=== PATIENT | female | born 1940 | race Caucasian/White ===

== ENCOUNTER 2024-09-18 17:06 | Inpatient (IN) | payer MEDICARE, MEDICAID, SELFPAY ==
[2024-09-18 17:20] VITALS: BP 187/90; PULSE 79; PULSE 85; RESP 16; RESP 19; TEMP 36.7; O2SAT 96; O2SAT 97
--- NOTE | 2024-09-18 17:21 | PD.EDAMS ---
Altered Mental Status RME/HPI General Chief Complaint: Altered Mental Status Stated Complaint: ALTERED Time Seen by Provider: 09/18/24 17:16 Arrival date/time: 09/18/24 17:06 This is an 84-year-old female that is brought in by ambulance with complaints of altered mental status 2 nights, talking to herself, screaming and yelling. uses wheelchair, saying things thats did not make sense. Per EMS son states that she was last seen normal on Monday at 8 AM. Per EMS patient is GCS 15. Patient was incontinent of urine. Per patient has fallen 4-5 times in the last couple days. Patient reports hitting the back of her head. Patient also has a little bruise under her chin. She arrives hypertensive in the 200s systolic. Patient has a history of anxiety depression migraines, high blood pressure hyperlipidemia.T2DM, HTN, recurrent UTIs, GERD, neuropathy, OA and history of lumbar fracture. Per patient's son patient not eating and drinking very well. Related Data Home Medications ?Medication ?Instructions ?Recorded ?Confirmed azelastine 137 mcg-fluticasone 50 1 spray intranasal BID PRN Nasal 04/07/23 09/19/24 mcg/spray nasal spray Congestion loratadine 10 mg tablet 10 mg PO QDAY 04/07/23 09/19/24 aspirin 81 mg tablet,delayed 81 mg PO QDAY 09/19/24 09/19/24 release (Adult Aspirin Regimen) atorvastatin 40 mg tablet (Lipitor) 40 mg PO QPM 09/19/24 09/19/24 famotidine 20 mg tablet (Acid 20 mg PO QDAY 09/19/24 09/19/24 Controller) memantine ER 28 mg-donepezil 10 mg 1 cap PO QDAY 09/19/24 09/19/24 capsule sprinkle,ext.release 24 hr (Namzaric) montelukast 10 mg tablet 10 mg PO QDAY 09/19/24 09/19/24 oxycodone 10 mg tablet 10 mg PO Q4H 09/19/24 09/19/24 Previous Rx's ?Medication ?Instructions ?Recorded pramipexole 0.75 mg tablet 0.75 mg PO HS 30 days #30 tabs 09/15/23 buspirone 30 mg tablet 30 mg PO HS #60 tabs 09/22/24 clonazepam 1 mg tablet 1 mg PO DAILY #30 tabs 09/22/24 duloxetine 60 mg capsule,delayed 60 mg PO HS #30 caps 09/22/24 release hydralazine 10 mg tablet 10 mg PO TID #60 tabs 09/22/24 polyethylene glycol 3350 17 17 g PO QDAY #119 grams 09/22/24 gram/dose oral powder lisinopril 2.5 mg tablet 2.5 mg PO QDAY #30 tabs 09/23/24 carvedilol 3.125 mg tablet 3.125 mg PO BIDWM 30 days #60 tabs 09/27/24 Allergies Allergy/AdvReac Type Severity Reaction Status Date / Time Penicillins Allergy Severe UNABLE TO Verified 09/18/24 17:28 WALK Sulfa (Sulfonamide Allergy Severe FLU, Verified 09/18/24 17:28 Antibiotics) UNABLE TO WALK Review of Systems Review of Systems Systems Reviewed: All systems reviewed, normal except as documented Past Medical History Surgical History OTHER SURGICAL HX: As in the history of present illness ED Exam General General appearance: Present alert and in no apparent distress Head Head exam: Present atraumatic Eye Eye exam: Present normal appearance, PERRL and EOMI ENT ENT exam: Present normal exam, normal oropharynx and mucous membranes moist Neck Neck exam: Present normal inspection, full ROM and trachea midline Chest Chest inspection: Present normal inspection and symmetric chest wall rise Respiratory Respiratory exam: Present normal lung sounds bilaterally Cardiovascular Cardiovascular exam: Present regular rate, normal rhythm and normal heart sounds Abdominal Exam Abdominal exam: Present soft Extremities Exam Extremities exam: Present normal inspection and full ROM Back Exam Back exam: Present normal inspection and full ROM Neurological Exam Neurological exam: Present alert and other (awake, able to answer most questions appropriately, pt sometimes says things that do not make sense ) Psychiatric Psychiatric exam: Present normal affect and normal mood Skin Skin exam: Present warm, dry, intact and normal color Course Course Course Narrative: 2125: left a message for Joselyn son to call back [id number] Quality Measures none Orders Category Date Time Status COVID-19 Screening Questionnaire NOW Care 09/18/24 22:52 Completed Decision to Admit X1 Care 09/18/24 22:52 Completed EKG (ED ONLY) *Do not use* NOW Care 09/18/24 17:[address] cervical spine wo con Stat Exams 09/18/24 17:[address] head/brain wo con Stat Exams 09/18/24 17:22 Completed EKG (ED Only) Stat Exams 09/18/24 17:23 Draft XR chest 1V Stat Exams 09/18/24 17:23 Completed BNP [B-Type Natriuretic Peptide] Stat Lab 09/18/24 18:15 Completed Blood Culture (Lab) Stat Lab 09/18/24 22:12 Completed CBC Stat Lab 09/18/24 18:15 Completed Comprehensive Metabolic Panel Stat Lab 09/18/24 18:15 Completed Drug Screen,Urine Stat Lab 09/18/24 20:16 Completed INR [Prothrombin Time with INR] Stat Lab 09/18/24 18:15 Completed Troponin I Stat Lab 09/18/24 18:15 Completed Troponin I Stat Lab 09/18/24 21:06 Completed Urinalysis, C/S if Indicated Stat Lab 09/18/24 20:16 Completed Urine Culture Stat Lab 09/18/24 21:12 Completed Labetalol IV [Trandate IV] Med 09/18/24 23:36 Discontinued 10 mg IVP X1 ONE Sodium Chloride 0.9% 1000 ml [Ns] 1,000 ml Med 09/18/24 19:53 Discontinued IV 999 mls/hr amLODIPine BESYLATE [Norvasc] Med 09/18/24 21:29 Discontinued 5 mg PO X1 ONE cefTRIAXone [Rocephin] 1,000 mg Med 09/18/24 22:00 Discontinued SODIUM CHLORIDE 0.9% (Popper) [Ns 0.9% (P)] 50 ml IV X1 Vital Signs Vital signs: Vital Signs Temperature 98.0 F 09/18/24 17:20 Pulse Rate 79 09/18/24 17:20 Respiratory Rate 16 09/18/24 17:20 Blood Pressure 187/90 H 09/18/24 17:20 Pulse Oximetry (%) 97 09/18/24 17:20 Oxygen Delivery Method Nasal Cannula 09/18/24 17:20 Procedures -ED EKG Interpretation #1: Date of EK09/18/24 Time of EK:41 Rate: 76 Interpretation: Interpreted by me (sinus rhythm left ventricular hypertrophy) EKG Impression: No ectopy and Normal QRS Altered Mental Status MDM Narrative MDM Narrative:: chest x ray shows: Findings: No significant cardiac enlargement. No aspiration pneumonia. Significant osteopenia Impression: No aspiration pneumonia cervical spine ct: Findings: Axial sections demonstrate intact base of the skull. C1 exhibit satisfactory relationship to the odontoid. No acute cervical vertebral body fracture seen. Alignment posterior spinous processes satisfactory. Impression: No acute cervical fracture. Head ct : Findings: No significant ventricular enlargement. Intra-axial or extra-axial hemorrhage density is not seen. No mass effect or midline shift Basal cisterns are not remarkable. Fourth ventricle is midline. Cranial vault intact. Impression: Negative for acute hemorrhage, mass effect or midline shift Patient hypertensive upon arrival 187/90. Patient CBC shows a white count of 9.2, hemoglobin and hematocrit of 12.7 and 38.3 PT INR unremarkable patient's sodium 143 potassium 3.1 BUN of 26 creatinine of 2.0, patient's AST is 47 ALT is 27 alk phos is 138 troponin was 0.070 BNP was 44 chest x-ray shows no active disease CT head and neck unremarkable. Urine positive for UTI patient was given a dose of Ceftriaxone. Patient is allergic to penicillins but I checked with Joselyn son At [phone] and he states that she can take this medication. Hospitalist called to admit patient to [facility] and they agreed to admit Patient data External records reviewed:: [facility] previous records Clinical information provided by:: patient and family Social determinants that could affect healthcare access:: none Patient has the following chronic illnesses:: see hpi How is presenting disease/condition affected by chronic disease/condition?: exacerbated by Evaluation data The following diagnostics were reviewed and interpreted by me:: lab results, radiology exam(s) and EKG tracing(s) Lab and/or radiology exams considered but not ordered:: none Interpretation Summary: see note Medications / Prescriptions Medications or Prescriptions considered but not ordered:: none Medication administrations:: Medication Administration History Discontinued Medications Acetaminophen (Acetaminophen 325 Mg Tablet) 650 mg PO Q6H PRN PRN Reason: Fever >100 or pain 1-5 Stop: 10/19/24 00:04 Last Admin: 09/27/24 17:12 Dose: 650 mg Documented By: Admin: 09/27/24 09:00 Dose: 650 mg Documented By: Admin: 09/27/24 01:52 Dose: 650 mg Documented By: IMELDA Amlodipine Besylate (Amlodipine Besylate 5 Mg Tablet) 5 mg PO X1 ONE Stop: 09/18/24 21:30 Last Admin: 09/18/24 21:48 Dose: 5 mg Documented By: LETICIA Aspirin (Aspirin Ec 81 Mg Tabec) 81 mg PO X1 ONE Stop: 09/19/24 09:01 Aspirin (Aspirin Ec 81 Mg Tabec) 81 mg PO QDAY [facility] Stop: 10/19/24 08:59 Last Admin: 09/27/24 08:02 Dose: 81 mg Documented By: Admin: 09/26/24 08:39 Dose: 81 mg Documented By: Admin: 09/25/24 08:42 Dose: 81 mg Documented By: Admin: 09/24/24 08:47 Dose: 81 mg Documented By: Admin: 09/23/24 08:18 Dose: 81 mg Documented By: Admin: 09/22/24 09:28 Dose: 81 mg Documented By: Admin: 09/21/24 09:53 Dose: 81 mg Documented By: Admin: 09/20/24 09:34 Dose: 81 mg Documented By: Admin: 09/19/24 08:31 Dose: 81 mg Documented By: MARIO Atorvastatin Calcium (Atorvastatin Calcium 10 Mg Tablet) 40 mg PO HS [facility] Stop: 10/19/24 20:59 Last Admin: 09/20/24 20:09 Dose: 40 mg Documented By: Admin: 09/19/24 20:44 Dose: 40 mg Documented By: GERARDO Atorvastatin Calcium (Atorvastatin Calcium 20 Mg Tablet) 40 mg PO HS [facility] Stop: 10/19/24 20:59 Last Admin: 09/26/24 20:41 Dose: 40 mg Documented By: Admin: 09/25/24 20:38 Dose: 40 mg Documented By: Admin: 09/24/24 20:48 Dose: 40 mg Documented By: Admin: 09/23/24 21:30 Dose: 40 mg Documented By: Admin: 09/22/24 20:53 Dose: 40 mg Documented By: Admin: 09/21/24 20:10 Dose: 40 mg Documented By: CARRIE Buspirone HCl (Buspirone Hcl 5 Mg Tablet) 30 mg PO HS [facility] Stop: 10/19/24 00:09 Last Admin: 09/26/24 20:41 Dose: 30 mg Documented By: Admin: 09/25/24 20:38 Dose: 30 mg Documented By: Admin: 09/24/24 20:47 Dose: 30 mg Documented By: Admin: 09/23/24 21:30 Dose: 30 mg Documented By: Admin: 09/22/24 20:53 Dose: 30 mg Documented By: Admin: 09/21/24 20:10 Dose: 30 mg Documented By: Admin: 09/20/24 20:09 Dose: 30 mg Documented By: Admin: 09/19/24 20:44 Dose: 30 mg Documented By: Admin: 09/19/24 01:38 Dose: 30 mg Documented By: LETICIA Comments: JUST BROUGHT DOWN BY ADVANCED PRACTICE RN Carvedilol (Carvedilol 3.125 Mg Tablet) 3.125 mg PO BIDWM [facility] Stop: 10/20/24 13:59 Last Admin: 09/21/24 09:53 Dose: 3.125 mg Documented By: Admin: 09/20/24 13:43 Dose: 3.125 mg Documented By: LARISSA Carvedilol (Carvedilol 3.125 Mg Tablet) 3.125 mg PO X1 ONE Stop: 09/21/24 10:40 Last Admin: 09/21/24 13:06 Dose: 3.125 mg Documented By: MILY Carvedilol (Carvedilol 3.125 Mg Tablet) 6.25 mg PO BIDWM [facility] Stop: 10/21/24 17:29 Last Admin: 09/23/24 08:30 Dose: Not Given Documented By: MOI Non-Admin Reason: Cancelled by Provider Admin: 09/22/24 18:42 Dose: 6.25 mg Documented By: Admin: 09/22/24 09:28 Dose: 6.25 mg Documented By: Admin: 09/21/24 17:21 Dose: 6.25 mg Documented By: MILY Carvedilol (Carvedilol 3.125 Mg Tablet) 12.5 mg PO BIDWM [facility] Stop: 10/23/24 17:29 Last Admin: 09/25/24 08:42 Dose: 12.5 mg Documented By: Admin: 09/24/24 17:47 Dose: 12.5 mg Documented By: Admin: 09/24/24 08:48 Dose: 12.5 mg Documented By: Admin: 09/23/24 18:21 Dose: 12.5 mg Documented By: MOI Carvedilol (Carvedilol 3.125 Mg Tablet) 3.125 mg PO BIDWM [facility] Stop: 10/25/24 17:29 Last Admin: 09/27/24 17:12 Dose: 3.125 mg Documented By: Admin: 09/27/24 08:01 Dose: 3.125 mg Documented By: Admin: 09/26/24 17:11 Dose: 3.125 mg Documented By: Admin: 09/26/24 08:39 Dose: 3.125 mg Documented By: Admin: 09/25/24 17:42 Dose: Not Given Documented By: JORGE Non-Admin Reason: Vital Signs Comments: Hold per Dr. Condon related to vital signs. Cephalexin HCl (Cephalexin 250 Mg Capsule) 500 mg PO DAILY [facility] Stop: 10/01/24 08:59 Last Admin: 09/26/24 08:39 Dose: 500 mg Documented By: Admin: 09/25/24 08:42 Dose: 500 mg Documented By: Admin: 09/24/24 08:48 Dose: 500 mg Documented By: HERMILA Clonazepam (Clonazepam 0.5 Mg Tablet) 1 mg PO BID [facility] Stop: 09/24/24 00:14 Last Admin: 09/19/24 20:45 Dose: 1 mg Documented By: Admin: 09/19/24 08:30 Dose: 1 mg Documented By: Admin: 09/19/24 01:27 Dose: 1 mg Documented By: LETICIA Clonazepam (Clonazepam 0.5 Mg Tablet) 1 mg PO DAILY [facility] Stop: 09/25/24 08:59 Last Admin: 09/24/24 08:47 Dose: 1 mg Documented By: Admin: 09/23/24 08:17 Dose: 1 mg Documented By: Admin: 09/22/24 09:28 Dose: 1 mg Documented By: Admin: 09/21/24 09:52 Dose: 1 mg Documented By: Admin: 09/20/24 09:34 Dose: 1 mg Documented By: LARISSA Doxepin HCl (Doxepin Hcl 25 Mg Capsule) 25 mg PO HS [facility] Stop: 10/19/24 00:09 Last Admin: 09/19/24 01:39 Dose: 25 mg Documented By: LETICIA Comments: JUST BROUGHT DOWN BY ADVANCED PRACTICE RN Duloxetine HCl (Duloxetine Hcl 30 Mg Capsule) 60 mg PO HS [facility] Stop: 10/19/24 00:14 Last Admin: 09/24/24 20:48 Dose: 60 mg Documented By: Admin: 09/23/24 21:30 Dose: 60 mg Documented By: Admin: 09/22/24 20:52 Dose: 60 mg Documented By: Admin: 09/21/24 20:10 Dose: 60 mg Documented By: Admin: 09/20/24 20:09 Dose: 60 mg Documented By: Admin: 09/19/24 20:44 Dose: 60 mg Documented By: Admin: 09/19/24 01:40 Dose: 60 mg Documented By: LETICIA Comments: JUST BROUGHT DOWN BY ADVANCED PRACTICE RN Heparin Sodium (Porcine) (Heparin Sod Inj 5000 Unit/Ml Vial) 5,000 unit SC Q12H [facility] Stop: 10/03/24 08:59 Last Admin: 09/27/24 08:01 Dose: 5,000 unit Documented By: CECIL Co-signed By: JERAMY Admin: 09/26/24 20:41 Dose: 5,000 unit Documented By: IMELDA Co-signed By: VANDANA Admin: 09/26/24 08:40 Dose: 5,000 unit Documented By: JORGE Co-signed By: ER Admin: 09/25/24 20:35 Dose: 5,000 unit Documented By: IMELDA Co-signed By: ADALGISA Admin: 09/25/24 08:47 Dose: 5,000 unit Documented By: JORGE Co-signed By: LEONARDO Admin: 09/24/24 20:48 Dose: 5,000 unit Documented By: CARRIE Co-signed By: ANGELES Admin: 09/24/24 08:45 Dose: 5,000 unit Documented By: HERMILA Co-signed By: LEONARDO Admin: 09/23/24 21:40 Dose: 5,000 unit Documented By: ADALGISA Co-signed By: GERARDO Admin: 09/23/24 08:17 Dose: 5,000 unit Documented By: MOI Co-signed By: CORAZON Admin: 09/22/24 20:55 Dose: 5,000 unit Documented By: KAYCEE Co-signed By: Admin: 09/22/24 09:29 Dose: 5,000 unit Documented By: MILY Co-signed By: AMY Admin: 09/21/24 20:10 Dose: 5,000 unit Documented By: CARRIE Co-signed By: MAILE Admin: 09/21/24 09:53 Dose: 5,000 unit Documented By: MILY Co-signed By: COLE Admin: 09/20/24 20:08 Dose: 5,000 unit Documented By: CARRIE Co-signed By: Admin: 09/20/24 09:33 Dose: 5,000 unit Documented By: LARISSA Co-signed By: ELIO Admin: 09/19/24 20:45 Dose: 5,000 unit Documented By: GERARDO Co-signed By: SUSAN Admin: 09/19/24 08:31 Dose: 5,000 unit Documented By: MARIO Co-signed By: JORGE Hydralazine HCl (Hydralazine Inj 20 Mg/Ml Vial) 10 mg IV X1 ONE Stop: 09/19/24 01:37 Last Admin: 09/19/24 01:44 Dose: 10 mg Documented By: LETICIA Hydralazine HCl (Hydralazine Inj 20 Mg/Ml Vial) 5 mg IV X1 ONE Stop: 09/22/24 08:12 Last Admin: 09/22/24 09:29 Dose: 5 mg Documented By: MILY Hydralazine HCl (Hydralazine Hcl 10 Mg Tablet) 10 mg PO TID [facility] Stop: 10/22/24 13:59 Hydralazine HCl (Hydralazine Hcl 25 Mg Tablet) 25 mg PO BID [facility] Stop: 10/22/24 13:14 Last Admin: 09/22/24 20:51 Dose: 25 mg Documented By: Admin: 09/22/24 13:27 Dose: 25 mg Documented By: MILY Hydralazine HCl (Hydralazine Hcl 25 Mg Tablet) 25 mg PO TID [facility] Stop: 10/23/24 13:59 Hydralazine HCl (Hydralazine Hcl 10 Mg Tablet) 10 mg PO TID [facility] Stop: 10/23/24 13:59 Last Admin: 09/27/24 13:52 Dose: Not Given Documented By: CECIL Non-Admin Reason: Other, see note Comments: DR CSATILLOIQ AWARE OF BP 194/70, WILL ENTER NEW DOSE Admin: 09/25/24 05:12 Dose: Not Given Documented By: CARRIE Non-Admin Reason: Other, see note Comments: PER DR KHAN HOLD MEDICATION Admin: 09/24/24 21:49 Dose: Not Given Documented By: CARRIE Non-Admin Reason: PER HOLD MEDICATION Admin: 09/24/24 15:05 Dose: 10 mg Documented By: Admin: 09/24/24 05:20 Dose: 10 mg Documented By: Admin: 09/23/24 21:30 Dose: 10 mg Documented By: Admin: 09/23/24 14:33 Dose: Not Given Documented By: MOI Non-Admin Reason: Per MD Condon, do not give Hydralazine HCl (Hydralazine Hcl 25 Mg Tablet) 25 mg PO TID [facility] Stop: 10/27/24 13:59 Last Admin: 09/27/24 14:00 Dose: 25 mg Documented By: CECIL Sodium Chloride (Ns) 1,000 mls @ 999 mls/hr IV .Q1H1M ONE Stop: 09/18/24 20:53 Last Infusion: 09/18/24 23:33 Dose: Infused Documented By: Admin: 09/18/24 20:11 Dose: 999 mls/hr Documented By: ALMAS Ceftriaxone Sodium 1,000 mg/ (Sodium Chloride) 50 mls @ 100 mls/hr IV X1 ONE Stop: 09/18/24 22:29 Last Infusion: 09/18/24 23:33 Dose: Infused Documented By: Admin: 09/18/24 22:22 Dose: 100 mls/hr Documented By: ALMAS Ceftriaxone Sodium 1,000 mg/ (Sodium Chloride) 50 mls @ 100 mls/hr IV HS [facility] Stop: 09/26/24 20:59 Last Admin: 09/21/24 20:11 Dose: 100 mls/hr Documented By: Infusion: 09/20/24 20:38 Dose: Infused Documented By: Admin: 09/20/24 20:08 Dose: 100 mls/hr Documented By: Infusion: 09/19/24 22:05 Dose: Infused Documented By: Admin: 09/19/24 21:34 Dose: 100 mls/hr Documented By: GERARDO Magnesium Sulfate (Magnesium Sulfate Ivpb) 4 gm in 50 mls @ 12.5 mls/hr IV X1 ONE Stop: 09/19/24 12:54 Last Infusion: 09/19/24 18:50 Dose: Infused Documented By: Admin: 09/19/24 09:34 Dose: 12.5 mls/hr Documented By: MGXiomy Sodium Chloride (Ns) 250 mls @ 999 mls/hr IV .Q16M ONE Stop: 09/20/24 10:25 Last Infusion: 09/20/24 10:39 Dose: Infused Documented By: Admin: 09/20/24 10:23 Dose: 999 mls/hr Documented By: CECIL Sodium Chloride (Ns) 250 mls @ 999 mls/hr IV .Q16M ONE Stop: 09/20/24 18:42 Last Infusion: 09/20/24 19:30 Dose: Infused Documented By: Admin: 09/20/24 18:51 Dose: 999 mls/hr Documented By: LIBERTAD Magnesium Sulfate (Magnesium Sulfate Ivpb) 2 gm in 50 mls @ 25 mls/hr IV X1 ONE Stop: 09/21/24 09:25 Last Admin: 09/21/24 09:52 Dose: 25 mls/hr Documented By: MILY Sodium Chloride (Ns) 250 mls @ 999 mls/hr IV .Q16M ONE Stop: 09/21/24 07:43 Last Admin: 09/21/24 09:52 Dose: 999 mls/hr Documented By: MILY Piperacillin/Tazobactam/Dextrose (Zosyn) 3.375 gm in 50 mls @ 100 mls/hr IV X1 ONE Stop: 09/21/24 12:59 Last Admin: 09/21/24 16:54 Dose: Not Given Documented By: MILY Non-Admin Reason: Allergy Piperacillin/Tazobactam/Dextrose (Zosyn) 3.375 gm in 50 mls @ 12.5 mls/hr IV Q12HR [facility]; Protocol Stop: 09/28/24 20:59 Magnesium Sulfate (Magnesium Sulfate Ivpb) 2 gm in 50 mls @ 25 mls/hr IV X1 ONE Stop: 09/24/24 09:27 Last Admin: 09/24/24 08:48 Dose: 25 mls/hr Documented By: HERMILA Sodium Chloride (Ns) 250 mls @ 999 mls/hr IV .Q16M ONE Stop: 09/24/24 07:50 Last Admin: 09/24/24 08:48 Dose: 999 mls/hr Documented By: HERMILA Lactated Ringer's (Lactated Ringers) 500 mls @ 250 mls/hr IV .Q2H ONE Stop: 09/25/24 09:00 Lactated Ringer's (Lactated Ringers) 500 mls @ 999 mls/hr IV .Q31M ONE Stop: 09/25/24 07:53 Lactated Ringer's (Lactated Ringers) 1,000 mls @ 250 mls/hr IV .Q4H ONE Stop: 09/25/24 12:33 Last Admin: 09/25/24 08:47 Dose: 250 mls/hr Documented By: JORGE Sodium Chloride (Ns) 500 mls @ 250 mls/hr IV .Q2H ONE Stop: 09/26/24 15:12 Last Admin: 09/26/24 13:37 Dose: 250 mls/hr Documented By: JORGE Sodium Chloride (Ns) 500 mls @ 250 mls/hr IV .Q2H ONE Stop: 09/27/24 09:36 Last Admin: 09/27/24 08:07 Dose: 250 mls/hr Documented By: CECIL Labetalol HCl (Labetalol Inj 5 Mg/Ml Vial 20 Ml) 10 mg IVP X1 ONE Stop: 09/18/24 23:37 Last Admin: 09/18/24 23:57 Dose: 10 mg Documented By: LETICIA Labetalol HCl (Labetalol Inj 5 Mg/Ml Vial 20 Ml) 5 mg IVP X1 ONE Stop: 09/27/24 16:25 Last Admin: 09/27/24 16:35 Dose: 5 mg Documented By: CECIL Lidocaine (Lidocaine 5% 1 Patch) 1 patch TOP X1 ONE Stop: 09/22/24 00:17 Last Admin: 09/22/24 00:44 Dose: 1 patch Documented By: CARRIE Lisinopril (Lisinopril 2.5 Mg Tablet) 10 mg PO QDAY [facility] Stop: 10/23/24 13:59 Last Admin: 09/24/24 08:45 Dose: 10 mg Documented By: Admin: 09/23/24 14:34 Dose: 10 mg Documented By: MOI Nitrofurantoin Macrocrystals (Nitrofurantoin Macro 100 Mg Capsule) 100 mg PO BID [facility] Stop: 09/27/24 10:14 Last Admin: 09/23/24 08:18 Dose: 100 mg Documented By: Admin: 09/22/24 20:53 Dose: 100 mg Documented By: Admin: 09/22/24 13:27 Dose: 100 mg Documented By: MILY Home Medication- Please Speak With Patient Caregiver To Have Rx Brought To [facility] 1 cap PO HS [facility] Stop: 10/21/24 20:59 Last Admin: 09/26/24 20:43 Dose: Not Given Documented By: IMELDA Non-Admin Reason: not available Admin: 09/25/24 20:34 Dose: Not Given Documented By: IMELDA Non-Admin Reason: not available Admin: 09/24/24 20:48 Dose: Not Given Documented By: CARRIE Non-Admin Reason: Medication Not Available Admin: 09/23/24 21:31 Dose: Not Given Documented By: ADALGISA Non-Admin Reason: Medication Not Available Admin: 09/22/24 20:54 Dose: Not Given Documented By: KAYCEE Non-Admin Reason: Medication Not Available Admin: 09/21/24 20:20 Dose: Not Given Documented By: CARRIE Non-Admin Reason: Medication Not Available Ondansetron HCl (Ondansetron Inj 2 Mg/Ml Inj 2 Ml) 4 mg IV Q6H PRN; Protocol PRN Reason: NAUSEA OR VOMITING Stop: 10/19/24 00:04 Oxycodone/Acetaminophen (Oxycodone/Apap 5/325 Tablet) 2 tab PO Q6H PRN PRN Reason: pain 6-10 Stop: 09/24/24 00:14 Oxycodone/Acetaminophen (Oxycodone/Apap 5/325 Tablet) 1 tab PO Q8HR PRN PRN Reason: pain 6-10 Stop: 09/24/24 00:04 Last Admin: 09/22/24 16:15 Dose: 1 tab Documented By: Admin: 09/21/24 17:22 Dose: 1 tab Documented By: MILY Oxycodone/Acetaminophen (Oxycodone/Apap 5/325 Tablet) 1 tab PO Q4HR PRN PRN Reason: pain 6-10 Stop: 09/25/24 07:54 Last Admin: 09/24/24 17:47 Dose: 1 tab Documented By: Admin: 09/22/24 20:55 Dose: 1 tab Documented By: KAYCEE Pantoprazole Sodium (Pantoprazole Inj 40 Mg Vial) 40 mg IVP QDAY [facility] Stop: 10/19/24 08:59 Last Admin: 09/27/24 08:01 Dose: 40 mg Documented By: Admin: 09/26/24 08:39 Dose: 40 mg Documented By: Admin: 09/25/24 08:40 Dose: 40 mg Documented By: Admin: 09/24/24 08:45 Dose: 40 mg Documented By: Admin: 09/23/24 08:17 Dose: 40 mg Documented By: Admin: 09/22/24 09:28 Dose: 40 mg Documented By: Admin: 09/21/24 09:52 Dose: 40 mg Documented By: Admin: 09/20/24 09:33 Dose: 40 mg Documented By: Admin: 09/19/24 08:28 Dose: 40 mg Documented By: MARIO Pharmacy Consult (Pharmacy Renal Dose Adjustment 1 Ea) 1 each XX PRN PRN PRN Reason: CONSULT Stop: 10/20/24 07:54 Polyethylene Glycol (Polyethylene Glycol 17 Gm Packet) 17 gm PO QDAY [facility] Stop: 10/22/24 08:59 Last Admin: 09/24/24 08:49 Dose: 17 gm Documented By: Admin: 09/23/24 08:17 Dose: 17 gm Documented By: Admin: 09/22/24 09:28 Dose: 17 gm Documented By: MILY Potassium Chloride (Potassium Chloride 20 Meq Tabcr) 40 meq PO X1 ONE Stop: 09/19/24 00:31 Last Admin: 09/19/24 01:27 Dose: 40 meq Documented By: LETICIA Pramipexole Dihydrochloride (Pramipexole 0.25 Mg Tablet) 0.75 mg PO HS [facility] Stop: 10/19/24 00:09 Last Admin: 09/26/24 20:42 Dose: 0.75 mg Documented By: Admin: 09/25/24 20:38 Dose: 0.75 mg Documented By: Admin: 09/24/24 20:48 Dose: 0.75 mg Documented By: Admin: 09/23/24 21:30 Dose: 0.75 mg Documented By: Admin: 09/22/24 20:52 Dose: 0.75 mg Documented By: Admin: 09/21/24 20:12 Dose: 0.75 mg Documented By: Admin: 09/20/24 20:09 Dose: 0.75 mg Documented By: Admin: 09/19/24 20:45 Dose: 0.75 mg Documented By: Admin: 09/19/24 01:38 Dose: 0.75 mg Documented By: LETICIA Comments: JUST BROUGHT DOWN BY [facility] RN Sennosides (Senna Tablet) 1 tab PO QDAY PRN; Protocol PRN Reason: CONSTIPATION Stop: 10/22/24 07:49 Sennosides (Senna Tablet) 1 tab PO X1 ONE; Protocol Stop: 09/22/24 07:51 Last Admin: 09/22/24 09:32 Dose: 1 tab Documented By: MILY see mar Consultations Consultation(s) initiated? (list below): No Diagnosis Most likely diagnosis given after review of the tests above:: uti Admission Indicated Admission indicated?: indicated Admission Request Was there a request for admission?: Yes Admission Attestation Admission request attestation: Discussed case with [] from Hospitalist service regarding admission. Discussed patients ED course, exam findings, labs, and radiology results. The Hospitalist [agrees,declines] to accept the patient for admission. Disposition Plan Disposition Plan: Admit Discharge Plan Plan Patient Disposition: Admit Acute Care w/in Hospital Patient condition on transfer: Stable Problem List Clinical Impression: GIRMA (acute kidney injury), Fall, UTI (urinary tract infection), Acute encephalopathy Patient/Caregiver Discharge Instructions Discharge Activity: activity as tolerated PA/CLAY GRINDER Supervising Physician PA/CLAY GRINDER Supervising Physician: jin
--- NOTE | 2024-09-18 17:22 | XR_ITS ---
Examination: CT cervical spine without contrast 2-D sagittal reconstructions 2-D coronal reconstructions 3-D reconstructions. Exam date and time:September 18, 2024 at 1823 hrs. Indications: Patient fell today with into the neck, neck pain CTDI:vol (mGy) 7.36 DLP: (mGycm) 156 Technique: Multiple 2 mm axial sections of the cervical spine have been obtained. The coronal and sagittal reconstructions have been obtained. 3-D reconstructions have been obtained. Low dose protocols were performed. One or more of the following dose reduction techniques were used; automated exposure control, adjustment of the mA and/or KV according to patient size, use of iterative reconstruction technique. Findings: Axial sections demonstrate intact base of the skull. C1 exhibit satisfactory relationship to the odontoid. No acute cervical vertebral body fracture seen. Alignment posterior spinous processes satisfactory. Impression: No acute cervical fracture.
--- NOTE | 2024-09-18 17:22 | XR_ITS ---
Examination: CT brain head without contrast. 2-D sagittal coronal reconstructions Date and time of exam:September 18, 2024 1803 hours Indications: Patient fell today with injury to the head, head pain CTDI: vol (mGy):46.4 DLP: (mGycm):954 Technique: Multiple CT axial sections of the brain have been obtained, 5 mm slice thickness. Contrast has not been administered. 2-D sagittal, coronal reconstructions have been obtained Low dose protocols were performed. One or more of the following dose reduction techniques were used; automated exposure control, adjustment of the mA and/or KV according to patient size, use of iterative reconstruction technique. Findings: No significant ventricular enlargement. Intra-axial or extra-axial hemorrhage density is not seen. No mass effect or midline shift Basal cisterns are not remarkable. Fourth ventricle is midline. Cranial vault intact. Impression: Negative for acute hemorrhage, mass effect or midline shift
--- NOTE | 2024-09-18 17:23 | EKG_ITS ---
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
--- NOTE | 2024-09-18 17:23 | XR_ITS ---
Examination: AP chest single view Technique: AP portable upright chest single view Exam date and time: 2024 1705 hrs. Comparison September 05, 2023 Indications: Syncopal episode today. Findings: No significant cardiac enlargement. No aspiration pneumonia. Significant osteopenia Impression: No aspiration pneumonia
[2024-09-18 17:26] VITALS: BMI 25.3
[2024-09-18 18:34] LABS: Basophils % (Auto) 0 % (0-2.5); Eosinophils # (Auto) 0.4 Thou/mm3 (0.0-0.5); Eosinophils % (Auto) 4 % (0-10); Hematocrit 38.3 % (36.0-46.0); Hemoglobin 12.7 g/dL (12.0-16.0); Immature Granulocytes % (Auto) 0 % (0-0); Immature Granulocytes Auto 0.01 Thou/mm3 (0.00-0.00); Lymphocytes # (Auto) 1.7 Thou/mm3 (1.0-4.8); Lymphocytes % (Auto) 18 % (10-50); Mean Corpuscular HGB Conc 33.2 g/dl (31.0-37.0); Mean Corpuscular Hemoglobin 30.5 pg (25.0-35.0); Mean Corpuscular Volume 92 fL (80-100); Monocytes # (Auto) 0.6 Thou/mm3 (0.0-0.8); Monocytes % (Auto) 6 % (0-12); Neutrophils # (Auto) 6.5 Thou/mm3 (1.8-7.7); Neutrophils % (Auto) 71 % (37-80); Nucleated Red Blood Cell % 0 /100 WBC (0); Platelet Count 290 Thou/mm3 (140-440); RDW Standard Deviation 44.9 fL (36.4-46.3); Red Blood Count 4.16 Miln/mm3 (4.00-5.20); White Blood Count 9.2 Thou/mm3 (3.6-11.0)
[2024-09-18 18:49] LABS: Prothrombin Time 10.7 Seconds (9.0-12.2)
[2024-09-18 18:52] LABS: B-Type Natriuretic Peptide 44 pg/mL (0-100)
[2024-09-18 18:55] LABS: Alanine Aminotransferase 27 U/L (10-49); Albumin, Serum 4.8 gm/dL (3.4-4.8); Albumin/Globulin Ratio 1.8 (1.2-2.2); Alkaline Phosphatase 138 U/L (46-116); Anion Gap 15 (7-16); Aspartate Amino Transferase 47 U/L (0-34); BUN/Creatinine Ratio 13 Ratio (12-20); Bilirubin,Total 0.5 mg/dL (0.3-1.2); Blood Urea Nitrogen 26 mg/dL (9-23); Carbon Dioxide 27.9 mMol/L (20.0-31.0); Chloride 100 mMol/L (98-107); Estimated Creatinine Clearance 18.1 mL/min (>60); Globulin 2.7 gm/dL (2.3-3.5); Glucose 86 mg/dL (74-106); Osmolality,Calculated 288 (275-295); Potassium 3.1 mMol/L (3.4-5.1); Sodium 143 mMol/L (136-145); Total Protein 7.5 gm/dL (5.7-8.2); eGFR 24 See Note
[2024-09-18 20:06] VITALS: BP 162/78; PULSE 80; RESP 18; O2SAT 99
[2024-09-18] MEDS: SODIUM CHLORIDE 0.9% 1000 ML 1,000 ML 999 ML IV (20:11)
[2024-09-18 20:43] LABS: Collection Type, Urine Voided
[2024-09-18 21:05] LABS: Amorphous Crystals,Urine Present (Absent); Bacteria,Urine 1+; Bilirubin,Urine Negative (Negative); Blood,Urine Negative (Negative); Color,Urine Lt-Yellow (Lt Yel-Yel); Culture Indicated,Urine Contaminated; Glucose, Urine Negative (Negative); Ketones,Urine Trace (Negative); Leukocyte Esterase,Urine Positive (Negative); Nitrite,Urine Negative (Negative); Protein,Urine 1+ (Neg - Trace); RBC,Urine 9 /hpf (0-3); Specific Gravity,Urine 1.011 (1.001-1.035); Squamous Epithelial Cell,Urine 17 /hpf (0-5); Urobilinogen,Urine Negative mg/dL (0.0-1.0); WBC,Urine 57 /hpf (0-5)
[2024-09-18 21:08] LABS: Clarity,Urine Hazy (Clear/Hazy)
[2024-09-18 21:11] LABS: Amphetamine/Methamp Scrn,U Negative (Negative); Barbiturate Screen,Urine Negative (Negative); Benzodiazepines Screen,Urine Negative (Negative); Benzoylecgonine Screen, Ur Negative (Negative); Fentanyl Screen,Urine Negative (Negative); Opiate Screen,Urine Positive (Negative); THC Screen,Urine Negative (Negative)
--- NOTE | 2024-09-18 21:29 | PC.NURSE ---
RUTH DIAZ NOTIFIED OF BLOOD PRESSURE OF 220/83 AND REQUEST FOR IV BLOOD PRESSURE MEDICATION, RUTH MANCIA STATED SHE DID NOT WANT TO ORDER IV BLOOD PRESSURE MEDICATION UNTIL SHE FOUND OUT WHAT BLOOD PRESSURE MEDICATION PATIENT TOOK AT HOME AND THAT SHE WILL ORDER ONE OF THE BLOOD PRESSURE MEDICATIONS THAT PATIENT IS ALREADY TAKING.
[2024-09-18 21:36] LABS: Troponin I 0.064 ng/mL (0.0-0.045)
[2024-09-18 21:48] VITALS: BP 220/83; PULSE 89
[2024-09-18] MEDS: amLODIPine BESYLATE 5 MG TABLET PO (21:48)
--- NOTE | 2024-09-18 22:05 | PC.NURSE ---
PER DIGITAL ARCHIVIST GAVINO ALLEN TO GIVE ROCEPHIN MEDICATION, PER DIGITAL ARCHIVIST GAVINO PROVIDER CHECKED PREVIOUS VISITS AND NOTED THAT PATIENT RECEIVED ROCEPHIN ON PREVIOUS VISIT AND TOLERATED MEDICATION WELL. PHARMACY MADE AWARE.
[2024-09-18] MEDS: cefTRIAXone 1,000 MG in SODIUM CHLORIDE 0.9% (Popper) 50 ML 100 MG IV (22:22)
--- NOTE | 2024-09-18 23:30 | ESHP_ITS ---
<Statement entered by Katiuska Florez MD - 09/20/24 04:34> I reviewed above note and agree with findings and plans. I have also personally examined the patient with medicine team and went over assessment and plan with medical team including international project engineer and resident physician. Documentation for date of: 09/18/24 HPI History of Present Illness History of present illness: Joanne is a 84 y/o female with PMHx of generalized anxiety disorder, hypertension, hyperlipidemia, ? Alzheimer's, recurrent UTIs, history of falls, who was BIBA from home and comes in for an evaluation of an unwitnessed fall in the bathroom. Patient reports that she does not remember how she fell, however she was in the bathroom and had hit her head on the railing. She denies feeling weak prior to falling however also denies that she did not pass out. She says she has a history of falls. She also said that she fell a couple of times after leaving the restroom. She says she has a walker in which she uses. She denies any recent travel or sick contacts. She does endorse poor oral intake, has had some diarrhea lately, vomited this morning and vomited last night. She denies having any blood in her stool or vomit. She does get urinary tract infections often, is experiencing dysuria at this moment, and does have a component of urinary urgency in which she feels like she can't control her bladder. She does not use a Davis catheter at home. She takes her medicines as prescribed. She denies having a air tucker. She says she lives with her son in [facility]. No other complaints at this time. Spoke with son who says that patient had been getting a bit altered and says that this is normal when she has a UTI. Patient's son confirms her taking doxepin and nortriptyline together. Past medical history: As above Surgical history: 2 back surgeries 1 in 2020, 1 in 2022 as she had a fracture. Allergies: Penicillins, sulfa antibiotics Meds: Klonopin 1 mg, omeprazole, oxycodone 10 4 times a day, pramipexole 0.75 mg at night, doxepin 25 mg at bedtime, BuSpar 30 mg at bedtime, aspirin, Cymbalta 60 mg at bedtime, baclofen, Seroquel, Rexulti, Lipitor, amlodipine, nortriptyline Family Hx: Mother had, father of a heart attack in late 70s. No hx of stroke Social Hx: Originally from the [place], lived in [place] for 21 years. 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 Lives in [place] with her son. Smoked 1 cigarette for about 10 years in her 20s, has never been a heavy drinker, no history of oral or IV drug use. Lives with her son and is able to drive on her own, uses a walker at home. Review of Systems Review of Systems Narrative Review of Systems: Constitutional: No fever, chills, + fatigue, +weakness, no weight loss HEENT: No eye pain, vision loss, ear pain, hearing loss, dysphagia, Cardiovascular: No chest pain, palpitations, edema, pain with walking Respiratory: No cough, shortness of breath, wheezing GI: No abdominal pain, constipation, blood in stool, loss of appetite, heartburn, +diarrhea and vomiting : +dysuria Extremities: No presence of pitting edema MSK: No back pain, joint pain, joint swelling Neuro: No dizziness, numbness, weakness, headaches, seizures, tremors Psych: No anxiety, depression Exam Vital Signs Temp Pulse Resp BP Pulse Ox O2 Del Method 98.0 F 89 18 220/83 H 99 Room Air 09/18/24 17:20 09/18/24 21:48 09/18/24 20:06 09/18/24 21:48 09/18/24 20:06 09/18/24 20:06 Narrative Exam General: AAOx2, says that we are in [place] ([facility]), NAD, calm, pleasant elderly female HEENT: Dry mucous membranes, conjunctiva clear, EOMI, PERRLA, Cardiovascular: Systolic ejection murmur heard over RIGO, radial pulses +2 bilat, RRR Pulmonary: CTAB bilat no cough, no wheezing GI: No tenderness to light or deep palpitation, no guarding, rigidity, rebound tenderness or distension : Wearing diaper, soiled in urine Extremities: No presence of trace or pitting edema in lower extremities bilaterally, dorsalis pedis pulses +2 bilaterally Neuro: AAOx3, no focal motor or sensory deficits in the UE or LE bilat Psych: Cooperative, however sometimes says random things Results: Labs 09/18/24 18:15 09/18/24 18:15 Labs: Short CBC 09/18/24 Range/Units 18:15 WBC 9.2 (3.6-11.0) Thou/mm3 Hgb 12.7 (12.0-16.0) g/dL Hct 38.3 (36.0-46.0) % Plt Count 290 (140-440) Thou/mm3 BMP 09/18/24 18:15 Sodium 143 Potassium 3.1 L Chloride 100 Carbon Dioxide 27.9 BUN 26 H Creatinine 2.0 H Glucose 86 Calcium 10.0 Cardiac Enzymes 09/18/24 09/18/24 Range/Units 18:15 21:06 Troponin I 0.070 H* 0.064 H* (0.0-0.045) ng/mL Liver Function 09/18/24 Range/Units 18:15 Total Bilirubin 0.5 (0.3-1.2) mg/dL AST 47 H (0-34) U/L ALT 27 (10-49) U/L Alkaline Phosphatase 138 H (46-116) U/L Albumin 4.8 (3.4-4.8) gm/dL Urine 09/18/24 Range/Units 20:16 Urine Color Lt-Yellow (Lt Yel-Yel) Urine Clarity Hazy (Clear/Hazy) Urine pH 6.0 (5.0-7.0) Ur Specific [place] 1.011 (1.001-1.035) Urine Protein 1+ A (Neg - Trace) Urine Glucose (UA) Negative (Negative) Quality Measures Quality Measures VTE prophylaxis Advance care planning discussed with:: patient and child Medications Home Medications and Allergies Home Medications ?Medication ?Instructions ?Recorded ?Confirmed ?Type azelastine 137 mcg-fluticasone 50 1 spray intranasal B ID PRN Nasal 04/07/23 09/07/23 History mcg/spray nasal spray Congestion duloxetine 60 mg capsule,delayed 60 mg PO BID 04/07/23 09/10/23 History release Held on 09/15/23. Instructions: Resume on 10/06/23. until seen by PCP loratadine 10 mg tablet 10 mg PO QDAY 04/07/23 History meclizine 25 mg tablet 25 mg PO TID PRN Dizziness 0 04/07/23 09/07/23 History buspirone 30 mg tablet 30 mg PO BID 05/08/23 History doxepin 25 mg capsule 25 mg PO HS PRN Sleeping 09/07/23 History sumatriptan succinate 50 mg tablet 50 mg PO Q2H PRN Mi graine Headache 05/08/23 09/07/23 History clonazepam 1 mg tablet 1 mg PO BID 09/07/23 4 History Held on 09/15/23. Instructions: Resume on 10/06/23. Until seen by PCP hydrocodone 5 mg-acetaminophen 300 1 tab PO Q6H pain 0 09/07/23 09/07/23 History mg tablet Allergies Allergy/AdvReac Type Severity Reaction Status Date / Time Penicillins Allergy Severe UNABLE TO Verified 09/18/24 17:28 WALK Sulfa (Sulfonamide Allergy Severe FLU, Verified 09/18/24 17:28 Antibiotics) UNABLE TO WALK Visit Medications Discontinued Medications Amlodipine Besylate (Amlodipine Besylate 5 Mg Tablet) 5 mg PO X1 ONE Stop: 09/18/24 21:30 Last Admin: 09/18/24 21:48 Dose: 5 mg Sodium Chloride (Ns) 1,000 mls @ 999 mls/hr IV .Q1H1M ONE Stop: 09/18/24 20:53 Last Admin: 09/18/24 20:11 Dose: 999 mls/hr Ceftriaxone Sodium 1,000 mg/ (Sodium Chloride) 50 mls @ 100 mls/hr IV X1 ONE Stop: 09/18/24 22:29 Last Admin: 09/18/24 22:22 Dose: 100 mls/hr Assessment & Plan Plan Assessment Joanne is a 84 y/o female with PMHx of generalized anxiety disorder, hypertension, hyperlipidemia, ? Alzheimer's, recurrent UTIs, history of falls, who is admitted for HTN emergency, acute encephalopathy, and UTI. #Acute encephalopathy Likely multifactorial including infectious, could be a component of hypertensive encephalopathy as well also patient's baseline of possible dementia and psych Head CT negative for acute hemorrhage, midline shift or mass effect Patient has history of having some encephalopathy when getting UTIs We will treat UTI and bring down blood pressure and further assess Plan: ? Treat infection ? Neurochecks every 4 hours ? Control blood pressure ? Consider neurology consult #UTI #Recurrent UTIs #History of urinary urgency Has history of pansensitive E. coli and also Klebsiella Was given 1 g of Rocephin in ED Plan: ? Follow-up urine culture ? Continue with Rocephin 1 g IV daily ? Continue with Davis catheter #Acute kidney injury #Hypokalemia DDx: Prerenal versus ATN versus obstructive Cr 2.0 today BUN/Cr ratio 13; bun 16 This could be due to hypertensive emergency and intrarenal issue Patient does have history of heart failure, was given 1 L of bolus in ER, will hold off on additional fluids as this may not be prerenal Gave 40 mEq potassium Plan: ? Will hold on fluids at this time and we will see how kidney function trends and CMP ? Avoid nephrotoxic agents ? Renally dose medicines ? Urine lytes and creatinine #History of CAD #History of HFrEF, EJ ~40% #History of hyperlipidemia Echo from August 2023 Son says that she has gotten her heart checked either via cardiac catheterization or stress test and air tucker that she was fine Normal LV size. Mild systolic dysfunction. Hypokinesis apical lateral and septal, and mid septal wall. Estimated EF 40-45% Grade I diastolic dysfunction. Normal RV size and function Mild TR. No vegetations detected Plan: ? Resumed aspirin ? Will consider GDMT therapy upon DC ? Resumed home Lipitor 40 mg at bedtime #Hypertensive emergency, improving Highest BP read 220/110 Gave 10 IV labetalol Pt does have end organ damage of GIRMA (Cr up to 2.0) Takes home amlodipine Plan: ? Do not correct systolic blood pressure more than 25% within the first 24 hours #JUAN #? Dementia #? Schizophrenia #Chronic back pain Son says she does not take quetiapine consistently, denies history of schizophrenia Also says that she takes doxepin with nortriptyline Denies history of dementia She takes combo of donezepil and memantidine (namzaric) Plan: ? Resume home pain medicines ? Resume home Klonopin, Paxil, doxepin, BuSpar, Cymbalta ? Consider resuming Namzaric with donezepil and memantidine separately #Health Maintenance Disposition: Telemetry DVT prophylaxis: Heparin every 12 hours GI prophylaxis: Protonix Diet: Pending swallow eval CODE STATUS: Full Patient seen and care discussed with my attending physician, Dr. Vikki Simon, PGY-1
[2024-09-18 23:37] VITALS: BP 206/137; PULSE 84; RESP 15; O2SAT 97
[2024-09-18 23:57] VITALS: BP 206/137; PULSE 84
[2024-09-18] MEDS: LABETALOL INJ 5 MG/ML VIAL 20 ML 10 MG IVP (23:57)
[2024-09-19] VITALS (10 sets, daily range): BP systolic 110–210; BP diastolic 50–93; PULSE 67–94; RESP 12–20; TEMP 35.8–37.2; O2SAT 95–97; BMI 21.9; BMI 11.0
--- NOTE | 2024-09-19 00:30 | PC.NURSE ---
CALLED DIE OUT WORKER FOR MEDICATION ORDER.
[2024-09-19] MEDS: clonazePAM 0.5 MG TABLET 1 MG PO ×3 (01:27→20:45)
[2024-09-19] MEDS: POTASSIUM CHLORIDE 20 mEq TABCR 40 MEQ PO (01:27)
[2024-09-19] MEDS: BusPIRone HCL 5 MG TABLET 30 MG PO ×2 (01:38→20:44)
[2024-09-19] MEDS: PRAMIPEXOLE 0.25 MG TABLET 0.75 MG PO ×2 (01:38→20:45)
[2024-09-19] MEDS: DOXEPIN HCL 25 MG CAPSULE PO (01:39)
[2024-09-19] MEDS: DULoxetine HCL 30 MG CAPSULE 60 MG PO ×2 (01:40→20:44)
[2024-09-19] MEDS: hydrALAZINE INJ 20 MG/ML VIAL 10 MG IV (01:44)
--- NOTE | 2024-09-19 04:46 | PC.NURSE ---
when I admitted patient i noticed a large swollen area on upper right arm. Patient states it is painful. I notified Dr. Simon and he will pass on to day team.
[2024-09-19 07:17] LABS: Basophils % (Auto) 0 % (0-2.5); Eosinophils # (Auto) 0.5 Thou/mm3 (0.0-0.5); Eosinophils % (Auto) 5 % (0-10); Hematocrit 38.5 % (36.0-46.0); Hemoglobin 12.6 g/dL (12.0-16.0); Immature Granulocytes % (Auto) 0 % (0-0); Immature Granulocytes Auto 0.02 Thou/mm3 (0.00-0.00); Lymphocytes # (Auto) 2.5 Thou/mm3 (1.0-4.8); Lymphocytes % (Auto) 25 % (10-50); Mean Corpuscular HGB Conc 32.7 g/dl (31.0-37.0); Mean Corpuscular Hemoglobin 30.3 pg (25.0-35.0); Mean Corpuscular Volume 93 fL (80-100); Monocytes # (Auto) 0.6 Thou/mm3 (0.0-0.8); Monocytes % (Auto) 6 % (0-12); Neutrophils # (Auto) 6.3 Thou/mm3 (1.8-7.7); Neutrophils % (Auto) 63 % (37-80); Nucleated Red Blood Cell % 0 /100 WBC (0); Platelet Count 286 Thou/mm3 (140-440); RDW Standard Deviation 45.9 fL (36.4-46.3); Red Blood Count 4.16 Miln/mm3 (4.00-5.20)
[2024-09-19 07:49] LABS: Alanine Aminotransferase 27 U/L (10-49); Albumin, Serum 4.5 gm/dL (3.4-4.8); Alkaline Phosphatase 135 U/L (46-116); Anion Gap 16 (7-16); Aspartate Amino Transferase 45 U/L (0-34); BUN/Creatinine Ratio 15 Ratio (12-20); Bilirubin,Total 0.4 mg/dL (0.3-1.2); Blood Urea Nitrogen 23 mg/dL (9-23); Calcium 9.8 mg/dL (8.3-10.6); Calcium (Corrected) 9.8 mg/dL (8.5-10.1); Carbon Dioxide 24.3 mMol/L (20.0-31.0); Chloride 104 mMol/L (98-107); Cholesterol 186 mg/dL (132-200); Creatinine (Component) 1.5 mg/dL (0.6-1.3); Estimated Creatinine Clearance 21.8 mL/min (>60); Globulin 2.2 gm/dL (2.3-3.5); Glucose 63 mg/dL (74-106); HDL Cholesterol 91 mg/dL (40-60); LDL Cholesterol,Calculated 60 mg/dL (0-130); Magnesium 1.6 mg/dL (1.6-2.6); Osmolality,Calculated 288 (275-295); Phosphorous 3.2 mg/dL (2.4-5.1); Potassium 4.1 mMol/L (3.4-5.1); Sodium 144 mMol/L (136-145); Thyroid Stimulating Hormone 1.94 uIU/mL (0.55-4.78); Total Protein 6.7 gm/dL (5.7-8.2); Triglycerides 176 mg/dL (30-150); eGFR 35 See Note
[2024-09-19] MEDS: PANTOPRAZOLE INJ 40 MG VIAL IVP (08:28)
[2024-09-19] MEDS: HEPARIN SOD INJ 5000 UNIT/ML VIAL SC ×2 (08:31→20:45)
[2024-09-19] MEDS: ASPIRIN EC 81 MG TABEC PO (08:31)
[2024-09-19] MEDS: Magnesium Sulfate 4 GM Ivpb 4 GM/50 ML BAG IV (09:34)
--- NOTE | 2024-09-19 12:35 | ESPR_ITS ---
<Statement entered by Aashish Lang MD - 09/19/24 15:36> Patient was seen and examined at the bedside. Patient was admitted overnight for hypertensive emergency, GIRMA and UTI. Patient does have a history of HFrEF EF 40% however is not on goal-directed medical therapy. Currently we will continue with Rocephin for UTI. PT was ordered due to acute encephalopathy. Troponin I down trended. QTc was prolonged more than 550 on EKG therefore her psych meds were held. Will follow with blood cultures and urine culture. Magnesium was repleted. Slight improvement in GIRMA. Blood pressure dropped more than 25% in last 24 hours we will closely monitor that. All labs and orders were reviewed. I saw and examined the patient, and I agree with current management stated by Dr Rula MD,PGY1. Plan of care was discussed with the attending physician and resident physician. Disclaimer: Despite multiple revisions, due to the dictation software being used, the document bellow may not be free of grammatical errors including phonetic/typographic errors. However, this does not deter from our commitment to providing health care in the patient's best interest in mind. Dr. Rickey MD, PGY 2 Documentation for date of: 09/19/24 Subjective Subjective Interval history: Joanne Cook is an 84-y/o female with PMHx of CAD, HFrEF, JUAN, HTN, HLD, Alzheimer?s?, recurrent UTI and falls who comes from home after unwitnessed fall and admitted for acute encephalopathy and UTI. 09/19: Seen and examined at bedside in telemetry. She states that she lives with her son, Jake, who is a psychologist. Endorses that she did not lose consciousness during her falls and has had multiple episodes prior to coming to the hospital. This time, she states that she fell when walking to the bathroom after slipping on water on the floor. Denies prodromal symptoms. At baseline, she walks with a walker. Exam Vital Signs Temp Pulse Resp BP Pulse Ox O2 Del Method 98.1 F 76 18 131/79 H 96 Room Air 09/19/24 12:00 09/19/24 12:00 09/19/24 12:00 09/19/24 12:00 09/19/24 12:00 09/19/24 12:00 Narrative Exam General: Alert and orientated to self/place/year, laying comfortably in bed, able to speak full sentences HEENT: NC/AT, mucous membranes moist, bilateral sclera anicteric Cardiovascular: regular rate and rhythm, S1/S2 present, no murmurs appreciated Pulmonary: clear to auscultation bilaterally, no rales/rhonchi/wheezes Abdominal: soft, non-tender, non-distended, no rebound/guarding, normal bowel sounds present Musculoskeletal: normal ROM, no peripheral edema Skin: bruise under chin, warm and dry, intact, no rashes Neuro: CN II-XII intact, no focal deficits Objective Labs 09/20/24 05:10 09/20/24 05:10 Labs: Laboratory Results - last 24 hr 09/18/24 09/18/24 09/18/24 18:15 20:16 21:06 WBC 9.2 RBC 4.16 Hgb 12.7 Hct 38.3 MCV 92 MCH 30.5 MCHC 33.2 RDW Std Deviation 44.9 Plt Count 290 Neut % (Auto) 71 Lymph % (Auto) 18 [place] % (Auto) 6 Eos % (Auto) 4 Baso % (Auto) 0 Neut # (Auto) 6.5 Lymph # (Auto) 1.7 [place] # (Auto) 0.6 Eos # (Auto) 0.4 Baso # (Auto) 0.0 Immature Gran # (Auto) 0.01 H Absolute Nucleated RBC 0.00 Immature Gran % 0 Nucleated RBC % 0 PT 10.7 INR 1.0 Sodium 143 Potassium 3.1 L Chloride 100 Carbon Dioxide 27.9 Anion Gap 15 BUN 26 H Creatinine 2.0 H Estim Creat Clear Calc 18.1 L eGFR 24 L BUN/Creatinine Ratio 13 Glucose 86 Calculated Osmolality 288 Calcium 10.0 Corrected Calcium 10.0 Phosphorus Magnesium Total Bilirubin 0.5 AST 47 H ALT 27 Alkaline Phosphatase 138 H Troponin I 0.070 H* 0.064 H* B-Natriuretic Peptide 44 Total Protein 7.5 Albumin 4.8 Globulin 2.7 Albumin/Globulin Ratio 1.8 Triglycerides Cholesterol LDL Cholesterol, Calc HDL Cholesterol Cholesterol/HDL Ratio TSH Ur Collection Type Voided Urine Color Lt-Yellow Urine Clarity Hazy Urine pH 6.0 Ur Specific [place] 1.011 Urine Protein 1+ A Urine Glucose (UA) Negative Urine Ketones Trace Urine Blood Negative Urine Nitrite Negative Urine Bilirubin Negative Urine Urobilinogen (Auto) Negative Ur Leukocyte Esterase Positive Urine RBC 9 H Urine WBC 57 H Ur Squamous Epith Cells 17 H Amorphous Crystals Present A Urine Bacteria 1+ A Ur Culture Indicated? Contaminated Urine Opiates Screen Positive A Urine Fentanyl Screen Negative Ur Barbiturates Screen Negative U Amphetamin/Meth Scrn Negative U Benzodiazepines Scrn Negative U Cocaine Metab Screen Negative U Marijuana (THC) Screen Negative 09/19/24 06:45 WBC 10.0 RBC 4.16 Hgb 12.6 Hct 38.5 MCV 93 MCH 30.3 MCHC 32.7 RDW Std Deviation 45.9 Plt Count 286 Neut % (Auto) 63 Lymph % (Auto) 25 [place] % (Auto) 6 Eos % (Auto) 5 Baso % (Auto) 0 Neut # (Auto) 6.3 Lymph # (Auto) 2.5 [place] # (Auto) 0.6 Eos # (Auto) 0.5 Baso # (Auto) 0.0 Immature Gran # (Auto) 0.02 H Absolute Nucleated RBC 0.00 Immature Gran % 0 Nucleated RBC % 0 PT INR Sodium 144 Potassium 4.1 D Chloride 104 Carbon Dioxide 24.3 Anion Gap 16 BUN 23 Creatinine 1.5 H D Estim Creat Clear Calc 21.8 L eGFR 35 L BUN/Creatinine Ratio 15 Glucose 63 L Calculated Osmolality 288 Calcium 9.8 Corrected Calcium 9.8 Phosphorus 3.2 Magnesium 1.6 Total Bilirubin 0.4 AST 45 H ALT 27 Alkaline Phosphatase 135 H Troponin I B-Natriuretic Peptide Total Protein 6.7 Albumin 4.5 Globulin 2.2 L Albumin/Globulin Ratio 2.0 Triglycerides 176 H Cholesterol 186 LDL Cholesterol, Calc 60 HDL Cholesterol 91 H Cholesterol/HDL Ratio 2.0 L TSH 1.94 Ur Collection Type Urine Color Urine Clarity Urine pH Ur Specific [place] Urine Protein Urine Glucose (UA) Urine Ketones Urine Blood Urine Nitrite Urine Bilirubin Urine Urobilinogen (Auto) Ur Leukocyte Esterase Urine RBC Urine WBC Ur Squamous Epith Cells Amorphous Crystals Urine Bacteria Ur Culture Indicated? Urine Opiates Screen Urine Fentanyl Screen Ur Barbiturates Screen U Amphetamin/Meth Scrn U Benzodiazepines Scrn U Cocaine Metab Screen U Marijuana (THC) Screen Quality Measures Quality Measures VTE prophylaxis Advance care planning discussed with:: other Assessment & Plan Assessment Current Active Medications: Generic Name Dose Route Start Last Admin Trade Name Freq PRN Reason Stop Dose Admin Acetaminophen 650 mg 09/19/24 00:05 Acetaminophen 325 Mg Tablet PO 10/19/24 00:04 Q6H PRN Fever >100 or pain 1-5 Aspirin 81 mg 09/19/24 09:00 09/19/24 08:31 Aspirin Ec 81 Mg Tabec PO 10/19/24 08:59 81 mg QDAY KEYSHAWN Administration Atorvastatin Calcium 40 mg 09/19/24 21:00 Atorvastatin Calcium 10 Mg Tablet PO 10/19/24 20:59 HS KEYSHAWN Buspirone HCl 30 mg 09/19/24 00:10 09/19/24 01:38 Buspirone Hcl 5 Mg Tablet PO 10/19/24 00:09 30 mg HS KEYSHAWN Administration Clonazepam 1 mg 09/19/24 00:15 09/19/24 08:30 Clonazepam 0.5 Mg Tablet PO 09/24/24 00:14 1 mg BID KEYSHAWN Administration Doxepin HCl 25 mg 09/19/24 00:10 09/19/24 01:39 Doxepin Hcl 25 Mg Capsule PO 10/19/24 00:09 25 mg HS KEYSHAWN Administration Duloxetine HCl 60 mg 09/19/24 00:15 09/19/24 01:40 Duloxetine Hcl 30 Mg Capsule PO 10/19/24 00:14 60 mg HS KEYSHAWN Administration Heparin Sodium (Porcine) 5,000 unit 09/19/24 09:00 09/19/24 08:31 Heparin Sod Inj 5000 Unit/Ml Vial SC 10/03/24 08:59 5,000 unit Q12H KEYSHAWN Administration Ceftriaxone Sodium 1,000 mg/ 50 mls @ 100 mls/hr 09/19/24 21:00 Sodium Chloride IV 09/26/24 20:59 HS KEYSHAWN Magnesium Sulfate 4 gm in 50 mls @ 12.5 mls/hr 09/19/24 08:55 09/19/24 09:34 Magnesium Sulfate Ivpb IV 09/19/24 12:54 12.5 mls/hr X1 ONE Administration Ondansetron HCl 4 mg 09/19/24 00:05 Ondansetron Inj 2 Mg/Ml Inj 2 Ml IV 10/19/24 00:04 Q6H PRN NAUSEA OR VOMITING Protocol Oxycodone/Acetaminophen 2 tab 09/19/24 00:05 Oxycodone/Apap 5/325 Tablet PO 09/24/24 00:14 Q6H PRN pain 6-10 Pantoprazole Sodium 40 mg 09/19/24 09:00 09/19/24 08:28 Pantoprazole Inj 40 Mg Vial IVP 10/19/24 08:59 40 mg QDAY KEYSHAWN Administration Pramipexole Dihydrochloride 0.75 mg 09/19/24 00:10 09/19/24 01:38 Pramipexole 0.25 Mg Tablet PO 10/19/24 00:09 0.75 mg HS KEYSHAWN Administration Plan Joanne Cook is an 84-y/o female with PMHx of CAD, HFrEF, JUAN, HTN, HLD, Alzheimer?s?, recurrent UTI and falls who comes from home after unwitnessed fall and admitted for acute encephalopathy and UTI. #Acute encephalopathy likely secondary to UTI vs polypharmacy #Urinary tract infection, recurrent Head CT negative for acute hemorrhage, midline shift or mass effect History of having some encephalopathy when getting UTIs History of pansensitive E. coli UTI and will continue Rocephin ? Rocephin 1 g IV daily ? Follow-up urine culture ? Neurochecks every 4 hours #Acute kidney injury, improving #Hypokalemia Improved after 1 L NS in ED. Will hold on further fluids given history of HFrEF ? Avoid nephrotoxic agents, renally dose medicines #History of CAD #History of HFmrEF, EF ~40-45% #History of hyperlipidemia Echo 08/2023: EF 40-45%, hypokinesis of apical lateral and septal cristina ? Aspirin 81 mg PO daiy ? Atorvastatin 40 mg PO HS ? Start beta-flavio for GDMT on 09/20 #Hypertensive emergency with acute kidney injury, improving Highest BP read 220/110, given amlodipine 5 mg x1, labetalol 10 mg x1, and hydralazine 10 mg x1 Takes home amlodipine, will resume tomorrow if BP elevated #JUAN ? Buspirone ? Duloxetine ? Clonazepam ? Holding home doxepin as QTc noted to be 554 #? Alzheimers Son says she does not take quetiapine consistently, denies history of schizophrenia and dementia Has home Namzaric (donezepil and memantine) #? Restless leg syndrome ? Pramipexole Hospital management: Disposition: pending urine cultures and on IV abx Fluids: none Diet: cardiac Lines: PIV DVT prophylaxis: heparin SC BID GI prophylaxis: pantoprazole 40 mg IV daily CODE STATUS: full code ----- Plan discussed with attending physician Dr. Liang and senior resident physician Dr. Rickey Horta MD PGY-1 Internal Medicine Attending Provider Attestation/Addendum I have examined the patient, reviewed labs and imaging findings, discussed the case with the resident(s), and reviewed entered orders. I agree with the plan of care as outlined in this note, with these additional summaries/recommendations: Patient seen at bedside. Patient diagnosed with acute encephalopathy on admission and appears to be trending towards baseline. We will continue IV Rocephin for urinary tract infection. Urine culture pending and we will follow- up results when available. Patient was also noted to have acute kidney injury most likely secondary to prerenal azotemia. Patient received IV fluids and creatinine improved from 2.0-1.5. We will repeat renal panel in a.m. and continue to avoid nephrotoxic agents. Patient has a lengthy cardiac history for CAD and HFrEF. Echocardiogram revealed EF 40 to 45%. We will continue home aspirin and Lipitor. We will attempt to institute goal-directed medical therapy for CHF as tolerated. Patient has a history of likely dementia and possibly schizophrenia. She takes multiple antidepressants, anxiolytic, and antipsychotic. We are attempting to figure out who patient's psychiatrist is as patient's QTc on EKG was prolonged to 487 and patient is at risk of arrhythmia. We will attempt to wean QTc prolonging medications as tolerated. If we we are unable to get a hold of patient's psychiatrist or PCP we may consider consulting neurology for guidance. Patient's blood pressure has significantly improved from admission and we will continue to optimize blood pressure regimen as tolerated. Repeat hematology and chemistry panel in AM. Dr. Garth MD
--- NOTE | 2024-09-19 12:52 | PC.SS ---
FREEZER ASSISTANT conducted bedside contact with the patient conduct initial assessment and to discuss discharge planning.? Patient confirmed demographic information.? Patient resides at home with son and spouse.? Patient utilizes a walker to assist with ambulation.? Patient does not utilize home oxygen.? Patient describes the ability to complete ADL?s independently.? Patient identified son, Jake Cook ; as medical surrogate decision maker.? Patient?s PCP is Dr. Lacho Haji.? Patient utilizes [facility] for medication services.? Patient is diabetic non-insulin dependent.? Patient does not participate with dialysis.? Patient confirmed access to basic utilities and provisions.? Plan is for the patient to return to [facility] at the time of discharge.? Family will provide transportation on behalf of the patient. ?No discharge needs identified by the patient.? No further intervention required at this time, social insurance specialist will be available to address any further concerns.? Next of Kin: Amparo Call D/C Plan: Home
--- NOTE | 2024-09-19 16:00 | EKG_ITS ---
[facility] Test Date: 2024-09-19 Pat Name: VINEET ANRDES [facility] Gender: Female Government Affairs Researcher: RT STUDENT : 1940 Requested By: Darion Horta Order Number: [id number] Reading MD: Darion Horta Measurements Intervals [place] Rate: 71 P: 30 MN: 156 QRS: 6 QRSD: 83 T: 31 QT: 446 QTc: 487 Interpretive Statements SINUS RHYTHM POSSIBLE LEFT ATRIAL ENLARGEMENT POSSIBLE LEFT VENTRICULAR HYPERTROPHY Compared to ECG 09/18/2024 18:41:25 ST (T wave) deviation no longer present /store/S0/[id number]
--- NOTE | 2024-09-19 16:46 | PC.SS ---
Rounding Note: PT evaluation is pending. D/C plan home with home health.
[2024-09-19] MEDS: ATORVASTATIN CALCIUM 10 MG TABLET 40 MG PO (20:44)
[2024-09-19] MEDS: cefTRIAXone 1,000 MG in SODIUM CHLORIDE 0.9% (Popper) 50 ML 100 MG IV (21:34)
[2024-09-20] VITALS (8 sets, daily range): BP systolic 107–174; BP diastolic 63–88; PULSE 82–99; RESP 14–27; TEMP 36.2–37.1; O2SAT 95–96; BMI 22.6
[2024-09-20 06:28] LABS: Basophils % (Auto) 0 % (0-2.5); Eosinophils # (Auto) 0.5 Thou/mm3 (0.0-0.5); Eosinophils % (Auto) 5 % (0-10); Hemoglobin 11.5 g/dL (12.0-16.0); Immature Granulocytes % (Auto) 0 % (0-0); Immature Granulocytes Auto 0.03 Thou/mm3 (0.00-0.00); Lymphocytes # (Auto) 3.5 Thou/mm3 (1.0-4.8); Lymphocytes % (Auto) 32 % (10-50); Mean Corpuscular HGB Conc 32.9 g/dl (31.0-37.0); Mean Corpuscular Hemoglobin 30.7 pg (25.0-35.0); Mean Corpuscular Volume 94 fL (80-100); Monocytes # (Auto) 0.7 Thou/mm3 (0.0-0.8); Monocytes % (Auto) 6 % (0-12); Neutrophils # (Auto) 6.2 Thou/mm3 (1.8-7.7); Neutrophils % (Auto) 57 % (37-80); Nucleated Red Blood Cell % 0 /100 WBC (0); Platelet Count 233 Thou/mm3 (140-440); RDW Standard Deviation 46.7 fL (36.4-46.3); Red Blood Count 3.74 Miln/mm3 (4.00-5.20); White Blood Count 10.9 Thou/mm3 (3.6-11.0)
[2024-09-20 06:39] LABS: INR 0.9 (0.9-1.3); Partial Thromboplastin Time 24.2 Seconds (22.0-36.0); Prothrombin Time 10.4 Seconds (9.0-12.2)
[2024-09-20 06:52] LABS: Alanine Aminotransferase 19 U/L (10-49); Albumin, Serum 4.1 gm/dL (3.4-4.8); Albumin/Globulin Ratio 1.7 (1.2-2.2); Alkaline Phosphatase 121 U/L (46-116); Anion Gap 13 (7-16); Aspartate Amino Transferase 23 U/L (0-34); BUN/Creatinine Ratio 16 Ratio (12-20); Bilirubin,Total 0.4 mg/dL (0.3-1.2); Blood Urea Nitrogen 36 mg/dL (9-23); Calcium 9.7 mg/dL (8.3-10.6); Calcium (Corrected) 9.7 mg/dL (8.5-10.1); Chloride 106 mMol/L (98-107); Creatinine (Component) 2.2 mg/dL (0.6-1.3); Estimated Creatinine Clearance 14.9 mL/min (>60); Globulin 2.4 gm/dL (2.3-3.5); Glucose 101 mg/dL (74-106); Magnesium 2.5 mg/dL (1.6-2.6); Osmolality,Calculated 293 (275-295); Phosphorous 2.8 mg/dL (2.4-5.1); Potassium 4.1 mMol/L (3.4-5.1); Sodium 143 mMol/L (136-145); Total Protein 6.5 gm/dL (5.7-8.2); eGFR 22 See Note
[2024-09-20] MEDS: HEPARIN SOD INJ 5000 UNIT/ML VIAL SC ×2 (09:33→20:08)
[2024-09-20] MEDS: PANTOPRAZOLE INJ 40 MG VIAL IVP (09:33)
[2024-09-20] MEDS: ASPIRIN EC 81 MG TABEC PO (09:34)
[2024-09-20] MEDS: clonazePAM 0.5 MG TABLET 1 MG PO (09:34)
--- NOTE | 2024-09-20 09:39 | PC.SS ---
Addendum entered by ESTELLA Valiente 09/20/24 17:16: Velma at [facility] requested to fax patient's facesheet to [phone] and clinicals to [phone]. SS faxed over to Valentine Mendoza for their review. Addendum entered by ESTELLA Valiente 09/20/24 16:44: SS update: faxed patient's clinicals and PASRR to [place] insurance carrier to for insurance authorization. Velma at [facility] is aware and to follow up with insurance carrier. Addendum entered by ESTELLA Valiente 09/20/24 15:04: Rounding note: treating for UTI and kidney function improvement. Addendum entered by ESTELLA Valiente 09/20/24 14:55: SNF Inquiry sent via [employer]. Addendum entered by ESTELLA Valiente 09/20/24 13:53: SS update: spoke with patient and she is agreeable with SNF placement. Preferred is [facility]. Addendum entered by ESTELLA Valiente 09/20/24 09:56: SS update: spoke with patient's son, Jake Cook regarding PT's recommendation for SNF and he informed he will discuss the matter with the patient. Original Note: SECURITY SYSTEM TECHNICIAN attempted contact with patient's son, Jake Cook regarding PT's recommendation for SNF, provided a voicemail to him.
--- NOTE | 2024-09-20 10:10 | XR_ITS ---
Examination: Retroperitoneal ultrasound, complete Technique: Multiple high resolution grayscale images of the retroperitoneum obtained, including kidneys and bladder. Exam date and time:September 20, 2024, 1113 hrs. Indications: Acute renal insufficiency on laboratory examination September 20, 2024 Findings: Right kidney 9.0 x 5.7 x 4.0 cm cortex 1.6 cm Left kidney 8.6 x 4.7 x 4.7 cm cortex 1.3 cm Moderate bilateral renal cortical scar formation 22 mm left renal cyst Bladder prevoid volume 235 cc unable to void, bladder wall is thickened 9 mm No bladder mass posterior bladder wall 13 x 10 x 16 mm Impression: Moderate bilateral renal parenchymal scar formation Recommend cystoscopy follow-up to exclude early bladder carcinoma
--- NOTE | 2024-09-20 10:11 | ECHO_ITS ---
Transthoracic Echo Report Ht (in): 61 Wt (lb): 120 Exam Location: Portable Status: Inpatient Sales Service Coordinator: SHARAN Cuevas^^^^ Indications: Procedure Performed: BP: 123 / 76 HR: 82 Technical Quality: Technically difficult study MEASUREMENTS (Male / Female) Normal Values 2D ECHO LV Diastolic Diameter PLAX 5.6 cm 4.2 - 5.9 / 3.9 - 5.3 cm LV Systolic Diameter PLAX 4.5 cm IVS Diastolic Thickness 0.6 cm 0.6 - 1.0 / 0.6 - 0.9 cm LVPW Diastolic Thickness 0.6 cm 0.6 - 1.0 / 0.6 - 0.9 cm LV Relative Wall Thickness 0.2 LVOT Diameter 1.7 cm Aortic Root Diameter 3.0 cm LA Systolic Diameter LX 3.2 cm 3.0 - 4.0 / 2.7 - 3.8 cm LV Ejection Fraction MOD BP 46.5 % >= 55 % LV Cardiac Index MOD BP 2470.0 cm?/min?m? LV Ejection Fraction MOD 4C 48.9 % LV Cardiac Index MOD 4C 3051.5 cm?/min?m? LV Ejection Fraction 4C AL 52.6 % LV Cardiac Index 4C AL 3444.9 cm?/min?m? LV Ejection Fraction MOD 2C 51.2 % LV Cardiac Index MOD 2C 2171.3 cm?/min?m? LV Ejection Fraction 2C AL 53.2 % LV Cardiac Index 2C AL 2278.7 cm?/min?m? LA Volume Index 13.8 cm?/m? 16 - 28 cm?/m? Ascending Aorta Diameter 2.9 cm DOPPLER AV Peak Velocity 134.0 cm/s AV Peak Gradient 7.2 mmHg AV Mean Gradient 5.0 mmHg AV Velocity Time Integral 29.4 cm LVOT Peak Velocity 106.0 cm/s LVOT Peak Gradient 4.5 mmHg LVOT Velocity Time Integral 25.4 cm LVOT Cardiac Index 3075.7 cm?/min?m? AV Area Cont Eq vti 2.0 cm? AV Area Cont Eq pk 1.8 cm? MV Area PHT 3.0 cm? Mitral E Point Velocity 48.0 cm/s Mitral A Point Velocity 97.5 cm/s Mitral E to A Ratio 0.5 LV E' Lateral Velocity 8.6 cm/s Mitral E to LV E' Lateral Ratio 5.6 LV E' Septal Velocity 6.3 cm/s Mitral E to LV E' Septal Ratio 7.6 TR Peak Velocity 229.7 cm/s TR Peak Gradient 21.1 mmHg PV Peak Velocity 91.8 cm/s PV Peak Gradient 3.4 mmHg RVOT Peak Velocity 53.2 cm/s FINDINGS Left Ventricle The left ventricular ejection fraction is mildly decreased, estimated at 45- 50%. There is grade I diastolic dysfunction of the left ventricle (impaired relaxation pattern). Right Ventricle The right ventricle is normal in size and systolic function. The estimated right ventricular systolic pressure, 22 mmHg. Left Atrium The left atrium is normal by two-dimensional, color flow and Doppler imaging with no structural abnormalities, no thrombus formation present. Right Atrium The right atrium is normal by two-dimensional imaging, color flow and Doppler imaging with no structural abnormalities, no thrombus formation present. Atrial Septum The interatrial septum appears normal with no evidence of a shunt. Aorta The aorta is normal by two-dimensional, color flow and Doppler interrogation. Mitral Valve Trace to mild mitral regurgitation. Mild mitral annular calcification. Aortic Valve Aortic valve sclerosis. Tricuspid Valve There is mild tricuspid valve regurgitation. Pulmonic Valve Trivial pulmonic valve regurgitation. Vessels The pulmonary artery appears normal. The inferior vena cava pulmonary and hepatic veins appear normal. Pericardium The pericardium is normal by two-dimensional imaging. There is no significant pericardial effusion. CONCLUSIONS Indication: CHF LV size normal and function mildly reduced at 45-50% with septal and lateral wall hypokinesis. Diastolic Dysfunction stage I. Normal Rv size and function with normal RVSP 22 mmHg. Trace-mild MR & mild MAC. Mild TR. Mild Av sclerosis without stenosis. Rito Barajas (Electronically Signed) Final Date: 20 September 2024 20:22
[2024-09-20] MEDS: SODIUM CHLORIDE 0.9% 250 ML 250 ML 999 ML IV ×2 (10:23→18:51)
--- NOTE | 2024-09-20 11:27 | CHAP ---
Patient was visited by the Spiritual Care Volunteer who prayed for them. (Volunteer was in the hospital from 10:00-11:27)
[2024-09-20] MEDS: carVEDILOL 3.125 MG TABLET PO (13:43)
--- NOTE | 2024-09-20 14:56 | PC.CC ---
Lauren CARLOS completed Passr for patient and uploaded it to [employer].
--- NOTE | 2024-09-20 15:41 | ESPR_ITS ---
<Statement entered by Aashish Lang MD - 09/20/24 17:48> Patient was seen and examined at the bedside. Patient was AO x 2. She reported that she has generalized weakness. Overnight, patient had elevated blood pressure and it dropped quickly after IV hydralazine 10 mg x 1. Labs were significant for worsening GIRMA with creatinine jumped up from 1.5->2.2. Therefore bolus of fluids was given 250 cc x 2. We ordered renal ultrasound and urine electrolytes. Medications were renally dosed. Currently waiting on urine cultures. PT recommended SNF placement. 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 Patient was started on Coreg 3.125 twice daily for heart failure. PureWick catheter was placed for strict VARUN's. Will closely monitor blood pressure. All labs and orders were reviewed. I saw and examined the patient, and I agree with current management stated by Dr Rula MD,PGY1. Plan of care was discussed with the attending physician and resident physician. Disclaimer: Despite multiple revisions, due to the dictation software being used, the document bellow may not be free of grammatical errors including phonetic/typographic errors. However, this does not deter from our commitment to providing health care in the patient's best interest in mind. Dr. Rickey MD, PGY 2 Documentation for date of: 09/20/24 Subjective Subjective Interval history: Joanne Cook is an 84-y/o female with PMHx of CAD, HFrEF, JUAN, HTN, HLD, Alzheimer?s?, recurrent UTI and falls who comes from home after unwitnessed fall and admitted for acute encephalopathy and UTI. 09/19: Seen and examined at bedside in telemetry. She states that she lives with her son, Jake, who is a psychologist. Endorses that she did not lose consciousness during her falls and has had multiple episodes prior to coming to the hospital. This time, she states that she fell when walking to the bathroom after slipping on water on the floor. Denies prodromal symptoms. At baseline, she walks with a walker. 09/20: Seen and examined at bedside in telemetry. No acute overnight events noted. Spoke to son in the morning who states that patient is normally able to function on her own and is able to do her own banking and finances. He also confirmed that patient does not have an outpatient psychiatrist. States that he feels safer if patient remained in the hospital for the day as he was told that patient was going to go home today but was not told this by hospitalist team. 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 She does not have any complaints at this time. Exam Vital Signs Temp Pulse Resp BP Pulse Ox O2 Del Method 98.1 F 90 17 154/80 H 95 Room Air 09/20/24 12:00 09/20/24 13:43 09/20/24 12:00 09/20/24 13:43 09/20/24 12:00 09/20/24 12:00 Narrative Exam General: Alert and orientated to self/place/year, laying comfortably in bed, able to speak full sentences HEENT: NC/AT, mucous membranes moist, bilateral sclera anicteric Cardiovascular: regular rate and rhythm, S1/S2 present, no murmurs appreciated Pulmonary: clear to auscultation bilaterally, no rales/rhonchi/wheezes Abdominal: soft, non-tender, non-distended, no rebound/guarding, normal bowel sounds present Musculoskeletal: normal ROM, no peripheral edema Skin: bruise under chin, warm and dry, intact, no rashes Neuro: CN II-XII intact, no focal deficits Objective Labs 09/23/24 04:54 09/23/24 04:54 Labs: Laboratory Results - last 24 hr 09/20/24 05:10 WBC 10.9 RBC 3.74 L Hgb 11.5 L Hct 35.0 L MCV 94 MCH 30.7 MCHC 32.9 RDW Std Deviation 46.7 H Plt Count 233 D Neut % (Auto) 57 Lymph % (Auto) 32 [place] % (Auto) 6 Eos % (Auto) 5 Baso % (Auto) 0 Neut # (Auto) 6.2 Lymph # (Auto) 3.5 [place] # (Auto) 0.7 Eos # (Auto) 0.5 Baso # (Auto) 0.0 Immature Gran # (Auto) 0.03 H Absolute Nucleated RBC 0.00 Immature Gran % 0 Nucleated RBC % 0 PT 10.4 INR 0.9 APTT 24.2 Sodium 143 Potassium 4.1 Chloride 106 Carbon Dioxide 24.0 Anion Gap 13 BUN 36 H Creatinine 2.2 H D Estim Creat Clear Calc 14.9 L eGFR 22 L BUN/Creatinine Ratio 16 Glucose 101 D Calculated Osmolality 293 Calcium 9.7 Corrected Calcium 9.7 Phosphorus 2.8 Magnesium 2.5 Total Bilirubin 0.4 AST 23 ALT 19 Alkaline Phosphatase 121 H Total Protein 6.5 Albumin 4.1 Globulin 2.4 Albumin/Globulin Ratio 1.7 Quality Measures Quality Measures VTE prophylaxis Advance care planning discussed with:: other Assessment & Plan Assessment Current Active Medications: Generic Name Dose Route Start Last Admin Trade Name Freq PRN Reason Stop Dose Admin Acetaminophen 650 mg 09/19/24 00:05 Acetaminophen 325 Mg Tablet PO 10/19/24 00:04 Q6H PRN Fever >100 or pain 1-5 Aspirin 81 mg 09/19/24 09:00 09/20/24 09:34 Aspirin Ec 81 Mg Tabec PO 10/19/24 08:59 81 mg QDAY KEYSHAWN Administration Atorvastatin Calcium 40 mg 09/19/24 21:00 09/19/24 20:44 Atorvastatin Calcium 10 Mg Tablet PO 10/19/24 20:59 40 mg HS KEYSHAWN Administration Buspirone HCl 30 mg 09/19/24 00:10 09/19/24 20:44 Buspirone Hcl 5 Mg Tablet PO 10/19/24 00:09 30 mg HS KEYSHAWN Administration Carvedilol 3.125 mg 09/20/24 14:00 09/20/24 13:43 Carvedilol 3.125 Mg Tablet PO 10/20/24 13:59 3.125 mg BIDWM KEYSHAWN Administration Clonazepam 1 mg 09/20/24 09:00 09/20/24 09:34 Clonazepam 0.5 Mg Tablet PO 09/25/24 08:59 1 mg DAILY KEYSHAWN Administration Doxepin HCl 25 mg 09/19/24 00:10 09/19/24 01:39 Doxepin Hcl 25 Mg Capsule PO 10/19/24 00:09 25 mg HS KEYSHAWN Administration Duloxetine HCl 60 mg 09/19/24 00:15 09/19/24 20:44 Duloxetine Hcl 30 Mg Capsule PO 10/19/24 00:14 60 mg HS KEYSHAWN Administration Heparin Sodium (Porcine) 5,000 unit 09/19/24 09:00 09/20/24 09:33 Heparin Sod Inj 5000 Unit/Ml Vial SC 10/03/24 08:59 5,000 unit Q12H KEYSHAWN Administration Ceftriaxone Sodium 1,000 mg/ 50 mls @ 100 mls/hr 09/19/24 21:00 09/19/24 22:05 Sodium Chloride IV 09/26/24 20:59 Infused HS KEYSHAWN Infusion Oxycodone/Acetaminophen 1 tab 09/20/24 07:55 Oxycodone/Apap 5/325 Tablet PO 09/24/24 00:04 Q8HR PRN pain 6-10 Pantoprazole Sodium 40 mg 09/19/24 09:00 09/20/24 09:33 Pantoprazole Inj 40 Mg Vial IVP 10/19/24 08:59 40 mg QDAY KEYSHAWN Administration Pharmacy Consult 1 each 09/20/24 07:55 Pharmacy Renal Dose Adjustment 1 Ea XX 10/20/24 07:54 PRN PRN CONSULT Pramipexole Dihydrochloride 0.75 mg 09/19/24 00:10 09/19/24 20:45 Pramipexole 0.25 Mg Tablet PO 10/19/24 00:09 0.75 mg HS KEYSHAWN Administration Plan Joanne Cook is an 84-y/o female with PMHx of CAD, HFrEF, JUAN, HTN, HLD, Alzheimer?s?, recurrent UTI and falls who comes from home after unwitnessed fall and admitted for acute encephalopathy and UTI. #Acute encephalopathy likely secondary to UTI vs polypharmacy #Urinary tract infection, recurrent Head CT negative for acute hemorrhage, midline shift or mass effect History of having some encephalopathy when getting UTIs History of pansensitive E. coli UTI and will continue Rocephin UA did not reflex to urine culture and will not pursue urine culture at this time given that it is unlikely to yield anything given that patient has already been on antibiotics. ? Rocephin 1 g IV daily ? Neurochecks every 4 hours #Acute kidney injury likely secondary to relative hypotension #? Acute tubular necrosis #Hypokalemia Improved after 1 L NS in ED. Had HTN of 220/80 that was decreased to 120/80 within 24 hour period. Likely caused relative hypotension and ATN. ? Status-post 250 mL LR boluses x2 given history of HFmrEF ? Will monitor AM labs for improvement with IVF ? Avoid nephrotoxic agents, renally dose medicines #History of CAD #History of HFmrEF, EF ~40-45% #History of hyperlipidemia Echo 08/2023: EF 40-45%, hypokinesis of apical lateral and septal cristina ? Aspirin 81 mg PO daiy ? Atorvastatin 40 mg PO HS ? Started on coreg for GDMT 3.125 mg PO BIDWM #Hypertensive emergency with acute kidney injury, improving Highest BP read 220/110, given amlodipine 5 mg x1, labetalol 10 mg x1, and hydralazine 10 mg x1 Takes home amlodipine, will resume tomorrow if BP elevated #JUAN ? Continue Buspirone and Duloxetine ? Clonazepam decreased from BID to daily ? Holding home doxepin as QTc noted to be 554 and may be contributing to AMS #? Alzheimers Son says she does not take quetiapine consistently, denies history of schizophrenia and dementia Has home Namzaric (donezepil and memantine) #? Restless leg syndrome ? Pramipexole Hospital management: Disposition: on IV antibiotics and will continue to adjust home psychiatrist medications Fluids: 250 mL LR bolus x2 given GIRMA Diet: cardiac Lines: PIV DVT prophylaxis: heparin SC BID GI prophylaxis: pantoprazole 40 mg IV daily CODE STATUS: full code ----- Plan discussed with attending physician Dr. Liang and senior resident physician Dr. Rickey Horta MD PGY-1 Internal Medicine Attending Provider Attestation/Addendum I have examined the patient, reviewed labs and imaging findings, discussed the case with the resident(s), and reviewed entered orders. I agree with the plan of care as outlined in this note, with these additional summaries/recommendations: Patient seen at bedside. Patient diagnosed with acute encephalopathy on admission and appears to be back to baseline mental status. She is alert & oriented X 3. We will continue IV Rocephin for urinary tract infection. Urine culture was ordered although never collected. At this time little utility to obtaining Ur cx since patient has already received multiple days of IV abx and will defer ur cx now. Patient was also noted to have acute kidney injury most likely secondary to prerenal azotemia. Patient received IV fluids and renal function initially improved although now worsened again. We will given additional low dose fluids today and continue to optimize blood pressure. We will repeat renal panel in a.m. and continue to avoid nephrotoxic agents. Patient has a lengthy cardiac history for CAD and HFrEF. Echocardiogram revealed EF 40 to 45%. We will continue home aspirin and Lipitor. We will attempt to institute goal-directed medical therapy for CHF as tolerated. Patient has a history of likely dementia and possibly schizophrenia. She takes multiple antidepressants, anxiolytic, and antipsychotic. Patient denies having a psychiatrist and reports PCP manages her medications. Patient's QTc on EKG was prolonged to 487 and patient is at risk of arrhythmia. We will attempt to wean QTc prolonging medications as tolerated. Patient's blood pressure has improved from admission and we will continue to optimize blood pressure regimen as tolerated. Repeat hematology and chemistry panel in AM. Dr. Garth MD
[2024-09-20] MEDS: cefTRIAXone 1,000 MG in SODIUM CHLORIDE 0.9% (Popper) 50 ML 100 MG IV (20:08)
[2024-09-20] MEDS: PRAMIPEXOLE 0.25 MG TABLET 0.75 MG PO (20:09)
[2024-09-20] MEDS: DULoxetine HCL 30 MG CAPSULE 60 MG PO (20:09)
[2024-09-20] MEDS: BusPIRone HCL 5 MG TABLET 30 MG PO (20:09)
[2024-09-20] MEDS: ATORVASTATIN CALCIUM 10 MG TABLET 40 MG PO (20:09)
[2024-09-21] VITALS (9 sets, daily range): BP systolic 139–166; BP diastolic 67–90; PULSE 76–99; RESP 18–24; TEMP 36.1–36.7; O2SAT 95–98; BMI 22.7
[2024-09-21 06:11] LABS: Basophils # (Auto) 0.1 Thou/mm3 (0.0-0.2); Basophils % (Auto) 0 % (0-2.5); Eosinophils # (Auto) 0.8 Thou/mm3 (0.0-0.5); Eosinophils % (Auto) 6 % (0-10); Hematocrit 34.8 % (36.0-46.0); Hemoglobin 11.5 g/dL (12.0-16.0); Immature Granulocytes % (Auto) 0 % (0-0); Immature Granulocytes Auto 0.04 Thou/mm3 (0.00-0.00); Lymphocytes # (Auto) 2.4 Thou/mm3 (1.0-4.8); Lymphocytes % (Auto) 19 % (10-50); Mean Corpuscular Volume 94 fL (80-100); Monocytes # (Auto) 0.7 Thou/mm3 (0.0-0.8); Monocytes % (Auto) 5 % (0-12); Neutrophils # (Auto) 9.1 Thou/mm3 (1.8-7.7); Neutrophils % (Auto) 70 % (37-80); Nucleated Red Blood Cell % 0 /100 WBC (0); Platelet Count 270 Thou/mm3 (140-440); RDW Standard Deviation 46.7 fL (36.4-46.3); Red Blood Count 3.71 Miln/mm3 (4.00-5.20); White Blood Count 13.1 Thou/mm3 (3.6-11.0)
[2024-09-21 07:01] LABS: Alanine Aminotransferase 14 U/L (10-49); Albumin, Serum 4.1 gm/dL (3.4-4.8); Albumin/Globulin Ratio 1.8 (1.2-2.2); Alkaline Phosphatase 115 U/L (46-116); Anion Gap 12 (7-16); Aspartate Amino Transferase 18 U/L (0-34); BUN/Creatinine Ratio 21 Ratio (12-20); Bilirubin,Total 0.3 mg/dL (0.3-1.2); Blood Urea Nitrogen 34 mg/dL (9-23); Calcium 9.9 mg/dL (8.3-10.6); Calcium (Corrected) 9.9 mg/dL (8.5-10.1); Carbon Dioxide 20.7 mMol/L (20.0-31.0); Chloride 110 mMol/L (98-107); Creatinine (Component) 1.6 mg/dL (0.6-1.3); Estimated Creatinine Clearance 20.5 mL/min (>60); Globulin 2.3 gm/dL (2.3-3.5); Glucose 84 mg/dL (74-106); Magnesium 1.8 mg/dL (1.6-2.6); Osmolality,Calculated 291 (275-295); Phosphorous 3.2 mg/dL (2.4-5.1); Potassium 4.6 mMol/L (3.4-5.1); Sodium 143 mMol/L (136-145); Total Protein 6.4 gm/dL (5.7-8.2); eGFR 32 See Note
[2024-09-21] MEDS: SODIUM CHLORIDE 0.9% 250 ML 250 ML 999 ML IV (09:52)
[2024-09-21] MEDS: Magnesium Sulfate 2 GM Ivpb 2 GM/50 ML BAG IV (09:52)
[2024-09-21] MEDS: clonazePAM 0.5 MG TABLET 1 MG PO (09:52)
[2024-09-21] MEDS: PANTOPRAZOLE INJ 40 MG VIAL IVP (09:52)
[2024-09-21] MEDS: HEPARIN SOD INJ 5000 UNIT/ML VIAL SC ×2 (09:53→20:10)
[2024-09-21] MEDS: ASPIRIN EC 81 MG TABEC PO (09:53)
[2024-09-21] MEDS: carVEDILOL 3.125 MG TABLET PO ×2 (09:53→13:06)
--- NOTE | 2024-09-21 12:03 | PD.RESPRO ---
Documentation for date of: 09/21/24 Subjective Subjective Interval history: Joanne Cook is an 84-y/o female with PMHx of CAD, HFrEF, JUAN, HTN, HLD, Alzheimer?s?, recurrent UTI and falls who comes from home after unwitnessed fall and admitted for acute encephalopathy and UTI. 09/19: Seen and examined at bedside in telemetry. She states that she lives with her son, Jake, who is a psychologist. Endorses that she did not lose consciousness during her falls and has had multiple episodes prior to coming to the hospital. This time, she states that she fell when walking to the bathroom after slipping on water on the floor. Denies prodromal symptoms. At baseline, she walks with a walker. 09/20: Seen and examined at bedside in telemetry. No acute overnight events noted. Spoke to son in the morning who states that patient is normally able to function on her own and is able to do her own banking and finances. He also confirmed that patient does not have an outpatient psychiatrist. States that he feels safer if patient remained in the hospital for the day as he was told that patient was going to go home today but was not told this by hospitalist team. 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 She does not have any complaints at this time. 09/21: Seen and examined at bedside in telemetry. No acute overnight events noted. She does not have any complaints other than dysuria. Otherwise, denies fever, chills, nausea, vomiting, abdominal pain. Spoke to son at bedside who started that he manages home medications prescribed by PCP. States that patient is not on quetiapine and that her mentation and cognitive function are better while on memantine and brexpiprazole, but brexpiprazole not seen on med rec so will instead restart home memantine-donepezil. Exam Vital Signs Temp Pulse Resp BP Pulse Ox O2 Del Method 97.9 F 89 18 166/90 H 98 Room Air 09/21/24 08:00 09/21/24 09:53 09/21/24 08:00 09/21/24 09:53 09/21/24 08:00 09/21/24 08:00 Narrative Exam General: Alert and orientated to self and year today, laying comfortably in bed, able to speak full sentences HEENT: NC/AT, mucous membranes moist, bilateral sclera anicteric Cardiovascular: regular rate and rhythm, S1/S2 present, no murmurs appreciated Pulmonary: clear to auscultation bilaterally, no rales/rhonchi/wheezes Abdominal: soft, non-tender, non-distended, no rebound/guarding, normal bowel sounds present Musculoskeletal: normal ROM, no peripheral edema Skin: bruise under chin, warm and dry, intact, no rashes Neuro: CN II-XII intact, no focal deficits Objective Labs 09/21/24 04:38 09/21/24 04:38 Labs: Laboratory Results - last 24 hr 09/21/24 04:38 WBC 13.1 H RBC 3.71 L Hgb 11.5 L Hct 34.8 L MCV 94 MCH 31.0 MCHC 33.0 RDW Std Deviation 46.7 H Plt Count 270 D Neut % (Auto) 70 Lymph % (Auto) 19 [place] % (Auto) 5 Eos % (Auto) 6 Baso % (Auto) 0 Neut # (Auto) 9.1 H Lymph # (Auto) 2.4 [place] # (Auto) 0.7 Eos # (Auto) 0.8 H Baso # (Auto) 0.1 Immature Gran # (Auto) 0.04 H Absolute Nucleated RBC 0.00 Immature Gran % 0 Nucleated RBC % 0 Sodium 143 Potassium 4.6 D Chloride 110 H Carbon Dioxide 20.7 Anion Gap 12 BUN 34 H Creatinine 1.6 H D Estim Creat Clear Calc 20.5 L eGFR 32 L BUN/Creatinine Ratio 21 H Glucose 84 Calculated Osmolality 291 Calcium 9.9 Corrected Calcium 9.9 Phosphorus 3.2 Magnesium 1.8 Total Bilirubin 0.3 AST 18 ALT 14 Alkaline Phosphatase 115 Total Protein 6.4 Albumin 4.1 Globulin 2.3 Albumin/Globulin Ratio 1.8 Quality Measures Quality Measures VTE prophylaxis Advance care planning discussed with:: patient Assessment & Plan Assessment Current Active Medications: Generic Name Dose Route Start Last Admin Trade Name Freq PRN Reason Stop Dose Admin Acetaminophen 650 mg 09/19/24 00:05 Acetaminophen 325 Mg Tablet PO 10/19/24 00:04 Q6H PRN Fever >100 or pain 1-5 Aspirin 81 mg 09/19/24 09:00 09/21/24 09:53 Aspirin Ec 81 Mg Tabec PO 10/19/24 08:59 81 mg QDAY KEYSHAWN Administration Atorvastatin Calcium 40 mg 09/21/24 21:00 Atorvastatin Calcium 20 Mg Tablet PO 10/19/24 20:59 HS KEYSHAWN Buspirone HCl 30 mg 09/19/24 00:10 09/20/24 20:09 Buspirone Hcl 5 Mg Tablet PO 10/19/24 00:09 30 mg HS KEYSHAWN Administration Carvedilol 6.25 mg 09/21/24 17:30 Carvedilol 3.125 Mg Tablet PO 10/21/24 17:29 BIDWM KEYSHAWN Clonazepam 1 mg 09/20/24 09:00 09/21/24 09:52 Clonazepam 0.5 Mg Tablet PO 09/25/24 08:59 1 mg DAILY KEYSHAWN Administration Doxepin HCl 25 mg 09/19/24 00:10 09/19/24 01:39 Doxepin Hcl 25 Mg Capsule PO 10/19/24 00:09 25 mg HS KEYSHAWN Administration Duloxetine HCl 60 mg 09/19/24 00:15 09/20/24 20:09 Duloxetine Hcl 30 Mg Capsule PO 10/19/24 00:14 60 mg HS KEYSHAWN Administration Heparin Sodium (Porcine) 5,000 unit 09/19/24 09:00 09/21/24 09:53 Heparin Sod Inj 5000 Unit/Ml Vial SC 10/03/24 08:59 5,000 unit Q12H KEYSHAWN Administration Ceftriaxone Sodium 1,000 mg/ 50 mls @ 100 mls/hr 09/19/24 21:00 09/20/24 20:08 Sodium Chloride IV 09/26/24 20:59 100 mls/hr HS KEYSHAWN Administration Oxycodone/Acetaminophen 1 tab 09/20/24 07:55 Oxycodone/Apap 5/325 Tablet PO 09/24/24 00:04 Q8HR PRN pain 6-10 Pantoprazole Sodium 40 mg 09/19/24 09:00 09/21/24 09:52 Pantoprazole Inj 40 Mg Vial IVP 10/19/24 08:59 40 mg QDAY KYESHAWN Administration Pharmacy Consult 1 each 09/20/24 07:55 Pharmacy Renal Dose Adjustment 1 Ea XX 10/20/24 07:54 PRN PRN CONSULT Pramipexole Dihydrochloride 0.75 mg 09/19/24 00:10 03/14/25 20:09 Pramipexole 0.25 Mg Tablet PO 10/19/24 00:09 0.75 mg HS KEYSHAWN Administration Plan Joanne Cook is an 84-y/o female with PMHx of CAD, HFrEF, JUAN, HTN, HLD, Alzheimer?s?, recurrent UTI and falls who comes from home after unwitnessed fall and admitted for acute encephalopathy and UTI. #Acute encephalopathy likely secondary to UTI vs polypharmacy #Urinary tract infection, recurrent Head CT negative for acute hemorrhage, midline shift or mass effect History of having some encephalopathy when getting UTIs. History of pansensitive E. coli UTI and will continue Rocephin. At this time, patient continues to endorse dysuria with progressively increasing leukocytosis. Per chart review, recent history of pansensitive E. coli UTI but this did not history of Klebsiella UTI resistant to Rocephin. UA did not reflex to urine culture and will not pursue urine culture at this time given that it is unlikely to yield anything given that patient has already been on antibiotics. ? Rocephin 1 g IV daily ? Neurochecks every 4 hours #Acute kidney injury likely secondary to relative hypotension, improving #? Acute tubular necrosis #Hypokalemia Improved after 1 L NS in ED. Had HTN of 220/80 that was decreased to 120/80 within 24 hour period. Likely caused relative hypotension and ATN. Status-post 250 mL LR boluses x2 given history of HFmrEF on 09/21. ? 250 mL LR bolus x1 ? Continue to monitor AM labs for improvement with IVF ? 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 Stage I diastolic dysfunction. ? Aspirin 81 mg PO daiy ? Atorvastatin 40 mg PO HS ? Coreg increased from 3.125 to 6.25 mg PO BIDWM #Hypertensive emergency with acute kidney injury, improving Highest BP read 220/110, given amlodipine 5 mg x1, labetalol 10 mg x1, and hydralazine 10 mg x1 Takes home amlodipine, will resume tomorrow if BP elevated #JUAN ? Buspirone ? Duloxetine ? Clonazepam decreased from BID to daily ? Holding home doxepin as QTc noted to be 554 and may be contributing to AMS #? Alzheimers Son says she does not take quetiapine consistently, denies history of schizophrenia and dementia ? Continue home Namzaric (donezepil and memantine) #? Restless leg syndrome ? Pramipexole Hospital management: Disposition: on IV antibiotics and will continue to adjust home psychiatrist medications Fluids: 250 mL LR bolus x1 given GIRMA Diet: cardiac Lines: PIV DVT prophylaxis: heparin SC BID GI prophylaxis: pantoprazole 40 mg IV daily CODE STATUS: full code ----- Plan discussed with attending physician Dr. Vazquez and senior resident physician Dr. Rickey Horta MD PGY-1 Internal Medicine Attending Provider Attestation/Addendum I have examined the patient, reviewed labs and imaging findings, discussed the case with the resident(s), and reviewed entered orders. I agree with the plan of care as outlined in this note, with these additional summaries/recommendations: Patient's mentation appears to be improving as she is alert and oriented x 2 today. However, still does not appear to be back at baseline and spike in white count today up to 13, concerning for possible resistance to antibiotics for UTI. Will continue to monitor for 1 additional day and adjust patient's home regimen as able. If stable, anticipate discharge in next 24 to 48 hours. For now, close I's and O's monitoring of renal function. Jake Vazquez MD
[2024-09-21] MEDS: carVEDILOL 3.125 MG TABLET 6.25 MG PO (17:21)
[2024-09-21] MEDS: oxyCODONE/APAP 5/325 TABLET 1 TAB PO (17:22)
[2024-09-21] MEDS: DULoxetine HCL 30 MG CAPSULE 60 MG PO (20:10)
[2024-09-21] MEDS: BusPIRone HCL 5 MG TABLET 30 MG PO (20:10)
[2024-09-21] MEDS: ATORVASTATIN CALCIUM 20 MG TABLET 40 MG PO (20:10)
[2024-09-21] MEDS: cefTRIAXone 1,000 MG in SODIUM CHLORIDE 0.9% (Popper) 50 ML 100 MG IV (20:11)
[2024-09-21] MEDS: PRAMIPEXOLE 0.25 MG TABLET 0.75 MG PO (20:12)
[2024-09-22] VITALS (13 sets, daily range): BP systolic 134–193; BP diastolic 72–101; PULSE 67–94; RESP 14–27; TEMP 35.9–37.4; O2SAT 94–96; BMI 22.7
[2024-09-22] MEDS: LIDOCAINE 5% 1 PATCH TOP (00:44)
[2024-09-22 06:01] LABS: Basophils # (Auto) 0.1 Thou/mm3 (0.0-0.2); Basophils % (Auto) 1 % (0-2.5); Eosinophils # (Auto) 0.9 Thou/mm3 (0.0-0.5); Eosinophils % (Auto) 10 % (0-10); Hematocrit 36.8 % (36.0-46.0); Hemoglobin 11.8 g/dL (12.0-16.0); Immature Granulocytes % (Auto) 0 % (0-0); Immature Granulocytes Auto 0.02 Thou/mm3 (0.00-0.00); Lymphocytes # (Auto) 2.6 Thou/mm3 (1.0-4.8); Lymphocytes % (Auto) 30 % (10-50); Mean Corpuscular HGB Conc 32.1 g/dl (31.0-37.0); Mean Corpuscular Hemoglobin 30.3 pg (25.0-35.0); Mean Corpuscular Volume 95 fL (80-100); Monocytes # (Auto) 0.4 Thou/mm3 (0.0-0.8); Monocytes % (Auto) 5 % (0-12); Neutrophils # (Auto) 4.8 Thou/mm3 (1.8-7.7); Neutrophils % (Auto) 55 % (37-80); Nucleated Red Blood Cell % 0 /100 WBC (0); Platelet Count 289 Thou/mm3 (140-440); RDW Standard Deviation 47.4 fL (36.4-46.3); Red Blood Count 3.89 Miln/mm3 (4.00-5.20); White Blood Count 8.7 Thou/mm3 (3.6-11.0)
[2024-09-22 06:27] LABS: Alanine Aminotransferase 12 U/L (10-49); Albumin, Serum 4.3 gm/dL (3.4-4.8); Albumin/Globulin Ratio 1.7 (1.2-2.2); Alkaline Phosphatase 117 U/L (46-116); Anion Gap 11 (7-16); Aspartate Amino Transferase 16 U/L (0-34); BUN/Creatinine Ratio 17 Ratio (12-20); Bilirubin,Total 0.3 mg/dL (0.3-1.2); Blood Urea Nitrogen 24 mg/dL (9-23); Calcium 10.1 mg/dL (8.3-10.6); Calcium (Corrected) 10.1 mg/dL (8.5-10.1); Carbon Dioxide 23.4 mMol/L (20.0-31.0); Chloride 109 mMol/L (98-107); Creatinine (Component) 1.4 mg/dL (0.6-1.3); Estimated Creatinine Clearance 23.4 mL/min (>60); Globulin 2.5 gm/dL (2.3-3.5); Glucose 100 mg/dL (74-106); Osmolality,Calculated 288 (275-295); Phosphorous 4.1 mg/dL (2.4-5.1); Potassium 4.2 mMol/L (3.4-5.1); Sodium 143 mMol/L (136-145); Total Protein 6.8 gm/dL (5.7-8.2); eGFR 38 See Note
[2024-09-22] MEDS: PANTOPRAZOLE INJ 40 MG VIAL IVP (09:28)
[2024-09-22] MEDS: ASPIRIN EC 81 MG TABEC PO (09:28)
[2024-09-22] MEDS: carVEDILOL 3.125 MG TABLET 6.25 MG PO ×2 (09:28→18:42)
[2024-09-22] MEDS: POLYETHYLENE GLYCOL 17 GM PACKET PO (09:28)
[2024-09-22] MEDS: clonazePAM 0.5 MG TABLET 1 MG PO (09:28)
[2024-09-22] MEDS: HEPARIN SOD INJ 5000 UNIT/ML VIAL SC ×2 (09:29→20:55)
[2024-09-22] MEDS: hydrALAZINE INJ 20 MG/ML VIAL 5 MG IV (09:29)
[2024-09-22] MEDS: SENNA TABLET 1 TAB PO (09:32)
--- NOTE | 2024-09-22 12:31 | ESPR_ITS ---
Documentation for date of: 09/22/24 Subjective Subjective Interval history: Patient was seen and examined at the bedside. Overnight, patient was anxious and complaining of lower back pain. Patient was given buspirone 30 mg at night and lidocaine patch which helped with the pain and the blood pressure as well. Patient was AO x [address] Urine output has been 700 cc from last 24 hours per [employer]. Patient was given bowel regimen for constipation. Antibiotics were switched to nitrofurantoin 100 mg twice daily given this patient's previous urine culture sensitivity and Bactrim was not given as patient is allergic to sulfa drugs. We added hydralazine 25 mg twice daily for blood pressure management in addition to Coreg 6.25 mg twice daily. Kidney functions have been improving today creatinine 1.4. Hemoglobin remained stable. Patient is currently pending on insurance authorization for SNF placement. Will evaluate the patient for blood pressure and monitor for bowel movement as well. Likely continue Macrobid for total 5 days to complete course. All labs and orders were reviewed. Exam Vital Signs Temp Pulse Resp BP Pulse Ox O2 Del Method 97.2 F 82 16 181/90 H 94 L Room Air 09/22/24 08:00 09/22/24 09:29 09/22/24 08:00 09/22/24 09:29 09/22/24 08:00 09/22/24 08:00 Narrative Exam General: Patient is AO x [address] conversational however have memory lapses. Saturating well on room air HEENT: NC/AT, mucous membranes moist, bilateral sclera anicteric Cardiovascular: regular rate and rhythm, S1/S2 present, no murmurs appreciated Pulmonary: clear to auscultation bilaterally, no rales/rhonchi/wheezes Abdominal: soft, non-tender, non-distended, no rebound/guarding, normal bowel sounds present Musculoskeletal: normal ROM, no peripheral edema Skin: bruise under chin, warm and dry, intact, no rashes Neuro: CN II-XII intact, no focal deficits Psych: Demented with memory lapses however conversational and respond to questions Objective Labs 09/22/24 05:46 09/22/24 05:46 Labs: Laboratory Results - last 24 hr 09/22/24 05:46 WBC 8.7 RBC 3.89 L Hgb 11.8 L Hct 36.8 MCV 95 MCH 30.3 MCHC 32.1 RDW Std Deviation 47.4 H Plt Count 289 Neut % (Auto) 55 Lymph % (Auto) 30 [place] % (Auto) 5 Eos % (Auto) 10 Baso % (Auto) 1 Neut # (Auto) 4.8 Lymph # (Auto) 2.6 [place] # (Auto) 0.4 Eos # (Auto) 0.9 H Baso # (Auto) 0.1 Immature Gran # (Auto) 0.02 H Absolute Nucleated RBC 0.00 Immature Gran % 0 Nucleated RBC % 0 Sodium 143 Potassium 4.2 Chloride 109 H Carbon Dioxide 23.4 Anion Gap 11 BUN 24 H Creatinine 1.4 H Estim Creat Clear Calc 23.4 L eGFR 38 L BUN/Creatinine Ratio 17 Glucose 100 Calculated Osmolality 288 Calcium 10.1 Corrected Calcium 10.1 Phosphorus 4.1 Magnesium 2.0 Total Bilirubin 0.3 AST 16 ALT 12 Alkaline Phosphatase 117 H Total Protein 6.8 Albumin 4.3 Globulin 2.5 Albumin/Globulin Ratio 1.7 Quality Measures Quality Measures VTE prophylaxis Advance care planning discussed with:: other Assessment & Plan Assessment Current Active Medications: Generic Name Dose Route Start Last Admin Trade Name Freq PRN Reason Stop Dose Admin Acetaminophen 650 mg 09/19/24 00:05 Acetaminophen 325 Mg Tablet PO 10/19/24 00:04 Q6H PRN Fever >100 or pain 1-5 Aspirin 81 mg 09/19/24 09:00 09/22/24 09:28 Aspirin Ec 81 Mg Tabec PO 10/19/24 08:59 81 mg QDAY KEYSHAWN Administration Atorvastatin Calcium 40 mg 09/21/24 21:00 09/21/24 20:10 Atorvastatin Calcium 20 Mg Tablet PO 10/19/24 20:59 40 mg HS KEYSHAWN Administration Buspirone HCl 30 mg 09/19/24 00:10 09/21/24 20:10 Buspirone Hcl 5 Mg Tablet PO 10/19/24 00:09 30 mg HS KEYSHAWN Administration Carvedilol 6.25 mg 09/21/24 17:30 09/22/24 09:28 Carvedilol 3.125 Mg Tablet PO 10/21/24 17:29 6.25 mg BIDWM KEYSHAWN Administration Clonazepam 1 mg 09/20/24 09:00 09/22/24 09:28 Clonazepam 0.5 Mg Tablet PO 09/25/24 08:59 1 mg DAILY KEYSHAWN Administration Doxepin HCl 25 mg 09/19/24 00:10 09/19/24 01:39 Doxepin Hcl 25 Mg Capsule PO 10/19/24 00:09 25 mg HS KEYSHAWN Administration Duloxetine HCl 60 mg 09/19/24 00:15 09/21/24 20:10 Duloxetine Hcl 30 Mg Capsule PO 10/19/24 00:14 60 mg HS KEYSHAWN Administration Heparin Sodium (Porcine) 5,000 unit 09/19/24 09:00 09/22/24 09:29 Heparin Sod Inj 5000 Unit/Ml Vial SC 10/03/24 08:59 5,000 unit Q12H KEYSHAWN Administration Hydralazine HCl 10 mg 09/22/24 14:00 Hydralazine Hcl 10 Mg Tablet PO 10/22/24 13:59 TID KEYSHAWN Nitrofurantoin Macrocrystals 100 mg 09/22/24 10:15 Nitrofurantoin Macro 100 Mg Capsule PO 09/27/24 10:14 BID [facility] Home Medication- 1 cap 09/21/24 21:00 09/21/24 20:20 Please Speak With PO 10/21/24 20:59 Not Given Patient Caregiver To HS KEYSHAWN Have Rx Brought To [facility] Oxycodone/Acetaminophen 1 tab 09/20/24 07:55 09/21/24 17:22 Oxycodone/Apap 5/325 Tablet PO 09/24/24 00:04 1 tab Q8HR PRN Administration pain 6-10 Pantoprazole Sodium 40 mg 09/19/24 09:00 09/22/24 09:28 Pantoprazole Inj 40 Mg Vial IVP 10/19/24 08:59 40 mg QDAY KEYSHAWN Administration Pharmacy Consult 1 each 09/20/24 07:55 Pharmacy Renal Dose Adjustment 1 Ea XX 10/20/24 07:54 PRN PRN CONSULT Polyethylene Glycol 17 gm 09/22/24 09:00 09/22/24 09:28 Polyethylene Glycol 17 Gm Packet PO 10/22/24 08:59 17 gm QDAY KEYSHAWN Administration Pramipexole Dihydrochloride 0.75 mg 09/19/24 00:10 09/21/24 20:12 Pramipexole 0.25 Mg Tablet PO 10/19/24 00:09 0.75 mg HS KEYSHAWN Administration Sennosides 1 tab 09/22/24 07:50 Senna Tablet PO 10/22/24 07:49 QDAY PRN CONSTIPATION Protocol Plan Joanne Cook is an 84-y/o female with PMHx of CAD, HFrEF, JUAN, HTN, HLD, Alzheimer?s?, recurrent UTI and falls who comes from home after unwitnessed fall and admitted for acute encephalopathy and UTI. Mentation has improved and currently treating urinary tract infection. Pending SNF authorization. #Acute encephalopathy likely secondary to UTI vs polypharmacy #Urinary tract infection, recurrent Head CT negative for acute hemorrhage, midline shift or mass effect History of having some encephalopathy when getting UTIs. History of pansensitive E. coli UTI and will continue Rocephin. At this time, patient continues to endorse dysuria with progressively increasing leukocytosis. Per chart review, recent history of pansensitive E. coli UTI but this did not history of Klebsiella UTI resistant to Rocephin. UA did not reflex to urine culture and will not pursue urine culture at this time given that it is unlikely to yield anything given that patient has already been on antibiotics. White count has improved today. No fevers recorded. ? Switch from Rocephin to Macrobid 100 mg twice daily for total 5 days to complete antibiotic course ? Neurochecks every 4 hours #Hypertensive emergency with acute kidney injury, improving Highest BP read 220/110, given amlodipine 5 mg x1, labetalol 10 mg x1, and hydralazine 10 mg x1 ?Continue Coreg 6.25 mg twice daily and started on hydralazine 25 mg twice daily #Acute kidney injury likely secondary to relative hypotension, improving #?Acute tubular necrosis, resolving #Hypokalemia, resolved Improved after 1 L NS in ED. Had HTN of 220/80 that was decreased to 120/80 within 24 hour period. Likely caused relative hypotension and ATN. Kidney functions are improving with BUN 24 and creatinine 1.4. Urine output 700 cc in last 24 hours ? Monitor urine output ? Continue to monitor AM labs for improvement with IVF ? 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 Stage I diastolic dysfunction. ? Aspirin 81 mg PO daiy ? Atorvastatin 40 mg PO HS ? Coreg increased from 3.125 to 6.25 mg PO BIDWM ? Added hydralazine 25 mg twice daily #JUAN ? Resumed buspirone and duloxetine ? Clonazepam decreased from BID to daily, will continue clonazepam once daily ? DC'd home doxepin as QTc noted to be 554 and may be contributing to AMS #? Alzheimers Son says she does not take quetiapine consistently, denies history of schizophrenia and dementia ? Continue home Namzaric (donezepil and memantine) #? Restless leg syndrome ? Pramipexole Hospital management: Disposition: on IV antibiotics and will continue to adjust home psychiatrist medications. Currently treating urinary tract infection and pending SNF authorization. Additionally managing blood pressure and awaiting bowel movement. Fluids: Currently none Diet: cardiac Lines: PIV DVT prophylaxis: heparin SC BID GI prophylaxis: pantoprazole 40 mg IV daily CODE STATUS: full code Patient was seen and discussed with attending physician, Dr. George Lang MD, PGY 2 Attending Provider Attestation/Addendum I have examined the patient, reviewed labs and imaging findings, discussed the case with the resident(s), and reviewed entered orders. I agree with the plan of care as outlined in this note, with these additional summaries/recommendations: Patient's mental status appears to be improving. She still complains of dysuria on exam, transition patient to p.o. Bactrim. PT eval completed and recommended patient be placed in SNF facility and after discussion with son, he is in agreement. Blood pressure remains elevated, will add hydralazine 25 twice daily at this time. Anticipate discharge in next 24 to 48 hours pending insurance Auth for SNF placement. Jaek Vazquez MD
[2024-09-22] MEDS: hydrALAZINE HCL 25 MG TABLET PO ×2 (13:27→20:51)
[2024-09-22] MEDS: NITROFURANTOIN MACRO 100 MG CAPSULE PO ×2 (13:27→20:53)
[2024-09-22] MEDS: oxyCODONE/APAP 5/325 TABLET 1 TAB PO ×2 (16:15→20:55)
--- NOTE | 2024-09-22 19:49 | PC.NURSE ---
Pt having 10/10 pain and BP 187/94, Dr. Lomeli at bedside, changed pain medication regime to Q4 and carvedilol given and night team to recheck bp.
[2024-09-22] MEDS: PRAMIPEXOLE 0.25 MG TABLET 0.75 MG PO (20:52)
[2024-09-22] MEDS: DULoxetine HCL 30 MG CAPSULE 60 MG PO (20:52)
[2024-09-22] MEDS: BusPIRone HCL 5 MG TABLET 30 MG PO (20:53)
[2024-09-22] MEDS: ATORVASTATIN CALCIUM 20 MG TABLET 40 MG PO (20:53)
[2024-09-23] VITALS (11 sets, daily range): BP systolic 141–175; BP diastolic 81–102; PULSE 85–107; RESP 14–19; TEMP 36.2–37.6; O2SAT 91–98; BMI 23.0
[2024-09-23 05:49] LABS: Basophils # (Auto) 0.1 Thou/mm3 (0.0-0.2); Basophils % (Auto) 1 % (0-2.5); Eosinophils # (Auto) 0.9 Thou/mm3 (0.0-0.5); Eosinophils % (Auto) 9 % (0-10); Hematocrit 37.4 % (36.0-46.0); Hemoglobin 12.1 g/dL (12.0-16.0); Immature Granulocytes % (Auto) 0 % (0-0); Immature Granulocytes Auto 0.02 Thou/mm3 (0.00-0.00); Lymphocytes # (Auto) 2.3 Thou/mm3 (1.0-4.8); Lymphocytes % (Auto) 24 % (10-50); Mean Corpuscular HGB Conc 32.4 g/dl (31.0-37.0); Mean Corpuscular Hemoglobin 30.2 pg (25.0-35.0); Mean Corpuscular Volume 93 fL (80-100); Monocytes # (Auto) 0.6 Thou/mm3 (0.0-0.8); Monocytes % (Auto) 6 % (0-12); Neutrophils # (Auto) 5.9 Thou/mm3 (1.8-7.7); Neutrophils % (Auto) 61 % (37-80); Nucleated Red Blood Cell % 0 /100 WBC (0); Platelet Count 245 Thou/mm3 (140-440); RDW Standard Deviation 45.1 fL (36.4-46.3); Red Blood Count 4.01 Miln/mm3 (4.00-5.20); White Blood Count 9.7 Thou/mm3 (3.6-11.0)
[2024-09-23 06:46] LABS: Alanine Aminotransferase 9 U/L (10-49); Albumin, Serum 4.1 gm/dL (3.4-4.8); Albumin/Globulin Ratio 1.6 (1.2-2.2); Alkaline Phosphatase 111 U/L (46-116); Anion Gap 12 (7-16); Aspartate Amino Transferase 13 U/L (0-34); BUN/Creatinine Ratio 14 Ratio (12-20); Bilirubin,Total 0.3 mg/dL (0.3-1.2); Blood Urea Nitrogen 18 mg/dL (9-23); Calcium 9.8 mg/dL (8.3-10.6); Calcium (Corrected) 9.8 mg/dL (8.5-10.1); Carbon Dioxide 22.8 mMol/L (20.0-31.0); Chloride 106 mMol/L (98-107); Creatinine (Component) 1.3 mg/dL (0.6-1.3); Estimated Creatinine Clearance 25.2 mL/min (>60); Globulin 2.5 gm/dL (2.3-3.5); Glucose 92 mg/dL (74-106); Magnesium 1.6 mg/dL (1.6-2.6); Osmolality,Calculated 283 (275-295); Phosphorous 4.2 mg/dL (2.4-5.1); Sodium 141 mMol/L (136-145); Total Protein 6.6 gm/dL (5.7-8.2); eGFR 41 See Note
[2024-09-23 06:49] LABS: Creatinine MALB Rnd Ur 32 mg/dL (30-125); Creatinine,Random Urine 32 mg/dL (30-125); Microalbumin Creat Ratio 500 mg/gCrea (<30); Microalbumin, Random Urine 160 mg/L (0-300); Protein Total, Random Urine 35 mg/dL (1-14); Sodium,Urine Random 82.5 mMol/L (20.0-110.0)
[2024-09-23] MEDS: POLYETHYLENE GLYCOL 17 GM PACKET PO (08:17)
[2024-09-23] MEDS: PANTOPRAZOLE INJ 40 MG VIAL IVP (08:17)
[2024-09-23] MEDS: clonazePAM 0.5 MG TABLET 1 MG PO (08:17)
[2024-09-23] MEDS: HEPARIN SOD INJ 5000 UNIT/ML VIAL SC ×2 (08:17→21:40)
[2024-09-23] MEDS: ASPIRIN EC 81 MG TABEC PO (08:18)
[2024-09-23] MEDS: NITROFURANTOIN MACRO 100 MG CAPSULE PO (08:18)
--- NOTE | 2024-09-23 13:01 | PC.SS ---
ESTELLA conducted phone contact with [facility] staff, Velma; who confirmed that authorization remains pending. Upon retrieval of authorization patient will be transitioned to [facility].
--- NOTE | 2024-09-23 13:43 | ESDS_ITS ---
<Statement entered by Sofie Condon MD - 09/23/24 19:24> Patient was seen and examined by me personally. I agree with the discharge plan as discussed with the general internal medicine physician physician, and my attending, Dr. Rudd. Sofie Condon MD, PGY-3 Planned Discharge Date 09/23/24 DS: Providers Provider Date of admission: 09/18/24 23:57 Primary care physician: Lacho Haji MD Admitting Provider: Katiuska Florez MD Attending Provider on Admission: Ed Rudd DO Consults: 09/19/24 10:50 Referral Physical Therapy Routine Comment: Physician Instructions: Attending Provider on DC: Darion Horta MD Discharging Provider: Darion Horta MD DS: Diagnosis Problem List Completed Was Problem List Reviewed/Reconciled?: Yes Hospital Course Hospital Course Hospital course: Joanne Cook is an 84-y/o female with PMHx of CAD, HFrEF, JUAN, HTN, HLD, Alzheimer?s?, recurrent UTI and falls who comes from home after an unwitnessed fall and admitted for acute encephalopathy and UTI. Throughout hospital course, no acute events reported. UA was dirty but contaminated and thus did not reflex to urine culture but was started on ceftriaxone. Additionally, patient was noted to be on numerous psychiatric medications prescribed by her PCP. Upon admission, clonazepam was decreased from BID to daily and doxepin was held. Otherwise, buspirone, duloxetine, and pramipexole were continued. Her son, Jake, states that patient was catatonic and had an episode of being violent with him at home and he states that patient tends to behave in this way when she gets a UTI. Upon medical team evaluation, patient was pleasant and A&Ox3 but son states that she seemed slower to respond compard to her baseline. Thus, home Namzaric was restarted. Physical therapy evaluated patient and recommended she be discharged to SNF, to which son was in agreement with. Blood pressures also elevated, and given history of HFmrEF, coreg was started and uptitrated to 12.5 mg PO BIDWM. Given CKD with [id number] ratio of 500, lisinopril 10 mg PO daily was also started. Noted to have an acute kidney injury, likely prerenal, as she responded well to IVF and at time of discharge her renal function had improved markedly and close to her baseline. Patient will have strict discharge instructions given change in psychiatric medications and strongly recommend to follow-up with PCP in order to optimize them, and to reconcile prior to restarting or discontinuing any moving forward. Changes also made to blood pressure regimen as amlodipine was discontinued and changed to carvedilol, lisinopril, and hydralazine. To finish her antibiotic course for her UTI, she will be discharged with cephalexin 500 mg daily (renally dosed) for 5 more days. Strict return precautions, such that if she were to become confused or violent or catatonic again, return to the ED. Diagnoses during admission: #Acute encephalopathy likely secondary to UTI vs polypharmacy #Urinary tract infection, recurrent #Acute kidney injury likely secondary to relative hypotension, improving #? 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 Alzheimers #? Restless leg syndrome Discharge instructions: - Clonazepam changed from 1 mg twice per day to once per day - Duloxetine changed from 60 mg twice per day to once per day - Stop taking baclofen, at least until you follow-up with your PCP - Stop taking amlodipine - Stop taking tamsulosin, at least until you follow-up with your PCP - Stop taking doxepin, at least until you follow-up with your PCP - Stop taking nortriptyline, at least until you follow-up with your PCP - Stop taking quetiapine, at least until you follow-up with your PCP - Start taking carvedilol 12.5 mg twice daily with meals for high blood pressure - Start taking hydralazine 10 mg three times per day for high blood pressure - Start taking lisinopril 2.5 mg daily for high blood pressure - If coughing or itchy throat, stop taking medications and follow-up with PCP - Continue taking cephalexin 500 mg daily for 5 more days to complete antibiotic course for UTI - Continue taking all other home medications as prescribed - Follow-up with your PCP within 1 week of discharge - Return to the ED if symptoms worsen or recur ----- Plan discussed with attending physician Dr. Rudd and senior resident physician Dr. Taurus Horta MD PGY-1 Internal Medicine Time Spent with Patient Time attestation: Total time spent providing and/or coordinating discharge services: Exam Vital Signs Temp Pulse Resp BP Pulse Ox O2 Del Method 97.2 F 95 17 150/86 H 98 Room Air 09/23/24 08:00 09/23/24 08:00 09/23/24 08:00 09/23/24 08:00 09/23/24 08:00 09/23/24 08:00 Narrative Exam General: Alert and orientated to self/year/birthdate/location, laying comfortably in bed HEENT: NC/AT, mucous membranes moist, bilateral sclera anicteric Cardiovascular: regular rate and rhythm, S1/S2 present, no murmurs appreciated Pulmonary: clear to auscultation bilaterally, no rales/rhonchi/wheezes Abdominal: soft, non-tender, non-distended, no rebound/guarding, normal bowel sounds present Musculoskeletal: normal ROM, no peripheral edema Skin: bruise under chin, warm and dry, intact, no rashes Neuro: CN II-XII intact, no focal deficits Psych: Demented with memory lapses however conversational and respond to questions Discharge Plan Plan Patient Disposition: Xfer Skilled Nsg Fac (SNF) Patient condition on transfer: Stable Care Plan Goals: - Clonazepam changed from 1 mg twice per day to once per day - Duloxetine changed from 60 mg twice per day to once per day - Stop taking baclofen, at least until you follow-up with your PCP - Stop taking amlodipine - Stop taking tamsulosin, at least until you follow-up with your PCP - Stop taking doxepin, at least until you follow-up with your PCP - Stop taking nortriptyline, at least until you follow-up with your PCP - Stop taking quetiapine, at least until you follow-up with your PCP - Start taking carvedilol 3.125 mg twice daily with meals for high blood pressure - Start taking hydralazine 10 mg three times per day for high blood pressure - Start taking lisinopril 2.5 mg daily for high blood pressure - If coughing or itchy throat, stop taking medications and follow-up with PCP. Recommend to obtain a renal panel within 1 week. - Continue taking all other home medications as prescribed - Follow-up with your PCP within 1 week of discharge. Reevaluate INFORMATION DEVELOPER-mediating medications, and slowly uptitrate anti-hypertensives with SBP goal range 140-150 - Return to the ED if symptoms worsen or recur Prescriptions/Referrals Prescriptions/Med Rec: New clonazepam 1 mg tablet 1 mg PO DAILY Qty: 30 0RF buspirone 30 mg tablet 30 mg PO HS Qty: 60 0RF hydralazine 10 mg Tablet 10 mg PO TID Qty: 60 0RF polyethylene glycol 3350 17 gram/dose powder 17 g PO QDAY Qty: 119 0RF duloxetine 60 mg capsule,delayed release(DR/EC) 60 mg PO HS Qty: 30 0RF lisinopril 2.5 mg tablet 2.5 mg PO QDAY Qty: 30 0RF carvedilol 3.125 mg Tablet 3.125 mg PO BIDWM 30 Days Qty: 60 0RF Continued pramipexole 0.75 mg Tablet 0.75 mg PO HS 30 Days Qty: 30 0RF loratadine 10 mg Tablet 10 mg PO QDAY azelastine-fluticasone 137-50 mcg/spray Maurice,Non-Aerosol 1 spray INTRANASAL BID PRN (Reason: Nasal Congestion) Rx Instructions: administer into each nostril aspirin [Adult Aspirin Regimen] 81 mg tablet,delayed release (DR/EC) 81 mg PO QDAY atorvastatin [Lipitor] 40 mg tablet 40 mg PO QPM famotidine [Acid Controller] 20 mg tablet 20 mg PO QDAY montelukast 10 mg tablet 10 mg PO QDAY oxycodone 10 mg tablet 10 mg PO Q4H memantine-donepezil [Namzaric] 28-10 mg capsule,sprinkle,ER 24hr 1 cap PO QDAY Discontinued tamsulosin [Flomax] 0.4 mg capsule 0.4 mg PO QDAY Qty: 20 0RF doxepin 25 mg Capsule 25 mg PO HS PRN (Reason: Sleeping) duloxetine 60 mg Capsule,Delayed Release(Dr/Ec) 60 mg PO BID amlodipine 5 mg tablet 5 mg PO QDAY ibuprofen 400 mg tablet 400 mg PO TID baclofen 10 mg granules in packet 10 mg PO BID quetiapine 50 mg tablet 50 mg PO HS nortriptyline 25 mg capsule 25 mg PO QDAY Referrals: Lacho Haji MD [Primary Care Provider] - Patient/Caregiver Discharge Instructions Discharge Activity: activity as tolerated Education Materials: Acute Kidney Failure Dc, Hypertension Dc Print Language: [place]ib[place]ian Stand Alone Forms: Irene Award Info., Patient Portal Info Letter Discharge Order Discharge Orders: Discharge (Routine); Ordered 09/27/24 Ordered By: Sofie Condon Quality Discharge Quality Measures VTE prophylaxis MD Attestestation MD Attestation Patient was not discharged on 09/23 as anticipated, see progress note instead.
[2024-09-23] MEDS: Lisinopril 2.5 MG TABLET 10 MG PO (14:34)
--- NOTE | 2024-09-23 16:11 | PC.SS ---
Updated clinicals faxed ([phone]) to [employer] for SNF authorization.
--- NOTE | 2024-09-23 16:22 | PC.SS ---
PHOTOENGRAVING PROOFER attempted phone conact with insurance staff, [employer] ; to confirm retrieval of clinical updates. No response. PHOTOENGRAVING PROOFER left voicemail requesting return call.
[2024-09-23] MEDS: carVEDILOL 3.125 MG TABLET 12.5 MG PO (18:21)
[2024-09-23] MEDS: BusPIRone HCL 5 MG TABLET 30 MG PO (21:30)
[2024-09-23] MEDS: ATORVASTATIN CALCIUM 20 MG TABLET 40 MG PO (21:30)
[2024-09-23] MEDS: hydrALAZINE HCL 10 MG TABLET PO (21:30)
[2024-09-23] MEDS: PRAMIPEXOLE 0.25 MG TABLET 0.75 MG PO (21:30)
[2024-09-23] MEDS: DULoxetine HCL 30 MG CAPSULE 60 MG PO (21:30)
[2024-09-24] VITALS (12 sets, daily range): BP systolic 110–145; BP diastolic 50–78; PULSE 56–94; RESP 16–22; TEMP 36.3–36.9; O2SAT 91–99; BMI 21.4
[2024-09-24] MEDS: hydrALAZINE HCL 10 MG TABLET PO ×2 (05:20→15:05)
[2024-09-24 06:02] LABS: Basophils # (Auto) 0.1 Thou/mm3 (0.0-0.2); Basophils % (Auto) 1 % (0-2.5); Eosinophils # (Auto) 0.8 Thou/mm3 (0.0-0.5); Eosinophils % (Auto) 9 % (0-10); Hematocrit 36.9 % (36.0-46.0); Hemoglobin 12.3 g/dL (12.0-16.0); Immature Granulocytes % (Auto) 0 % (0-0); Immature Granulocytes Auto 0.03 Thou/mm3 (0.00-0.00); Lymphocytes % (Auto) 22 % (10-50); Mean Corpuscular HGB Conc 33.3 g/dl (31.0-37.0); Mean Corpuscular Hemoglobin 30.4 pg (25.0-35.0); Mean Corpuscular Volume 91 fL (80-100); Monocytes # (Auto) 0.7 Thou/mm3 (0.0-0.8); Monocytes % (Auto) 8 % (0-12); Neutrophils # (Auto) 5.4 Thou/mm3 (1.8-7.7); Neutrophils % (Auto) 60 % (37-80); Nucleated Red Blood Cell % 0 /100 WBC (0); Platelet Count 302 Thou/mm3 (140-440); Red Blood Count 4.05 Miln/mm3 (4.00-5.20); White Blood Count 8.9 Thou/mm3 (3.6-11.0)
[2024-09-24 06:52] LABS: Alanine Aminotransferase < 7 U/L (10-49); Albumin, Serum 4.3 gm/dL (3.4-4.8); Albumin/Globulin Ratio 1.7 (1.2-2.2); Alkaline Phosphatase 109 U/L (46-116); Anion Gap 13 (7-16); Aspartate Amino Transferase 10 U/L (0-34); BUN/Creatinine Ratio 16 Ratio (12-20); Bilirubin,Total 0.4 mg/dL (0.3-1.2); Blood Urea Nitrogen 22 mg/dL (9-23); Calcium 10.4 mg/dL (8.3-10.6); Calcium (Corrected) 10.4 mg/dL (8.5-10.1); Carbon Dioxide 21.7 mMol/L (20.0-31.0); Chloride 107 mMol/L (98-107); Creatinine (Component) 1.4 mg/dL (0.6-1.3); Estimated Creatinine Clearance 23.4 mL/min (>60); Globulin 2.5 gm/dL (2.3-3.5); Glucose 95 mg/dL (74-106); Magnesium 1.7 mg/dL (1.6-2.6); Osmolality,Calculated 286 (275-295); Potassium 4.5 mMol/L (3.4-5.1); Sodium 142 mMol/L (136-145); Total Protein 6.8 gm/dL (5.7-8.2); eGFR 38 See Note
[2024-09-24] MEDS: PANTOPRAZOLE INJ 40 MG VIAL IVP (08:45)
[2024-09-24] MEDS: Lisinopril 2.5 MG TABLET 10 MG PO (08:45)
[2024-09-24] MEDS: HEPARIN SOD INJ 5000 UNIT/ML VIAL SC ×2 (08:45→20:48)
[2024-09-24] MEDS: clonazePAM 0.5 MG TABLET 1 MG PO (08:47)
[2024-09-24] MEDS: ASPIRIN EC 81 MG TABEC PO (08:47)
[2024-09-24] MEDS: SODIUM CHLORIDE 0.9% 250 ML 250 ML 999 ML IV (08:48)
[2024-09-24] MEDS: cephALEXin 250 MG CAPSULE 500 MG PO (08:48)
[2024-09-24] MEDS: Magnesium Sulfate 2 GM Ivpb 2 GM/50 ML BAG IV (08:48)
[2024-09-24] MEDS: carVEDILOL 3.125 MG TABLET 12.5 MG PO ×2 (08:48→17:47)
[2024-09-24] MEDS: POLYETHYLENE GLYCOL 17 GM PACKET PO (08:49)
--- NOTE | 2024-09-24 11:34 | PC.SS ---
PULPWOOD BUYER attempted phone contact with insurance staff, [employer] ; to confirm retrieval of clinical updates. No response. PULPWOOD BUYER left voicemail requesting return call.
--- NOTE | 2024-09-24 14:52 | ESPR_ITS ---
<Statement entered by Aashish Lang MD - 09/24/24 20:55> Patient was seen and examined at the bedside. No acute overnight events were reported. Patient is oriented to her name and birthdate however does not know the place. Appears to be her baseline. Bladder scan showed 170 cc. Labs were stable. Mild GIRMA. There for fluid bolus was given. Will continue with pure wick catheter. Currently pending on insurance authorization. Will likely discharge the patient tomorrow morning. All labs and orders were reviewed. I saw and examined the patient, and I agree with current management stated by Dr Jakob MD,PGY1. Plan of care was discussed with the attending physician and resident physician. Disclaimer: Despite multiple revisions, due to the dictation software being used, the document bellow may not be free of grammatical errors including phonetic/typographic errors. However, this does not deter from our commitment to providing health care in the patient's best interest in mind. Dr. Alma MD, PGY 2 Documentation for date of: 09/24/24 Subjective Subjective Interval history: Joanne Cook is an 84-y/o female with PMHx of CAD, HFrEF, JUAN, HTN, HLD, Alzheimer?s?, recurrent UTI and falls who comes from home after unwitnessed fall and admitted for acute encephalopathy and UTI. 09/19: Seen and examined at bedside in telemetry. She states that she lives with her son, Jake, who is a psychologist. Endorses that she did not lose consciousness during her falls and has had multiple episodes prior to coming to the hospital. This time, she states that she fell when walking to the bathroom after slipping on water on the floor. Denies prodromal symptoms. At baseline, she walks with a walker. 09/20: Seen and examined at bedside in telemetry. No acute overnight events noted. Spoke to son in the morning who states that patient is normally able to function on her own and is able to do her own banking and finances. He also confirmed that patient does not have an outpatient psychiatrist. States that he feels safer if patient remained in the hospital for the day as he was told that patient was going to go home today but was not told this by hospitalist team. 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 She does not have any complaints at this time. 09/21: Seen and examined at bedside in telemetry. No acute overnight events noted. She does not have any complaints other than dysuria. Otherwise, denies fever, chills, nausea, vomiting, abdominal pain. Spoke to son at bedside who started that he manages home medications prescribed by PCP. States that patient is not on quetiapine and that her mentation and cognitive function are better while on memantine and brexpiprazole, but brexpiprazole not seen on med rec so will instead restart home memantine-donepezil. 09/24: No acute overnight events reported. Seen and examined at bedside in telemetry. Patient only oriented to name and birthdate, which is changed from prior. Spoke to son at bedside, who reiterated that patient is able to drive and do her own taxes, and is concerned that she may be discharged soon. Bladder scan showed 170 cc. Exam Vital Signs Temp Pulse Resp BP Pulse Ox O2 Del Method 97.6 F 72 19 125/66 91 L Room Air 09/24/24 12:00 09/24/24 12:00 09/24/24 12:00 09/24/24 12:00 09/24/24 12:09/24/24 12:00 Narrative Exam General: Alert and orientated to self and birthdate, laying comfortably in bed HEENT: NC/AT, mucous membranes moist, bilateral sclera anicteric Cardiovascular: regular rate and rhythm, S1/S2 present, no murmurs appreciated Pulmonary: clear to auscultation bilaterally, no rales/rhonchi/wheezes Abdominal: soft, non-tender, non-distended, no rebound/guarding, normal bowel sounds present Musculoskeletal: normal ROM, no peripheral edema Skin: bruise under chin, warm and dry, intact, no rashes Neuro: CN II-XII intact, no focal deficits Psych: Demented with memory lapses however conversational and responds to questions Objective Labs 09/25/24 05:16 09/25/24 05:16 Labs: Laboratory Results - last 24 hr 09/24/24 05:20 WBC 8.9 RBC 4.05 Hgb 12.3 Hct 36.9 MCV 91 MCH 30.4 MCHC 33.3 RDW Std Deviation 45.0 Plt Count 302 D Neut % (Auto) 60 Lymph % (Auto) 22 Gooding % (Auto) 8 Eos % (Auto) 9 Baso % (Auto) 1 Neut # (Auto) 5.4 Lymph # (Auto) 2.0 Gooding # (Auto) 0.7 Eos # (Auto) 0.8 H Baso # (Auto) 0.1 Immature Gran # (Auto) 0.03 H Absolute Nucleated RBC 0.00 Immature Gran % 0 Nucleated RBC % 0 Sodium 142 Potassium 4.5 D Chloride 107 Carbon Dioxide 21.7 Anion Gap 13 BUN 22 Creatinine 1.4 H Estim Creat Clear Calc 23.4 L eGFR 38 L BUN/Creatinine Ratio 16 Glucose 95 Calculated Osmolality 286 Calcium 10.4 Corrected Calcium 10.4 H Phosphorus 4.0 Magnesium 1.7 Total Bilirubin 0.4 AST 10 ALT < 7 L Alkaline Phosphatase 109 Total Protein 6.8 Albumin 4.3 Globulin 2.5 Albumin/Globulin Ratio 1.7 Quality Measures Quality Measures VTE prophylaxis Advance care planning discussed with:: patient and child Assessment & Plan Assessment Current Active Medications: Generic Name Dose Route Start Last Admin Trade Name Freq PRN Reason Stop Dose Admin Acetaminophen 650 mg 09/19/24 00:05 Acetaminophen 325 Mg Tablet PO 10/19/24 00:04 Q6H PRN Fever >100 or pain 1-5 Aspirin 81 mg 09/19/24 09:00 09/24/24 08:47 Aspirin Ec 81 Mg Tabec PO 10/19/24 08:59 81 mg QDAY KEYSHAWN Administration Atorvastatin Calcium 40 mg 09/21/24 21:00 09/23/24 21:30 Atorvastatin Calcium 20 Mg Tablet PO 10/19/24 20:59 40 mg HS EKYSHAWN Administration Buspirone HCl 30 mg 09/19/24 00:10 09/23/24 21:30 Buspirone Hcl 5 Mg Tablet PO 10/19/24 00:09 30 mg HS KEYSHAWN Administration Carvedilol 12.5 mg 09/23/24 17:30 09/24/24 08:48 Carvedilol 3.125 Mg Tablet PO 10/23/24 17:29 12.5 mg BIDWM KEYSHAWN Administration Cephalexin HCl 500 mg 09/24/24 09:00 09/24/24 08:48 Cephalexin 250 Mg Capsule PO 10/01/24 08:59 500 mg DAILY KEYSHAWN Administration Clonazepam 1 mg 09/20/24 09:00 09/24/24 08:47 Clonazepam 0.5 Mg Tablet PO 09/25/24 08:59 1 mg DAILY KEYSHAWN Administration Doxepin HCl 25 mg 09/19/24 00:10 09/19/24 01:39 Doxepin Hcl 25 Mg Capsule PO 10/19/24 00:09 25 mg HS KEYSHAWN Administration Duloxetine HCl 60 mg 09/19/24 00:15 09/23/24 21:30 Duloxetine Hcl 30 Mg Capsule PO 10/19/24 00:14 60 mg HS KEYSHAWN Administration Heparin Sodium (Porcine) 5,000 unit 09/19/24 09:00 09/24/24 08:45 Heparin Sod Inj 5000 Unit/Ml Vial SC 10/03/24 08:59 5,000 unit Q12H KEYSHAWN Administration Hydralazine HCl 10 mg 09/23/24 14:00 09/24/24 05:20 Hydralazine Hcl 10 Mg Tablet PO 10/23/24 13:59 10 mg TID KEYSHAWN Administration Lisinopril 10 mg 09/23/24 14:00 09/24/24 08:45 Lisinopril 2.5 Mg Tablet PO 10/23/24 13:59 10 mg QDAY KEYSHAWN Administration Home Medication- 1 cap 09/21/24 21:00 09/23/24 21:31 Please Speak With PO 10/21/24 20:59 Not Given Patient Caregiver To [facility] Have Rx Brought To [facility] Oxycodone/Acetaminophen 1 tab 09/22/24 18:47 09/22/24 20:55 Oxycodone/Apap 5/325 Tablet PO 09/25/24 07:54 1 tab Q4HR PRN Administration pain 6-10 Pantoprazole Sodium 40 mg 09/19/24 09:00 09/24/24 08:45 Pantoprazole Inj 40 Mg Vial IVP 10/19/24 08:59 40 mg QDAY KEYSHAWN Administration Pharmacy Consult 1 each 09/20/24 07:55 Pharmacy Renal Dose Adjustment 1 Ea XX 10/20/24 07:54 PRN PRN CONSULT Polyethylene Glycol 17 gm 09/22/24 09:00 09/24/24 08:49 Polyethylene Glycol 17 Gm Packet PO 10/22/24 08:59 17 gm QDAY KEYSHAWN Administration Pramipexole Dihydrochloride 0.75 mg 09/19/24 00:10 09/23/24 21:30 Pramipexole 0.25 Mg Tablet PO 10/19/24 00:09 0.75 mg HS KEYSHAWN Administration Sennosides 1 tab 09/22/24 07:50 Senna Tablet PO 10/22/24 07:49 QDAY PRN CONSTIPATION Protocol Plan Joanne Cook is an 84-y/o female with PMHx of CAD, HFrEF, JUAN, HTN, HLD, Alzheimer?s?, recurrent UTI and falls who comes from home after unwitnessed fall and admitted for acute encephalopathy and UTI. Mentation has improved and currently treating urinary tract infection. Pending SNF authorization. #Acute encephalopathy likely secondary to UTI vs polypharmacy #Urinary tract infection, recurrent Head CT negative for acute hemorrhage, midline shift or mass effect History of having some encephalopathy when getting UTIs. History of pansensitive E. coli UTI and will continue Rocephin. At this time, patient continues to endorse dysuria with progressively increasing leukocytosis. Per chart review, recent history of pansensitive E. coli UTI but this did not history of Klebsiella UTI resistant to Rocephin. UA did not reflex to urine culture and will not pursue urine culture at this time given that it is unlikely to yield anything given that patient has already been on antibiotics. White count has improved today. No fevers recorded. ? Cephalexin 500 mg daily (renally dosed) ? Neurochecks every 4 hours #Hypertensive emergency with acute kidney injury, improving Highest BP read 220/110, given amlodipine 5 mg x1, labetalol 10 mg x1, and hydralazine 10 mg x1 ? Coreg 12.5 mg twice daily ? Lisinopril 10 mg PO daily ? Hydralazine 10 mg PO TID #Acute kidney injury likely secondary to relative hypotension, improving #? Acute tubular necrosis, resolving #Hypokalemia, resolved Improved after 1 L NS in ED. Had HTN of 220/80 that was decreased to 120/80 within 24 hour period. Likely caused relative hypotension and ATN. ? Monitor urine output ? Continue to monitor AM labs for improvement with IVF ? 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 Stage I diastolic dysfunction. ? Aspirin 81 mg PO daiy ? Atorvastatin 40 mg PO HS ? Coreg increased from 3.125 to 6.25 mg PO BIDWM ? Lisinopril 10 mg PO daily #JUAN ? Resumed buspirone and duloxetine ? Clonazepam decreased from BID to daily, will continue clonazepam once daily ? DC'd home doxepin as QTc noted to be 554 and may be contributing to AMS #? Alzheimers Son says she does not take quetiapine consistently, denies history of schizophrenia and dementia ? Continue home Namzaric (donezepil and memantine) #? Restless leg syndrome ? Pramipexole Hospital management: Disposition: pending SNF authorization Fluids: Currently none Diet: cardiac Lines: PIV DVT prophylaxis: heparin SC BID GI prophylaxis: pantoprazole 40 mg IV daily CODE STATUS: full code ----- Plan discussed with attending physician Dr. Rudd and senior resident physician Dr. Alma Horta MD PGY-1 Internal Medicine Attending Provider Attestation/Addendum I have discussed and was present for the essential components of the history, physical examination, diagnosis, and treatment plan with the resident. I agree with the patient's care as documented by the resident and amended herein by me. Bob Rudd DO. Although this document has been carefully reviewed, there may still be some phonetic and other typographical errors. These errors are purely grammatical due to imperfections in the software program and should not be construed in any way to compromise the substance of the patient's medical care during this visit.
--- NOTE | 2024-09-24 15:40 | PC.SS ---
Rounding Note: Patient pending authorization to transition to SNF. Patient is medically cleared for discharge.
--- NOTE | 2024-09-24 15:43 | PC.SS ---
[facility] [employer] conducted phone contact with insurance staff, Julita ext [phone]; to discuss needed documentation. [facility] faxed recent PT note and discharge order to insurance staff, Julita. Fax number: . Authorization remains pending. [facility] updated SNF staff, Velma Lopze.
[2024-09-24] MEDS: oxyCODONE/APAP 5/325 TABLET 1 TAB PO (17:47)
--- NOTE | 2024-09-24 18:18 | PC.NURSE ---
Patient's son, Jake, wants to have avasure turned off when he is in the room, I explained to him that we have the camera to keep the safety of the patient but he stated that he is there and there is no reason to have the camera on him when he is there. I told him to please make sure staff is aware when he leaves room to placew avasure back on patient.
[2024-09-24] MEDS: BusPIRone HCL 5 MG TABLET 30 MG PO (20:47)
[2024-09-24] MEDS: DULoxetine HCL 30 MG CAPSULE 60 MG PO (20:48)
[2024-09-24] MEDS: PRAMIPEXOLE 0.25 MG TABLET 0.75 MG PO (20:48)
[2024-09-24] MEDS: ATORVASTATIN CALCIUM 20 MG TABLET 40 MG PO (20:48)
[2024-09-25] VITALS (9 sets, daily range): BP systolic 101–134; BP diastolic 47–71; PULSE 57–82; RESP 13–17; TEMP 36.2–37.2; O2SAT 91–93; BMI 21.7
[2024-09-25 05:57] LABS: Basophils # (Auto) 0.1 Thou/mm3 (0.0-0.2); Basophils % (Auto) 1 % (0-2.5); Eosinophils % (Auto) 10 % (0-10); Hematocrit 33.3 % (36.0-46.0); Hemoglobin 10.7 g/dL (12.0-16.0); Immature Granulocytes % (Auto) 0 % (0-0); Immature Granulocytes Auto 0.02 Thou/mm3 (0.00-0.00); Lymphocytes # (Auto) 2.5 Thou/mm3 (1.0-4.8); Lymphocytes % (Auto) 27 % (10-50); Mean Corpuscular HGB Conc 32.1 g/dl (31.0-37.0); Mean Corpuscular Hemoglobin 30.1 pg (25.0-35.0); Mean Corpuscular Volume 94 fL (80-100); Monocytes # (Auto) 0.7 Thou/mm3 (0.0-0.8); Monocytes % (Auto) 8 % (0-12); Neutrophils % (Auto) 54 % (37-80); Nucleated Red Blood Cell % 0 /100 WBC (0); Platelet Count 314 Thou/mm3 (140-440); RDW Standard Deviation 47.1 fL (36.4-46.3); Red Blood Count 3.55 Miln/mm3 (4.00-5.20); White Blood Count 9.3 Thou/mm3 (3.6-11.0)
[2024-09-25 06:42] LABS: Alanine Aminotransferase < 7 U/L (10-49); Albumin, Serum 3.8 gm/dL (3.4-4.8); Albumin/Globulin Ratio 1.7 (1.2-2.2); Alkaline Phosphatase 97 U/L (46-116); Anion Gap 11 (7-16); Aspartate Amino Transferase 10 U/L (0-34); BUN/Creatinine Ratio 15 Ratio (12-20); Bilirubin,Total 0.3 mg/dL (0.3-1.2); Blood Urea Nitrogen 31 mg/dL (9-23); Calcium 9.7 mg/dL (8.3-10.6); Calcium (Corrected) 9.9 mg/dL (8.5-10.1); Carbon Dioxide 23.4 mMol/L (20.0-31.0); Chloride 107 mMol/L (98-107); Creatinine (Component) 2.1 mg/dL (0.6-1.3); Estimated Creatinine Clearance 15.6 mL/min (>60); Globulin 2.3 gm/dL (2.3-3.5); Glucose 98 mg/dL (74-106); Magnesium 2.4 mg/dL (1.6-2.6); Osmolality,Calculated 287 (275-295); Phosphorous 4.7 mg/dL (2.4-5.1); Potassium 4.6 mMol/L (3.4-5.1); Sodium 141 mMol/L (136-145); Total Protein 6.1 gm/dL (5.7-8.2); eGFR 23 See Note
[2024-09-25] MEDS: PANTOPRAZOLE INJ 40 MG VIAL IVP (08:40)
[2024-09-25] MEDS: carVEDILOL 3.125 MG TABLET 12.5 MG PO (08:42)
[2024-09-25] MEDS: ASPIRIN EC 81 MG TABEC PO (08:42)
[2024-09-25] MEDS: cephALEXin 250 MG CAPSULE 500 MG PO (08:42)
[2024-09-25] MEDS: RINGERS LACTATED 1000 ML 1,000 ML 250 ML IV (08:47)
[2024-09-25] MEDS: HEPARIN SOD INJ 5000 UNIT/ML VIAL SC ×2 (08:47→20:35)
--- NOTE | 2024-09-25 09:57 | XR_ITS ---
Examination: CT brain head without contrast. 2-D sagittal coronal reconstructions Date and time of exam:February 25, 2025 at 1056 hours Comparison September 18, 2024 INDICATIONS: Onset focal neurologic deficit today CTDI: vol (mGy):44.2 DLP: (mGycm):889 Technique: Multiple CT axial sections of the brain have been obtained, 5 mm slice thickness. Contrast has not been administered. 2-D sagittal, coronal reconstructions have been obtained Low dose protocols were performed. One or more of the following dose reduction techniques were used; automated exposure control, adjustment of the mA and/or KV according to patient size, use of iterative reconstruction technique. Findings: No significant ventricular enlargement. Intra-axial or extra-axial hemorrhage density is not seen. No mass effect or midline shift Basal cisterns are not remarkable. Fourth ventricle is midline. Cranial vault intact. Impression: Negative for acute hemorrhage, mass effect or midline shift As clinically warranted, brain MRI follow-up would best assess for acute ischemic change
--- NOTE | 2024-09-25 11:04 | PC.NURSE ---
Patient transported to CT via wheelchair per TUYET Manriquez. No signs of acute distress.
--- NOTE | 2024-09-25 11:05 | ESPR_ITS ---
<Statement entered by Aasihsh Lang MD - 09/25/24 13:23> Patient was seen and examined at the bedside. Overnight, patient was borderline hypotensive. Patient was seen altered this morning therefore head CT was ordered which came negative. Additionally, fluid bolus was due to worsening GIRMA with creatinine 2.1. We held lisinopril and hydrochlorothiazide. Clonazepam and duloxetine were held given patient's mentation. Coreg was decreased to 3.125 mg twice daily. We will closely monitor patient's mentation. Rest of the labs were unremarkable. Monitor kidney functions and urine output. All labs and orders were reviewed. I saw and examined the patient, and I agree with current management stated by Dr Rula MD,PGY1. Plan of care was discussed with the attending physician and resident physician. Disclaimer: Despite multiple revisions, due to the dictation software being used, the document bellow may not be free of grammatical errors including phonetic/typographic errors. However, this does not deter from our commitment to providing health care in the patient's best interest in mind. Dr. Rickey MD, PGY 2 Documentation for date of: 09/25/24 Subjective Subjective Interval history: Joanne Cook is an 84-y/o female with PMHx of CAD, HFrEF, JUAN, HTN, HLD, Alzheimer?s?, recurrent UTI and falls who comes from home after unwitnessed fall and admitted for acute encephalopathy and UTI. 09/19: Seen and examined at bedside in telemetry. She states that she lives with her son, Jake, who is a psychologist. Endorses that she did not lose consciousness during her falls and has had multiple episodes prior to coming to the hospital. This time, she states that she fell when walking to the bathroom after slipping on water on the floor. Denies prodromal symptoms. At baseline, she walks with a walker. 09/20: Seen and examined at bedside in telemetry. No acute overnight events noted. Spoke to son in the morning who states that patient is normally able to function on her own and is able to do her own banking and finances. He also confirmed that patient does not have an outpatient psychiatrist. States that he feels safer if patient remained in the hospital for the day as he was told that patient was going to go home today but was not told this by hospitalist team. 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 She does not have any complaints at this time. 09/21: Seen and examined at bedside in telemetry. No acute overnight events noted. She does not have any complaints other than dysuria. Otherwise, denies fever, chills, nausea, vomiting, abdominal pain. Spoke to son at bedside who started that he manages home medications prescribed by PCP. States that patient is not on quetiapine and that her mentation and cognitive function are better while on memantine and brexpiprazole, but brexpiprazole not seen on med rec so will instead restart home memantine-donepezil. 09/24: No acute overnight events reported. Seen and examined at bedside in telemetry. Patient only oriented to name and birthdate, which is changed from prior. Spoke to son at bedside, who reiterated that patient is able to drive and do her own taxes, and is concerned that she may be discharged soon. Bladder scan showed 170 cc. 09/25: No acute overnight events reported. Seen and examined at bedside in telemetry and orientated to name, year, and place which is improved from prior. She does not have any complaints at this time. Spoke to son today and updated on current clinical status and current plans as she will remain in patient for at least one more hospital night given GIRMA. Exam Vital Signs Temp Pulse Resp BP Pulse Ox O2 Del Method 97.2 F 65 17 134/71 H 91 L Room Air 09/25/24 08:00 09/25/24 08:42 09/25/24 08:00 09/25/24 08:42 09/25/24 08:00 09/25/24 08:00 Narrative Exam General: Alert and orientated to self, year, and birthdate, laying comfortably in bed HEENT: NC/AT, mucous membranes moist, bilateral sclera anicteric Cardiovascular: regular rate and rhythm, S1/S2 present, no murmurs appreciated Pulmonary: clear to auscultation bilaterally, no rales/rhonchi/wheezes Abdominal: soft, non-tender, non-distended, no rebound/guarding, normal bowel sounds present Musculoskeletal: normal ROM, no peripheral edema Skin: bruise under chin, warm and dry, intact, no rashes Neuro: CN II-XII intact, no focal deficits Psych: Demented with memory lapses however conversational and responds to questions Objective Labs 09/25/24 05:16 09/25/24 05:16 Labs: Laboratory Results - last 24 hr 09/25/24 05:16 WBC 9.3 RBC 3.55 L Hgb 10.7 L Hct 33.3 L MCV 94 MCH 30.1 MCHC 32.1 RDW Std Deviation 47.1 H Plt Count 314 Neut % (Auto) 54 Lymph % (Auto) 27 [place] % (Auto) 8 Eos % (Auto) 10 Baso % (Auto) 1 Neut # (Auto) 5.0 Lymph # (Auto) 2.5 [place] # (Auto) 0.7 Eos # (Auto) 1.0 H Baso # (Auto) 0.1 Immature Gran # (Auto) 0.02 H Absolute Nucleated RBC 0.00 Immature Gran % 0 Nucleated RBC % 0 Sodium 141 Potassium 4.6 Chloride 107 Carbon Dioxide 23.4 Anion Gap 11 BUN 31 H Creatinine 2.1 H D Estim Creat Clear Calc 15.6 L eGFR 23 L BUN/Creatinine Ratio 15 Glucose 98 Calculated Osmolality 287 Calcium 9.7 Corrected Calcium 9.9 Phosphorus 4.7 Magnesium 2.4 Total Bilirubin 0.3 AST 10 ALT < 7 L Alkaline Phosphatase 97 Total Protein 6.1 Albumin 3.8 D Globulin 2.3 Albumin/Globulin Ratio 1.7 Quality Measures Quality Measures VTE prophylaxis Advance care planning discussed with:: other Assessment & Plan Assessment Current Active Medications: Generic Name Dose Route Start Last Admin Trade Name Freq PRN Reason Stop Dose Admin Acetaminophen 650 mg 09/19/24 00:05 Acetaminophen 325 Mg Tablet PO 10/19/24 00:04 Q6H PRN Fever >100 or pain 1-5 Aspirin 81 mg 09/19/24 09:00 09/25/24 08:42 Aspirin Ec 81 Mg Tabec PO 10/19/24 08:59 81 mg QDAY KEYSHAWN Administration Atorvastatin Calcium 40 mg 09/21/24 21:00 09/24/24 20:48 Atorvastatin Calcium 20 Mg Tablet PO 10/19/24 20:59 40 mg HS KEYSHAWN Administration Buspirone HCl 30 mg 09/19/24 00:10 09/24/24 20:47 Buspirone Hcl 5 Mg Tablet PO 10/19/24 00:09 30 mg HS KEYSHAWN Administration Carvedilol 3.125 mg 09/25/24 17:30 Carvedilol 3.125 Mg Tablet PO 10/25/24 17:29 BIDWM KEYSHAWN Cephalexin HCl 500 mg 09/24/24 09:00 09/25/24 08:42 Cephalexin 250 Mg Capsule PO 10/01/24 08:59 500 mg DAILY KEYSHAWN Administration Doxepin HCl 25 mg 09/19/24 00:10 09/19/24 01:39 Doxepin Hcl 25 Mg Capsule PO 10/19/24 00:09 25 mg HS KEYSHAWN Administration Duloxetine HCl 60 mg 09/19/24 00:15 09/24/24 20:48 Duloxetine Hcl 30 Mg Capsule PO 10/19/24 00:14 60 mg HS KEYSHAWN Administration Heparin Sodium (Porcine) 5,000 unit 09/19/24 09:00 09/25/24 08:47 Heparin Sod Inj 5000 Unit/Ml Vial SC 10/03/24 08:59 5,000 unit Q12H KEYSHAWN Administration Hydralazine HCl 10 mg 09/23/24 14:00 09/25/24 05:12 Hydralazine Hcl 10 Mg Tablet PO 10/23/24 13:59 Not Given TID KEYSHAWN Lactated Ringer's 1,000 mls @ 250 mls/hr 09/25/24 08:34 09/25/24 08:47 Lactated Ringers IV 09/25/24 12:33 250 mls/hr .Q4H ONE Administration Lisinopril 10 mg 09/23/24 14:00 09/24/24 08:45 Lisinopril 2.5 Mg Tablet PO 10/23/24 13:59 10 mg QDAY KEYSHAWN Administration Home Medication- 1 cap 09/21/24 21:00 09/24/24 20:48 Please Speak With PO 10/21/24 20:59 Not Given Patient Caregiver To HS KEYSHAWN Have Rx Brought To [facility] Pantoprazole Sodium 40 mg 09/19/24 09:00 09/25/24 08:40 Pantoprazole Inj 40 Mg Vial IVP 10/19/24 08:59 40 mg QDAY KEYSHAWN Administration Pharmacy Consult 1 each 09/20/24 07:55 Pharmacy Renal Dose Adjustment 1 Ea XX 10/20/24 07:54 PRN PRN CONSULT Polyethylene Glycol 17 gm 09/22/24 09:00 09/24/24 08:49 Polyethylene Glycol 17 Gm Packet PO 10/22/24 08:59 17 gm QDAY KEYSHAWN Administration Pramipexole Dihydrochloride 0.75 mg 09/19/24 00:10 09/24/24 20:48 Pramipexole 0.25 Mg Tablet PO 10/19/24 00:09 0.75 mg HS KEYSHAWN Administration Sennosides 1 tab 09/22/24 07:50 Senna Tablet PO 10/22/24 07:49 QDAY PRN CONSTIPATION Protocol Plan Joanne Cook is an 84-y/o female with PMHx of CAD, HFrEF, JUAN, HTN, HLD, Alzheimer?s?, recurrent UTI and falls who comes from home after unwitnessed fall and admitted for acute encephalopathy and UTI. Mentation has improved and currently treating urinary tract infection. Pending SNF authorization. #Acute encephalopathy likely secondary to UTI vs polypharmacy #Urinary tract infection, recurrent Head CT negative for acute hemorrhage, midline shift or mass effect Repeat head CT negative for acute hemorrhage, midline shift or mass effect History of having encephalopathy when getting UTIs and will treat accordingly and monitor for progress. However, also noted to have significant amount of psychiatric medications prescribed and will change accordingly. ? Cephalexin 500 mg daily (renally dosed) ? Doxepin and duloxetine held ? Clonazepam DC'd ? Neurochecks every 4 hours #Hypertensive emergency with acute kidney injury, improving On admission, highest BP read 220/110, given amlodipine 5 mg x1, labetalol 10 mg x1, and hydralazine 10 mg x1 Given that patient still appears to be fatigued and altered compared to her baseline, considering blood pressures lower than her normal as a possible etiology and will hold some of current antihypertensives. ? Coreg 12.5 decreased to 2.125 mg twice daily ? Hydralazine and lisinopril held #Acute kidney injury likely secondary to relative hypotension #? Acute tubular necrosis, resolving Had HTN of 220/80 that was decreased to 120/80 within 24 hour period. Likely caused relative hypotension and ATN. ? 1.5 IVF on 09/25 and follow-up AM labs ? Monitor urine output ? 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 Stage I diastolic dysfunction. ? Aspirin 81 mg PO daiy ? Atorvastatin 40 mg PO HS ? Coreg increased from 3.125 to 6.25 mg PO BIDWM ? Lisinopril 10 mg PO daily #JUAN ? Resumed buspirone ? Duloxetine, doxepin, and clonazepam DC'd/held #? Alzheimers Son says she does not take quetiapine consistently, denies history of schizophrenia and dementia ? Continue home Namzaric (donezepil and memantine) #? Restless leg syndrome ? Pramipexole Hospital management: Disposition: GIRMA, pending SNF authorization Fluids: Currently none Diet: cardiac Lines: PIV DVT prophylaxis: heparin SC BID GI prophylaxis: pantoprazole 40 mg IV daily CODE STATUS: full code ----- Plan discussed with attending physician Dr. Rudd and senior resident physician Dr. Rickey Horta MD PGY-1 Internal Medicine Attending Provider Attestation/Addendum I have discussed and was present for the essential components of the history, physical examination, diagnosis, and treatment plan with the resident. I agree with the patient's care as documented by the resident and amended herein by me. Bob Rudd, DO. Patient seen and evaluated this AM. No acute events overnight, vital signs stable, patient afebrile, SpO2 92% on room air. 1 bowel movement reported overnight. CBC demonstrated a stable hemoglobin of 10, creatinine did uptrend today to 2.1. Uptrending creatinine is likely prerenal in nature hence fluid boluses were given. I did speak with the patient today, she endorses being tired but states she would be willing to get up to a chair today or even attempt to ambulate. I did notify the nurse if we can at least try to get her out of bed that would be beneficial for her if she can tolerate it. I have also reduced some of her psychiatric medications and put hold on others. I did also reduce her Coreg to let her BP run a bit higher considering she is probably tolerant of higher pressures and lowering too quickly may make her a bit dizzy. Will continue to monitor closely Although this document has been carefully reviewed, there may still be some phonetic and other typographical errors. These errors are purely grammatical due to imperfections in the software program and should not be construed in any way to compromise the substance of the patient's medical care during this visit.
--- NOTE | 2024-09-25 12:32 | PC.SS ---
Update: Patient's discharge on hold due to GIRMA.
--- NOTE | 2024-09-25 13:30 | PC.SS ---
FISH HOUSE WORKER informed by [facility] that authorization has been obtained for the patient. [facility].
--- NOTE | 2024-09-25 14:30 | PC.SS ---
Rounding Note: Patient's discharge to be held due to worsening kidney condition.
--- NOTE | 2024-09-25 15:00 | PC.SS ---
ECONOMIC ANALYST notified SNF that patient's d/c has been held.
[2024-09-25] MEDS: BusPIRone HCL 5 MG TABLET 30 MG PO (20:38)
[2024-09-25] MEDS: PRAMIPEXOLE 0.25 MG TABLET 0.75 MG PO (20:38)
[2024-09-25] MEDS: ATORVASTATIN CALCIUM 20 MG TABLET 40 MG PO (20:38)
[2024-09-26] VITALS (8 sets, daily range): BP systolic 123–170; BP diastolic 57–84; PULSE 65–86; RESP 12–19; TEMP 36.1–37; O2SAT 94–96; BMI 21.9; BMI 13.0
[2024-09-26 06:14] LABS: Basophils % (Auto) 0 % (0-2.5); Eosinophils # (Auto) 0.8 Thou/mm3 (0.0-0.5); Eosinophils % (Auto) 9 % (0-10); Hemoglobin 9.9 g/dL (12.0-16.0); Immature Granulocytes % (Auto) 0 % (0-0); Immature Granulocytes Auto 0.02 Thou/mm3 (0.00-0.00); Lymphocytes # (Auto) 2.6 Thou/mm3 (1.0-4.8); Lymphocytes % (Auto) 28 % (10-50); Mean Corpuscular Hemoglobin 31.2 pg (25.0-35.0); Mean Corpuscular Volume 95 fL (80-100); Monocytes # (Auto) 0.7 Thou/mm3 (0.0-0.8); Monocytes % (Auto) 8 % (0-12); Neutrophils # (Auto) 5.1 Thou/mm3 (1.8-7.7); Neutrophils % (Auto) 55 % (37-80); Nucleated Red Blood Cell % 0 /100 WBC (0); Platelet Count 263 Thou/mm3 (140-440); RDW Standard Deviation 45.6 fL (36.4-46.3); Red Blood Count 3.17 Miln/mm3 (4.00-5.20); White Blood Count 9.3 Thou/mm3 (3.6-11.0)
[2024-09-26 07:07] LABS: Alanine Aminotransferase < 7 U/L (10-49); Albumin, Serum 3.8 gm/dL (3.4-4.8); Albumin/Globulin Ratio 1.9 (1.2-2.2); Alkaline Phosphatase 94 U/L (46-116); Anion Gap 11 (7-16); Aspartate Amino Transferase 10 U/L (0-34); BUN/Creatinine Ratio 16 Ratio (12-20); Bilirubin,Total 0.2 mg/dL (0.3-1.2); Blood Urea Nitrogen 39 mg/dL (9-23); Calcium 9.1 mg/dL (8.3-10.6); Calcium (Corrected) 9.3 mg/dL (8.5-10.1); Chloride 105 mMol/L (98-107); Creatinine (Component) 2.5 mg/dL (0.6-1.3); Estimated Creatinine Clearance 13.1 mL/min (>60); Glucose 97 mg/dL (74-106); Magnesium 2.2 mg/dL (1.6-2.6); Osmolality,Calculated 290 (275-295); Phosphorous 4.7 mg/dL (2.4-5.1); Potassium 4.2 mMol/L (3.4-5.1); Sodium 141 mMol/L (136-145); Total Protein 5.8 gm/dL (5.7-8.2); eGFR 19 See Note
[2024-09-26] MEDS: cephALEXin 250 MG CAPSULE 500 MG PO (08:39)
[2024-09-26] MEDS: ASPIRIN EC 81 MG TABEC PO (08:39)
[2024-09-26] MEDS: PANTOPRAZOLE INJ 40 MG VIAL IVP (08:39)
[2024-09-26] MEDS: carVEDILOL 3.125 MG TABLET PO ×2 (08:39→17:11)
[2024-09-26] MEDS: HEPARIN SOD INJ 5000 UNIT/ML VIAL SC ×2 (08:40→20:41)
[2024-09-26 10:47] LABS: Chloride,Urine Random < 20.0 mMol/L (55.0-125.0); Creatinine MALB Rnd Ur 61 mg/dL (30-125); Creatinine,Random Urine 61 mg/dL (30-125); Microalbumin Creat Ratio 134 mg/gCrea (<30); Microalbumin, Random Urine 82 mg/L (0-300); Potassium,Urine Random 11 mMol/L (12-62); Protein Total, Random Urine 18 mg/dL (1-14); Sodium,Urine Random 29.7 mMol/L (20.0-110.0)
--- NOTE | 2024-09-26 12:29 | ESPR_ITS ---
<Statement entered by Aashish Lang MD - 09/26/24 18:39> Patient was seen and examined at the bedside. No acute overnight events were reported. Patient is alert and oriented x 3. Patient had worsening kidney functions with retaining 250 cc of urine in the bladder. Urine electrolytes were ordered which showed decreased urine sodium. Blood pressure was stable. Creatinine jumped up to 2.5. Will continue strict VARUN's and complete course of Keflex for UTI. Bolus of fluids were given. Likely monitor kidney functions tomorrow. Encouraged on oral intake of fluids. All labs and orders were reviewed. I saw and examined the patient, and I agree with current management stated by Dr Rula MD,PGY1. Plan of care was discussed with the attending physician and resident physician. Disclaimer: Despite multiple revisions, due to the dictation software being used, the document bellow may not be free of grammatical errors including phonetic/typographic errors. However, this does not deter from our commitment to providing health care in the patient's best interest in mind. Dr. Rickey MD, PGY 2 Documentation for date of: 09/26/24 Subjective Subjective Interval history: Joanen Cook is an 84-y/o female with PMHx of CAD, HFrEF, JUAN, HTN, HLD, Alzheimer?s?, recurrent UTI and falls who comes from home after unwitnessed fall and admitted for acute encephalopathy and UTI. 09/19: Seen and examined at bedside in telemetry. She states that she lives with her son, Jake, who is a psychologist. Endorses that she did not lose consciousness during her falls and has had multiple episodes prior to coming to the hospital. This time, she states that she fell when walking to the bathroom after slipping on water on the floor. Denies prodromal symptoms. At baseline, she walks with a walker. 09/20: Seen and examined at bedside in telemetry. No acute overnight events noted. Spoke to son in the morning who states that patient is normally able to function on her own and is able to do her own banking and finances. He also confirmed that patient does not have an outpatient psychiatrist. States that he feels safer if patient remained in the hospital for the day as he was told that patient was going to go home today but was not told this by hospitalist team. 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 She does not have any complaints at this time. 09/21: Seen and examined at bedside in telemetry. No acute overnight events noted. She does not have any complaints other than dysuria. Otherwise, denies fever, chills, nausea, vomiting, abdominal pain. Spoke to son at bedside who started that he manages home medications prescribed by PCP. States that patient is not on quetiapine and that her mentation and cognitive function are better while on memantine and brexpiprazole, but brexpiprazole not seen on med rec so will instead restart home memantine-donepezil. 09/24: No acute overnight events reported. Seen and examined at bedside in telemetry. Patient only oriented to name and birthdate, which is changed from prior. Spoke to son at bedside, who reiterated that patient is able to drive and do her own taxes, and is concerned that she may be discharged soon. Bladder scan showed 170 cc. 09/25: No acute overnight events reported. Seen and examined at bedside in telemetry and orientated to name, year, and place which is improved from prior. She does not have any complaints at this time. Spoke to son today and updated on current clinical status and current plans as she will remain in patient for at least one more hospital night given GIRMA. 09/26: No acute overnight events reported. Seen and examined at bedside in telemetry oriented to name, birthdate, year, and place. She does not have any complaints at this time. Obtain bladder scan that showed 0 cc postvoid volume. Labs and orders reviewed, BP 150/76 but 1 slightly elevated to prevent relative hypotension and otherwise VSS. Exam Vital Signs Temp Pulse Resp BP Pulse Ox O2 Del Method 97.8 F 71 18 152/84 H 94 L Room Air 09/26/24 08:00 09/26/24 08:39 09/26/24 08:00 09/26/24 08:39 09/26/24 08:00 09/26/24 08:00 Narrative Exam General: Alert and orientated to self, year, and birthdate, laying comfortably in bed HEENT: NC/AT, mucous membranes moist, bilateral sclera anicteric Cardiovascular: regular rate and rhythm, S1/S2 present, no murmurs appreciated Pulmonary: clear to auscultation bilaterally, no rales/rhonchi/wheezes Abdominal: soft, non-tender, non-distended, no rebound/guarding, normal bowel sounds present Musculoskeletal: normal ROM, no peripheral edema Skin: bruise under chin, warm and dry, intact, no rashes Neuro: CN II-XII intact, no focal deficits Psych: Demented with memory lapses however conversational and responds to questions Objective Labs 09/27/24 05:15 09/27/24 06:35 Labs: Laboratory Results - last 24 hr 09/26/24 09/26/24 05:30 10:10 WBC 9.3 RBC 3.17 L Hgb 9.9 L Hct 30.0 L MCV 95 MCH 31.2 MCHC 33.0 RDW Std Deviation 45.6 Plt Count 263 D Neut % (Auto) 55 Lymph % (Auto) 28 [place] % (Auto) 8 Eos % (Auto) 9 Baso % (Auto) 0 Neut # (Auto) 5.1 Lymph # (Auto) 2.6 [place] # (Auto) 0.7 Eos # (Auto) 0.8 H Baso # (Auto) 0.0 Immature Gran # (Auto) 0.02 H Absolute Nucleated RBC 0.00 Immature Gran % 0 Nucleated RBC % 0 Sodium 141 Potassium 4.2 Chloride 105 Carbon Dioxide 25.0 Anion Gap 11 BUN 39 H Creatinine 2.5 H Estim Creat Clear Calc 13.1 L eGFR 19 L BUN/Creatinine Ratio 16 Glucose 97 Calculated Osmolality 290 Calcium 9.1 Corrected Calcium 9.3 Phosphorus 4.7 Magnesium 2.2 Total Bilirubin 0.2 L AST 10 ALT < 7 L Alkaline Phosphatase 94 Total Protein 5.8 Albumin 3.8 Globulin 2.0 L Albumin/Globulin Ratio 1.9 Ur Random Creatinine 61 Ur Random Microalbumin 82 U Random Total Protein 18 H Ur Random Sodium 29.7 Ur Random Potassium 11 L Ur Random Chloride < 20.0 L U Creat (Microalbumin) 61 Microalb/Creat Ratio 134 H Quality Measures Quality Measures VTE prophylaxis Advance care planning discussed with:: patient and child Assessment & Plan Assessment Current Active Medications: Generic Name Dose Route Start Last Admin Trade Name Freq PRN Reason Stop Dose Admin Acetaminophen 650 mg 09/19/24 00:05 Acetaminophen 325 Mg Tablet PO 10/19/24 00:04 Q6H PRN Fever >100 or pain 1-5 Aspirin 81 mg 09/19/24 09:00 09/26/24 08:39 Aspirin Ec 81 Mg Tabec PO 10/19/24 08:59 81 mg QDAY KEYSHAWN Administration Atorvastatin Calcium 40 mg 09/21/24 21:00 09/25/24 20:38 Atorvastatin Calcium 20 Mg Tablet PO 10/19/24 20:59 40 mg HS KEYSHAWN Administration Buspirone HCl 30 mg 09/19/24 00:10 09/25/24 20:38 Buspirone Hcl 5 Mg Tablet PO 10/19/24 00:09 30 mg HS KEYSHAWN Administration Carvedilol 3.125 mg 09/25/24 17:30 09/26/24 08:39 Carvedilol 3.125 Mg Tablet PO 10/25/24 17:29 3.125 mg BIDWM KEYSHAWN Administration Cephalexin HCl 500 mg 09/24/24 09:00 09/26/24 08:39 Cephalexin 250 Mg Capsule PO 10/01/24 08:59 500 mg DAILY KEYSHAWN Administration Doxepin HCl 25 mg 09/19/24 00:10 09/19/24 01:39 Doxepin Hcl 25 Mg Capsule PO 10/19/24 00:09 25 mg HS KEYSHAWN Administration Duloxetine HCl 60 mg 09/19/24 00:15 09/24/24 20:48 Duloxetine Hcl 30 Mg Capsule PO 10/19/24 00:14 60 mg HS KEYSHAWN Administration Heparin Sodium (Porcine) 5,000 unit 09/19/24 09:00 09/26/24 08:40 Heparin Sod Inj 5000 Unit/Ml Vial SC 10/03/24 08:59 5,000 unit Q12H KEYSHAWN Administration Hydralazine HCl 10 mg 09/23/24 14:00 09/25/24 05:12 Hydralazine Hcl 10 Mg Tablet PO 10/23/24 13:59 Not Given TID KEYSHAWN Lisinopril 10 mg 09/23/24 14:00 09/24/24 08:45 Lisinopril 2.5 Mg Tablet PO 10/23/24 13:59 10 mg QDAY KEYSHAWN Administration Home Medication- 1 cap 09/21/24 21:00 09/25/24 20:34 Please Speak With PO 10/21/24 20:59 Not Given Patient Caregiver To HS KEYSHAWN Have Rx Brought To [facility] Pantoprazole Sodium 40 mg 09/19/24 09:00 09/26/24 08:39 Pantoprazole Inj 40 Mg Vial IVP 10/19/24 08:59 40 mg QDAY KEYSHAWN Administration Pharmacy Consult 1 each 09/20/24 07:55 Pharmacy Renal Dose Adjustment 1 Ea XX 10/20/24 07:54 PRN PRN CONSULT Polyethylene Glycol 17 gm 09/22/24 09:00 09/24/24 08:49 Polyethylene Glycol 17 Gm Packet PO 10/22/24 08:59 17 gm QDAY KEYSHAWN Administration Pramipexole Dihydrochloride 0.75 mg 09/19/24 00:10 09/25/24 20:38 Pramipexole 0.25 Mg Tablet PO 10/19/24 00:09 0.75 mg HS KEYSHAWN Administration Sennosides 1 tab 09/22/24 07:50 Senna Tablet PO 10/22/24 07:49 QDAY PRN CONSTIPATION Protocol Plan Joanne Cook is an 84-y/o female with PMHx of CAD, HFrEF, JUAN, HTN, HLD, Alzheimer?s?, recurrent UTI and falls who comes from home after unwitnessed fall and admitted for acute encephalopathy and UTI. Mentation has improved and currently treating urinary tract infection. Pending SNF authorization. #Acute encephalopathy likely secondary to UTI vs polypharmacy Head CT negative for acute hemorrhage, midline shift or mass effect Repeat head CT negative for acute hemorrhage, midline shift or mass effect History of having encephalopathy when getting UTIs and will treat accordingly and monitor for progress. However, also noted to have significant amount of psychiatric medications prescribed and will change accordingly. ? Doxepin and duloxetine held, clonazepam DC'd ? Neurochecks every 4 hours #Acute kidney injury likely secondary to relative hypotension #? Acute tubular necrosis, resolving Had HTN of 220/80 that was decreased to 120/80 within 24 hour period that likely caused relative hypotension and subsequent ATN. Will adjust antihypertensives to allow for mildly elevated BP which is probably patient's baseline. ? FENa 0.9%, indicative of prerenal pathology -> 500 mL of NS ? Monitor urine output ? Avoid nephrotoxic agents, renally dose medicines #Urinary tract infection, recurrent Urine culture 09/23: Contaminated ? Cephalexin 500 mg daily, renally dosed (09/24-) #Hypertensive emergency with acute kidney injury, improving On admission, highest BP read 220/110, given amlodipine 5 mg x1, labetalol 10 mg x1, and hydralazine 10 mg x1 Given that patient still appears to be fatigued and altered compared to her baseline, considering blood pressures lower than her normal as a possible etiology and will hold some of current antihypertensives. ? Coreg 3.125 mg p.o. twice daily ? 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 Stage I diastolic dysfunction. ? Aspirin 81 mg PO daiy ? Atorvastatin 40 mg PO HS ? Coreg increased from 3.125 PO BIDWM ? Lisinopril held #JUAN ? Continue buspirone ? Duloxetine, doxepin, and clonazepam DC'd/held #? Alzheimers Son says she does not take quetiapine consistently, denies history of schizophrenia and dementia ? Continue home Namzaric (donezepil and memantine) #? Restless leg syndrome ? Pramipexole Hospital management: Disposition: GIRMA, pending SNF authorization Fluids: 500 mL NS Diet: cardiac Lines: PIV DVT prophylaxis: heparin SC BID GI prophylaxis: pantoprazole 40 mg IV daily CODE STATUS: full code ----- Plan discussed with attending physician Dr. Rudd and senior resident physician Dr. Rickey Horta MD PGY-1 Internal Medicine Attending Provider Attestation/Addendum I have discussed and was present for the essential components of the history, physical examination, diagnosis, and treatment plan with the resident. I agree with the patient's care as documented by the resident and amended herein by me. Bob Rudd DO. Although this document has been carefully reviewed, there may still be some phonetic and other typographical errors. These errors are purely grammatical due to imperfections in the software program and should not be construed in any way to compromise the substance of the patient's medical care during this visit.
--- NOTE | 2024-09-26 12:40 | PC.SS ---
Update: CASTING AND PASTING SUPERVISOR informed by medical team that patient's d/c to be held for 1 more day. Plan is for patient to d/c to SNF.
--- NOTE | 2024-09-26 12:41 | PC.SS ---
FERMENTATION ENGINEER notified SNF staff that patient's discharge to be held for 1 more day.
[2024-09-26] MEDS: SODIUM CHLORIDE 0.9% 500 ML 500 ML 250 ML IV (13:37)
--- NOTE | 2024-09-26 15:05 | PC.SS ---
Rounding Note: Plan is to continue to monitor the patients electrolytes. D/C held due to worsening kidney condition.
[2024-09-26] MEDS: BusPIRone HCL 5 MG TABLET 30 MG PO (20:41)
[2024-09-26] MEDS: ATORVASTATIN CALCIUM 20 MG TABLET 40 MG PO (20:41)
[2024-09-26] MEDS: PRAMIPEXOLE 0.25 MG TABLET 0.75 MG PO (20:42)
[2024-09-27] VITALS (11 sets, daily range): BP systolic 140–194; BP diastolic 64–83; PULSE 69–101; RESP 15–19; TEMP 36.4–37.1; O2SAT 94–96; BMI 22.8
[2024-09-27] MEDS: ACETAMINOPHEN 325 MG TABLET 650 MG PO ×3 (01:52→17:12)
[2024-09-27 05:57] LABS: Basophils % (Auto) 0 % (0-2.5); Eosinophils # (Auto) 0.7 Thou/mm3 (0.0-0.5); Eosinophils % (Auto) 6 % (0-10); Hematocrit 30.6 % (36.0-46.0); Hemoglobin 10.2 g/dL (12.0-16.0); Immature Granulocytes % (Auto) 0 % (0-0); Immature Granulocytes Auto 0.03 Thou/mm3 (0.00-0.00); Lymphocytes # (Auto) 2.2 Thou/mm3 (1.0-4.8); Lymphocytes % (Auto) 21 % (10-50); Mean Corpuscular HGB Conc 33.3 g/dl (31.0-37.0); Mean Corpuscular Hemoglobin 30.5 pg (25.0-35.0); Mean Corpuscular Volume 92 fL (80-100); Monocytes # (Auto) 0.6 Thou/mm3 (0.0-0.8); Monocytes % (Auto) 6 % (0-12); Neutrophils # (Auto) 7.1 Thou/mm3 (1.8-7.7); Neutrophils % (Auto) 66 % (37-80); Nucleated Red Blood Cell % 0 /100 WBC (0); RDW Standard Deviation 43.5 fL (36.4-46.3); Red Blood Count 3.34 Miln/mm3 (4.00-5.20); White Blood Count 10.8 Thou/mm3 (3.6-11.0)
[2024-09-27 07:16] LABS: Alanine Aminotransferase < 7 U/L (10-49); Albumin, Serum 3.8 gm/dL (3.4-4.8); Albumin/Globulin Ratio 1.7 (1.2-2.2); Alkaline Phosphatase 91 U/L (46-116); Anion Gap 8 (7-16); Aspartate Amino Transferase 12 U/L (0-34); BUN/Creatinine Ratio 18 Ratio (12-20); Bilirubin,Total 0.3 mg/dL (0.3-1.2); Blood Urea Nitrogen 31 mg/dL (9-23); Calcium 9.3 mg/dL (8.3-10.6); Calcium (Corrected) 9.5 mg/dL (8.5-10.1); Carbon Dioxide 20.2 mMol/L (20.0-31.0); Chloride 108 mMol/L (98-107); Creatinine (Component) 1.7 mg/dL (0.6-1.3); Estimated Creatinine Clearance 19.3 mL/min (>60); Globulin 2.2 gm/dL (2.3-3.5); Glucose 96 mg/dL (74-106); Magnesium 1.8 mg/dL (1.6-2.6); Osmolality,Calculated 278 (275-295); Phosphorous 3.1 mg/dL (2.4-5.1); Potassium 4.9 mMol/L (3.4-5.1); Sodium 136 mMol/L (136-145); eGFR 30 See Note
[2024-09-27] MEDS: HEPARIN SOD INJ 5000 UNIT/ML VIAL SC (08:01)
[2024-09-27] MEDS: carVEDILOL 3.125 MG TABLET PO ×2 (08:01→17:12)
[2024-09-27] MEDS: PANTOPRAZOLE INJ 40 MG VIAL IVP (08:01)
[2024-09-27] MEDS: ASPIRIN EC 81 MG TABEC PO (08:02)
[2024-09-27] MEDS: SODIUM CHLORIDE 0.9% 500 ML 500 ML 250 ML IV (08:07)
[2024-09-27 08:12] LABS: Platelet Count 192 Thou/mm3 (140-440)
--- NOTE | 2024-09-27 11:48 | PD.RESDS ---
Planned Discharge Date 09/27/24 DS: Providers Provider Date of admission: 09/18/24 23:57 Primary care physician: Lacho Haji MD Admitting Provider: Katiuska Florez MD Attending Provider on Admission: Ed Rudd DO Consults: 09/19/24 10:50 Referral Physical Therapy Routine Comment: Physician Instructions: 09/24/24 14:52 Referral Physical Therapy Routine Comment: Physician Instructions: Instructions: Please work with patient daily, at least sit up into chair. Attending Provider on DC: Sofie Condon MD Discharging Provider: Sofie Condon MD DS: Diagnosis Problem List Completed Was Problem List Reviewed/Reconciled?: Yes Hospital Course Hospital Course Hospital course: Patient was an 84-year-old female with CAD, HFrEF (EF 45-50%), generalized anxiety, HTN, HLD, questionable Alzheimer's dementia, recurrent UTI and falls who was admitted for further workup of acute encephalopathy after having an unwitnessed fall. Had and C-spine CTs were negative. She was also found to have an GIRMA, UTI and started on Rocephin. Patient received IV fluids. There was concern for polypharmacy therefore home medications were adjusted/renally dosed. Over the course of admission, patient improved and antibiotics were adjusted to Keflex renally dosed to complete course outpatient. On 09/23, patient was to be discharged pending SNF availability, however her mentation worsened and creatinine began to increase. This was thought to be possibly related to lisinopril causing hypotension relative to patient's baseline, as SBP decreased from 150s to 100s. Lisinopril was started for renal protection related to proteinuria, along with underlying CHF. Lisinopril and hypertensives were held; patient was given IV fluids. Her mentation and renal function began to improve. She was working with PT, eating, and seen ambulating in the hallways. On day of discharge, patient was AO x 3 at her baseline and stable for discharge to SNF. Son was updated throughout admission. #Acute encephalopathy, resolved, likely secondary to UTI versus polypharmacy #UTI, recurrent #Hypertensive emergency, resolved #GIRMA, improved #Electrolyte abnormalities, improved #History of CAD #History of HFmrEF, EF 45-50%, not in an acute exacerbation #History of HLD #JUAN #Questionable Alzheimer's #Restless leg syndrome Patient seen and care discussed with my attending Dr. Rudd. Sofie Condon MD PGY-3 Status at Discharge Cognitive/behavioral status at discharge: AAOx3 Time Spent with Patient Time attestation: Total time spent providing and/or coordinating discharge services: Time spent: Greater than 30 minutes Exam Vital Signs Temp Pulse Resp BP Pulse Ox O2 Del Method 98.5 F 70 15 140/69 H 94 L Room Air 09/27/24 08:00 09/27/24 08:01 09/27/24 08:00 09/27/24 08:01 09/27/24 08:00 09/27/24 08:00 Narrative Exam General: Alert and orientated to self, year, and place, laying comfortably in bed HEENT: NC/AT, mucous membranes moist, bilateral sclera anicteric Cardiovascular: regular rate and rhythm, S1/S2 present, no murmurs appreciated Pulmonary: clear to auscultation bilaterally, no rales/rhonchi/wheezes Abdominal: soft, non-tender, non-distended, no rebound/guarding, normal bowel sounds present Musculoskeletal: normal ROM, no peripheral edema Skin: bruise under chin, warm and dry, intact, no rashes Neuro: CN II-XII intact, no focal deficits Psych: Occasional memory lapses however conversational and responds to questions appropriately Discharge Plan Plan Patient Disposition: Xfer Skilled Nsg Fac (SNF) Patient condition on transfer: Stable Care Plan Goals: - Clonazepam changed from 1 mg twice per day to once per day - Duloxetine changed from 60 mg twice per day to once per day - Stop taking baclofen, at least until you follow-up with your PCP - Stop taking amlodipine - Stop taking tamsulosin, at least until you follow-up with your PCP - Stop taking doxepin, at least until you follow-up with your PCP - Stop taking nortriptyline, at least until you follow-up with your PCP - Stop taking quetiapine, at least until you follow-up with your PCP - Start taking carvedilol 3.125 mg twice daily with meals for high blood pressure - Start taking hydralazine 10 mg three times per day for high blood pressure - Start taking lisinopril 2.5 mg daily for high blood pressure - If coughing or itchy throat, stop taking medications and follow-up with PCP. Recommend to obtain a renal panel within 1 week. - Continue taking all other home medications as prescribed - Follow-up with your PCP within 1 week of discharge. Reevaluate TECHNICAL SERVICES ASSISTANT-mediating medications, and slowly uptitrate anti-hypertensives with SBP goal range 140-150 - Return to the ED if symptoms worsen or recur Prescriptions/Referrals Prescriptions/Med Rec: New clonazepam 1 mg tablet 1 mg PO DAILY Qty: 30 0RF buspirone 30 mg tablet 30 mg PO HS Qty: 60 0RF hydralazine 10 mg Tablet 10 mg PO TID Qty: 60 0RF polyethylene glycol 3350 17 gram/dose powder 17 g PO QDAY Qty: 119 0RF duloxetine 60 mg capsule,delayed release(DR/EC) 60 mg PO HS Qty: 30 0RF lisinopril 2.5 mg tablet 2.5 mg PO QDAY Qty: 30 0RF carvedilol 3.125 mg Tablet 3.125 mg PO BIDWM 30 Days Qty: 60 0RF Continued pramipexole 0.75 mg Tablet 0.75 mg PO HS 30 Days Qty: 30 0RF loratadine 10 mg Tablet 10 mg PO QDAY azelastine-fluticasone 137-50 mcg/spray [place],Non-Aerosol 1 spray INTRANASAL BID PRN (Reason: Nasal Congestion) Rx Instructions: administer into each nostril aspirin [Adult Aspirin Regimen] 81 mg tablet,delayed release (DR/EC) 81 mg PO QDAY atorvastatin [Lipitor] 40 mg tablet 40 mg PO QPM famotidine [Acid Controller] 20 mg tablet 20 mg PO QDAY montelukast 10 mg tablet 10 mg PO QDAY oxycodone 10 mg tablet 10 mg PO Q4H memantine-donepezil [Namzaric] 28-10 mg capsule,sprinkle,ER 24hr 1 cap PO QDAY Discontinued tamsulosin [Flomax] 0.4 mg capsule 0.4 mg PO QDAY Qty: 20 0RF doxepin 25 mg Capsule 25 mg PO HS PRN (Reason: Sleeping) duloxetine 60 mg Capsule,Delayed Release(Dr/Ec) 60 mg PO BID amlodipine 5 mg tablet 5 mg PO QDAY ibuprofen 400 mg tablet 400 mg PO TID baclofen 10 mg granules in packet 10 mg PO BID quetiapine 50 mg tablet 50 mg PO HS nortriptyline 25 mg capsule 25 mg PO QDAY Referrals: Lacho Haji MD [Primary Care Provider] - Patient/Caregiver Discharge Instructions Discharge Activity: activity as tolerated Education Materials: Acute Kidney Failure Dc, Hypertension Dc Print Language: British Stand Alone Forms: Irene Award Info., Patient Portal Info Letter Discharge Order Discharge Orders: Discharge (Routine); Ordered 09/27/24 Ordered By: Sofie Condon Quality Discharge Quality Measures VTE prophylaxis MD Attestestation MD Attestation I have discussed and was present for the essential components of the discharge history, physical examination, diagnosis, and discharge treatment plan with the resident. I agree with the patient's discharge care as documented by the resident and amended herein by me. Bob Rudd DO. The patient understood all discharge instructions, all questions were answered satisfactorily. The patient was instructed to return to the Emergency Department is symptoms worsened or persisted. The patient was stable, afebrile and tolerating p.o. intake at time of discharge. Mentation was significantly improved, blood pressure well-controlled, safe to discharge to SNF for further rehabilitation. Although this document has been carefully reviewed, there may still be some phonetic and other typographical errors. These errors are purely grammatical due to imperfections in the software program and should not be construed in any way to compromise the substance of the patient's medical care during this visit.
--- NOTE | 2024-09-27 12:07 | CHAP ---
Patient was visited by the Spiritual Care Volunteer who prayed for them. (Volunteer was in the hospital from 11:00-12:07).
--- NOTE | 2024-09-27 13:51 | PC.SS ---
Addendum entered by ESTELLA Valiente 09/27/24 14:26: ETA 6:30pm, notified bed side nurse and SNF staff. Original Note: Patient has d/c orders and going to [facility]. Velma at [facility] is aware. Patient's son Jake is aware. Transportation scheduled for 3-3:30pm via [facility] as patient's modivacre has been inactive since 09/07/24. Bed side nurse aware of ETA.
[2024-09-27] MEDS: hydrALAZINE HCL 25 MG TABLET PO (14:00)
[2024-09-27] MEDS: LABETALOL INJ 5 MG/ML VIAL 20 ML IVP (16:35)
--- NOTE | 2024-09-27 18:15 | PC.NURSE ---
PATIENT DISCHARGED TO SNF TRANSPORTED VIA AMBULANCE, REPORT CALLED AND GIVEN TO ANY STAFF NURSE.
== END 2024-09-27 18:15 | disposition skilled nursing facility (03) | DRG 689 ==
LOC: SERX 22:53 → S2NX 09-19 06:10 → SERHOLD 09-26 09:12 → S2NX 09-26 09:12
PROVIDERS: Nurse Practitioner Family; Student in an Organized Health Care Education/Training Program; Admitting Provider Internal Medicine; Emergency Provider Emergency Medicine; PCP Family Medicine; Visit Provider Student in an Organized Health Care Education/Training Program
DX: N39.0 Urinary tract infection, site not specified (principal); G92.8 Other toxic encephalopathy; N17.0 Acute kidney failure with tubular necrosis; I16.1 Hypertensive emergency; I13.0 Hypertensive heart and chronic kidney disease with heart failure and stage 1 through stage 4 chronic kidney disease, or unspecified chronic kidney disease; I50.22 Chronic systolic (congestive) heart failure; F41.1 Generalized anxiety disorder; E78.5 Hyperlipidemia, unspecified; F02.80 Dementia in other diseases classified elsewhere, unspecified severity, without behavioral disturbance, psychotic disturbance, mood disturbance, and anxiety; G30.9 Alzheimer's disease, unspecified; R39.15 Urgency of urination; E87.6 Hypokalemia; I25.10 Atherosclerotic heart disease of native coronary artery without angina pectoris; F20.9 Schizophrenia, unspecified; G89.29 Other chronic pain; M54.9 Dorsalgia, unspecified; Z87.440 Personal history of urinary (tract) infections; Z91.81 History of falling; N18.9 Chronic kidney disease, unspecified; Z79.899 Other long term (current) drug therapy; Z79.82 Long term (current) use of aspirin; W01.0XXA Fall on same level from slipping, tripping and stumbling without subsequent striking against object, initial encounter; Z63.4 Disappearance and death of family member; Y93.01 Activity, walking, marching and hiking; G25.81 Restless legs syndrome; I95.9 Hypotension, unspecified
CPT/HCPCS: 36415; 70450; 71045; 72125; 76770; 80053; 80061; 80307; 81001; 82043; 82436; 82570; 83735; 83880; 84100; 84133; 84156; 84300; 84443; 84484; 85025; 85610; 85730; 87040; 87086; 87493; 93005; 93306; 96361; 96365; 97162; 99285; G0378; J0360; J0696; J1643; J2470; J3475; J3490; J7030; J7040; J7050; J7120; A9270; J1920

== ENCOUNTER 2024-10-23 13:51 | Inpatient (IN) | payer MEDICARE, MEDICAID, SELFPAY ==
[2024-10-23] VITALS (18 sets, daily range): BP systolic 83–146; BP diastolic 47–86; PULSE 81–115; RESP 9–100; TEMP 34.9–37.6; O2SAT 94–100; BMI 19.2
--- NOTE | 2024-10-23 14:03 | EKG_ITS ---
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
--- NOTE | 2024-10-23 14:04 | XR_ITS ---
Examination: AP chest single view Technique one AP portable semiupright chest single view Exam date and time: October 23, 2024 1439 hours INDICATIONS: Sepsis today. FINDINGS: Normal heart size Lungs are clear. Prominent osteopenia IMPRESSION: No pneumonia identified
--- NOTE | 2024-10-23 14:05 | XR_ITS ---
Examination: CT brain head without contrast. 2-D sagittal coronal reconstructions Date and time of exam:October 23, 2024 1423 hours Comparison September 25, 2024 INDICATIONS: Onset altered mental status today CTDI: vol (mGy):44.2 DLP: (mGycm):868 Technique: Multiple CT axial sections of the brain have been obtained, 5 mm slice thickness. Contrast has not been administered. 2-D sagittal, coronal reconstructions have been obtained Low dose protocols were performed. One or more of the following dose reduction techniques were used; automated exposure control, adjustment of the mA and/or KV according to patient size, use of iterative reconstruction technique. Findings: No significant ventricular enlargement. Intra-axial or extra-axial hemorrhage density is not seen. No mass effect or midline shift Basal cisterns are not remarkable. Fourth ventricle is midline. Cranial vault intact. Impression: Negative for acute hemorrhage, mass effect or midline shift Advise clinical correlation follow-up accordingly
--- NOTE | 2024-10-23 14:06 | EDNOTE_ITS ---
Altered Mental Status RME/HPI General Chief Complaint: Altered Mental Status Stated Complaint: ALTERED Time Seen by Provider: 10/23/24 13:58 Arrival date/time: 10/23/24 13:51 RME / HPI RME / HPI narrative: 84-year-old female patient with significant history of hypercholesterolemia, hypertension, dementia, CAD was brought in by EMS for evaluation regarding altered mental status. Apparently patient was having a shower because she had a n appointment with her PCP this afternoon and while in the shower she developed sudden onset of unresponsiveness. With the EMS arrived patient was noted to have a blood pressure low 80 systolic. On my initial evaluation patient was alert and oriented x 1. She is moving all her extremities without any limitation. Patient was given 400 cc of IV fluids per EMS. Was also noted to have erythematous excoriation, noted on her entire back and buttocks. Related Data Home Medications ?Medication ?Instructions ?Recorded ?Confirmed azelastine 137 mcg-fluticasone 50 1 spray intranasal B ID PRN Nasal 04/07/23 09/19/24 mcg/spray nasal spray Congestion loratadine 10 mg tablet 10 mg PO QDAY 04/07/2309/19 aspirin 81 mg tablet,delayed 81 mg PO QDAY 09/19/24 release (Adult Aspirin Regimen) atorvastatin 40 mg tablet (Lipitor) 40 mg PO QPM 09/1909/19/24 famotidine 20 mg tablet (Acid 20 mg PO QDAY 09/19/24 0 09/19/24 Controller) memantine ER 28 mg-donepezil 10 mg 1 cap PO QDAY 09/1909/19/24 capsule sprinkle,ext.release 24 hr (Namzaric) montelukast 10 mg tablet 10 mg PO QDAY 09/19/2409/19 oxycodone 10 mg tablet 10 mg PO Q4H 09/19/24 Previous Rx's ?Medication ?Instructions ?Recorded pramipexole 0.75 mg tablet 0.75 mg PO HS 30 days #30 t abs 09/15/23 buspirone 30 mg tablet 30 mg PO HS #60 tabs 5 clonazepam 1 mg tablet 1 mg PO DAILY #30 tabs 09/22 duloxetine 60 mg capsule,delayed 60 mg PO HS #30 caps 09/22/24 release hydralazine 10 mg tablet 10 mg PO TID #60 tabs polyethylene glycol 3350 17 17 g PO QDAY #119 grams gram/dose oral powder lisinopril 2.5 mg tablet 2.5 mg PO QDAY #30 tabs 09/07 01/31 carvedilol 3.125 mg tablet 3.125 mg PO BIDWM 30 days # 60 tabs 09/27/24 Allergies Allergy/AdvReac Type Severity Reaction Status Date / Time Penicillins Allergy Severe UNABLE TO Verified 09/18/24 17:28 WALK Sulfa (Sulfonamide Allergy Severe FLU, Verified 09/18/24 17:28 Antibiotics) UNABLE TO WALK Review of Systems Review of Systems Narrative Review of Systems: Review of system reviewed and within normal limits except mentioned in HPI ED Exam Narrative Physical exam: VITAL SIGNS: Reviewed. GENERAL APPEARANCE: Alert and oriented x 1, does not follow commands, no acute distress, HEAD AND FACE: Non-traumatic. ENT: PERRL, pink conjunctivitis, eyelid no trauma, Mucous membrane moist. NECK: Supple, nontender, no nuchal rigidity. CHEST: No tenderness, no crepitus, no paradoxical movement, no retractions. LUNGS: Clear, well ventilated, symmetric, no rales, no wheezing, no ronchi, no stridor, good breath sounds bilaterally. HEART: Regular rate, regular rhythm, no murmur, no gallops. ABDOMEN: Soft, positive bowel sounds, nondistended, no guarding, nontender, no rebound, no masses, RECTAL: Deferred. GENITAL: Deferred. NEUROLOGICAL: Gross motor function intact sensory function intact, Appropriate for age. MUSCULOSKELETAL: low back nontender, full range of motion. EXTREMITIES: Nontender, full range of motion. SKIN: Color pink, dry, erythematous excoriation, entire back area including stage II wounds on the buttocks, LYMPHATICS: Deferred. Course Quality Measures none Orders Category Date Time Status COVID-19 Screening Questionnaire NOW Care 10/23/24 20:[address] Screening NOW Care 10/23/24 18:54 Active Prorate Clerk STAT Care 10/23/24 14:03 Active Continuous Pulse Oximetry STAT Care 10/23/24 14:03 Completed Decision to Admit X1 Care 10/23/24 20:54 Active EKG (ED ONLY) *Do not use* NOW Care 10/23/24 14:03 Completed Davis [Urinary Catheter] QS Care 10/23/24 15:45 Active Insert IV NOW Care 10/23/24 14:03 Active NPO STAT Care 10/23/24 14:03 Active Strict Intake and Output Routine Care 10/23/24 14:03 Ordered Consult to General Surgery Stat Cons 10/23/24 18:08 Ordered Consult to Nephrology Stat Cons 10/23/24 17:[address] chest abdomen pelvis wo Stat Exams 10/23/24 16:[address] head/brain wo con Stat Exams 10/23/24 14:05 Completed EKG (ED Only) Stat Exams 10/23/24 14:03 Draft US gall bladder Stat Exams 10/23/24 18:24 Completed XR chest 1V Stat Exams 10/23/24 14:04 Completed ABG [Arterial Blood Gas] Stat Lab 10/23/24 18:12 Completed Ammonia Stat Lab 10/23/24 18:44 Completed B-Type Natriuretic Peptide Stat Lab 10/23/24 15:34 Completed Beta Hydroxybutyrate Stat Lab 10/23/24 18:44 Completed Blood Culture (Lab) Stat Lab 10/23/24 15:19 Received CBC Stat Lab 10/23/24 15:19 Completed CMP [Comprehensive Metabolic Panel] Stat Lab 10/23/24 21:08 Ordered Comprehensive Metabolic Panel Stat Lab 10/23/24 15:34 Completed LDH (Lactate Dehydrogenase) Stat Lab 10/23/24 15:34 Completed Lactate (Lactic Acid) Stat Lab 10/23/24 15:19 Completed Lactic Acid, 3 HR Stat Lab 10/23/24 18:44 Completed Lipase Stat Lab 10/23/24 15:34 Completed Magnesium Stat Lab 10/23/24 15:34 Completed Partial Thromboplastin Time Stat Lab 10/23/24 15:58 Completed Phosphorous Stat Lab 10/23/24 15:34 Completed Procalcitonin Stat Lab 10/23/24 15:34 Completed Prothrombin Time with INR Stat Lab 10/23/24 15:58 Completed Troponin I Stat Lab 10/23/24 15:34 Completed Urinalysis Stat Lab 10/23/24 16:21 Completed Urine Culture Stat Lab 10/23/24 16:21 Received VBG [Venous Blood Gas] Stat Lab 10/23/24 18:44 Completed c diff [Clostridium Difficile PCR] Stat Lab 10/23/24 Ordered Cefepime Inj [Maxipime Inj] 1 gm Med 10/23/24 16:06 Discontinued SODIUM CHLORIDE 0.9% (Popper) [Ns 0.9% (P)] 50 ml IV X1 Cefoxitin [Mefoxin] 2 gm Med 10/23/24 15:49 Discontinued SODIUM CHLORIDE 0.9% (Popper) [Ns 0.9% (P)] 50 ml IV X1 Ringers Lactated 1000 ml [Lactated Ringers] 1,000 ml Med 10/23/24 14:03 Discontinued IV 999 mls/hr Ringers Lactated 1000 ml [Lactated Ringers] 1,000 ml Med 10/23/24 15:47 Discontinued IV 999 mls/hr Ringers Lactated 1000 ml [Lactated Ringers] 1,000 ml Med 10/23/24 17:17 Discontinued IV 999 mls/hr cefTRIAXone/D5w 1gm IV premix [Rocephin/D5w 1gm IV Med 10/23/24 14:03 Discontinued premix] 1 gm in 50 ml IV X1 metroNIDAZOLE/NS 500 MG IVPB [Flagyl 500 mg IV] Med 10/23/24 17:43 Discontinued 500 mg in 100 ml IV X1 Oxygen Delivery NOW RT 10/23/24 14:03 Active Vital Signs Vital signs: Vital Signs Temperature 97.7 F 10/23/24 13:55 Pulse Rate 93 10/23/24 13:55 Respiratory Rate 24 H 10/23/24 13:55 Blood Pressure 106/74 10/23/24 13:55 Altered Mental Status MDM Narrative [facility] Narrative:: 84-year-old female patient with significant history of hypercholesterolemia, hypertension, dementia, was brought in by EMS for evaluation regarding altered mental status. Apparently patient was having a shower because she had an appointment with her PCP this afternoon and while in the shower she developed sudden onset of unresponsiveness. With the EMS arrived patient was noted to have a blood pressure low 80 systolic. On my initial evaluation patient was alert and oriented x 1. She is moving all her extremities without any limita tion. Patient was given 400 cc of IV fluids per EMS. Was also noted to have erythematous excoriation, noted on her entire back and buttocks. Patient's workup is significant for lactic acid of 10.0. Leukocytosis of 18.3 with predominance of neutrophils. ABG showed pH of 7.24 bicarb of 16 sodium 159, chloride of 123, carbon oxide of 13.5 anion gap 23 BUN 86 creatinine 3.8 glucose 180 possible 6.7 which is elevated total bili of less than 0.2 alkaline phos of 121 troponin 0.076 urinalysis no UTI. Ultrasound gallbladder showed enlarged common bile duct, no stone noted abdomen and pelvis showed No pneumonia, pulmonary edema or pleural disease Abnormal enlargement common bile duct 10 mm, recommend hepatobiliary sonography follow-up Bilateral renal masses, recommend MRI abdomen kidneys follow-up pre and postcontrast Fluid distended small bowel loops, consider ileus, enteritis Septated left adnexal mass 4.6 cm, recommend pelvic sonography follow-up Pronounced thickening of urinary bladder wall, differential would include cystitis, bladder carcinoma not excluded, recommend urinary bladder sonography follow-up CT scan of the head came back unremarkable. Chest x-ray came back unremarkable. EKG showed sinus rhythm, ventricular rate of 92 bpm, no ST segment elevation or depression noted. Spoke with Dr Luna, metal buildings assembler on-call, who recommends giving IV LR at least 3 L and if blood pressure stabilized patient can be started on D5 water. There is no need to do hemodialysis at this time Spoke with Dr. Bhatt, who examined the patient in the emergency room. Who told me not to repeat the CT scan at this time. He will see the patient again tomorrow. Patient was given total of 3 L IV LR, IV cefepime, IV Flagyl and IV ceftriaxone. Was also placed on a Alfredo hugger due to hypothermia earlier today. Plan of care discussed with her son who told me that patient is full code. Patient was also seen by Dr. Florez , hospitalist, who recommends ICU admission Patient data External records reviewed:: None Clinical information provided by:: patient Social determinants that could affect healthcare access:: none Patient has the following chronic illnesses:: Hypertension CAD How is presenting disease/condition affected by chronic disease/condition?: exacerbated by Evaluation data The following diagnostics were reviewed and interpreted by me:: lab results, radiology exam(s) and EKG tracing(s) Lab and/or radiology exams considered but not ordered:: None Interpretation Summary: See results MDM Medications / Prescriptions Medications or Prescriptions considered but not ordered:: None Medication administrations:: Medication Administration History Discontinued Medications Lactated Ringer's (Lactated Ringers) 1,000 mls @ 999 mls/hr IV .Q1H1M ONE Stop: 10/23/24 15:03 Last Infusion: 10/23/24 16:00 Dose: Infused Documented By: Admin: 10/23/24 14:18 Dose: 999 mls/hr Documented By: GM Ceftriaxone Sodium/Dextrose (Rocephin/D5w 1gm Iv Premix) 1 gm in 50 mls @ 100 mls/hr IV X1 ONE Stop: 10/23/24 14:32 Last Infusion: 10/23/24 16:00 Dose: Infused Documented By: Admin: 10/23/24 15:18 Dose: 100 mls/hr Documented By: GM Lactated Ringer's (Lactated Ringers) 1,000 mls @ 999 mls/hr IV .Q1H1M ONE Stop: 10/23/24 16:47 Last Infusion: 10/23/24 18:15 Dose: Infused Documented By: Admin: 10/23/24 16:51 Dose: 999 mls/hr Documented By: ROSINA Cefoxitin Sodium 2 gm/ Sodium (Chloride) 50 mls @ 100 mls/hr IV X1 ONE Stop: 10/23/24 16:18 Last Admin: 10/23/24 16:41 Dose: Not Given Documented By: ROSINA Non-Admin Reason: Discontinued Cefepime HCl 1 gm/ Sodium (Chloride) 50 mls @ 100 mls/hr IV X1 ONE Stop: 10/23/24 16:35 Last Infusion: 10/23/24 17:30 Dose: Infused Documented By: Admin: 10/23/24 16:51 Dose: 100 mls/hr Documented By: ROSINA Lactated Ringer's (Lactated Ringers) 1,000 mls @ 999 mls/hr IV .Q1H1M ONE Stop: 10/23/24 18:17 Last Infusion: 10/23/24 19:07 Dose: Infused Documented By: Admin: 10/23/24 18:02 Dose: 999 mls/hr Documented By: CLAUDE Metronidazole (Flagyl 500 Mg Iv) 500 mg in 100 mls @ 100 mls/hr IV X1 ONE Stop: 10/23/24 18:42 Last Infusion: 10/23/24 19:07 Dose: Infused Documented By: Admin: 10/23/24 18:02 Dose: 100 mls/hr Documented By: GM Flagyl, IV fluids, cefepime, ceftriaxone IV, Consultations Consultation(s) initiated? (list below): Yes Consultation #1 (Physician, Specialty, Details): Dr Glaser General Surgery on-call thank you Consultation #2 (Physician, Specialty, Details): Dr Luna metal buildings assembler on-call thank you Diagnosis Differential diagnosis altered mental status: altered mental status, sepsis and other Most likely diagnosis given after review of the tests above:: GIRMA, sepsis, altered mental status, hypernatremia Admission Indicated Admission indicated?: indicated Admission Request Was there a request for admission?: Yes Admission Attestation Admission request attestation: Discussed case with Dr. Tye Prince from Hospitalist service regarding admission. Discussed patients ED course, exam findings, labs, and radiology results. The Hospitalist agrees] to accept the patient for admission. Disposition Plan Disposition Plan: Admit Critical Care Time Critical Care Time Critical Care Time: Yes Total Critical Care Time (min.): 45 Attestation: Critical Care Time The very real possibility of a deterioration of this patient's condition required the highest level of my preparedness for sudden, emergent intervention for the following systems: Cardiac and Metabolic. I provided critical care services, which included medication orders, frequent re-evaluations of the patient's condition and response to treatment, ordering and reviewing test results, and discussing the case with various consultants including: nursing staff, hospitalist, and more. The critical care time associated with the care of this patient was 45 minutes. Discharge Plan Plan Patient Disposition: Admit Acute Care w/in Hospital Prescriptions/Referrals Prescriptions/Med Rec: No Action pramipexole 0.75 mg Tablet 0.75 mg PO HS 30 Days Qty: 30 0RF loratadine 10 mg Tablet 10 mg PO QDAY azelastine-fluticasone 137-50 mcg/spray [place],Non-Aerosol 1 spray INTRANASAL BID PRN (Reason: Nasal Congestion) Rx Instructions: administer into each nostril aspirin [Adult Aspirin Regimen] 81 mg tablet,delayed release (DR/EC) 81 mg PO QDAY atorvastatin [Lipitor] 40 mg tablet 40 mg PO QPM famotidine [Acid Controller] 20 mg tablet 20 mg PO QDAY montelukast 10 mg tablet 10 mg PO QDAY oxycodone 10 mg tablet 10 mg PO Q4H memantine-donepezil [Namzaric] 28-10 mg capsule,sprinkle,ER 24hr 1 cap PO QDAY clonazepam 1 mg tablet 1 mg PO DAILY Qty: 30 0RF buspirone 30 mg tablet 30 mg PO HS Qty: 60 0RF hydralazine 10 mg Tablet 10 mg PO TID Qty: 60 0RF polyethylene glycol 3350 17 gram/dose powder 17 g PO QDAY Qty: 119 0RF duloxetine 60 mg capsule,delayed release(DR/EC) 60 mg PO HS Qty: 30 0RF lisinopril 2.5 mg tablet 2.5 mg PO QDAY Qty: 30 0RF carvedilol 3.125 mg Tablet 3.125 mg PO BIDWM 30 Days Qty: 60 0RF Referrals: Larry Lopez MD [Primary Care Provider] - In 1 week Problem List Clinical Impression: Sepsis, Abdominal pain, Hypernatremia, GIRMA (acute kidney injury) Patient/Caregiver Discharge Instructions Print Language: [place] Stand Alone Forms: Irene Award Info., Patient Portal Info Letter
[2024-10-23] MEDS: RINGERS LACTATED 1000 ML 1,000 ML 999 ML IV ×3 (14:18→18:02)
[2024-10-23] MEDS: cefTRIAXone/D5w 1gm IV premix 1 GM/50 ML BAG IV (15:18)
[2024-10-23 15:30] LABS: Basophils % (Auto) 0 % (0-2.5); Eosinophils % (Auto) 0 % (0-10); Hematocrit 42.7 % (36.0-46.0); Hemoglobin 13.3 g/dL (12.0-16.0); Immature Granulocytes % (Auto) 1 % (0-0); Immature Granulocytes Auto 0.12 Thou/mm3 (0.00-0.00); Lymphocytes # (Auto) 0.9 Thou/mm3 (1.0-4.8); Lymphocytes % (Auto) 5 % (10-50); Mean Corpuscular HGB Conc 31.1 g/dl (31.0-37.0); Mean Corpuscular Volume 96 fL (80-100); Monocytes # (Auto) 0.1 Thou/mm3 (0.0-0.8); Monocytes % (Auto) 1 % (0-12); Neutrophils % (Auto) 93 % (37-80); Nucleated Red Blood Cell # 0.02 Thou/mm3 (0.00-0.00); Nucleated Red Blood Cell % 0 /100 WBC (0); Platelet Count 374 Thou/mm3 (140-440); RDW Standard Deviation 50.5 fL (36.4-46.3); Red Blood Count 4.43 Miln/mm3 (4.00-5.20); White Blood Count 18.3 Thou/mm3 (3.6-11.0)
[2024-10-23 16:20] LABS: Partial Thromboplastin Time 21.5 Seconds (22.0-36.0); Prothrombin Time 11.4 Seconds (9.0-12.2)
[2024-10-23 16:37] LABS: Alanine Aminotransferase 9 U/L (10-49); Albumin, Serum 4.4 gm/dL (3.4-4.8); Albumin/Globulin Ratio 1.5 (1.2-2.2); Alkaline Phosphatase 121 U/L (46-116); Anion Gap 23 (7-16); Aspartate Amino Transferase 30 U/L (0-34); B-Type Natriuretic Peptide 57 pg/mL (0-100); BUN/Creatinine Ratio 23 Ratio (12-20); Bilirubin,Total < 0.2 mg/dL (0.3-1.2); Blood Urea Nitrogen 86 mg/dL (9-23); Calcium 9.9 mg/dL (8.3-10.6); Calcium (Corrected) 9.9 mg/dL (8.5-10.1); Chloride 123 mMol/L (98-107); Creatinine (Component) 3.8 mg/dL (0.6-1.3); Estimated Creatinine Clearance 8.3 mL/min (>60); Glucose 180 mg/dL (74-106); LDH (Lactate Dehydrogenase) 372 U/L (120-246); Lipase 135 U/L (12-53); Magnesium 2.2 mg/dL (1.6-2.6); Osmolality,Calculated 345 (275-295); Phosphorous 6.7 mg/dL (2.4-5.1); Potassium 4.4 mMol/L (3.4-5.1); Procalcitonin 0.16 ng/ml (0.0-0.49); Sodium 159 mMol/L (136-145); Total Protein 7.4 gm/dL (5.7-8.2); eGFR 11 See Note
[2024-10-23 16:39] LABS: Collection Type, Urine Clean Catch
[2024-10-23 16:45] LABS: Carbon Dioxide 13.5 mMol/L (20.0-31.0); Troponin I 0.076 ng/mL (0.0-0.045)
--- NOTE | 2024-10-23 16:49 | XR_ITS ---
Examination: CT chest, without intravenous contrast. CT abdomen, without intravenous contrast. CT pelvis, without intravenous contrast. 2-D sagittal and coronal reconstructions. 3-D reconstructions. Date and time of exam:October 23, 2024 at 1654 hrs. Indications: Sepsis alert today CTDI vol (mgy) 6.44 DLP (MGycm)[id number] Technique: Multiple CT images, 3.0 mm slice thickness, obtained chest, abdomen, pelvis, with the high-resolution 64 slice scanner.. Sagittal and coronal 2-D reconstructions are obtained. 3-D reconstructions Low dose protocols were performed. One or more of the following dose reduction techniques were used; automated exposure control, adjustment of the mA and/or KV according to patient size, use of iterative reconstruction technique. Findings: No thoracic aortic aneurysm dilatation or dissection Pulmonary artery segments are not enlarged No paratracheal tracheobronchial or bronchopulmonary adenopathy No pneumonia or pulmonary edema No pleural disease No visualized liver or splenic lesion Absent gallbladder Common bile duct is enlarged 10 mm no definite stones No peripancreatic edema Solid appearing mass upper pole right kidney, 21 mm Proteinaceous cyst versus solid mass lower pole right kidney 21 mm No renal or ureteral calculi Normal appendix Fluid distended small bowel loops in the lower abdomen and pelvis Atrophic uterus Hypodense septated 4.6 cm left adnexal mass Abundant stool in the colon Urinary bladder wall is prominently thickened up to 13 mm with urinary Davis catheter Severe osteopenia with chronic osteoporotic compressions T12 T11 Impression: No pneumonia, pulmonary edema or pleural disease Abnormal enlargement common bile duct 10 mm, recommend hepatobiliary sonography follow-up Bilateral renal masses, recommend MRI abdomen kidneys follow-up pre and postcontrast Fluid distended small bowel loops, consider ileus, enteritis Septated left adnexal mass 4.6 cm, recommend pelvic sonography follow-up Pronounced thickening of urinary bladder wall, differential would include cystitis, bladder carcinoma not excluded, recommend urinary bladder sonography follow-up
[2024-10-23 16:50] LABS: Bilirubin,Urine Negative (Negative); Blood,Urine Negative (Negative); Clarity,Urine Clear (Clear/Hazy); Color,Urine Yellow (Lt Yel-Yel); Glucose, Urine Negative (Negative); Ketones,Urine Trace (Negative); Leukocyte Esterase,Urine Negative (Negative); Nitrite,Urine Negative (Negative); Protein,Urine 1+ (Neg - Trace); RBC,Urine 1 /hpf (0-3); Specific Gravity,Urine 1.019 (1.001-1.035); Squamous Epithelial Cell,Urine 1 /hpf (0-5); Urobilinogen,Urine Negative mg/dL (0.0-1.0); WBC,Urine 3 /hpf (0-5)
[2024-10-23] MEDS: CEFEPIME INJ 1 GM in SODIUM CHLORIDE 0.9% (Popper) 50 ML IV (16:51)
[2024-10-23] MEDS: metroNIDAZOLE/NS 500 MG IVPB 500 MG/100 ML BAG 100 MG IV (18:02)
[2024-10-23 18:17] LABS: Base Excess -11 (-3-3); HCO3 16 mEq/L (20-26); Inspired Oxygen, FIO2 21 %; O2 Saturation 97 % (91-98); PCO2 36 mmHg (32.0-48.0); PO2 96 mmHg (83-108); pH, Arterial 7.24 (7.35-7.45)
[2024-10-23 18:19] LABS: Allen Test Performed/OK; Puncture Site Left Radial
--- NOTE | 2024-10-23 18:24 | XR_ITS ---
Examination: Abdomen sonogram, Limited Date and time of exam: October 23, 2024 1945 hrs. Indications: Abdominal pain today with enlarged common bile duct 11 CT abdomen study today Technique: Real-time moore scale transabdominal sonographic images of the upper abdomen obtained. Findings: Absent gallbladder Common bile duct 10 mm no stones noted Pancreatic head 2.4 cm Liver 12.0 cm no liver lesions Normal hepatopedal portal venous flow Patent IVC Impression: Enlarged common bile duct, no stones noted If biliary colic is a clinical consideration, suggest MRCP follow-up
[2024-10-23 18:26] LABS: Reflex Lactate? Y
--- NOTE | 2024-10-23 18:27 | ESCONSULT_ITS ---
<Statement entered by Katiuska Florez MD - 10/29/24 13:49> I reviewed above note and agree with findings and plans. I have also personally examined the patient with medicine team and went over assessment and plan with medical team including director internal audit and resident physician. HPI Data of Consult Consult date: 10/23/24 Primary Care Provider: Larry Lopez MD Consult Narrative Reason for consult: Sepsis, lactic acidosis History of present illness: CC: Altered Mental Status Patient is an 84-year-old female with a past medical history of HTN, HLD, hx of DM type 2 non insulin dependent no longer requiring medication, CAD, HFrEF 45 to 50%, hypertension, hyperlipidemia, generalized anxiety disorder, Alzheimer's who presented to the emergency room from home with increasing altered mental status and GCS of 12 on arrival. Patient denied any recent sick contacts, denied chills, and denied pyrexia. Patient denied shortness of breath and denied chest pain. Denied history of arrhythmias. Patient any diarrhea. Denied changes in bowel habitus, denied melena or hematochezia. Patient stated she had diffuse abdominal tenderness through out all quadrants. Pain 9/10 to light palpation and does not radiate. Denied history of abdominal surgery. Denied supra-pubic pain. Denied increased frequency or dysuria. Limited history as patient was alert and oriented x 2 at best. Internal medicine was called to consult. PMH: -diabetes mellitus type 2, no medication on board, previous A1c 4.9 (2023). -HTN -CAD -HLD -HFrEF 45 to 50% (september 2024) -JUAN -Alzheimer's disease Home Medication: Aspirin, Atorvastatin, Azelastine-Fluticansone, buspirone, carvedilol, clonazepam, duloxtein Allergies: Penicillins Sulfa antibiotics Code Status: Full Code cc:: cc: Review of Systems Review of Systems Narrative Review of Systems: General appearance: NO weight change, NO fatigue, NO weakness, NO fever, NO chills, NO night sweats, No cough Skin: NO rash, NO itching, NO sores, NO moles HEENT: NO Trauma, NO nausea, NO vomiting, NO visual changes, NO blurry vision, NO double vision, NO tinnitus, NO vertigo, NO ear discharge, NO rhinorrhea, NO stuffiness, NO sneezing, NO allergy, NO epistaxis. NO Hoarseness, NO sore throat, NO swollen neck. Cardiac: NO Palpitations, NO dyspnea on exertion, NO orthopnea, NO paroxysmal nocturnal dyspnea, NO edema Respiratory: NO Shortness of Breath, NO Wheezing, NO Cough, NO Sputum, NO hemoptysis GI:DECREASED appetite, NO nausea, NO vomiting, NO dysphagia, NO changes in bowel frequency, NO stool color, NO diarrhea, NO constipation, NO hemetemesis, NO hemorrhoids, NO melena, NO hematechezia, YES abdominal pain 9/10, NO jaundice Renal: NO frequency, NO hesitancy, NO urgency, NO hematuria, NO nocturia, NO incontinence MSK: NO muscle weakness, NO gout, NO arthritis, NO muscle stiffness Neuro: NO headaches, NO tremors, NO weakness, NO paralysis, NO seizures, NO loss of consciousness, NO numbness. Hem: NO anemia, NO easy bruising/bleeding, NO petechiae, NO purpura Endo: NO heat/cold intolerance, NO excessive sweating, NO polyuria, NO polydipsia, NO polyphagia, NO thyroid problems, NO diabetes Pysch: NO mood, NO anxiety, NO depression Exam Vital Signs Temp Pulse Resp BP Pulse Ox O2 Del Method O2 Flow Rate 95.3 F L 98 17 98/61 94 L Nasal Cannula 4 10/23/24 16:32 10/23/24 16:32 10/23/24 16:32 10/23/24 16:32 10/23/24 16:32 10/23/24 16:32 10/23/24 16:32 Narrative Exam General Appearance: Alert & Oriented X3, thin female who is lying in bed in acute distress HEENT: Skull symmetrical and atraumatic. Conjunctivae pale pink and moist. Pupils equal, round, reactive to light and accommodation (PERRL). External ear without lesion or discharge. Straight, nares patient, mucosa pink, no discharge. No thyroid nodule appreciated. No cervical lymphadenopathy. Cardio: Normal Rate and Rhythm with S1 and S2 heart sounds. No murmurs or extra heart sounds auscultated. No bruits on carotid auscultation. No peripheral edema or cyanosis. pulses 2+ Lungs: Symmetric with good expansion. Chest and back non-tender. Breath sounds vesicular without crackles, wheezing or rhonchi Abdomen: Diffuse tenderness, Non-distended, hypo-reactive bowel sounds. Neuro: Alert, cooperative, oriented to person, place, and time. Speech clear. CN grossly intact. Upper motor strength 5/5 and Lower motor strength 5/5. Sensation intact. Results Labs 10/24/24 03:42 10/24/24 19:00 Labs: Short CBC 10/23/24 Range/Units 15:19 WBC 18.3 H (3.6-11.0) Thou/mm3 Hgb 13.3 (12.0-16.0) g/dL Hct 42.7 (36.0-46.0) % Plt Count 374 D (140-440) Thou/mm3 BMP 10/23/24 15:34 Sodium 159 H Potassium 4.4 Chloride 123 H* Carbon Dioxide 13.5 L* BUN 86 H Creatinine 3.8 H Glucose 180 H Calcium 9.9 Cardiac Enzymes 10/23/24 Range/Units 15:34 Troponin I 0.076 H* (0.0-0.045) ng/mL Liver Function 10/23/24 Range/Units 15:34 Total Bilirubin < 0.2 L (0.3-1.2) mg/dL AST 30 (0-34) U/L ALT 9 L (10-49) U/L Alkaline Phosphatase 121 H (46-116) U/L Albumin 4.4 (3.4-4.8) gm/dL Urine 10/23/24 Range/Units 16:21 Urine Color Yellow (Lt Yel-Yel) Urine Clarity Clear (Clear/Hazy) Urine pH 6.0 (5.0-7.0) Ur Specific [place] 1.019 (1.001-1.035) Urine Protein 1+ A (Neg - Trace) Urine Glucose (UA) Negative (Negative) ABG Interpretation ABG results: 10/23/24 18:12 ABG pH 7.24 L ABG pCO2 36 ABG pO2 96 ABG HCO3 16 L ABG O2 Saturation 97 ABG Base Excess -11 L Quality Measures Quality Measures none Advance care planning discussed with:: patient Medications Home Medications and Allergies Home Medications ?Medication ?Instructions ?Recorded ?Confirmed ?Type azelastine 137 mcg-fluticasone 50 1 spray intranasal B ID PRN Nasal 04/07/23 09/19/24 History mcg/spray nasal spray Congestion loratadine 10 mg tablet 10 mg PO QDAY 04/07/2309/19 History aspirin 81 mg tablet,delayed 81 mg PO QDAY 09/19/24 History release (Adult Aspirin Regimen) atorvastatin 40 mg tablet (Lipitor) 40 mg PO QPM 09/1909/19/24 History famotidine 20 mg tablet (Acid 20 mg PO QDAY 09/19/24 0 09/19/24 History Controller) memantine ER 28 mg-donepezil 10 mg 1 cap PO QDAY 09/1909/19/24 History capsule sprinkle,ext.release 24 hr (Namzaric) montelukast 10 mg tablet 10 mg PO QDAY 09/19/2409/19 History oxycodone 10 mg tablet 10 mg PO Q4H 09/19/24 History Allergies Allergy/AdvReac Type Severity Reaction Status Date / Time Penicillins Allergy Severe UNABLE TO Verified 10/24/24 15:24 WALK Sulfa (Sulfonamide Allergy Severe FLU, Verified 10/24/24 15:24 Antibiotics) UNABLE TO WALK Visit Medications Metronidazole (Flagyl 500 Mg Iv) 500 mg in 100 mls @ 100 mls/hr IV X1 ONE Stop: 10/23/24 18:42 Last Admin: 10/23/24 18:02 Dose: 100 mls/hr Discontinued Medications Lactated Ringer's (Lactated Ringers) 1,000 mls @ 999 mls/hr IV .Q1H1M ONE Stop: 10/23/24 15:03 Last Infusion: 10/23/24 16:00 Dose: Infused Ceftriaxone Sodium/Dextrose (Rocephin/D5w 1gm Iv Premix) 1 gm in 50 mls @ 100 mls/hr IV X1 ONE Stop: 10/23/24 14:32 Last Infusion: 10/23/24 16:00 Dose: Infused Lactated Ringer's (Lactated Ringers) 1,000 mls @ 999 mls/hr IV .Q1H1M ONE Stop: 10/23/24 16:47 Last Admin: 10/23/24 16:51 Dose: 999 mls/hr Cefoxitin Sodium 2 gm/ Sodium (Chloride) 50 mls @ 100 mls/hr IV X1 ONE Stop: 10/23/24 16:18 Last Admin: 10/23/24 16:41 Dose: Not Given Cefepime HCl 1 gm/ Sodium (Chloride) 50 mls @ 100 mls/hr IV X1 ONE Stop: 10/23/24 16:35 Last Infusion: 10/23/24 17:30 Dose: Infused Lactated Ringer's (Lactated Ringers) 1,000 mls @ 999 mls/hr IV .Q1H1M ONE Stop: 10/23/24 18:17 Last Admin: 10/23/24 18:02 Dose: 999 mls/hr Assessment & Plan Plan Patient is an 84-year-old female with a past medical history of HTN, HLD, hx of DM type 2 non insulin dependent no longer requiring medication, CAD, HFrEF 45 to 50%, hypertension, hyperlipidemia, generalized anxiety disorder, Alzheimer's who presented with sepsis of unknown source, suspected intra-abdominal source given diffuse pain and elevated lactic acid. #Sepsis, likely secondary to intra-abdominal source #Acute Encephalopathy #Possible Septic Shock by lactic acid criteria #Metabolic Acidosis, elevated anion gap #Leukocytosis Given metabolic acidosis with an high anion gap of 23 with a lactic acid of 10, ischemic process can not be ruled out such as ischemic colitis vs acute cholangitis given CT abdomen showing common bile duct enlargment vs infectious process. SOFA 4 CT Abdomen/Pelvis (10/23/2024): Abnormal enlargement common bile duct 10 mm, recommend hepatobiliary sonography follow-up. Bilateral renal masses, recommend MRI abdomen kidneys follow-up pre and postcontrast. Fluid distended small bowel loops, consider ileus, enteritis. Septated left adnexal mass 4.6 cm, recommend pelvic sonography follow-up. Pronounced thickening of urinary bladder wall, differential would include cystitis, bladder carcinoma not excluded, recommend urinary bladder sonography follow-up Plan -ABG -CTA chest abdomen pelvis -Repeat CMP -Trend Lactic Acid -Fluid resusicitation -ICU Consult, Surgery Consult, recommend nephrology #GIRMA on CKD #Hypernatremia #Hypercholeremia #Electrolyte Disorders Patient presented with GIRMA on CKD likely in the setting or pre-renal given hypovolemia and GIRMA with electrolyte disorders. Plan -Fluid resuscitation with NS 1 liter -avoid nephrotoxins -renally dose medication #NSTEMI, likely type II demand ischemia likely secondary to demand ischemia as No ST elevation noted and patient denied chest pain Plan -Trend Troponin #History Hypertension Given systolic BP <120, hold home medication of hydralazine and lisinorpril Plan -montior MAP and BP -Hold anti-hypertensives #CAD #HLD Holding home medication #CHF HFrEF Hold home medication of carvedilol 3.125 PO BIDWM #Alzeihmer's Disease Plan -Hold memantine-donepezil, hold pramipexole, hold duloxetine give acute metabolic encephalopathy JUAN -Hold Buspirone - The patient's plan was discussed with attending Dr. Florez and senior residents Lisa Robertson MD PGY1 Internal Medicine Senior resident attestation: The patient is an 84-year-old female, past medical history of HFrEF, coronary artery disease, cholecystectomy, hypertension and hyperlipidemia, Alzheimer's, who was brought to the EMS Patient had a near fall episode at the shower from home, but is unable to catch her. Patient was altered, continue to make random noises, patient is unable to recall the said event, unsure how he got to the hospital. GCS 8/15 per EMS documentation, GCS was improved 14/15 at the time of our evaluation. Patient complaining of abdominal pain, abdominal exam showed soft abdomen but extremely tender on light palpation, In all quadrants. Blood pressure initially in the low 90s, but currently maintaining MAP, patient was hypothermic currently seen on a Alfredo hugger. Pertinent labs on arrival showed leukocytosis, high anion gap metabolic acidosis, lactic acidosis, elevated BUN/creatinine. WBC 18,3, hemoglobin 13.3, sodium 159, potassium 4.4, chloride 123, CO2 13.3, lactic acid 10, BUN 86, creatinine 3.8. Initial ABG showed pH 7.24, pCO2 36, PO296, bicarb 16. Problems: #Severe sepsis, likely secondary to intra-abdominal source? #Acute encephalopathy, toxic #High anion gap metabolic acidosis #Lactic acidosis #Acute kidney injury #Rule out bowel ischemia Recommendations: Patient meets sepsis criteria, obscure intra-abdominal source as severe lactic acidosis marker of poor organ perfusion. Initial abdominal imaging shows dilated bile duct, though patient has surgical Gallbladder, Normal Bilirubin, Less Concerned for Acute Cholangitis. But given physical exam findings and pain out of proportion, in addition to generalized bowel edema on abdominal imaging, cannot rule out bowel ischemia as source of lactic acidosis. Recommend to get ICU consulted and trend lactic acid continue with IV fluid bolus, broad-spectrum IV antibiotics, send cultures, recommend general surgery consult as abdominal imaging concerning for bowel ischemia. Consider GI consult due to CBD dilation, though less likely acute cholangitis. Patient may require CT angiogram abdominal pelvis with IV contrast to rule out bowel ischemia, given patient's GIRMA, may require CRRT/hemodialysis, recommend to get nephrology on board. Given patient's serious illness and multiple organ failures, patient is likely candidate for ICU at this point, once patient condition is stable enough for management on medical floor, we will gladly take over care of the patient. Plan of care discussed in attending Dr. Vikki Gonzalez PGY2
[2024-10-23 18:54] LABS: Base Excess, Venous -9 (-3-3); O2 Saturation, Venous 59 % (96-97); PCO2, Venous 42 mmHg (36-56); PO2, Venous 35 mmHg (15-58); pH, Venous 7.24 (7.33-7.66)
[2024-10-23 18:55] LABS: Lactic Acid, 3 HR 3.1 mMol/L (0.4-2.0)
--- NOTE | 2024-10-23 18:58 | PD.SURCONS ---
HPI Consult details Consult date: 10/23/24 Reason for consultation narrative: This patient was seen on consultation because of abdominal pain and lactic acidosis. Patient was admitted with altered level of consciousness History of present illness: Patient gives vague history of some lower abdominal pain but she was here with hypotension and major electrolyte abnormalities and acute kidney injury Meds Home Medications and Allergies Home Medications ?Medication ?Instructions ?Recorded ?Confirmed ?Type azelastine 137 mcg-fluticasone 50 1 spray intranasal BID PRN Nasal 04/07/23 09/19/24 History mcg/spray nasal spray Congestion loratadine 10 mg tablet 10 mg PO QDAY 04/07/23 09/19/24 History aspirin 81 mg tablet,delayed 81 mg PO QDAY 09/19/24 09/19/24 History release (Adult Aspirin Regimen) atorvastatin 40 mg tablet (Lipitor) 40 mg PO QPM 09/19/24 09/19/24 History famotidine 20 mg tablet (Acid 20 mg PO QDAY 09/19/24 09/19/24 History Controller) memantine ER 28 mg-donepezil 10 mg 1 cap PO QDAY 09/19/24 09/19/24 History capsule sprinkle,ext.release 24 hr (Namzaric) montelukast 10 mg tablet 10 mg PO QDAY 09/19/24 09/19/24 History oxycodone 10 mg tablet 10 mg PO Q4H 09/19/24 09/19/24 History Allergies Allergy/AdvReac Type Severity Reaction Status Date / Time Penicillins Allergy Severe UNABLE TO Verified 09/18/24 17:28 WALK Sulfa (Sulfonamide Allergy Severe FLU, Verified 09/18/24 17:28 Antibiotics) UNABLE TO WALK Exam Vital Signs Temp Pulse Resp BP Pulse Ox O2 Del Method O2 Flow Rate 94.9 F L 85 20 146/74 H 100 Room Air 4 10/23/24 18:45 10/23/24 18:45 10/23/24 18:45 10/23/24 18:45 10/23/24 18:45 10/23/24 18:45 10/23/24 16:32 Narrative Exam Examination revealed 84-year-old female who is 5 foot 1 inch tall weighing only 101 pounds. Her vital signs are normal but she is hypothermic with a temperature of 94.9 Constitutional Constitutional: mild distress Routine Abdominal Exam Comments: Examination abdomen showed some tenderness over the lower abdomen and some fullness on the right lower quadrant but no definite mass was palpated. Bowel sounds are hypoactive Routine Rectal Exam Comments: Deferred because of the patient's position Results Results: Laboratory Laboratory Narrative: Patient's laboratory workup showed WBC of 18,000. Patient's laboratory workup also showed hypernatremia and hyperchloremia with 153 and 113 respectively patient's BUN is 86 creatinine is 3.6. Lactic acid is 10 Results: Imaging Imaging narrative: CT scan showed a dilated loops of bowel Assessment & Plan Additional Assessment Additional comments: Impression: Patient seems to be in considerable electrolyte imbalance. She is also hypotensive and hypothermic with poor perfusion Plan Plan: I will suggest we correct the electrolyte imbalance and probably dialyze her and then reevaluate her abdomen later
[2024-10-23 19:00] LABS: Beta Hydroxybutyrate 0.3 mmol/L (<0.6)
--- NOTE | 2024-10-23 19:43 | PC.NURSE ---
Pt is resting quietly. Lev quintero is on pt. US here now.
[2024-10-23 19:47] LABS: Ammonia 23 uMol/L (11-32)
--- NOTE | 2024-10-23 21:36 | XR_ITS ---
Examination: CTA abdomen, with intravenous contrast. CTA pelvis, with intravenous contrast. 2-D sagittal and coronal reconstructions. 3-D reconstructions. Date and time of exam: October 23, 2024 10:59 PM Indications: Abdominal pain sepsis today CTDI vol (mgy) 5.6 DLP (MGycm) 333 Technique: Multiple CTA images, 2.0 mm slice thickness, obtained abdomen, pelvis, with the high-resolution 64 slice scanner. 100 cc Isovue-370 is administered intravenously. Sagittal and coronal 2-D reconstructions are obtained. 3-D reconstructions, angiographic images are obtained. 3-D postprocessing, including vascular maximum intensity projections. Low dose protocols were performed. One or more of the following dose reduction techniques were used; automated exposure control, adjustment of the mA and/or KV according to patient size, use of iterative reconstruction technique. Findings: No focal liver or splenic lesion Absent gallbladder Common bile duct 13 mm No pancreatic mass Moderate renal parenchymal scar formation Solid appearing mass upper pole right kidney 21 mm versus proteinaceous cyst Solid mass lower pole right kidney 21 mm Aorta normal size Mild small bowel ileus versus enteritis No obstruction No free air Normal appendix Diffuse thickening of the colonic cristina extending to the rectum Contracted urinary bladder with wall thickening Impression: Abnormal enlargement common bile duct 13 mm, consider MRCP follow-up Solid appearing bilateral renal masses, recommend MRI abdomen kidneys follow-up pre and postcontrast Fluid distended small bowel loops with wall thickening, diffuse wall thickening involving the colon, differential would include enteritis colitis such as Crohn's disease Mild urinary bladder wall thickening, consider cystitis
--- NOTE | 2024-10-23 21:48 | PC.NURSE ---
pt inc of foul smelling moore/black liquid stool. Pt was cleaned and changed. Dark red excoriated skin irritation noted from buttocks up to about the scapula. ED provider Frandy was notified and states he is aware.
[2024-10-23] MEDS: DEXTROSE 5%-WATER 500 ML 125 ML IV (21:50)
--- NOTE | 2024-10-23 22:07 | PD.EDADDENDU ---
Emergency Room Addendum Addendum Narrative: Patient was evaluated by Dr. Liang, who told me that patient needs CT angiogram of the abdomen pelvis. Before they decided to admit the patient return to floor or in the ICU. Care transferred to Dr Adame for the CT results.
[2024-10-24] VITALS (16 sets, daily range): BP systolic 115–167; BP diastolic 42–71; PULSE 69–95; RESP 12–25; TEMP 36.1–36.3; O2SAT 93–100; BMI 19.1
--- NOTE | 2024-10-24 | XR_ITS ---
Examination: Attempted PICC line placement Fluoroscopy AP chest single view Ultrasound-guided needle access right brachial vein Exam date and time: October 24, 2024 1456 hours INDICATIONS: Need for long-term intravenous medication. TECHNIQUE AND FINDINGS: Informed consent provided. Timeout performed. Skin prepped over the right arm and sterile drape applied hand hygiene ultrasound sterile technique Utilizing ultrasonographic guidance successful identification of a very small right brachial vein Utilizing ultrasonographic guidance successful 21-gauge needle puncture into the vein however the wire guide cannot be advanced beyond occlusion in the axillary vein region Fluoroscopy 0.01 minute radiation dose 0.07 milligray 1 spot fluoroscopic chest film IMPRESSION: Unsuccessful PICC line placement
[2024-10-24 00:12] LABS: Alanine Aminotransferase 7 U/L (10-49); Albumin, Serum 3.2 gm/dL (3.4-4.8); Albumin/Globulin Ratio 1.4 (1.2-2.2); Alkaline Phosphatase 91 U/L (46-116); Anion Gap 17 (7-16); Aspartate Amino Transferase 31 U/L (0-34); BUN/Creatinine Ratio 24 Ratio (12-20); Bilirubin,Total < 0.2 mg/dL (0.3-1.2); Blood Urea Nitrogen 82 mg/dL (9-23); Calcium 8.4 mg/dL (8.3-10.6); Carbon Dioxide 17.4 mMol/L (20.0-31.0); Chloride 126 mMol/L (98-107); Creatinine (Component) 3.4 mg/dL (0.6-1.3); Estimated Creatinine Clearance 9.3 mL/min (>60); Globulin 2.3 gm/dL (2.3-3.5); Glucose 136 mg/dL (74-106); Osmolality,Calculated 343 (275-295); Potassium 3.7 mMol/L (3.4-5.1); Sodium 160 mMol/L (136-145); Total Protein 5.5 gm/dL (5.7-8.2); eGFR 13 See Note
[2024-10-24] MEDS: PANTOPRAZOLE INJ 40 MG VIAL 80 MG IV (00:27)
[2024-10-24 01:03] LABS: Lactate (Lactic Acid) 1.9 mMol/L (0.4-2.0)
--- NOTE | 2024-10-24 01:12 | PD.RESHP ---
Documentation for date of: 10/24/24 [facility] History of Present Illness History of present illness: The patient is an 84-year-old female with significant past medical history of primary hypertension, generalized anxiety disorder, hyperlipidemia, possible eczematous disease, recurrent UTI, recurrent falls with last admission for falls on 09/18/2024 was brought in by EMS for syncopal episode while in the shower. History was obtained from chart review due to patient's mental condition. The patient was found to have systolic blood pressure of 80 by EMS, and given 400 cc of IV bolus fluid. During our evaluation, patient was alert and oriented x 2, somnolent, responded when taken her name, and knew she was in [facility]. She did not complain of any pain, but winced while palpating her abdomen throughout. In the ED, her vitals were significant for blood pressure 106/74, RR 24, saturating 94% on 4 L NC. Labs revealed white count 18.3, RDW 50.5, VBG pH 7.24, pCO2 36, chemistry panel revealed sodium 159, chloride 123, bicarb 13.5, anion gap 23, BUN 86, creatinine 3.8, GFR 11, blood sugar 180, calculated osmolality 345, lactic acid 10.0, phosphorus 6.7, total bilirubin less than 0.2, ALT 9 and ALP 121. Lactate dehydrogenase 372, troponin 0.076 and lipase 135. UA revealed 1+ protein but negative for UTI. 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 Gallbladder ultrasound revealed enlarged common bile duct, no stones noted and CTA abdomen/pelvis was negative for any abdominal artery occlusion or bowel ischemia. PMH: As mentioned above SHX: 2 back surgeries 1 in 2020, 1 in 2022 2/2 fracture Family history: No history of stroke, father of heart attack Late 70s Social history: Past smoker, never been a heavy drinker, no IV drug use, lives with her son. Medications: To be reconciled Allergies: Penicillin and sulfa antibiotics Patient received 3 L of IV lactated Ringer's in the ED, given 1 g IV ceftriaxone, 1 g IV cefepime and 500 mg IV metronidazole along with pantoprazole 80 Mg x 1 and later started on dextrose 125 cc/h and admitted to telemetry unit for further management. Review of Systems Review of Systems ROS Unobtainable: unobtainable due to mental status Exam Vital Signs Temp Pulse Resp BP Pulse Ox O2 Del Method O2 Flow Rate 99.7 F 87 16 121/57 L 100 Room Air 4 10/23/24 22:02 10/24/24 00:32 10/24/24 00:32 10/24/24 00:32 10/24/24 00:32 10/24/24 00:32 10/23/24 16:32 Narrative Exam General: Elderly female, no acute distress, Alert and Oriented x 2, to herself and knew that she was in [facility], but somnolent. HEENT: Moist mucous membranes, oropharynx clear Neck: Supple, No masses, No JVD CVS: S1S2 Regular rate and rhythm, No murmurs, rubs or gallops Lungs: Clear to auscultation with no accessory use, no wheeze no rhonchi Abd: Wincing over palpation throughout the abdomen, nondistended, bowel sounds present Ext: No edema, warm and well perfused Skin: Mild excoriation over back Psych: Unobtainable. Results: Labs 10/24/24 03:42 10/24/24 03:42 Labs: Short CBC 10/23/24 Range/Units 15:19 WBC 18.3 H (3.6-11.0) Thou/mm3 Hgb 13.3 (12.0-16.0) g/dL Hct 42.7 (36.0-46.0) % Plt Count 374 D (140-440) Thou/mm3 BMP 10/23/24 10/23/24 15:34 23:41 Sodium 159 H 160 H Potassium 4.4 3.7 D Chloride 123 H* 126 H* Carbon Dioxide 13.5 L* 17.4 L BUN 86 H 82 H Creatinine 3.8 H 3.4 H Glucose 180 H 136 H Calcium 9.9 8.4 D Cardiac Enzymes 10/23/24 Range/Units 15:34 Troponin I 0.076 H* (0.0-0.045) ng/mL Liver Function 10/23/24 10/23/24 Range/Units 15:34 23:41 Total Bilirubin < 0.2 L < 0.2 L (0.3-1.2) mg/dL AST 30 31 (0-34) U/L ALT 9 L 7 L (10-49) U/L Alkaline Phosphatase 121 H 91 D (46-116) U/L Albumin 4.4 3.2 L D (3.4-4.8) gm/dL Urine 10/23/24 Range/Units 16:21 Urine Color Yellow (Lt Yel-Yel) Urine Clarity Clear (Clear/Hazy) Urine pH 6.0 (5.0-7.0) Ur Specific [place] 1.019 (1.001-1.035) Urine Protein 1+ A (Neg - Trace) Urine Glucose (UA) Negative (Negative) ABG Interpretation ABG results: 10/23/24 10/23/24 18:12 18:44 ABG pH 7.24 L ABG pCO2 36 ABG pO2 96 ABG HCO3 16 L ABG O2 Saturation 97 ABG Base Excess -11 L VBG pH 7.24 L VBG pCO2 42 VBG pO2 35 VBG Base Excess -9 L Quality Measures Quality Measures none Advance care planning discussed with:: child (Son, Jake) Medications Home Medications and Allergies Home Medications ?Medication ?Instructions ?Recorded ?Confirmed ?Type azelastine 137 mcg-fluticasone 50 1 spray intranasal BID PRN Nasal 04/07/23 09/19/24 History mcg/spray nasal spray Congestion loratadine 10 mg tablet 10 mg PO QDAY 04/07/23 09/19/24 History aspirin 81 mg tablet,delayed 81 mg PO QDAY 09/19/24 09/19/24 History release (Adult Aspirin Regimen) atorvastatin 40 mg tablet (Lipitor) 40 mg PO QPM 09/19/24 09/19/24 History famotidine 20 mg tablet (Acid 20 mg PO QDAY 09/19/24 09/19/24 History Controller) memantine ER 28 mg-donepezil 10 mg 1 cap PO QDAY 09/19/24 09/19/24 History capsule sprinkle,ext.release 24 hr (Namzaric) montelukast 10 mg tablet 10 mg PO QDAY 09/19/24 09/19/24 History oxycodone 10 mg tablet 10 mg PO Q4H 09/19/24 09/19/24 History Allergies Allergy/AdvReac Type Severity Reaction Status Date / Time Penicillins Allergy Severe UNABLE TO Verified 09/18/24 17:28 WALK Sulfa (Sulfonamide Allergy Severe FLU, Verified 09/18/24 17:28 Antibiotics) UNABLE TO WALK Visit Medications Hydrocodone Bitart/Acetaminophen (Hydrocodone/Apap 5/325 Tablet) 1 tab PO Q6HR PRN PRN Reason: PAIN SCALE 4-6 (Moderate Stop: 10/29/24 00:29 Hydromorphone HCl (Hydromorphone Inj 2 Mg/Ml Vial) 0.5 mg IVP Q4H PRN PRN Reason: PAIN SCALE 7-10 (Severe Stop: 10/29/24 00:29 Dextrose (D5w) 500 mls @ 125 mls/hr IV .Q4H KEYSHAWN Stop: 11/22/24 21:44 Last Admin: 10/23/24 21:50 Dose: 125 mls/hr Cefepime HCl 1 gm/ Sodium (Chloride) 50 mls @ 100 mls/hr IV Q24H ONE Stop: 10/24/24 16:29 Metronidazole (Flagyl 500 Mg Iv) 500 mg in 100 mls @ 200 mls/hr IV Q8H KEYSHAWN Stop: 10/31/24 01:59 Ondansetron HCl (Ondansetron Inj 2 Mg/Ml Inj 2 Ml) 4 mg IV Q6H PRN; Protocol PRN Reason: NAUSEA OR VOMITING Stop: 11/23/24 00:29 Pantoprazole Sodium (Pantoprazole Inj 40 Mg Vial) 40 mg IVP Q12HR KEYSHAWN Stop: 11/23/24 08:59 Discontinued Medications Lactated Ringer's (Lactated Ringers) 1,000 mls @ 999 mls/hr IV .Q1H1M ONE Stop: 10/23/24 15:03 Last Infusion: 10/23/24 16:00 Dose: Infused Ceftriaxone Sodium/Dextrose (Rocephin/D5w 1gm Iv Premix) 1 gm in 50 mls @ 100 mls/hr IV X1 ONE Stop: 10/23/24 14:32 Last Infusion: 10/23/24 16:00 Dose: Infused Lactated Ringer's (Lactated Ringers) 1,000 mls @ 999 mls/hr IV .Q1H1M ONE Stop: 10/23/24 16:47 Last Infusion: 10/23/24 18:15 Dose: Infused Cefoxitin Sodium 2 gm/ Sodium (Chloride) 50 mls @ 100 mls/hr IV X1 ONE Stop: 10/23/24 16:18 Last Admin: 10/23/24 16:41 Dose: Not Given Cefepime HCl 1 gm/ Sodium (Chloride) 50 mls @ 100 mls/hr IV X1 ONE Stop: 10/23/24 16:35 Last Infusion: 10/23/24 17:30 Dose: Infused Lactated Ringer's (Lactated Ringers) 1,000 mls @ 999 mls/hr IV .Q1H1M ONE Stop: 10/23/24 18:17 Last Infusion: 10/23/24 19:07 Dose: Infused Metronidazole (Flagyl 500 Mg Iv) 500 mg in 100 mls @ 100 mls/hr IV X1 ONE Stop: 10/23/24 18:42 Last Infusion: 10/23/24 19:07 Dose: Infused Pantoprazole Sodium (Pantoprazole Inj 40 Mg Vial) 80 mg IV X1 ONE Stop: 10/23/24 23:09 Last Admin: 10/24/24 00:27 Dose: 80 mg Assessment & Plan Plan The patient is an 84-year-old female with significant past medical history of primary hypertension, generalized anxiety disorder, hyperlipidemia, possible eczematous disease, recurrent UTI, recurrent falls with last admission for falls on 09/18/2024 was brought in by EMS for syncopal episode while in the shower. Patient received 3 L of IV lactated Ringer's in the ED, given 1 g IV ceftriaxone, 1 g IV cefepime and 500 mg IV metronidazole along with pantoprazole 80 Mg x 1 and later started on dextrose 125 cc/h and admitted to telemetry unit for further management. #Acute encephalopathy 2/2 #Syncope #Rule out ischemic bowel Likely secondary to vasovagal syncope, as her anti hypertensive medications were discontinued during last admission, but unaware if she is currently taking any antihypertensives or not Patient was apparently doing well, and subsequently passed out while she was having shower, and EMS found her systolic blood pressure in 80. She was given 400 cc of IV bolus fluid by EMS, and during presentation to the ED her blood pressure was 106/74. CT head negative for acute hemorrhage, midline shift or mass effect. 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 Gallbladder ultrasound revealed enlarged common bile duct, no stones noted and CTA abdomen/pelvis was negative for any abdominal artery occlusion or bowel ischemia. Patient received 3 L of IV lactated Ringer's in the ED, 1 g IV ceftriaxone, 1 g IV cefepime and 500 mg of IV metronidazole along with pantoprazole 80 Mg x 1, with significant improvement in her blood pressure. - Telemetry monitoring - General Surgeon Dr. Bhatt consulted, recommended maintaining electrolyte balance, and if required hemodialysis and later reevaluate the patient's abdomen. - Continue to monitor vitals closely - Daily a.m. labs for CBC, CMP and electrolytes #High anion gap metabolic acidosis 2/2 #lactic acidosis, resolved Secondary to syncope Patient's initial lactic acid was 10.0, that trended down to 3.9 and further trended down to 1.9 after 3 L of IV LR bolus. #Hypernatremia #Hyperchloremia DDx: Likely dehydration as all her blood lineages are increased Presented with sodium level of 159 that trended up to 160 after 3 L of bolus LR - Switched D5W 125 cc to 75 cc/h - Trend sodium every 4 hourly, target sodium to be greater than 150 in 24-hour #GIRMA on CKD stage IIIb Prerenal in the setting of syncope, possibly leading to ATN Her last GFR more than 3 months ago was 41, presented with creatinine of 3.8 and GFR 11, improved to 3.4 and 13 respectively after 3 L of LR bolus - Dr Luna consulted, appreciate recommendations - Renally dose medications - Avoid nephrotoxins - Daily a.m. labs for CMP and electrolytes #Acute GI bleed Likely upper GI bleed as patient stool was found to be occult blood positive, presented with hemoglobin of 13.3, but could be false negative in the setting of dehydration with all cell lineages elevated - GI Dr. Morrow consulted, appreciate recommendations - Monitor daily a.m. labs for CBC #NSTEMI, likely type II Presented with troponin of 0.076, no ST or T wave changes in the EKG - Trend troponin until delta is received #Leukocytosis Likely reactive DDx: Possible intra-abdominal infection - Started on cefepime 1 g daily renally dosed, and Flagyl 500 Mg IV 3 times daily - Daily a.m. labs for CBC Health maintenance: Dispo: Patient admitted to telemetry unit for further management of syncope and lactic acidosis DVT prophylaxis: SCDs, in the setting of GI bleed Diet: N.p.o. CODE STATUS: Full code The patient's management plan was discussed with my attending physician MD Kristopher Hardin MD, PGY2 Attending Provider Attestation/Addendum I have examined the patient, reviewed labs and imaging findings, discussed the case with the resident(s), and reviewed entered orders. I agree with the plan of care as outlined in this note, with these additional summaries/recommendations: Patient is a 84-year-old female with a medical history of HFrEF (EF 40%), CAD, CKD, history of falls, history of UTI, primary hypertension, hyperlipidemia, anxiety disorder, ?Dementia and chronic lower back pain who presents to [facility] emergency department on 10/23/2024 with chief complaint of unresponsiveness and altered mental status. Patient was taking a shower and was found down. Hospitalist team consulted for continuation of care. Patient seen at bedside. Patient remembers showering but cannot recall anything after that. Unclear of patient's baseline mental status but she is currently alert and oriented x 2. Suspect patient had syncopal episode and consequently developed hypotension/hypothermia. Patient recently had a similar presentation in September 2024. Order orthostatic vital signs, echocardiogram, and monitor on telemetry. EKG shows sinus rhythm, rate 92, LVH, and nonspecific T wave abnormality. Patient also noted to be encephalopathic. Most likely secondary to metabolic etiology either from hypernatremia versus uremia versus lactic acidosis. CT head on admission negative for acute hemorrhage, mass effect or midline shift. We will treat underlying potential causes and monitor for improvement. Patient was also found to have anion gap metabolic acidosis secondary to lactic acidosis. Lactic acid 10.0 on admission and improved to 3.1 with IV fluids. Suspect lactic acidosis is secondary to transient hypotension given rapid improvement. Repeat lactic acid in AM. Given patient's significantly elevated lactic acid and patient endorsing abdominal pain there was concern of ischemic colitis. CTA abdomen pelvis was obtained which was negative for ischemic colitis but did reveal abnormal enlargement of common bile duct 13 mm, solid-appearing bilateral renal masses, fluid distended small bowel loops with wall thickening suggestive of enteritis/colitis, and urinary bladder wall thickening. General surgery was consulted and following. Gallbladder ultrasound was obtained for enlarged common bile duct which revealed no stones and absent gallbladder. Imaging dating back to 2022 also revealed enlarged common bile duct at that time. Low suspicion for biliary etiology of patient's symptoms. CT abdomen was also suggestive of ileus although patient had large bowel movement in the ED. Bedside FOBT positive and we will consult gastroenterology. Patient will need outpatient follow-up for bilateral renal masses and thickened bladder wall. Patient found to have a septated left adnexal mass 4.6 cm which will need further workup. Patient also noted to have hypertonic hyperchloremic hypernatremia with sodium 159. At this time most likely secondary to dehydration. Free water deficit 2.8 L. Trend sodium and continue D5W. Patient has GIRMA on CKD. On admission creatinine 3.8 and BUN 86. Baseline creatinine appears to be 1.7. Most likely secondary to prerenal etiology and we will continue IV fluids. Avoid nephrotoxic agents and renally dose medications. Nephrology consulted, recommendations appreciated. Patient found to have elevated troponin which was also elevated on last admission. Troponin 0.076. No acute ST changes on EKG indicative of acute ischemia. Most likely secondary to demand ischemia and continue to trend troponin every 8 hours or until downtrend. Leukocytosis present and possible colitis on imaging. Leukocytosis may be reactive but given severity of patient's presentation we will start IV antibiotics and likely can be de-escalated or discontinued if patient significantly improves. Hold patient's home antihypertensives for now and will be cautious and reinstituting. Continue home aspirin when able. Patient currently n.p.o. and pending bedside swallow evaluation. Physical therapy consultation. Refer to wound care for early developing decubitus ulcer. Overall patient's prognosis is guarded at this time. Patient updated on the plan at bedside and in agreement. All questions answered to satisfaction. Repeat hematology and chemistry panel in AM. Dr. Garth MD
[2024-10-24] MEDS: metroNIDAZOLE/NS 500 MG IVPB 500 MG/100 ML BAG 200 MG IV ×3 (01:28→21:22)
[2024-10-24] MEDS: DEXTROSE 5%-WATER 1,000 ML 75 ML IV (02:11)
[2024-10-24 04:05] LABS: Basophils % (Auto) 0 % (0-2.5); Eosinophils % (Auto) 0 % (0-10); Hematocrit 35.8 % (36.0-46.0); Hemoglobin 11.7 g/dL (12.0-16.0); Immature Granulocytes % (Auto) 1 % (0-0); Lymphocytes # (Auto) 1.6 Thou/mm3 (1.0-4.8); Lymphocytes % (Auto) 8 % (10-50); Mean Corpuscular HGB Conc 32.7 g/dl (31.0-37.0); Mean Corpuscular Hemoglobin 30.5 pg (25.0-35.0); Mean Corpuscular Volume 93 fL (80-100); Monocytes # (Auto) 0.5 Thou/mm3 (0.0-0.8); Monocytes % (Auto) 3 % (0-12); Neutrophils # (Auto) 18.4 Thou/mm3 (1.8-7.7); Neutrophils % (Auto) 89 % (37-80); Nucleated Red Blood Cell % 0 /100 WBC (0); Platelet Count 270 Thou/mm3 (140-440); RDW Standard Deviation 48.6 fL (36.4-46.3); Red Blood Count 3.84 Miln/mm3 (4.00-5.20); White Blood Count 20.6 Thou/mm3 (3.6-11.0)
--- NOTE | 2024-10-24 04:18 | PC.NURSE ---
Report called to Alejandra WETZEL. pt stable. VS WNL.
[2024-10-24 05:10] LABS: Alanine Aminotransferase 9 U/L (10-49); Albumin, Serum 3.4 gm/dL (3.4-4.8); Albumin/Globulin Ratio 1.5 (1.2-2.2); Alkaline Phosphatase 93 U/L (46-116); Anion Gap 15 (7-16); Aspartate Amino Transferase 33 U/L (0-34); BUN/Creatinine Ratio 25 Ratio (12-20); Bilirubin,Total < 0.2 mg/dL (0.3-1.2); Blood Urea Nitrogen 91 mg/dL (9-23); Calcium 8.6 mg/dL (8.3-10.6); Calcium (Corrected) 9.1 mg/dL (8.5-10.1); Carbon Dioxide 19.7 mMol/L (20.0-31.0); Cardiac Risk Estimate 2.7 RATIO (3.7-5.6); Chloride 123 mMol/L (98-107); Cholesterol 113 mg/dL (132-200); Creatinine (Component) 3.6 mg/dL (0.6-1.3); Estimated Creatinine Clearance 8.8 mL/min (>60); Globulin 2.2 gm/dL (2.3-3.5); Glucose 159 mg/dL (74-106); HDL Cholesterol 42 mg/dL (40-60); LDL Cholesterol,Calculated 43 mg/dL (0-130); Magnesium 1.8 mg/dL (1.6-2.6); Osmolality,Calculated 343 (275-295); Potassium 3.9 mMol/L (3.4-5.1); Sodium 158 mMol/L (136-145); Total Protein 5.6 gm/dL (5.7-8.2); Triglycerides 138 mg/dL (30-150); eGFR 12 See Note
[2024-10-24 05:13] LABS: Troponin I 0.099 ng/mL (0.0-0.045)
--- NOTE | 2024-10-24 07:49 | XR_ITS ---
Examination: Abdomen AP single view Technique: AP portable supine abdomen, single view Exam date and time: October 24 828 hours INDICATIONS: Post orogastric tube placement FINDINGS: Orogastric tube sidehole is near the GE junction Nonobstructive bowel gas pattern IMPRESSION: Advance the orogastric tube 5 cm
[2024-10-24 08:28] LABS: Base Excess, Venous -19 (-3-3); O2 Saturation, Venous 100 % (96-97); PCO2, Venous 22 mmHg (36-56); PO2, Venous 152 mmHg (15-58); pH, Venous 7.18 (7.33-7.66)
[2024-10-24] MEDS: DEXTROSE 5%-WATER 1,000 ML 100 ML IV (08:52)
[2024-10-24] MEDS: PANTOPRAZOLE INJ 40 MG VIAL IVP (08:52)
--- NOTE | 2024-10-24 09:52 | ESPR_ITS ---
Documentation for date of: 10/24/24 Subjective Subjective Brief History: Patient gives vague history of some lower abdominal pain but she was here with hypotension and major electrolyte abnormalities and acute kidney injury Narrative: Patient has no significant change from last night when she was in the ER. Her abdomen however is tender but there is no signs of peritonitis or rigidity bowel sounds are hypoactive Exam Vital Signs Temp Pulse Resp BP Pulse Ox O2 Del Method O2 Flow Rate 97.3 F 85 16 124/43 L 96 Room Air 4 10/24/24 04:53 10/24/24 04:53 10/24/24 04:53 10/24/24 04:53 10/24/24 04:53 10/24/24 04:53 10/23/24 16:32 Vital signs are normal Results Results: Laboratory Laboratory Narrative: Laboratory results show still elevated sodium and chloride. Patient's renal f unctions are also elevated. Her WBC is climbing up. Results: Imaging Imaging narrative: Patient's CTA showed no significant difference from the CT scan done earlier. Her small bowel is not dilated very much and I cannot make out anything about the circulation in the mesenteric area Assessment & Plan Assessment Additional comments: Impression: Significant electrolyte abnormality and marked acidosis Plan Plan: Given the patient is tender in the abdomen on examination the abdomen is flat and soft and does not show any signs of rigidity or distention which she would normally see on necrotic bowel. Her I cannot rule out intra-abdominal pathology but at this time the mesenteric infarction seems to be unlikely. We need to look at the sources of her acidosis elsewhere. I will follow the patient with
--- NOTE | 2024-10-24 10:26 | XR_ITS ---
Examination: Abdomen AP single view Technique: AP portable supine abdomen, single view Exam date and time: October 24, 2024 1037 hours INDICATIONS: Reposition orogastric tube FINDINGS: Orogastric tube satisfactory position Nonobstructive bowel gas pattern IMPRESSION: Orogastric tube satisfactory position
[2024-10-24 10:54] LABS: Albumin, Serum 3.6 gm/dL (3.4-4.8); Anion Gap 13 (7-16); BUN/Creatinine Ratio 23 Ratio (12-20); Blood Urea Nitrogen 85 mg/dL (9-23); Calcium 8.5 mg/dL (8.3-10.6); Calcium (Corrected) 8.8 mg/dL (8.5-10.1); Carbon Dioxide 19.8 mMol/L (20.0-31.0); Chloride 122 mMol/L (98-107); Creatinine (Component) 3.7 mg/dL (0.6-1.3); Estimated Creatinine Clearance 8.5 mL/min (>60); Glucose 142 mg/dL (74-106); Osmolality,Calculated 335 (275-295); Phosphorous 4.2 mg/dL (2.4-5.1); Potassium 3.5 mMol/L (3.4-5.1); Sodium 155 mMol/L (136-145); eGFR 12 See Note
[2024-10-24 10:56] LABS: Troponin I 0.091 ng/mL (0.0-0.045)
[2024-10-24 11:07] LABS: Base Excess -8 (-3-3); HCO3 17 mEq/L (20-26); Inspired Oxygen, FIO2 21 %; O2 Saturation 98 % (91-98); PCO2 31 mmHg (32.0-48.0); PO2 91 mmHg (83-108); Puncture Site Right Brachial; pH, Arterial 7.33 (7.35-7.45)
[2024-10-24 11:08] LABS: Allen Test Performed/OK
[2024-10-24 11:29] LABS: Lactate (Lactic Acid) 1.9 mMol/L (0.4-2.0)
--- NOTE | 2024-10-24 12:49 | ESPR_ITS ---
<Statement entered by Katiuska Florez MD - 11/04/24 13:16> I reviewed above note and agree with findings and plans. I have also personally examined the patient with medicine team and went over assessment and plan with medical team including news internship and resident physician. Documentation for date of: 10/24/24 Senior resident attestation: The patient is an 84-year-old female, past medical history of HFrEF, coronary artery disease, cholecystectomy, hypertension and hyperlipidemia, Alzheimer's, who was brought to the EMS Patient had a near fall episode at the shower from home, but is unable to catch her. Patient was altered, continue to make random noises, patient is unable to recall the said event, unsure how he got to the hospital. GCS 8/15 per EMS documentation, GCS was improved 14/15 at the time of our evaluation. Patient complaining of abdominal pain, abdominal exam showed soft abdomen but extremely tender on light palpation, In all quadrants. Patient meets sepsis criteria, obscure intra-abdominal source as severe lactic acidosis marker of poor organ perfusion. Spoke to Dr. Tarango, customs director, ICU was made aware that if lactic acidosis continues to worsen, she may require pressor and/or ventilatory support at some point. Later in the day patient blew out her IVs, no IV access, PICC line was ordered unable to pass PICC line, right IJ central line was passed to maintain IV access and IV fluid resuscitation. Problems: #Severe sepsis, likely secondary to intra-abdominal source? #Acute encephalopathy, toxic?secondary to sepsis, GCS improving after IV fluid resuscitation and starting antibiotics. #High anion gap metabolic acidosis, likely from lactic acidosis?now resolving, lactic acid 10 on initial labs, down trended to 1.9, after aggressive IV fluid resuscitation, repeat lactic acid this morning 1.9, repeat ABG also shows improvement of metabolic acidosis. # Hypernatremia?hyponatremia with hyperosmolality more than 340, after sepsis 3 L boluses initially, now started on D5W at 150 cc, every 4 hours sodium checks in place. #Acute kidney injury?senior principal software engineer Dr Luna was consulted, for possible hemodialysis, agreed to consult, but no plan for hemodialysis for now, will continue with IV hydration. #Rule out bowel ischemia? Initial abdominal imaging shows dilated bile duct, though patient has surgical removal of Gallbladder, Normal Bilirubin, Less Concerned for Acute Cholangitis. But given physical exam findings and pain out of proportion, in addition to generalized bowel edema on abdominal imaging, cannot rule out bowel ischemia as source of lactic acidosis. Spoke to Dr. Guzman radiologist, has no comments on mesenteric occlusion were made on CTA abdomen, stated that due to poor contrast bolus timing cannot reliably rule out mesenteric occlusion. General surgeon Dr. Bhatt closely following the patient, states metabolic abnormalities should be corrected prior to considering exploratory, also not entirely convinced if patient has laparotomy bowel ischemia as she still has bowel sounds though sluggish, no features of rigidity/peritonitis, though abdomen is extremely tender. Will continue to closely monitor, will continue with aggressive IV fluids and antibiotics. #Possible GI bleed - bedside stool occult strongly positive per ER provider, holding AC, SCD for dvt prophylaxis Plan of care discussed with attending Lisa PGY2 Subjective Subjective Interval history: Overnight admission. Patient is 84 year old female with past medical history of Hypertension, CAD, HFrEF 45-50%, Alzheimers with lateral wall hypokinesis, and recurrent UTIs with a recent admission in September 2024 for acute encephalopathy who was admitted on 10/22/2024 for Acute Encphalopathy, likely secondary to sepsis with organ failure with lactic acidosis. Overnight patient recieved 2.5 L bolus reducing lactic acid from 10 to 1.9. Pateint is alert and orientated X2 during morning rounds and continued to complain of tenderness diffusely through out all quadrants. 10/10 with light palpation. Occult blood positive in ER. Central line added for intravenous access as PICC line failed and intravenous peripheral line failed. Central line added for fluids and antibioitcs. Exam Vital Signs Temp Pulse Resp BP Pulse Ox O2 Del Method O2 Flow Rate 97.1 F 76 13 126/52 L 94 L Room Air 4 10/24/24 08:52 10/24/24 08:52 10/24/24 08:52 10/24/24 08:52 10/24/24 08:52 10/24/24 08:52 10/24/24 08:00 Narrative Exam General Appearance: Alert & Oriented X2, thin female who is lying in bed in acute abdominal distress. HEENT: Skull symmetrical and atraumatic. Conjunctivae pin and moist. Pupils equal, round, reactive to light and accommodation (PERRL). External ear without lesion or discharge. Straight, nares patient, mucosa pink, no discharge. No thyroid nodule appreciated. No cervical lymphadenopathy. Cardio: Normal Rate and Rhythm with S1 and S2 heart sounds. No murmurs or extra heart sounds auscultated. No bruits on carotid auscultation. No peripheral edema or cyanosis. Lungs: Symmetric with good expansion. Chest and back non-tender. Breath sounds vesicular without crackles, wheezing or rhonchi Abdomen: diffuse-tender, Non-distended, hyporeactive bowel sounds Neuro: Yes Alert, Yes cooperative, NO oriented to person, Yes place, and NO time. Speech clear. CN grossly intact. Upper motor strength 5/5 and Lower motor strength 5/5. Sensation intact. Objective Labs 10/25/24 07:47 10/25/24 02:00 Labs: Laboratory Results - last 24 hr 10/23/24 10/23/24 10/23/24 15:19 15:34 15:58 WBC 18.3 H RBC 4.43 Hgb 13.3 Hct 42.7 MCV 96 MCH 30.0 MCHC 31.1 RDW Std Deviation 50.5 H Plt Count 374 D Neut % (Auto) 93 H Lymph % (Auto) 5 L Parker % (Auto) 1 Eos % (Auto) 0 Baso % (Auto) 0 Neut # (Auto) 17.0 H Lymph # (Auto) 0.9 L Parker # (Auto) 0.1 Eos # (Auto) 0.0 Baso # (Auto) 0.0 Immature Gran # (Auto) 0.12 H Absolute Nucleated RBC 0.02 H Immature Gran % 1 H Nucleated RBC % 0 PT 11.4 INR 1.0 APTT 21.5 L Puncture Site ABG pH ABG pCO2 ABG pO2 ABG HCO3 ABG O2 Saturation ABG Base Excess VBG pH VBG pCO2 VBG pO2 VBG O2 Sat ([place]) VBG Base Excess FiO2 Sodium 159 H Potassium 4.4 Chloride 123 H* Carbon Dioxide 13.5 L* Anion Gap 23 H BUN 86 H Creatinine 3.8 H Estim Creat Clear Calc 8.3 L eGFR 11 L* BUN/Creatinine Ratio 23 H Glucose 180 H Calculated Osmolality 345 H Lactic Acid 10.0 H* Calcium 9.9 Corrected Calcium 9.9 Phosphorus 6.7 H Magnesium 2.2 Total Bilirubin < 0.2 L AST 30 ALT 9 L Alkaline Phosphatase 121 H Ammonia Lactate Dehydrogenase 372 H Troponin I 0.076 H* B-Natriuretic Peptide 57 Total Protein 7.4 Albumin 4.4 Globulin 3.0 Albumin/Globulin Ratio 1.5 Triglycerides Cholesterol LDL Cholesterol, Calc HDL Cholesterol Cholesterol/HDL Ratio Lipase 135 H Beta-Hydroxybutyrate/Acetoacetate Procalcitonin 0.16 TSH Ur Collection Type Urine Color Urine Clarity Urine pH Ur Specific [place] Urine Protein Urine Glucose (UA) Urine Ketones Urine Blood Urine Nitrite Urine Bilirubin Urine Urobilinogen (Auto) Ur Leukocyte Esterase Urine RBC Urine WBC Ur Squamous Epith Cells Urine Bacteria 10/23/24 10/23/24 10/23/24 16:21 18:12 18:44 WBC RBC Hgb Hct MCV MCH MCHC RDW Std Deviation Plt Count Neut % (Auto) Lymph % (Auto) Parker % (Auto) Eos % (Auto) Baso % (Auto) Neut # (Auto) Lymph # (Auto) Parker # (Auto) Eos # (Auto) Baso # (Auto) Immature Gran # (Auto) Absolute Nucleated RBC Immature Gran % Nucleated RBC % PT INR APTT Puncture Site Left Radial ABG pH 7.24 L ABG pCO2 36 ABG pO2 96 ABG HCO3 16 L ABG O2 Saturation 97 ABG Base Excess -11 L VBG pH 7.24 L VBG pCO2 42 VBG pO2 35 VBG O2 Sat ([place]) 59 L VBG Base Excess -9 L FiO2 21 Sodium Potassium Chloride Carbon Dioxide Anion Gap BUN Creatinine Estim Creat Clear Calc eGFR BUN/Creatinine Ratio Glucose Calculated Osmolality Lactic Acid 3.1 H Calcium Corrected Calcium Phosphorus Magnesium Total Bilirubin AST ALT Alkaline Phosphatase Ammonia 23 Lactate Dehydrogenase Troponin I B-Natriuretic Peptide Total Protein Albumin Globulin Albumin/Globulin Ratio Triglycerides Cholesterol LDL Cholesterol, Calc HDL Cholesterol Cholesterol/HDL Ratio Lipase Beta-Hydroxybutyrate/Acetoacetate 0.3 Procalcitonin TSH Ur Collection Type Clean Catch Urine Color Yellow Urine Clarity Clear Urine pH 6.0 Ur Specific [place] 1.019 Urine Protein 1+ A Urine Glucose (UA) Negative Urine Ketones Trace Urine Blood Negative Urine Nitrite Negative Urine Bilirubin Negative Urine Urobilinogen (Auto) Negative Ur Leukocyte Esterase Negative Urine RBC 1 Urine WBC 3 Ur Squamous Epith Cells 1 Urine Bacteria None 10/23/24 10/24/24 10/24/24 23:41 00:00 03:42 WBC 20.6 H RBC 3.84 L Hgb 11.7 L Hct 35.8 L MCV 93 MCH 30.5 MCHC 32.7 RDW Std Deviation 48.6 H Plt Count 270 D Neut % (Auto) 89 H Lymph % (Auto) 8 L Parker % (Auto) 3 Eos % (Auto) 0 Baso % (Auto) 0 Neut # (Auto) 18.4 H Lymph # (Auto) 1.6 Parker # (Auto) 0.5 Eos # (Auto) 0.0 Baso # (Auto) 0.0 Immature Gran # (Auto) 0.10 H Absolute Nucleated RBC 0.00 Immature Gran % 1 H Nucleated RBC % 0 PT INR APTT Puncture Site ABG pH ABG pCO2 ABG pO2 ABG HCO3 ABG O2 Saturation ABG Base Excess VBG pH VBG pCO2 VBG pO2 VBG O2 Sat ([place]) VBG Base Excess FiO2 Sodium 160 H 158 H Potassium 3.7 D 3.9 Chloride 126 H* 123 H* Carbon Dioxide 17.4 L 19.7 L Anion Gap 17 H 15 BUN 82 H 91 H Creatinine 3.4 H 3.6 H Estim Creat Clear Calc 9.3 L 8.8 L eGFR 13 L* 12 L* BUN/Creatinine Ratio 24 H 25 H Glucose 136 H 159 H Calculated Osmolality 343 H 343 H Lactic Acid 1.9 Calcium 8.4 D 8.6 Corrected Calcium 9.0 9.1 Phosphorus Magnesium 1.8 Total Bilirubin < 0.2 L < 0.2 L AST 31 33 ALT 7 L 9 L Alkaline Phosphatase 91 D 93 Ammonia Lactate Dehydrogenase Troponin I 0.099 H* B-Natriuretic Peptide Total Protein 5.5 L 5.6 L Albumin 3.2 L D 3.4 Globulin 2.3 2.2 L Albumin/Globulin Ratio 1.4 1.5 Triglycerides 138 Cholesterol 113 L LDL Cholesterol, Calc 43 HDL Cholesterol 42 Cholesterol/HDL Ratio 2.7 L Lipase Beta-Hydroxybutyrate/Acetoacetate Procalcitonin TSH 1.20 Ur Collection Type Urine Color Urine Clarity Urine pH Ur Specific [place] Urine Protein Urine Glucose (UA) Urine Ketones Urine Blood Urine Nitrite Urine Bilirubin Urine Urobilinogen (Auto) Ur Leukocyte Esterase Urine RBC Urine WBC Ur Squamous Epith Cells Urine Bacteria 10/24/24 10/24/24 10/24/24 07:56 10:20 11:00 WBC RBC Hgb Hct MCV MCH MCHC RDW Std Deviation Plt Count Neut % (Auto) Lymph % (Auto) Parker % (Auto) Eos % (Auto) Baso % (Auto) Neut # (Auto) Lymph # (Auto) Parker # (Auto) Eos # (Auto) Baso # (Auto) Immature Gran # (Auto) Absolute Nucleated RBC Immature Gran % Nucleated RBC % PT INR APTT Puncture Site Right Brachial ABG pH 7.33 L ABG pCO2 31 L ABG pO2 91 ABG HCO3 17 L ABG O2 Saturation 98 ABG Base Excess -8 L VBG pH 7.18 L VBG pCO2 22 L D VBG pO2 152 H D VBG O2 Sat ([place]) 100 H VBG Base Excess -19 L FiO2 21 Sodium 155 H Potassium 3.5 Chloride 122 H* Carbon Dioxide 19.8 L Anion Gap 13 BUN 85 H Creatinine 3.7 H Estim Creat Clear Calc 8.5 L eGFR 12 L* BUN/Creatinine Ratio 23 H Glucose 142 H Calculated Osmolality 335 H Lactic Acid Calcium 8.5 Corrected Calcium 8.8 Phosphorus 4.2 Magnesium Total Bilirubin AST ALT Alkaline Phosphatase Ammonia Lactate Dehydrogenase Troponin I 0.091 H* B-Natriuretic Peptide Total Protein Albumin 3.6 Globulin Albumin/Globulin Ratio Triglycerides Cholesterol LDL Cholesterol, Calc HDL Cholesterol Cholesterol/HDL Ratio Lipase Beta-Hydroxybutyrate/Acetoacetate Procalcitonin TSH Ur Collection Type Urine Color Urine Clarity Urine pH Ur Specific [place] Urine Protein Urine Glucose (UA) Urine Ketones Urine Blood Urine Nitrite Urine Bilirubin Urine Urobilinogen (Auto) Ur Leukocyte Esterase Urine RBC Urine WBC Ur Squamous Epith Cells Urine Bacteria 10/24/24 11:20 WBC RBC Hgb Hct MCV MCH MCHC RDW Std Deviation Plt Count Neut % (Auto) Lymph % (Auto) Parker % (Auto) Eos % (Auto) Baso % (Auto) Neut # (Auto) Lymph # (Auto) Parker # (Auto) Eos # (Auto) Baso # (Auto) Immature Gran # (Auto) Absolute Nucleated RBC Immature Gran % Nucleated RBC % PT INR APTT Puncture Site ABG pH ABG pCO2 ABG pO2 ABG HCO3 ABG O2 Saturation ABG Base Excess VBG pH VBG pCO2 VBG pO2 VBG O2 Sat ([place]) VBG Base Excess FiO2 Sodium Potassium Chloride Carbon Dioxide Anion Gap BUN Creatinine Estim Creat Clear Calc eGFR BUN/Creatinine Ratio Glucose Calculated Osmolality Lactic Acid 1.9 Calcium Corrected Calcium Phosphorus Magnesium Total Bilirubin AST ALT Alkaline Phosphatase Ammonia Lactate Dehydrogenase Troponin I B-Natriuretic Peptide Total Protein Albumin Globulin Albumin/Globulin Ratio Triglycerides Cholesterol LDL Cholesterol, Calc HDL Cholesterol Cholesterol/HDL Ratio Lipase Beta-Hydroxybutyrate/Acetoacetate Procalcitonin TSH Ur Collection Type Urine Color Urine Clarity Urine pH Ur Specific [place] Urine Protein Urine Glucose (UA) Urine Ketones Urine Blood Urine Nitrite Urine Bilirubin Urine Urobilinogen (Auto) Ur Leukocyte Esterase Urine RBC Urine WBC Ur Squamous Epith Cells Urine Bacteria ABG Interpretation ABG results: 10/23/24 10/23/24 10/24/24 18:12 18:44 07:56 ABG pH 7.24 L ABG pCO2 36 ABG pO2 96 ABG HCO3 16 L ABG O2 Saturation 97 ABG Base Excess -11 L VBG pH 7.24 L 7.18 L VBG pCO2 42 22 L D VBG pO2 35 152 H D VBG Base Excess -9 L -19 L 10/24/24 11:00 ABG pH 7.33 L ABG pCO2 31 L ABG pO2 91 ABG HCO3 17 L ABG O2 Saturation 98 ABG Base Excess -8 L VBG pH VBG pCO2 VBG pO2 VBG Base Excess Quality Measures Quality Measures none Advance care planning discussed with:: patient Assessment & Plan Assessment Current Active Medications: Generic Name Dose Route Start Last Admin Trade Name Freq PRN Reason Stop Dose Admin Hydrocodone Bitart/Acetaminophen 1 tab 10/24/24 00:30 Hydrocodone/Apap 5/325 Tablet PO 10/29/24 00:29 Q6HR PRN PAIN SCALE 4-6 (Moderate Hydromorphone HCl 0.5 mg 10/24/24 00:30 Hydromorphone Inj 2 Mg/Ml Vial IVP 10/29/24 00:29 Q4H PRN PAIN SCALE 7-10 (Severe Metronidazole 500 mg in 100 mls @ 200 mls/hr 10/24/24 06:00 10/24/24 05:34 Flagyl 500 Mg Iv IV 10/31/24 05:59 200 mls/hr Q8HR KEYSHAWN Administration Cefepime HCl 1 gm/ Sodium 50 mls @ 100 mls/hr 10/24/24 16:00 Chloride IV 10/31/24 15:59 Q24H KEYSHAWN Dextrose 1,000 mls @ 120 mls/hr 10/24/24 11:48 D5w IV 11/23/24 11:47 .Q8H20M [facility] Ondansetron HCl 4 mg 10/24/24 00:30 Ondansetron Inj 2 Mg/Ml Inj 2 Ml IV 11/23/24 00:29 Q6H PRN NAUSEA OR VOMITING Protocol Pantoprazole Sodium 40 mg 10/24/24 09:00 10/24/24 08:52 Pantoprazole Inj 40 Mg Vial IVP 11/23/24 08:59 40 mg QDAY KEYSHAWN Administration Plan Patient is 84 year old female with past medical history of Hypertension, CAD, HFrEF 45-50%, Alzheimers with lateral wall hypokinesis, and recurrent UTIs who was admitted on 10/23/2024 for acute encephalopathy #Acute Encephalopathy in the setting of sepsis #Sepsis secondary to lactic acid criteria On arrival patient arrived alert but not orientated and unable to follow commands, sepsis suspected given end organ failure with GIRMA and acute encphalopathy. SOFA 4. Lactic acid initially 10 then down trended to 1.9 after fluid resuscitation. Ischemic bowel can not be ruled out given diffuse thickening of colonic wall and positive occult blood in ER vs acute cholangitis can not be ruled out given dilated common bile duct but less likely given gallbladder ultrasound negative for stones and total bili with normal vs enteric bacteria can not be rule out given elevated WBC count SOFA 4 Plan -Cefepime 10/24/2024 & Metronidazole 500 mg 10/24 -continue Dextrose maintenance fluid -Protonix 40 mg qday -Consider GI consult -Consult Surgery, Dr. Bhatt, appreciate recommendations ##Metabolic Acidosis, Elevated anion gap #Hypercholeremia #Electrolyte Abnormalities Metabolic Acidosis elevated anion gap with an initial anion gap of 23 secondary to lactic acidosis likely secondary to hypoperfusion. Elevated metabolic acidosis secondary to uremia can be ruled out given GIRMA vs less likely secondary to DKA given no ketones noted and negativ beta hydroxylase Plan -Treat underlying condition -Continue fluid resuscitation -continue to replete electrolytes #Hypernatremia, Hyperosmolar, Hypovolemic Patient arrived hypernatremia, hyper-osmolar, clinically hypovolemic with Na 159 and osmolality 345. Hypernatremia likely secondary to renal loss from renal GIRMA and hypovolemia. Plan -Na electrolytes -Dextrose 150 cc -Urine electrolytes GIRMA likely pre-renal on CKD stage III Patinet has underlying CKD following Jeremy with renal u/s showing moderate bilateran renal parenchymal scare formation. Likely pre-renal given BUN/Cr ratio greater than 23 and clinically hypovolemic with hypernatremia. Given GIRMA injury, intrinisic injury can not be rule dout if GIRMA does not improve. Plan -Avoid nephrotixins -Renally Dose medication -continue maintenance fluid. -Consult nephrology, DR. Luna, appreciate recommendations. #Possible ileus versus enteritis Mild ileus versus enteritis as noted on CT abdomen with gastric fluid noted. NG for decompression Plan -NG tube #Hypotension #history of Hypertension Past medical history of hypertension but upon arrival systolic blood pressure <120. Plan -Hold Lisinopril 2.5 mg once daily -Holding Hydralaizine 10 mg PO TID #NSTEMI, type II deman ischemia No ST elevation noted on EKG and denied chest pain, likely secondary to demand ischemica Plan -Trend troponin #history of CHF HFrEF 45-50% (09/20/2024) Diastolic Dysfunction Stage I #RVSP 22 Past medical history of CHF with diastolic dysfunction who is hypovolemic with hyponatremia. Given clinical status currently holding GDMT. Plan -Holding Carvedilol -Strict In' and Outs #history of CAD #HLD -Resume Atorvastatin as patient status improves. #Incidental Solid appearing bilateral renal masses Health Maintenance: Disp: Pt is currently admitted to floors for further management of acute encephalopathy likely secondary to sepsis, awaiting improved metabolic acidosis and hypernatremia. FEN: NPO, Dextros 150 cc DVT: compression device Code: Full Code - The patient's plan was discussed with attending Dr. Florez and senior residents DR. Lisa Robertson MD PGY1 Internal Medicine
[2024-10-24] MEDS: DEXTROSE 5%-WATER 1,000 ML 120 ML IV (13:01)
[2024-10-24 13:28] LABS: LDH (Lactate Dehydrogenase) 247 U/L (120-246)
--- NOTE | 2024-10-24 13:43 | PC.NURSE ---
aware that both Pt. IVs infiltrated and RN having difficulty placing new lines. IV via ultrasound insertion being attempted now.
[2024-10-24 13:54] LABS: Sodium 154 mMol/L (136-145)
--- NOTE | 2024-10-24 13:59 | ESCONSULT_ITS ---
RE: VINEET ANDRES : 1940 DATE OF CONSULTATION: 10/24/2024 REASON FOR REFERRAL: Acute kidney injury on stage IIIB CKD. REFERRING PHYSICIAN: Dr. Bello. HISTORY OF PRESENT ILLNESS: This patient is an 84-year-old woman with past medical history significant for hypertension, dementia, diabetes, stage IIIB CKD with baseline serum creatinine anywhere from 1.3 to 1.4 depending on her volume status, recurrent UTI, and history of falls, who was brought by ambulance to ED yesterday after she had a syncopal episode while in the shower. As per ER notes, the patient had a systolic blood pressure of 80s during EMS assessment. The patient was given IV fluids and was sent to the emergency room. While in the emergency room, she was found with tenderness on her abdomen and had a chest, abdomen, and pelvis CT. Initially without IV contrast and then later on was given IV contrast for better imaging. The CTA of the abdomen did not show any significant finding. There seems to be fluid-distended small bowel loops with wall thickening and diffuse wall thickening involving the colon. The patient also was found with mild urinary bladder wall thickening, consider cystitis on the same test. Upon presentation in the emergency room, patient was found with a white count level of 18,300, sodium of 160, chloride of 126, CO2 of 17.4, BUN of 82, creatinine of 3.4, glucose of 136, calcium of 8.4. The patient also has a history of congestive heart failure whose EF is only 45% to 50% on a 2D echocardiogram done in 09/2024. Sometime in 09/2024, the patient also had a bilateral kidney ultrasound, which confirmed her CKD with a right kidney measuring 9 cm with a cortex of 1.6 cm and a left kidney measuring 8.6 cm with a cortex of 1.3 cm. While in the emergency room, Davis catheter was inserted. Unfortunately, they were not able to collect her urine. When she was admitted, her lactic acid was found elevated at 10, which with IV fluid improved to 3.1 and now 1.9, which is normal. Her creatinine somehow improved from 3.8 to 3.7. Her serum sodium also improved from 159 to 155. She was eventually admitted and while in the emergency room has received 3 liters of lactated Ringer's solution. She is now maintained on D5 water at 120 mL per hour. The patient is confused and it is hard to get information from her. Most of the information came from her chart. PAST MEDICAL HISTORY: Dementia, diabetes. PAST SURGICAL HISTORY: Two back surgeries and history of fracture. CURRENT MEDICATIONS: 1. Cefepime 1 g IV daily. 2. Hydrocodone. 3. Metronidazole 500 mg IV every 8 hours. 4. Ondansetron. 5. Pantoprazole 80 mg IV x1. 6. Pantoprazole 40 mg IV daily. 7. At home, the patient takes aspirin 81 mg daily. 8. Atorvastatin 40 mg daily. 9. Buspirone 30 mg p.o. at bedtime. 10. Carvedilol 3.125 mg p.o. b.i.d. 11. Clonazepam 1 mg p.o. daily. 12. Duloxetine 60 mg p.o. daily. 13. Hydralazine 10 mg p.o. t.i.d. 14. Famotidine. 15. Lisinopril 2.5 mg daily. 16. Memantine. 17. Donepezil one cap p.o. daily 18. Loratadine. 19. Montelukast. 20. Oxycodone. 21. MiraLax. PHYSICAL EXAMINATION: General: She is confused, awake. Vital Signs: Blood pressure of 126/52, heart rate of 76, O2 saturation of 94% on room air, HEENT: Anicteric sclerae. Normocephalic. Neck: Supple. No JVD. Chest and Lungs: Symmetrical expansion. Clear breath sounds. Heart: Without murmur. Abdomen: Soft and nontender. Extremities: No edema. LABORATORY DATA: Sodium 155, potassium 3.5, chloride 122, CO2 19.8, BUN 85, creatinine 3.7, glucose 142, calcium 8.5, hemoglobin 11.7, WBC 20,600, platelet count 270,000. DIAGNOSTIC DATA: Abdominal x-ray: Orogastric tube in right position. Abdominal and pelvis CTA: Small bowel loops with wall thickening, diffuse wall thickening involving colon. Chest x-ray: No pneumonia identified. ASSESSMENT: 1. Acute kidney injury on stage IIIB chronic kidney disease, most likely secondary to hypotensive episode, dehydration and hemodynamic instability, which could have evolved to acute tubular necrosis. 2. Enterocolitis, most likely acute. 3. Dementia. 4. Stage IIIB chronic kidney disease. 5. Diabetes. 6. History of hypertension. 7. Chronic urinary tract infection. 8. Hypernatremia secondary to dehydration. PLAN: I believe that the patient has severe dehydration upon admission most likely secondary to her enterocolitis preventing adequate intake. At this point, the patient should be hydrated enough and see if kidney function would improve. At the moment, there is no acute need for dialysis; however, if the patient remains oliguric or continues to be acidotic with life- threatening hyperkalemia, then dialysis will be offered. Also, if the patient becomes volume overloaded with the fluids that is being provided, then dialysis will be considered as well, especially if the patient has low urine output. It remains to be seen if patient's kidney function will improve with IV fluid support. I agree with starting her on antibiotics for her enterocolitis. Continue to monitor her urine output, electrolyte kidney function on a daily basis. Any electrolyte deficiency should be corrected cautiously. I will monitor her progress closely. DT: 12:22:49 TT: 13:54:00 Ref: [id number] - TID: [id number] MTDD
[2024-10-24] MEDS: HEPARIN SOD LOCK SYR 100 UNIT/ML 500 UNIT STFIELD (15:29)
[2024-10-24] MEDS: LIDOCAINE INJ PF 1% 30 ML VIAL INFL (15:29)
--- NOTE | 2024-10-24 15:35 | PC.NURSE ---
Karen from IR called and notified RN that PICC line insertion was unsuccessful. Dr. Guzman agrees to try central line insertion tomorrow, however, that would leave pt. without IV access overnight. Dr. Robertson aware and talking with team about next step in the plan.
--- NOTE | 2024-10-24 16:00 | PC.NURSE ---
1600 patient taken to IR for picc line insertion, picc line to right arm unsuccessful. New 24g IV started by Debby WETZEL to left foream, report given to Ivette WETZEL, patient transferred back to room 272 with tele box
--- NOTE | 2024-10-24 16:08 | PC.SS ---
Pt is confused.? SS spoke to Jake linares by phone regarding patient's d/c plan.? Pt was admitted for Abdominal Pain and AMS.? Son confirmed patient's demographic and contact information is correct on facesheet.? Pt resides with Jake linares.? Prior to being hospitalized pt ambulated independently without assistance or DME.? Pt was also ok with all ADLs.? P has walker and wheelchair at home.? SS provided verbal options for d/c to home or SNF.? Son is agreeable to SNF if recommended by physician and PT.? Son is refusing [facility] for SNF.? Jake Linares is patient's medical decision maker if she is unable.? Pt followed up with [facility] in [place] 2 weeks ago D/C plan:? home vs SNF Next of Kin:? Jake Rodrigez, son, phone# [phone] PCP:? [facility] [place] Address:? Correct on facesheet
[2024-10-24] MEDS: CEFEPIME INJ 1 GM in SODIUM CHLORIDE 0.9% (Popper) 50 ML IV (16:57)
--- NOTE | 2024-10-24 16:59 | PD.SURPROG ---
Documentation for date of: 10/24/24 Subjective Subjective Brief History: Patient gives vague history of some lower abdominal pain but she was here with hypotension and major electrolyte abnormalities and acute kidney injury Narrative: The patient was seen this afternoon for evaluation of the abdomen. Exam Vital Signs Temp Pulse Resp BP Pulse Ox O2 Del Method O2 Flow Rate 97.1 F 75 14 147/42 H 96 Room Air 4 10/24/24 12:00 10/24/24 15:40 10/24/24 15:40 10/24/24 15:40 10/24/24 15:40 10/24/24 15:40 10/24/24 08:00 Her vital signs are stable Routine Abdominal Exam Comments: Abdominal examination shows once again tenderness diffusely all over the abdomen. But the bowel sounds are heard and there are no signs of peritonitis Results Results: Laboratory Laboratory Narrative: Patient's laboratory workup shows still abnormal sodium and chloride. Results: Imaging Imaging narrative: I looked at the abdominal series performed today for position of the NG tube and it showed no dilatation of the small bowel or colon Assessment & Plan Assessment Additional comments: Impression: Intra-abdominal pathology cannot be ruled out yet. However it is very unlikely that she has ischemic disease of GI tract because she will be a lot sicker. She should have a dilated loops of small bowel on the x-ray in addition to do some distention clinically to have ischemia. If she has ischemia of the colon the treatment is supportive or not necessarily surgical intervention. She will need surgery only if there is ischemia of the small bowel. Plan Plan: At this time we will continue resuscitation and correction of electrolyte abnormalities and follow her up.
--- NOTE | 2024-10-24 17:30 | PC.NURSE ---
Dr. Robertson and team planning to insert central line at bedside with ER doctor. Called to pt. son with Dr. Robertson to obtain consent, and pt. son Jake agrees to procedure.
--- NOTE | 2024-10-24 18:08 | XR_ITS ---
Examination: AP chest single view Technique: AP portable supine chest single view Exam date and time: October 24, 2024 1817 hrs. Comparison: October 23, 2024 1439 hrs. Indications: Status post central line placement Findings: Right internal jugular central line tip right atrium No pneumothorax Orogastric tube tip in the stomach Normal heart size Moderate elevation right hemidiaphragm Mild vascular congestion Impression: Interval right internal jugular central line, tip right atrium, no pneumothorax
--- NOTE | 2024-10-24 18:28 | ESOP_ITS ---
Procedures Procedure Date / Time 10/24/24 1828 Central Line Placement Right IJ: Indication(s): poor, or inadequate peripheral venous access Informed consent obtained: from patient and obtained from surrogate decision maker Time out done, and the following verified: correct patient, side and site, procedure, patient position and implants and/or equipment Patient placed on monitor/pulse ox: Yes Hand Hygiene: scrub, soap & water and alcohol-based hand rub Max Sterile Barrier Techniques used: cap, mask, sterile gown, sterile gloves and sterile full body drape Central line prep: Povidone-Iodine 1% and Chlorhexidine scrub Local anesthesia used: lidocaine 1% Amount of anesthesia used (mL): 5 Ultrasound used for placement: Yes Sterile Technique if Ultrasound used, including sterile gel: yes Central line lumen inserted: triple Post procedure: sutured in place, good blood return, all ports aspirated, flushed, capped and sterile dressing applied Post procedure x-ray: tip of catheter in good position and no pneumothorax seen Patient tolerated procedure: well EBL(ml): 5 Complications: none Procedure comment: Internal Jugular Central Line Procedure Note CONSENT: [x] During the informed consent discussion regarding the procedure, or treatment, I explained the following to the patient/designee: a. Nature of the procedure or treatment and who will perform the procedure or treatment. b. Necessity for procedure and the possible benefits. c. Risks and complications (most common and serious). d. Alternative treatments and the risks, benefits and side effects of each (including no treatment). e. Likelihood of the patient achieving his/her goals without this procedure and surgery treatment. f. Problems that might occur during the recuperation. g. Conflicts of interest, if any PROCEDURE SUMMARY: Starting with the first handwash prior to starting sterile technique. A time out was performed. My hands were washed immediately prior to the procedure. I wore a surgical cap, mask with protective eyewear, full gown and sterile gloves throughout the procedure. The patient was placed in Trendelenburg position. RIGHT neck region was prepped using chlorhexidine scrub and draped in sterile fashion using a full drape and sterile probe cover and sterile gel employed. The medial and lateral heads of the sternocleidomastoid muscle were identified as was the carotid pulse. The Internal Jugular vein was identified using the ultrasound. Anesthesia was achieved over the vein using 1% lidocaine. Using real-time out of plane guidance, the introducer needle was inserted into the Internal Jugular vein under direct ultrasound visualization. Venous blood was withdrawn. The syringe was removed and a guidewire was advanced into the introducer needle. The guidewire was visualized in the Internal Jugular Vein by ultrasound. A small incision was made at the skin surface with a scalpel and the introducer needle was exchanged for a dilator over the guidewire. After appropriate dilation was obtained, the dilator was exchanged over the wire for a triple lumen central venous catheter. The wire was removed and the catheter was sutured in place . A sterile sorbaview shield was placed over the catheter at the insertion site. The patient tolerated the procedure without any hemodyn amic compromise. At time of procedure completion, all ports aspirated and flushed properly. Post-procedure chest x-ray is pending at this time. Estimated blood loss is 5 ml Procedure performed under ultrasound guidance and oversight by Attending Dr Joyce. PGY 2
[2024-10-24] MEDS: RINGERS LACTATED 1000 ML 1,000 ML 250 ML IV (19:19)
--- NOTE | 2024-10-24 19:20 | PC.NURSE ---
Per Dr. Gonzalez Run LR at 250 ml/hr for 500 ml and then resume D5W at 150 ml/hr. warehouse supervisor 3rd shift Rn aware.
--- NOTE | 2024-10-24 19:24 | PC.NURSE ---
Addendum entered by Ivette Bowman RN 10/24/24 19:31: Pt. son Jake called back, and made aware of central line placement success. Pt. son states pt. is NOT allergic to silver. Original Note: RN called son Jake to update on central line procedure, no answer so voicemail left with call back number to reach. RN called to inquire about any allergy to silver for wound treatment, shift supervisor film processing RASHARD Roberts aware to follow up about this.
[2024-10-24 19:42] LABS: Sodium 156 mMol/L (136-145)
[2024-10-24 19:53] LABS: Albumin, Serum 3.1 gm/dL (3.4-4.8); Anion Gap 14 (7-16); BUN/Creatinine Ratio 23 Ratio (12-20); Blood Urea Nitrogen 81 mg/dL (9-23); Calcium 8.2 mg/dL (8.3-10.6); Calcium (Corrected) 8.9 mg/dL (8.5-10.1); Carbon Dioxide 18.4 mMol/L (20.0-31.0); Chloride 124 mMol/L (98-107); Creatinine (Component) 3.5 mg/dL (0.6-1.3); Estimated Creatinine Clearance 9.4 mL/min (>60); Glucose 102 mg/dL (74-106); Osmolality,Calculated 333 (275-295); Phosphorous 3.7 mg/dL (2.4-5.1); Potassium 3.1 mMol/L (3.4-5.1); Sodium 156 mMol/L (136-145); eGFR 13 See Note
[2024-10-24 19:56] LABS: Troponin I 0.075 ng/mL (0.0-0.045)
[2024-10-24] MEDS: DEXTROSE 5%-WATER 1,000 ML 150 ML IV (21:19)
[2024-10-24 22:35] LABS: Lactate (Lactic Acid) 0.6 mMol/L (0.4-2.0)
[2024-10-24 22:49] LABS: Sodium 155 mMol/L (136-145)
[2024-10-25] VITALS (9 sets, daily range): BP systolic 98–172; BP diastolic 57–89; PULSE 61–79; RESP 12–17; TEMP 36.1–36.6; O2SAT 95–100; BMI 20.1; BMI 20.5
[2024-10-25 02:18] LABS: Lactate (Lactic Acid) 0.7 mMol/L (0.4-2.0)
[2024-10-25 02:34] LABS: Sodium 152 mMol/L (136-145)
[2024-10-25] MEDS: DEXTROSE 5%-WATER 1,000 ML 150 ML IV ×2 (03:30→10:53)
[2024-10-25] MEDS: metroNIDAZOLE/NS 500 MG IVPB 500 MG/100 ML BAG 200 MG IV ×3 (05:18→21:10)
[2024-10-25 06:57] LABS: Lactate (Lactic Acid) 0.8 mMol/L (0.4-2.0)
[2024-10-25 08:02] LABS: Basophils % (Auto) 0 % (0-2.5); Eosinophils # (Auto) 0.3 Thou/mm3 (0.0-0.5); Eosinophils % (Auto) 3 % (0-10); Immature Granulocytes % (Auto) 1 % (0-0); Immature Granulocytes Auto 0.06 Thou/mm3 (0.00-0.00); Lymphocytes # (Auto) 1.9 Thou/mm3 (1.0-4.8); Lymphocytes % (Auto) 14 % (10-50); Mean Corpuscular HGB Conc 33.1 g/dl (31.0-37.0); Mean Corpuscular Hemoglobin 30.5 pg (25.0-35.0); Mean Corpuscular Volume 92 fL (80-100); Monocytes # (Auto) 0.4 Thou/mm3 (0.0-0.8); Monocytes % (Auto) 3 % (0-12); Neutrophils # (Auto) 10.4 Thou/mm3 (1.8-7.7); Neutrophils % (Auto) 79 % (37-80); Nucleated Red Blood Cell % 0 /100 WBC (0); Platelet Count 200 Thou/mm3 (140-440); RDW Standard Deviation 47.6 fL (36.4-46.3); Red Blood Count 2.82 Miln/mm3 (4.00-5.20); White Blood Count 13.1 Thou/mm3 (3.6-11.0)
[2024-10-25 08:24] LABS: Hemoglobin 8.6 g/dL (12.0-16.0)
[2024-10-25 08:53] LABS: Alanine Aminotransferase 7 U/L (10-49); Albumin, Serum 2.9 gm/dL (3.4-4.8); Albumin/Globulin Ratio 1.5 (1.2-2.2); Alkaline Phosphatase 65 U/L (46-116); Anion Gap 10 (7-16); Aspartate Amino Transferase 22 U/L (0-34); BUN/Creatinine Ratio 21 Ratio (12-20); Bilirubin,Total < 0.2 mg/dL (0.3-1.2); Blood Urea Nitrogen 66 mg/dL (9-23); Calcium 7.8 mg/dL (8.3-10.6); Calcium (Corrected) 8.7 mg/dL (8.5-10.1); Carbon Dioxide 19.7 mMol/L (20.0-31.0); Chloride 119 mMol/L (98-107); Creatinine (Component) 3.2 mg/dL (0.6-1.3); Estimated Creatinine Clearance 10.2 mL/min (>60); Globulin 1.9 gm/dL (2.3-3.5); Glucose 128 mg/dL (74-106); Magnesium 1.4 mg/dL (1.6-2.6); Osmolality,Calculated 317 (275-295); Phosphorous 3.1 mg/dL (2.4-5.1); Potassium 3.2 mMol/L (3.4-5.1); Sodium 149 mMol/L (136-145); Total Protein 4.8 gm/dL (5.7-8.2); eGFR 14 See Note
[2024-10-25] MEDS: PANTOPRAZOLE INJ 40 MG VIAL IVP ×2 (09:13→20:01)
--- NOTE | 2024-10-25 09:28 | CHAP ---
Patient was sleeping. Prayed a quiet prayer in room.
[2024-10-25 10:21] LABS: Clostridium Difficile PCR Positive (Negative)
[2024-10-25] MEDS: POTASSIUM CHL 10 mEq IVPB 10 MEQ/100 ML BAG 100 MEQ IV ×2 (10:53→12:05)
[2024-10-25] MEDS: Magnesium Sulfate 2 GM Ivpb 2 GM/50 ML BAG IV (10:53)
[2024-10-25 11:01] LABS: Sodium 148 mMol/L (136-145)
[2024-10-25 11:06] LABS: Creatine Kinase 162 U/L (34-171)
--- NOTE | 2024-10-25 11:07 | PD.SURPROG ---
Documentation for date of: 10/25/24 Subjective Subjective Brief History: Patient gives vague history of some lower abdominal pain but she was here with hypotension and major electrolyte abnormalities and acute kidney injury Narrative: The patient's condition is essentially unchanged and she is complaining of abdominal pain only when asked. She has not been receiving any narcotics according to the nurse Exam Vital Signs Temp Pulse Resp BP Pulse Ox O2 Del Method O2 Flow Rate 97.3 F 62 17 98/71 99 Room Air 4 10/25/24 07:43 10/25/24 07:43 10/25/24 07:43 10/25/24 07:43 10/25/24 07:43 10/25/24 07:43 10/24/24 08:00 Vital signs are normal with heart rate of 62 Routine Abdominal Exam Comments: Abdominal examination still shows diffuse tenderness in all quadrants without peritoneal irritation. Bowel sounds are hypoactive today Results Results: Laboratory Laboratory Narrative: Laboratory workup shows improving sodium and chloride levels Assessment & Plan Assessment Additional comments: Impression: I cannot rule out intra-abdominal pathology in this woman because she is diffusely tender even though there are no peritoneal signs Plan Plan: We shall continue the present treatment because she is showing improvement. I suggest we request a gastroenterology evaluation to see if they have anything else to offer.
--- NOTE | 2024-10-25 11:11 | XR_ITS ---
Examination: Abdomen 2 views TECHNIQUE: AP upright AP supine abdomen 2 views Exam date and time: October 25, 2024 1134 hours Comparison October 24, 2024 INDICATIONS: Abdominal pain this week. FINDINGS: More prominent air distended small bowel loops on the current study Orogastric tube stable position No free air IMPRESSION: More prominent air distended small bowel loops, clinical correlation advised
--- NOTE | 2024-10-25 11:15 | ESPR_ITS ---
RE: VINEET ANDRES : 1940 DATE OF SERVICE: 10/25/2024 HISTORY OF PRESENT ILLNESS: Briefly, she is an 84-year-old woman with hypertension, dementia, diabetes, stage IIIB chronic kidney disease with baseline serum creatinine around 1.3-1.4 who was admitted to the hospital with syncopal episode and hypotension. The patient was found with acute kidney injury upon admission to the hospital. The patient was also found with leukocytosis. The patient has a history of CHF with EF of only 45-50%. The patient has severe lactic acid level of 10, which improved with IV fluid and serum sodium was also elevated upon admission, which also improved with the D5 water. The patient is more active now and answers questions, not confused. CURRENT MEDICATIONS: 1. Cefepime 1 g IV every 24 hours. 2. Hydrocodone. 3. Hydromorphone. 4. Magnesium. 5. Metronidazole 500 mg IV every 8 hours. 6. Ondansetron. 7. Protonix 40 mg IV b.i.d. PHYSICAL EXAMINATION: General: She is awake, alert, and answered questions appropriately. Vital Signs: Blood pressure of 98/71, heart rate of 62, temperature 97.3, O2 saturation 99% on room air. HEENT: Anicteric sclerae. Normocephalic. Neck: Supple. No JVD. Chest and Lungs: Symmetrical expansion. Clear breath sounds. Heart: Without murmur. Abdomen: Soft, nontender. Extremities: No edema. Laboratory Data: Hemoglobin 8.6, WBC 13,100, and platelet count 200,000. Sodium 149, potassium 3.2, chloride 119, CO2 of 19.7, BUN 66, creatinine 3.2, lactic acid 0.8, calcium 8.7, magnesium 1.4. ASSESSMENT: 1. Nonoliguric acute kidney injury on stage IIIB chronic kidney disease, most likely secondary to dehydration, hypotensive episode and hemodynamic instability, now improving. 2. Acute enterocolitis, improving. 3. Dementia. 4. Stage IIIB chronic kidney disease. 5. Diabetes. 6. History of hypertension. 7. Chronic urinary tract infection. 8. Hypernatremia secondary to dehydration. PLAN: Continue IV fluids for now until she is more awake. The patient has good urine output and there is no acute need for dialysis. Continue to monitor urine output, kidney function and electrolytes on a daily basis. DT: 10:19:09 TT: 11:14:00 Ref: [id number] - TID: [id number] MTDD
--- NOTE | 2024-10-25 14:20 | ESPR_ITS ---
<Statement entered by Katiuska Florez MD - 11/04/24 13:18> I reviewed above note and agree with findings and plans. I have also personally examined the patient with medicine team and went over assessment and plan with medical team including nurse intern and resident physician. Documentation for date of: 10/25/24 Senior resident attestation: The patient is an 84-year-old female, past medical history of HFrEF, coronary artery disease, cholecystectomy, hypertension and hyperlipidemia, Alzheimer's, who was brought to the EMS Patient had a near fall episode at the shower from home, but is unable to catch her. Patient was altered, continue to make random noises, patient is unable to recall the said event, unsure how he got to the hospital. GCS 8/15 per EMS documentation, GCS was improved 14/15 at the time of our evaluation. Patient complaining of abdominal pain, abdominal exam showed soft abdomen but extremely tender on light palpation, In all quadrants. Patient meets sepsis criteria, obscure intra-abdominal source as severe lactic acidosis marker of poor organ perfusion. Spoke to Dr. Tarango, disc pad knockout worker, ICU was made aware that if lactic acidosis continues to worsen, she may require pressor and/or ventilatory support at some point. Later in the day patient blew out her IVs, no IV access, PICC line was ordered unable to pass PICC line, right IJ central line was passed to maintain IV access and IV fluid resuscitation. Problems: #Severe sepsis, likely secondary to intra-abdominal source? Acute enterocolitis - continue antibiotics, follow blood and stool cultures. #Hypernatremia - severe hypernatemia with hypovolemia, aggressive volume resuscitation , continued on D5w at 150cc/hr , q4 h sodium checks. Monitor for volume overload as pt has a history of CHF. #Acute encephalopathy, toxic?secondary to sepsis - resolved #Lactic acidosis?now resolved. #Acute kidney injury?executive recruiter Dr Luna was consulted, for possible hemodialysis, agreed to consult, but no plan for hemodialysis for now, will continue with IV hydration. #Rule out bowel ischemia? CTA did not show evidence of ischemic colitis, watchful observation per gen surg. #Possible GI bleed - bedside stool occult strongly positive per ER provider, holding AC, SCD for dvt prophylaxis #history of CHF- echo showed LV size normal and function mildly reduced at 45- 50% with septal and lateral wall hypokinesis. continue watchful observation for volume overload. Plan of care discussed with attending Dr Vikki Gonzalez PGY2 Subjective Subjective Interval history: No overnight event for patient. Pateint continues to complain of lower abdominal tenderness. Patient is more alert and orientated X3 which is an improvement from initial admission. 1 bowel movement reported overnight. NG tube remain in place, consider d/c tomorrow if patient continues to tolerate diet. C. Diffe positive, oral vanco added. Hypernatremia and GIRMA continue to improved. Exam Vital Signs Temp Pulse Resp BP Pulse Ox O2 Del Method O2 Flow Rate 97.2 F 73 16 144/89 H 95 Room Air 4 10/25/24 12:00 10/25/24 12:00 10/25/24 12:00 10/25/24 12:00 10/25/24 12:00 10/25/24 12:00 10/24/24 08:00 Narrative Exam General Appearance: Alert & Oriented X3, thin female who is lying in bed in acute abdominal distress. HEENT: Skull symmetrical and atraumatic. Conjunctivae pin and moist. Pupils equal, round, reactive to light and accommodation (PERRL). External ear without lesion or discharge. Straight, nares patient, mucosa pink, no discharge. No thyroid nodule appreciated. No cervical lymphadenopathy. Cardio: Normal Rate and Rhythm with S1 and S2 heart sounds. No murmurs or extra heart sounds auscultated. No bruits on carotid auscultation. No peripheral edema or cyanosis. Lungs: Symmetric with good expansion. Chest and back non-tender. Breath sounds vesicular without crackles, wheezing or rhonchi Abdomen: diffuse-tender, Non-distended, hyporeactive bowel sounds Neuro: Yes Alert, Yes cooperative, NO oriented to person, Yes place, and NO time. Speech clear. CN grossly intact. Upper motor strength 5/5 and Lower motor strength 5/5. Sensation intact. Objective Labs 10/25/24 07:47 10/25/24 19:32 Labs: Laboratory Results - last 24 hr 10/24/24 10/24/24 10/24/24 19:00 19:00 22:15 WBC RBC Hgb Hct MCV MCH MCHC RDW Std Deviation Plt Count Neut % (Auto) Lymph % (Auto) [place] % (Auto) Eos % (Auto) Baso % (Auto) Neut # (Auto) Lymph # (Auto) [place] # (Auto) Eos # (Auto) Baso # (Auto) Immature Gran # (Auto) Absolute Nucleated RBC Immature Gran % Nucleated RBC % Sodium 156 H 156 H 155 H Potassium 3.1 L Chloride 124 H* Carbon Dioxide 18.4 L Anion Gap 14 BUN 81 H Creatinine 3.5 H Estim Creat Clear Calc 9.4 L eGFR 13 L* BUN/Creatinine Ratio 23 H Glucose 102 Calculated Osmolality 333 H Lactic Acid 0.6 Calcium 8.2 L Corrected Calcium 8.9 Phosphorus 3.7 Magnesium Total Bilirubin AST ALT Alkaline Phosphatase Total Creatine Kinase Troponin I 0.075 H* Total Protein Albumin 3.1 L D Globulin Albumin/Globulin Ratio Stl C. diff Tox B Gene 10/25/24 10/25/24 10/25/24 02:00 04:25 06:30 WBC RBC Hgb Hct MCV MCH MCHC RDW Std Deviation Plt Count Neut % (Auto) Lymph % (Auto) [place] % (Auto) Eos % (Auto) Baso % (Auto) Neut # (Auto) Lymph # (Auto) [place] # (Auto) Eos # (Auto) Baso # (Auto) Immature Gran # (Auto) Absolute Nucleated RBC Immature Gran % Nucleated RBC % Sodium 152 H Potassium Chloride Carbon Dioxide Anion Gap BUN Creatinine Estim Creat Clear Calc eGFR BUN/Creatinine Ratio Glucose Calculated Osmolality Lactic Acid 0.7 0.8 Calcium Corrected Calcium Phosphorus Magnesium Total Bilirubin AST ALT Alkaline Phosphatase Total Creatine Kinase Troponin I Total Protein Albumin Globulin Albumin/Globulin Ratio Stl C. diff Tox B Gene Positive A 10/25/24 10/25/24 07:47 10:10 WBC 13.1 H D RBC 2.82 L Hgb 8.6 L D Hct 26.0 L MCV 92 MCH 30.5 MCHC 33.1 RDW Std Deviation 47.6 H Plt Count 200 D Neut % (Auto) 79 Lymph % (Auto) 14 Gulf % (Auto) 3 Eos % (Auto) 3 Baso % (Auto) 0 Neut # (Auto) 10.4 H Lymph # (Auto) 1.9 Gulf # (Auto) 0.4 Eos # (Auto) 0.3 Baso # (Auto) 0.0 Immature Gran # (Auto) 0.06 H Absolute Nucleated RBC 0.00 Immature Gran % 1 H Nucleated RBC % 0 Sodium 149 H 148 H Potassium 3.2 L Chloride 119 H Carbon Dioxide 19.7 L Anion Gap 10 BUN 66 H Creatinine 3.2 H Estim Creat Clear Calc 10.2 L eGFR 14 L* BUN/Creatinine Ratio 21 H Glucose 128 H Calculated Osmolality 317 H Lactic Acid Cancelled Calcium 7.8 L Corrected Calcium 8.7 Phosphorus 3.1 Magnesium 1.4 L Total Bilirubin < 0.2 L AST 22 ALT 7 L Alkaline Phosphatase 65 D Total Creatine Kinase 162 Troponin I Total Protein 4.8 L Albumin 2.9 L Globulin 1.9 L Albumin/Globulin Ratio 1.5 Stl C. diff Tox B Gene ABG Interpretation ABG results: 10/23/24 10/23/24 10/24/24 18:12 18:44 07:56 ABG pH 7.24 L ABG pCO2 36 ABG pO2 96 ABG HCO3 16 L ABG O2 Saturation 97 ABG Base Excess -11 L VBG pH 7.24 L 7.18 L VBG pCO2 42 22 L D VBG pO2 35 152 H D VBG Base Excess -9 L -19 L 10/24/24 11:00 ABG pH 7.33 L ABG pCO2 31 L ABG pO2 91 ABG HCO3 17 L ABG O2 Saturation 98 ABG Base Excess -8 L VBG pH VBG pCO2 VBG pO2 VBG Base Excess Quality Measures Quality Measures none Advance care planning discussed with:: patient Assessment & Plan Assessment Current Active Medications: Generic Name Dose Route Start Last Admin Trade Name Freq PRN Reason Stop Dose Admin Hydrocodone Bitart/Acetaminophen 1 tab 10/24/24 00:30 Hydrocodone/Apap 5/325 Tablet PO 10/29/24 00:29 Q6HR PRN PAIN SCALE 4-6 (Moderate Hydromorphone HCl 0.5 mg 10/24/24 00:30 Hydromorphone Inj 2 Mg/Ml Vial IVP 10/29/24 00:29 Q4H PRN PAIN SCALE 7-10 (Severe Metronidazole 500 mg in 100 mls @ 200 mls/hr 10/24/24 06:00 10/25/24 05:18 Flagyl 500 Mg Iv IV 10/31/24 05:59 200 mls/hr Q8HR KEYSHAWN Administration Cefepime HCl 1 gm/ Sodium 50 mls @ 100 mls/hr 10/24/24 16:00 10/24/24 16:57 Chloride IV 10/31/24 15:59 100 mls/hr Q24H KEYSHAWN Administration Dextrose 1,000 mls @ 150 mls/hr 10/24/24 13:29 10/25/24 10:53 D5w IV 11/23/24 13:28 150 mls/hr .Q6H40M KEYSHAWN Administration Ondansetron HCl 4 mg 10/24/24 00:30 Ondansetron Inj 2 Mg/Ml Inj 2 Ml IV 11/23/24 00:29 Q6H PRN NAUSEA OR VOMITING Protocol Pantoprazole Sodium 40 mg 10/25/24 09:00 10/25/24 09:13 Pantoprazole Inj 40 Mg Vial IVP 11/24/24 08:59 40 mg BID KEYSHAWN Administration Plan Patient is 84 year old female with past medical history of Hypertension, CAD, HFrEF 45-50%, Alzheimers with lateral wall hypokinesis, and recurrent UTIs who was admitted on 10/23/2024 for acute encephalopathy #Enterocolitis #Sepsis secondary to intra-abdominal infection, likely C.diff, improved #C.Diff #Lactic Acidosis, improved Given fluid distention in small bowel loops with thickening wall invovling the colon on CTA abdomen, concern for entercolitis given positive C.diffe. Given thickening of colon, concern for fulminant, consider keeping Metronidazole on board. Oral Vancomycin for at least 10 days. Ischemic colitis less likely as patient has remained hemodynamically stable and continues to improve with bowel movements present. Less likely secondary to acute cholangitis as AST/ALT and total bili have remained stable. SOFA 4 Plan -Isolation precautions -Vancomycin 125 PO (10/25/2024--) TID & Metronidazole 500 mg Q8 HRs (10/24--) -Cefepime (10/24/2024-11/03/2024), 10 days consider extending to 12 days -stool culture -NG tube, consider D/C tomorrow -Consult Surgery, Dr. Bhatt, appreciate recommendations GIRMA likely pre-renal on CKD stage III, improving Patinet has underlying CKD following Jeremy with renal u/s showing moderate bilateran renal parenchymal scare formation. Likely pre-renal given BUN/Cr ratio greater than 23 and clinically hypovolemic with hypernatremia. Given GIRMA injury, intrinisic injury can not be rule dout if GIRMA does not improve. Plan -Avoid nephrotixins -Renally Dose medication -continue maintenance fluid. -Consult nephrology, DR. Luna, appreciate recommendations. #Hypernatremia, Hyperosmolar, Hypovolemic Patient arrived hypernatremia, hyper-osmolar, clinically hypovolemic with Na 159 and osmolality 345. Hypernatremia likely secondary to renal loss from renal GIRMA and hypovolemia. Plan -Continue to trend Na. -Dextrose 150 cc-->LR @100 -If Na 140, please further decrease rate of LR to 60 -Urine electrolytes, pending #Acute Encephalopathy in the setting of sepsis, improving #Acute Metabolic Encephalopathy Acute metabolic encephloapthy likely multi-factorial in the setting of sepsis on admission with elevated lactic acid and hypernatremia. Continue to treat underlying cause condition. Plan -continue to treat underlying infectious condition, less likely ischemic process #Normocytic Anemia #Possible lower GI bleed On admission, patient's hemoglobin of 13.3 with MCV of 96 versus significant drop to 8.6. Given aggressive fluid resusitation, likely secondary to dilutional effect as all three lines decreased. Can not rule out lower GI bleed given enteritis and diffuse wall thickening involving the colon noted on CTA abdomen/Pelvis. Plan -Continue to monitor hemoglobin -consider GI consult #Hypotension, improved . #history of Hypertension Past medical history of hypertension but upon arrival systolic blood pressure <120. Plan -Hold Lisinopril 2.5 mg once daily & Hydralaizine 10 mg PO TID -consider Amlodipine if hypertension continues given maintenance fluids -PRN Hydralazine ##Metabolic Acidosis, Elevated anion gap, improved #Hypercholeremia #Electrolyte Abnormalities Metabolic Acidosis elevated anion gap with an initial anion gap of 23 secondary to lactic acidosis likely secondary to hypoperfusion. Elevated metabolic acidosis secondary to uremia can be ruled out given GIRMA vs less likely secondary to DKA given no ketones noted and negativ beta hydroxylase Plan -Treat underlying condition -Continue fluid resuscitation -continue to replete electrolytes #history of CHF HFrEF 45-50% (09/20/2024) Diastolic Dysfunction Stage I #RVSP 22 Past medical history of CHF with diastolic dysfunction who is hypovolemic with hyponatremia. Given clinical status currently holding GDMT. Plan -Holding Carvedilol, consider restarting tomorrow if BP remain high -Strict In' and Outs -Aspiration precautions -Daily weight checks. #NSTEMI, type II deman ischemia No ST elevation noted on EKG and denied chest pain, likely secondary to demand ischemica Plan -Trend troponin #history of CAD #HLD -Resume Atorvastatin as patient status improves. #Incidental Solid appearing bilateral renal masses Health Maintenance: Disp: Pt is currently admitted to floors for further management of acute encephalopathy likely secondary to sepsis, awaiting improved metabolic acidosis and hypernatremia. FEN: clear liquid diet, advance tomorrow on LR @100 DVT: compression device LInes: Davis cather & CENTRAL LINE Code: Full Code - The patient's plan was discussed with attending Dr. Florez and senior residents DR. Lisa Robertson MD PGY1 Internal Medicine
[2024-10-25 15:57] LABS: Sodium 144 mMol/L (136-145)
[2024-10-25] MEDS: CEFEPIME INJ 1 GM in SODIUM CHLORIDE 0.9% (Popper) 50 ML IV (16:13)
--- NOTE | 2024-10-25 16:47 | PC.DIETICIAN ---
Nutrition Prescription (for wound): Recommend Dillan BID, Vitamin C 250mg BID, Zinc 220mg [id number], Nephrovite daily. Thank you! :)
[2024-10-25] MEDS: RINGERS LACTATED 1000 ML 1,000 ML 100 ML IV (17:08)
[2024-10-25] MEDS: VANCOMYCIN 125 MG CAPSULE PO ×2 (18:00→20:01)
[2024-10-25] MEDS: HYDROmorphone INJ 2 MG/ML VIAL 0.5 MG IVP (19:53)
[2024-10-25 20:06] LABS: Sodium 146 mMol/L (136-145)
[2024-10-25] MEDS: MIN OIL/PET,WHITE (Eucerin) CR 16 OZ BTL TOP (21:10)
[2024-10-25 23:22] LABS: Sodium 147 mMol/L (136-145)
[2024-10-25] MEDS: HYDROcodone/APAP 5/325 TABLET 1 TAB PO (23:44)
[2024-10-26] VITALS (8 sets, daily range): BP systolic 131–181; BP diastolic 49–79; PULSE 65–86; RESP 14–25; TEMP 36.3–36.8; O2SAT 98–100; BMI 20.5
[2024-10-26 03:58] LABS: Alanine Aminotransferase 7 U/L (10-49); Albumin, Serum 2.7 gm/dL (3.4-4.8); Albumin/Globulin Ratio 1.4 (1.2-2.2); Alkaline Phosphatase 60 U/L (46-116); Anion Gap 10 (7-16); Aspartate Amino Transferase 15 U/L (0-34); BUN/Creatinine Ratio 20 Ratio (12-20); Bilirubin,Total 0.2 mg/dL (0.3-1.2); Blood Urea Nitrogen 48 mg/dL (9-23); Carbon Dioxide 21.1 mMol/L (20.0-31.0); Chloride 117 mMol/L (98-107); Creatinine (Component) 2.4 mg/dL (0.6-1.3); Estimated Creatinine Clearance 13.6 mL/min (>60); Globulin 1.9 gm/dL (2.3-3.5); Glucose 90 mg/dL (74-106); Magnesium 1.4 mg/dL (1.6-2.6); Osmolality,Calculated 306 (275-295); Phosphorous 2.4 mg/dL (2.4-5.1); Sodium 148 mMol/L (136-145); Total Protein 4.6 gm/dL (5.7-8.2); eGFR 20 See Note
[2024-10-26] MEDS: VANCOMYCIN 125 MG CAPSULE PO ×4 (05:31→20:26)
[2024-10-26] MEDS: metroNIDAZOLE/NS 500 MG IVPB 500 MG/100 ML BAG 200 MG IV ×3 (05:31→21:24)
[2024-10-26] MEDS: RINGERS LACTATED 1000 ML 1,000 ML 100 ML IV (05:32)
[2024-10-26] MEDS: HYDROcodone/APAP 5/325 TABLET 1 TAB PO ×2 (06:12→13:07)
[2024-10-26 06:22] LABS: Basophils % (Auto) 0 % (0-2.5); Eosinophils # (Auto) 0.5 Thou/mm3 (0.0-0.5); Eosinophils % (Auto) 6 % (0-10); Hematocrit 25.1 % (36.0-46.0); Immature Granulocytes % (Auto) 0 % (0-0); Immature Granulocytes Auto 0.02 Thou/mm3 (0.00-0.00); Lymphocytes % (Auto) 21 % (10-50); Mean Corpuscular HGB Conc 33.9 g/dl (31.0-37.0); Mean Corpuscular Hemoglobin 30.4 pg (25.0-35.0); Mean Corpuscular Volume 90 fL (80-100); Monocytes # (Auto) 0.4 Thou/mm3 (0.0-0.8); Monocytes % (Auto) 4 % (0-12); Neutrophils # (Auto) 6.7 Thou/mm3 (1.8-7.7); Neutrophils % (Auto) 70 % (37-80); Nucleated Red Blood Cell % 0 /100 WBC (0); Platelet Count 187 Thou/mm3 (140-440); RDW Standard Deviation 44.7 fL (36.4-46.3); White Blood Count 9.7 Thou/mm3 (3.6-11.0)
[2024-10-26 06:30] LABS: Hemoglobin 8.5 g/dL (12.0-16.0)
[2024-10-26] MEDS: hydrALAZINE INJ 20 MG/ML VIAL 10 MG IVP (07:55)
[2024-10-26] MEDS: PANTOPRAZOLE INJ 40 MG VIAL IVP (08:03)
[2024-10-26] MEDS: HYDROmorphone INJ 2 MG/ML VIAL 0.5 MG IVP ×2 (08:52→19:42)
[2024-10-26] MEDS: POTASSIUM CHL 10 mEq IVPB 10 MEQ/100 ML BAG 100 MEQ IV ×2 (08:53→10:19)
[2024-10-26] MEDS: DEXTROSE 5%-WATER 1,000 ML 100 ML IV (08:53)
[2024-10-26] MEDS: Magnesium Sulfate 2 GM Ivpb 2 GM/50 ML BAG IV (08:53)
[2024-10-26] MEDS: MIN OIL/PET,WHITE (Eucerin) CR 16 OZ BTL TOP ×2 (09:00→20:26)
[2024-10-26 09:22] LABS: Sodium 146 mMol/L (136-145)
--- NOTE | 2024-10-26 10:26 | SV.GEN ---
C-diff positive, MRSA positive= Nares
--- NOTE | 2024-10-26 12:13 | ESPR_ITS ---
Documentation for date of: 10/26/24 Subjective Subjective Interval history: Patient was seen and examined at bedside. No acute overnight events. Labs and vitals were reviewed, leukocytosis improving, WBC down trended from 13-9.7, patient is afebrile, CMP revealed hyponatremia again with sodium of 148, LR was changed to D5W at 100 cc/h, will monitor sodium level every 4 hours. Potassium was 3.0 which was replaced, otherwise CMP revealed improvement of renal function, creatinine down from 3.2-2.5, patient is having adequate urine output, had about 2 L of urine output in 24-hour, lactic acid within normal limits. Nephrology closely following the case, recommended to continue with IVF, monitor renal function. Otherwise patient still on vancomycin, will continue metronidazole, continue treatment for C. difficile, cefepime was discontinued, patient had 4 bowel movement. She is on clear liquid diet, however still complaining of weakness and mild abdominal pain. CT abdomen revealed incidental renal mass, recommendation is to do an MRI. However at this point we will wait for kidney function improvement, avoid any contrast, once patient is hemodynamically more stable and kidneys are back to baseline we will consider MRI inpatient or outpatient. Will follow-up with surgery further recommendations. Exam Vital Signs Temp Pulse Resp BP Pulse Ox O2 Del Method O2 Flow Rate 97.5 F 65 25 H 181/58 H 98 Room Air 4 10/26/24 08:00 10/26/24 08:00 10/26/24 08:00 10/26/24 08:00 10/26/24 08:00 10/26/24 08:00 10/24/24 08:00 Narrative Exam GENERAL: no acute distress, AAO x3, thin female who is lying in bed, HEENT: Head AT/ NC. Mucous membranes moist. NECK: Supple, no lymphadenopathy, no carotid bruits. CARDIOVASCULAR: RRR. Normal S1/S2, No m/r/g. No pitting edema of bilateral LEs. RESPIRATORY: CTAB. No wheezing, rhonchi, crackles. GASTROINTESTINAL: Abdomen soft, rebound tenderness diffusely, however not rigit, well appearing, no signs of acute abdomen at this poin. . Bowel sounds present in all 4 quadrants. MUSCULOSKELETAL:? No cyanosis or edema, no visible joint swelling. NEUROLOGICAL: CN II-XII grossly intact. No focal deficits. PSYCHIATRIC: Awake and alert, not agitated, normal mood and affect. Objective Labs 10/27/24 04:15 10/27/24 04:15 Labs: Laboratory Results - last 24 hr 10/25/24 10/25/24 10/25/24 15:05 19:32 22:57 WBC RBC Hgb Hct MCV MCH MCHC RDW Std Deviation Plt Count Neut % (Auto) Lymph % (Auto) [place] % (Auto) Eos % (Auto) Baso % (Auto) Neut # (Auto) Lymph # (Auto) [place] # (Auto) Eos # (Auto) Baso # (Auto) Immature Gran # (Auto) Absolute Nucleated RBC Immature Gran % Nucleated RBC % Sodium 144 146 H 147 H Potassium Chloride Carbon Dioxide Anion Gap BUN Creatinine Estim Creat Clear Calc eGFR BUN/Creatinine Ratio Glucose Calculated Osmolality Calcium Corrected Calcium Phosphorus Magnesium Total Bilirubin AST ALT Alkaline Phosphatase Total Protein Albumin Globulin Albumin/Globulin Ratio 10/26/24 10/26/24 10/26/24 03:18 06:01 08:00 WBC 9.7 RBC 2.80 L Hgb 8.5 L Hct 25.1 L MCV 90 MCH 30.4 MCHC 33.9 RDW Std Deviation 44.7 Plt Count 187 Neut % (Auto) 70 Lymph % (Auto) 21 [place] % (Auto) 4 Eos % (Auto) 6 Baso % (Auto) 0 Neut # (Auto) 6.7 Lymph # (Auto) 2.0 [place]on # (Auto) 0.4 Eos # (Auto) 0.5 Baso # (Auto) 0.0 Immature Gran # (Auto) 0.02 H Absolute Nucleated RBC 0.00 Immature Gran % 0 Nucleated RBC % 0 Sodium 148 H 146 H Potassium 3.0 L Chloride 117 H Carbon Dioxide 21.1 Anion Gap 10 BUN 48 H Creatinine 2.4 H D Estim Creat Clear Calc 13.6 L eGFR 20 L BUN/Creatinine Ratio 20 Glucose 90 Calculated Osmolality 306 H Calcium 8.0 L Corrected Calcium 9.0 Phosphorus 2.4 Magnesium 1.4 L Total Bilirubin 0.2 L AST 15 ALT 7 L Alkaline Phosphatase 60 Total Protein 4.6 L Albumin 2.7 L Globulin 1.9 L Albumin/Globulin Ratio 1.4 ABG Interpretation ABG results: 10/23/24 10/23/24 10/24/24 18:12 18:44 07:56 ABG pH 7.24 L ABG pCO2 36 ABG pO2 96 ABG HCO3 16 L ABG O2 Saturation 97 ABG Base Excess -11 L VBG pH 7.24 L 7.18 L VBG pCO2 42 22 L D VBG pO2 35 152 H D VBG Base Excess -9 L -19 L 10/24/24 11:00 ABG pH 7.33 L ABG pCO2 31 L ABG pO2 91 ABG HCO3 17 L ABG O2 Saturation 98 ABG Base Excess -8 L VBG pH VBG pCO2 VBG pO2 VBG Base Excess Quality Measures Quality Measures none Advance care planning discussed with:: patient Assessment & Plan Assessment Current Active Medications: Generic Name Dose Route Start Last Admin Trade Name Freq PRN Reason Stop Dose Admin Hydrocodone Bitart/Acetaminophen 1 tab 10/24/24 00:30 10/26/24 06:12 Hydrocodone/Apap 5/325 Tablet PO 10/29/24 00:29 1 tab Q6HR PRN Administration PAIN SCALE 4-6 (Moderate Hydralazine HCl 10 mg 10/25/24 18:37 10/26/24 07:55 Hydralazine Inj 20 Mg/Ml Vial IVP 11/24/24 18:36 10 mg Q4HR PRN Administration Hypertension Hydromorphone HCl 0.5 mg 10/24/24 00:30 10/26/24 08:52 Hydromorphone Inj 2 Mg/Ml Vial IVP 10/29/24 00:29 0.5 mg Q4H PRN Administration PAIN SCALE 7-10 (Severe Metronidazole 500 mg in 100 mls @ 200 mls/hr 10/24/24 06:00 10/26/24 05:31 Flagyl 500 Mg Iv IV 10/31/24 05:59 200 mls/hr Q8HR KEYSHAWN Administration Dextrose 1,000 mls @ 100 mls/hr 10/26/24 08:30 10/26/24 08:53 D5w IV 11/25/24 08:29 100 mls/hr .Q10H KEYSHAWN Administration Multi-Ingredient Ointment 0 oz 10/25/24 21:00 10/25/24 21:10 Min Oil/Pet,White (Eucerin) Cr 16 Oz Btl TOP 11/24/24 20:59 16 oz BID KEYSHAWN Administration Ondansetron HCl 4 mg 10/24/24 00:30 Ondansetron Inj 2 Mg/Ml Inj 2 Ml IV 11/23/24 00:29 Q6H PRN NAUSEA OR VOMITING Protocol Pantoprazole Sodium 40 mg 10/25/24 09:00 10/26/24 08:03 Pantoprazole Inj 40 Mg Vial IVP 11/24/24 08:59 40 mg BID KEYSHAWN Administration Vancomycin HCl 125 mg 10/25/24 17:00 10/26/24 05:31 Vancomycin 125 Mg Capsule PO 11/01/24 16:59 125 mg QID KEYSHAWN Administration Plan Patient is 84 year old female with past medical history of Hypertension, CAD, HFrEF 45-50%, Alzheimers with lateral wall hypokinesis, and recurrent UTIs who was admitted on 10/23/2024 for acute encephalopathy #C. diff colitis #abdominal pain due to above #Sepsis secondary to intra-abdominal infection, likely C.diff-resolved #Lactic Acidosis-resolved CT abd/pelvis w/contrast:Fluid distended small bowel loops with wall thickening, diffuse wall thickening involving the colon, differential would include enteritis colitis Multiple loose BM Abdominal pain C.diff Tox B (+) -Isolation precautions -Vancomycin 125 PO (10/25/2024--) TID & Metronidazole 500 mg Q8 HRs (10/24--) -DC Cefepime (10/24/2024-11/05/2024) -stool culture -NG tube, clamped -Surgery, Dr. Bhatt,recs-conservative treatment #GIRMA likely pre-renal on CKD stage III, improving Patinet has underlying CKD following Jeremy with renal u/s showing moderate bilaterar renal parenchymal scare formation. Likely pre-renal given BUN/Cr ratio greater than 23 and clinically hypovolemic with hypernatremia. Renal panel is improveing, Cr and BUN downtrending, has adequate urine output -Avoid nephrotixins -Renally Dose medication -continue maintenance fluid. -monitor UO -Consult nephrology, DR. Luna, appreciate recommendations. #Hypernatremia, Hyperosmolar, Hypovolemic Patient arrived hypernatremia, hyper-osmolar, clinically hypovolemic with Na 159 and osmolality 345. Hypernatremia likely secondary to renal loss from renal GIRMA and hypovolemia. -Continue to trend Na. -D5-w 100 cc, -Q4H check, If sodium dropes 140, may switch to LR #Acute metabolic Encephalopathy in the setting of sepsis resolved CT head negative -continue to treat underlying cause #Normocytic Anemia Could be hemodilutional, as patient received aggressive fluid resuscitation, in a setting of sever dehydration No sign of bleeding as this time -Continue to monitor H&H #history of Hypertension -Hold Lisinopril 2.5 mg once daily & Hydralaizine 10 mg PO TID -amlodipine 5 qday -PRN Hydralazine #HAGMA-resolved #Electrolyte Abnormalities -continue to replete electrolytes #Hx of CHF HFrEF 45-50% (09/20/2024) -Strict In' and Outs -Daily weight checks. #NSTEMI, type II demand ischemia No ST elevation noted on EKG and denied chest pain, likely secondary to demand ischemica -tropes downtrended #Incidental Solid appearing bilateral renal masses Consider MRI with contrast, however kidney functions currently not at baseline, will continue close monitor, once renal function improved, plan is to MRI outpatient/inpatient Disposition:Tele DVT prophylaxis: SCDs GI prophylaxis:DC PPI in a setting of C.Diff, started famotidine IV Diet: clear liquid Lines: kunz and central CODE STATUS:Full code Patient care was discussed with attending physician Dr. Sandrine Lorenzana MD PGY-2 I have carefully reviewed this document. Due to imperfections in the voice software, there could be grammatical errors including phonetic/typographic errors. This in no way compromises the medical care the patient is receiving Attending Provider Attestation/Addendum I reviewed labs, imaging, EKG, home medications and prior available records. Face to face evaluation was performed by me. I have personally examined the patient and discussed assessment and plan with the IM team. I reviewed the resident note and agree with the plan with exceptions as below. Acute encephalopathy, improved Acute gastroenteritis Acute enteritis SIRS Uncontrolled hypertension/hypertensive urgency Leukocytosis Hyponatremia GIRMA, prerenal Renal masses NG clamped. Clear liquid diet Continue p.o. vancomycin and metronidazole Continue IV fluids Trend WBC: Downtrending Monitor sodium level, improved Monitor kidney numbers: Creatinine improved Avoid nephrotoxins. Renally dosed medications Started amlodipine. Monitor BP
[2024-10-26 12:21] LABS: Sodium 143 mMol/L (136-145)
[2024-10-26] MEDS: amLODIPine BESYLATE 5 MG TABLET PO (13:06)
[2024-10-26 16:34] LABS: Sodium 144 mMol/L (136-145)
--- NOTE | 2024-10-26 17:33 | PC.NURSE ---
Requested med list from son who responded I gave the list three times already and was reluctant to provide even after having the reasoning explained
[2024-10-26] MEDS: DEXTROSE 5%-WATER 1,000 ML 80 ML IV (19:20)
[2024-10-26] MEDS: FAMOTIDINE INJ 10 MG/ML VIAL 2 ML IVP (20:27)
[2024-10-26] MEDS: MG HYD/AL HYD/SIME (Maalox Reg) SUSP 30 ML UDC PO (22:41)
[2024-10-26 23:08] LABS: Sodium 140 mMol/L (136-145)
[2024-10-27] VITALS (8 sets, daily range): BP systolic 138–182; BP diastolic 59–91; PULSE 71–98; RESP 14–21; TEMP 36.3–36.9; O2SAT 97–100; BMI 20.4
[2024-10-27] MEDS: hydrALAZINE INJ 20 MG/ML VIAL 10 MG IVP
[2024-10-27] MEDS: HYDROcodone/APAP 5/325 TABLET 1 TAB PO ×3 (01:08→14:13)
[2024-10-27] MEDS: VANCOMYCIN 125 MG CAPSULE PO ×4 (05:25→20:36)
[2024-10-27] MEDS: metroNIDAZOLE/NS 500 MG IVPB 500 MG/100 ML BAG 200 MG IV ×3 (05:25→21:37)
[2024-10-27 05:34] LABS: Basophils % (Auto) 0 % (0-2.5); Eosinophils # (Auto) 0.5 Thou/mm3 (0.0-0.5); Eosinophils % (Auto) 5 % (0-10); Hematocrit 26.5 % (36.0-46.0); Hemoglobin 8.9 g/dL (12.0-16.0); Immature Granulocytes % (Auto) 0 % (0-0); Immature Granulocytes Auto 0.04 Thou/mm3 (0.00-0.00); Lymphocytes % (Auto) 19 % (10-50); Mean Corpuscular HGB Conc 33.6 g/dl (31.0-37.0); Mean Corpuscular Volume 89 fL (80-100); Monocytes # (Auto) 0.4 Thou/mm3 (0.0-0.8); Monocytes % (Auto) 4 % (0-12); Neutrophils # (Auto) 7.3 Thou/mm3 (1.8-7.7); Neutrophils % (Auto) 71 % (37-80); Nucleated Red Blood Cell % 0 /100 WBC (0); Platelet Count 216 Thou/mm3 (140-440); RDW Standard Deviation 42.9 fL (36.4-46.3); Red Blood Count 2.97 Miln/mm3 (4.00-5.20); White Blood Count 10.3 Thou/mm3 (3.6-11.0)
[2024-10-27 06:46] LABS: Alanine Aminotransferase < 7 U/L (10-49); Albumin/Globulin Ratio 1.6 (1.2-2.2); Alkaline Phosphatase 73 U/L (46-116); Anion Gap 10 (7-16); Aspartate Amino Transferase 15 U/L (0-34); BUN/Creatinine Ratio 18 Ratio (12-20); Bilirubin,Total 0.3 mg/dL (0.3-1.2); Blood Urea Nitrogen 32 mg/dL (9-23); Calcium (Corrected) 8.8 mg/dL (8.5-10.1); Chloride 115 mMol/L (98-107); Creatinine (Component) 1.8 mg/dL (0.6-1.3); Estimated Creatinine Clearance 18.2 mL/min (>60); Globulin 1.9 gm/dL (2.3-3.5); Glucose 101 mg/dL (74-106); Magnesium 1.3 mg/dL (1.6-2.6); Osmolality,Calculated 295 (275-295); Phosphorous 1.7 mg/dL (2.4-5.1); Potassium 2.8 mMol/L (3.4-5.1); Sodium 145 mMol/L (136-145); Total Protein 4.9 gm/dL (5.7-8.2); eGFR 28 See Note
[2024-10-27] MEDS: amLODIPine BESYLATE 5 MG TABLET PO (08:02)
[2024-10-27] MEDS: DEXTROSE 5%-WATER 1,000 ML 80 ML IV (08:14)
[2024-10-27] MEDS: Magnesium Sulfate 2 GM Ivpb 2 GM/50 ML BAG IV (08:15)
[2024-10-27] MEDS: ONDANSETRON INJ 2 MG/ML INJ 2 ML 4 MG IV ×2 (08:16→14:22)
[2024-10-27] MEDS: NAPH,KPH MBDB 1 PACKET (1.5 GM) PO (08:16)
[2024-10-27] MEDS: MIN OIL/PET,WHITE (Eucerin) CR 16 OZ BTL TOP ×2 (08:24→20:36)
[2024-10-27] MEDS: POTASSIUM CHL 20 mEq IVPB 20 MEQ/100 ML BAG 50 MEQ IV ×2 (08:39→11:12)
--- NOTE | 2024-10-27 10:45 | CHAP ---
Patient was prayed for by the Spiritual Care Volunteer. (Volunteer was in the hospital from 09:13-10:45).
--- NOTE | 2024-10-27 13:09 | ESPR_ITS ---
Documentation for date of: 10/27/24 Subjective Subjective Interval history: No overnight events. No pyrexia noted overnight. Patient continue to have several bowel movements a day that remain loose and copious. Improved tenderness 2/10 which improved compared to admission. NG tube removed. Diet advance to bland, continue to advance if patient tolerates diet. No surgical intervention at this point. Continue Vanco oral. 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 Exam Vital Signs Temp Pulse Resp BP Pulse Ox O2 Del Method O2 Flow Rate 97.8 F 91 17 145/63 H 97 Room Air 4 10/27/24 12:00 10/27/24 12:00 10/27/24 12:00 10/27/24 12:00 10/27/24 12:00 10/27/24 12:00 10/24/24 08:00 Narrative Exam General Appearance: Alert & Oriented X3, thin female who is lying in bed in no acute HEENT: Skull symmetrical and atraumatic. Conjunctivae pin and moist. Pupils equal, round, reactive to light and accommodation (PERRL). External ear without lesion or discharge. Straight, nares patient, mucosa pink, no discharge. No thyroid nodule appreciated. No cervical lymphadenopathy. Cardio: Normal Rate and Rhythm with S1 and S2 heart sounds. No murmurs or extra heart sounds auscultated. No bruits on carotid auscultation. No peripheral edema or cyanosis. Lungs: Symmetric with good expansion. Chest and back non-tender. Breath sounds vesicular without crackles, wheezing or rhonchi Abdomen: Mild tenderness, Non-distended, Normal Reactive Bowel Sounds Neuro: Alert, cooperative, oriented to person, place, and time. Speech clear. CN grossly intact. Upper motor strength 5/5 and Lower motor strength 5/5. Sensation intact. Objective Labs 10/28/24 05:04 10/28/24 05:04 Labs: Laboratory Results - last 24 hr 10/26/24 10/26/24 10/27/24 16:11 22:34 04:15 WBC 10.3 RBC 2.97 L Hgb 8.9 L Hct 26.5 L MCV 89 MCH 30.0 MCHC 33.6 RDW Std Deviation 42.9 Plt Count 216 Neut % (Auto) 71 Lymph % (Auto) 19 [place] % (Auto) 4 Eos % (Auto) 5 Baso % (Auto) 0 Neut # (Auto) 7.3 Lymph # (Auto) 2.0 [place] # (Auto) 0.4 Eos # (Auto) 0.5 Baso # (Auto) 0.0 Immature Gran # (Auto) 0.04 H Absolute Nucleated RBC 0.00 Immature Gran % 0 Nucleated RBC % 0 Sodium 144 140 145 Potassium 2.8 L Chloride 115 H Carbon Dioxide 20.0 Anion Gap 10 BUN 32 H Creatinine 1.8 H D Estim Creat Clear Calc 18.2 L eGFR 28 L BUN/Creatinine Ratio 18 Glucose 101 Calculated Osmolality 295 Calcium 8.0 L Corrected Calcium 8.8 Phosphorus 1.7 L Magnesium 1.3 L Total Bilirubin 0.3 AST 15 ALT < 7 L Alkaline Phosphatase 73 D Total Protein 4.9 L Albumin 3.0 L Globulin 1.9 L Albumin/Globulin Ratio 1.6 ABG Interpretation ABG results: 10/23/24 10/23/24 10/24/24 18:12 18:44 07:56 ABG pH 7.24 L ABG pCO2 36 ABG pO2 96 ABG HCO3 16 L ABG O2 Saturation 97 ABG Base Excess -11 L VBG pH 7.24 L 7.18 L VBG pCO2 42 22 L D VBG pO2 35 152 H D VBG Base Excess -9 L -19 L 10/24/24 11:00 ABG pH 7.33 L ABG pCO2 31 L ABG pO2 91 ABG HCO3 17 L ABG O2 Saturation 98 ABG Base Excess -8 L VBG pH VBG pCO2 VBG pO2 VBG Base Excess Quality Measures Quality Measures none Advance care planning discussed with:: patient Assessment & Plan Assessment Current Active Medications: Generic Name Dose Route Start Last Admin Trade Name Freq PRN Reason Stop Dose Admin Hydrocodone Bitart/Acetaminophen 1 tab 10/24/24 00:30 10/27/24 07:29 Hydrocodone/Apap 5/325 Tablet PO 10/29/24 00:29 1 tab Q6HR PRN Administration PAIN SCALE 4-6 (Moderate Amlodipine Besylate 5 mg 10/26/24 13:00 10/27/24 08:02 Amlodipine Besylate 5 Mg Tablet PO 11/25/24 12:59 5 mg QDAY KEYSHAWN Administration Carvedilol 3.125 mg 10/27/24 17:30 Carvedilol 3.125 Mg Tablet PO 11/26/24 17:29 BIDWM KEYSHAWN Famotidine 10 mg 10/26/24 21:00 10/26/24 20:27 Famotidine Inj 10 Mg/Ml Vial 2 Ml IVP 11/25/24 20:59 10 mg HS KEYSHAWN Administration Hydralazine HCl 10 mg 10/25/24 18:37 10/27/24 00:00 Hydralazine Inj 20 Mg/Ml Vial IVP 11/24/24 18:36 10 mg Q4HR PRN Administration Hypertension Hydromorphone HCl 0.5 mg 10/24/24 00:30 10/26/24 19:42 Hydromorphone Inj 2 Mg/Ml Vial IVP 10/29/24 00:29 0.5 mg Q4H PRN Administration PAIN SCALE 7-10 (Severe Metronidazole 500 mg in 100 mls @ 200 mls/hr 10/24/24 06:00 10/27/24 05:25 Flagyl 500 Mg Iv IV 10/31/24 05:59 200 mls/hr Q8HR KEYSHAWN Administration Dextrose 1,000 mls @ 80 mls/hr 10/26/24 18:42 10/27/24 08:14 D5w IV 11/25/24 18:39 80 mls/hr .[id number] KEYSHAWN Administration Melatonin 3 mg 10/27/24 21:00 Melatonin 3 Mg Tablet PO 11/26/24 20:59 HS KEYSHAWN Multi-Ingredient Ointment 0 oz 10/25/24 21:00 10/27/24 08:24 Min Oil/Pet,White (Eucerin) Cr 16 Oz Btl TOP 11/24/24 20:59 16 oz BID KEYSHAWN Administration Ondansetron HCl 4 mg 10/24/24 00:30 10/27/24 08:16 Ondansetron Inj 2 Mg/Ml Inj 2 Ml IV 11/23/24 00:29 4 mg Q6H PRN Administration NAUSEA OR VOMITING Protocol Vancomycin HCl 125 mg 10/25/24 17:00 10/27/24 11:12 Vancomycin 125 Mg Capsule PO 11/01/24 16:59 125 mg QID KEYSHAWN Administration Plan Patient is 84 year old female with past medical history of Hypertension, CAD, HFrEF 45-50%, Alzheimers with lateral wall hypokinesis, and recurrent UTIs who was admitted on 10/23/2024 for acute encephalopathy #C. diff colitis #gastroenteritis #abdominal pain due to above, improved #Sepsis secondary to intra-abdominal infection, likely C.diff-resolved #Lactic Acidosis-resolved CT abd/pelvis w/contrast:Fluid distended small bowel loops with wall thickening, diffuse wall thickening involving the colon, differential would include enteritis colitis. Patient continues to have multiple loose BM 4, on 10/27/2024. Diagnosis: C.diff Tox B (+) Plan: -Isolation precautions -Vancomycin 125 PO (10/25/2024--), consider 10 day course TID & Metronidazole 500 mg Q8 HRs (10/24--) -DC Cefepime (10/24/2024-10/26/2024) -stool culture -NG tube, clamped -Surgery, Dr. Bhatt,recs-conservative treatment #GIRMA likely pre-renal on CKD stage III, improving Patinet has underlying CKD following Jeremy with renal u/s showing moderate bilaterar renal parenchymal scare formation. Likely pre-renal given BUN/Cr ratio greater than 23 and clinically hypovolemic with hypernatremia. Renal panel is improveing, Cr and BUN downtrending, has adequate urine output Plan -D5w-1/2 normal saline @ 60 cc -Hold Lisinopril -Avoid nephrotixins -Renally Dose medication -continue maintenance fluid. -monitor UO -Consult nephrology, DR. Luna, appreciate recommendations. #Hypernatremia, Hyperosmolar, Hypovolemic, improved Patient arrived hypernatremia, hyper-osmolar, clinically hypovolemic with Na 159 and osmolality 345. Hypernatremia likely secondary to renal loss from renal GIRMA and hypovolemia. Plan -d/c sodium checks -D5-w w/ 1/2 normal saline @ 60 cc #Acute metabolic Encephalopathy in the setting of sepsis, resolved CT head negative -continue to treat underlying cause #Normocytic Anemia Could be hemodilutional, as patient received aggressive fluid resuscitation, in a setting of sever dehydration No sign of bleeding as this time -Continue to monitor H&H #history of Hypertension #hypertensive urgency Plan: -Hold Lisinopril 2.5 mg once daily & Hydralaizine 10 mg PO TID -amlodipine 5 qday -PRN Hydralazine #Hx of CHF HFrEF 45-50% (09/20/2024) -Strict In' and Outs -Daily weight checks. #NSTEMI, type II demand ischemia No ST elevation noted on EKG and denied chest pain, likely secondary to demand ischemica -tropes downtrended #Metabolic Acidosis, Anion gap, resolved. #Incidental Solid appearing bilateral renal masses Consider MRI with contrast, however kidney functions currently not at baseline, will continue close monitor, once renal function improved, plan is to MRI outpatient/inpatient Disposition:Tele DVT prophylaxis: SCDs GI prophylaxis:DC PPI in a setting of C.Diff, started famotidine IV Diet: clear liquid Lines: kunz and central CODE STATUS:Full code - The patient's plan was discussed with attending Dr. Aleksandra Robertson MD PGY1 Internal Medicine Attending Provider Attestation/Addendum I reviewed labs, imaging, EKG, home medications and prior available records. Face to face evaluation was performed by me. I have personally examined the patient and discussed assessment and plan with the IM team. I reviewed the resident note and agree with the plan with exceptions as below. Acute encephalopathy, improved Acute gastroenteritis Acute enteritis SIRS HFrEF EF 40 to 45% Uncontrolled hypertension/hypertensive urgency Leukocytosis Hyponatremia GIRMA, prerenal Renal masses Removed NG tube. Advanced diet Continue p.o. vancomycin and metronidazole Trend WBC: Downtrending Monitor sodium level, improved Monitor kidney numbers: Creatinine improved Avoid nephrotoxins. Renally dosed medications Started amlodipine. Started Coreg. Monitor BP
[2024-10-27 13:24] LABS: Albumin, Serum 3.2 gm/dL (3.4-4.8); Anion Gap 9 (7-16); BUN/Creatinine Ratio 15 Ratio (12-20); Blood Urea Nitrogen 27 mg/dL (9-23); Calcium 7.9 mg/dL (8.3-10.6); Calcium (Corrected) 8.5 mg/dL (8.5-10.1); Carbon Dioxide 20.5 mMol/L (20.0-31.0); Chloride 112 mMol/L (98-107); Creatinine (Component) 1.8 mg/dL (0.6-1.3); Estimated Creatinine Clearance 18.2 mL/min (>60); Glucose 132 mg/dL (74-106); Osmolality,Calculated 288 (275-295); Phosphorous 2.4 mg/dL (2.4-5.1); Potassium 3.6 mMol/L (3.4-5.1); Sodium 141 mMol/L (136-145); eGFR 28 See Note
[2024-10-27] MEDS: POTASSIUM CHLORIDE 20 mEq TABCR PO (14:59)
[2024-10-27] MEDS: DEXTROSE 5%-0.45% NS 1,000 ML 60 ML IV (15:04)
[2024-10-27] MEDS: carVEDILOL 3.125 MG TABLET PO (16:47)
[2024-10-27] MEDS: MELATONIN 3 MG TABLET PO (20:36)
[2024-10-27] MEDS: FAMOTIDINE INJ 10 MG/ML VIAL 2 ML IVP (20:36)
[2024-10-27] MEDS: ATORVASTATIN CALCIUM 20 MG TABLET 40 MG PO (20:36)
[2024-10-28] VITALS (12 sets, daily range): BP systolic 153–179; BP diastolic 66–86; PULSE 70–97; RESP 12–21; TEMP 36.1–36.8; O2SAT 98–99; BMI 20.4
[2024-10-28] MEDS: HYDROcodone/APAP 5/325 TABLET 1 TAB PO ×3 (00:10→13:26)
[2024-10-28] MEDS: metroNIDAZOLE/NS 500 MG IVPB 500 MG/100 ML BAG 200 MG IV ×3 (05:20→21:00)
[2024-10-28] MEDS: DEXTROSE 5%-0.45% NS 1,000 ML 60 ML IV (05:22)
[2024-10-28] MEDS: VANCOMYCIN 125 MG CAPSULE PO ×4 (05:23→20:45)
--- NOTE | 2024-10-28 05:25 | PC.NURSE ---
Pt received to room 361 from tele, to room via bed with all belongings. Pt oriented to room and instructed use of call light. Pt denies any problem, no S/S distress.
[2024-10-28 06:27] LABS: Basophils % (Auto) 0 % (0-2.5); Eosinophils # (Auto) 0.7 Thou/mm3 (0.0-0.5); Eosinophils % (Auto) 7 % (0-10); Hematocrit 24.9 % (36.0-46.0); Immature Granulocytes % (Auto) 1 % (0-0); Immature Granulocytes Auto 0.05 Thou/mm3 (0.00-0.00); Lymphocytes # (Auto) 1.5 Thou/mm3 (1.0-4.8); Lymphocytes % (Auto) 15 % (10-50); Mean Corpuscular HGB Conc 32.9 g/dl (31.0-37.0); Mean Corpuscular Hemoglobin 30.1 pg (25.0-35.0); Mean Corpuscular Volume 92 fL (80-100); Monocytes # (Auto) 0.5 Thou/mm3 (0.0-0.8); Monocytes % (Auto) 5 % (0-12); Neutrophils # (Auto) 7.5 Thou/mm3 (1.8-7.7); Neutrophils % (Auto) 73 % (37-80); Nucleated Red Blood Cell % 0 /100 WBC (0); Platelet Count 213 Thou/mm3 (140-440); Red Blood Count 2.72 Miln/mm3 (4.00-5.20); White Blood Count 10.3 Thou/mm3 (3.6-11.0)
[2024-10-28 06:53] LABS: Hemoglobin 8.2 g/dL (12.0-16.0)
[2024-10-28 06:57] LABS: Alanine Aminotransferase < 7 U/L (10-49); Albumin, Serum 2.8 gm/dL (3.4-4.8); Albumin/Globulin Ratio 1.6 (1.2-2.2); Alkaline Phosphatase 67 U/L (46-116); Anion Gap 6 (7-16); Aspartate Amino Transferase < 10 U/L (0-34); BUN/Creatinine Ratio 13 Ratio (12-20); Bilirubin,Total 0.3 mg/dL (0.3-1.2); Blood Urea Nitrogen 19 mg/dL (9-23); Calcium 7.6 mg/dL (8.3-10.6); Calcium (Corrected) 8.6 mg/dL (8.5-10.1); Carbon Dioxide 20.7 mMol/L (20.0-31.0); Chloride 112 mMol/L (98-107); Creatinine (Component) 1.5 mg/dL (0.6-1.3); Estimated Creatinine Clearance 21.8 mL/min (>60); Globulin 1.8 gm/dL (2.3-3.5); Glucose 95 mg/dL (74-106); Magnesium 1.4 mg/dL (1.6-2.6); Osmolality,Calculated 279 (275-295); Phosphorous 2.2 mg/dL (2.4-5.1); Potassium 3.4 mMol/L (3.4-5.1); Sodium 139 mMol/L (136-145); Total Protein 4.6 gm/dL (5.7-8.2); eGFR 35 See Note
[2024-10-28] MEDS: amLODIPine BESYLATE 5 MG TABLET PO ×2 (08:04→14:41)
[2024-10-28] MEDS: carVEDILOL 3.125 MG TABLET PO (08:04)
[2024-10-28] MEDS: MIN OIL/PET,WHITE (Eucerin) CR 16 OZ BTL TOP ×2 (08:05→20:52)
[2024-10-28] MEDS: POTASSIUM CHLORIDE 10% 20 MEQ/15 ML UDC 40 MEQ PO (08:46)
--- NOTE | 2024-10-28 11:32 | PD.RESPRO ---
Documentation for date of: 10/28/24 Subjective Subjective Interval history: No overnight events. Patient continues to have several episodes of diarrhea overnight, 4 bowel movements. Pateint deneid abdominal tenderness. No nausea or emesis reproted. Diet avance to regular. Physical Therapy ordered, patient would likey to return home, uses a cane at baseline. Exam Vital Signs Temp Pulse Resp BP Pulse Ox O2 Del Method O2 Flow Rate 98.0 F 97 16 179/82 H 99 Room Air 4 10/28/24 08:00 10/28/24 08:04 10/28/24 08:00 10/28/24 08:04 10/28/24 08:00 10/28/24 08:00 10/28/24 04:00 Narrative Exam General Appearance: Alert & Oriented X3, thin female who is lying in bed in no acute distress HEENT: Skull symmetrical and atraumatic. Conjunctivae pin and moist. Pupils equal, round, reactive to light and accommodation (PERRL). External ear without lesion or discharge. Straight, nares patient, mucosa pink, no discharge. No thyroid nodule appreciated. No cervical lymphadenopathy. Cardio: Normal Rate and Rhythm with S1 and S2 heart sounds. No murmurs or extra heart sounds auscultated. No bruits on carotid auscultation. No peripheral edema or cyanosis. Lungs: Symmetric with good expansion. Chest and back non-tender. Breath sounds vesicular without crackles, wheezing or rhonchi Abdomen: NON tender, Non-distended, Normal Reactive Bowel Sounds Neuro: Alert, cooperative, oriented to person, place, and time. Speech clear. CN grossly intact. Upper motor strength 5/5 and Lower motor strength 5/5. Sensation intact. Objective Labs 10/29/24 07:30 10/28/24 05:04 Labs: Laboratory Results - last 24 hr 10/27/24 10/28/24 12:19 05:04 WBC 10.3 RBC 2.72 L Hgb 8.2 L Hct 24.9 L MCV 92 MCH 30.1 MCHC 32.9 RDW Std Deviation 45.0 Plt Count 213 Neut % (Auto) 73 Lymph % (Auto) 15 [place] % (Auto) 5 Eos % (Auto) 7 Baso % (Auto) 0 Neut # (Auto) 7.5 Lymph # (Auto) 1.5 [place] # (Auto) 0.5 Eos # (Auto) 0.7 H Baso # (Auto) 0.0 Immature Gran # (Auto) 0.05 H Absolute Nucleated RBC 0.00 Immature Gran % 1 H Nucleated RBC % 0 Sodium 141 139 Potassium 3.6 D 3.4 Chloride 112 H 112 H Carbon Dioxide 20.5 20.7 Anion Gap 9 6 L BUN 27 H 19 Creatinine 1.8 H 1.5 H Estim Creat Clear Calc 18.2 L 21.8 L eGFR 28 L 35 L BUN/Creatinine Ratio 15 13 Glucose 132 H 95 Calculated Osmolality 288 279 Calcium 7.9 L 7.6 L Corrected Calcium 8.5 8.6 Phosphorus 2.4 2.2 L Magnesium 1.4 L Total Bilirubin 0.3 AST < 10 ALT < 7 L Alkaline Phosphatase 67 Total Protein 4.6 L Albumin 3.2 L 2.8 L Globulin 1.8 L Albumin/Globulin Ratio 1.6 ABG Interpretation ABG results: 10/23/24 10/23/24 10/24/24 18:12 18:44 07:56 ABG pH 7.24 L ABG pCO2 36 ABG pO2 96 ABG HCO3 16 L ABG O2 Saturation 97 ABG Base Excess -11 L VBG pH 7.24 L 7.18 L VBG pCO2 42 22 L D VBG pO2 35 152 H D VBG Base Excess -9 L -19 L 10/24/24 11:00 ABG pH 7.33 L ABG pCO2 31 L ABG pO2 91 ABG HCO3 17 L ABG O2 Saturation 98 ABG Base Excess -8 L VBG pH VBG pCO2 VBG pO2 VBG Base Excess Quality Measures Quality Measures none Advance care planning discussed with:: patient Assessment & Plan Assessment Current Active Medications: Generic Name Dose Route Start Last Admin Trade Name Freq PRN Reason Stop Dose Admin Hydrocodone Bitart/Acetaminophen 1 tab 10/24/24 00:30 10/28/24 05:50 Hydrocodone/Apap 5/325 Tablet PO 10/29/24 00:29 1 tab Q6HR PRN Administration PAIN SCALE 4-6 (Moderate Amlodipine Besylate 5 mg 10/28/24 09:00 10/28/24 08:42 Amlodipine Besylate 5 Mg Tablet PO 11/27/24 08:59 Not Given QDAY KEYSHAWN Atorvastatin Calcium 40 mg 10/27/24 21:00 10/27/24 20:36 Atorvastatin Calcium 20 Mg Tablet PO 11/26/24 20:59 40 mg HS KEYSHAWN Administration Carvedilol 6.25 mg 10/28/24 17:30 Carvedilol 3.125 Mg Tablet PO 11/27/24 17:29 BIDWM KEYSHAWN Famotidine 10 mg 10/26/24 21:00 10/27/24 20:36 Famotidine Inj 10 Mg/Ml Vial 2 Ml IVP 11/25/24 20:59 10 mg HS KEYSHAWN Administration Hydralazine HCl 10 mg 10/25/24 18:37 10/27/24 00:00 Hydralazine Inj 20 Mg/Ml Vial IVP 11/24/24 18:36 10 mg Q4HR PRN Administration Hypertension Hydromorphone HCl 0.5 mg 10/24/24 00:30 10/26/24 19:42 Hydromorphone Inj 2 Mg/Ml Vial IVP 10/29/24 00:29 0.5 mg Q4H PRN Administration PAIN SCALE 7-10 (Severe Metronidazole 500 mg in 100 mls @ 200 mls/hr 10/24/24 06:00 10/28/24 05:20 Flagyl 500 Mg Iv IV 10/31/24 05:59 200 mls/hr Q8HR KEYSHAWN Administration Melatonin 3 mg 10/27/24 21:00 10/27/24 20:36 Melatonin 3 Mg Tablet PO 11/26/24 20:59 3 mg HS KEYSHAWN Administration Multi-Ingredient Ointment 0 oz 10/25/24 21:00 10/28/24 08:05 Min Oil/Pet,White (Eucerin) Cr 16 Oz Btl TOP 11/24/24 20:59 1 applicatio BID KEYSHAWN Administration Ondansetron HCl 4 mg 10/24/24 00:30 10/27/24 14:22 Ondansetron Inj 2 Mg/Ml Inj 2 Ml IV 11/23/24 00:29 4 mg Q6H PRN Administration NAUSEA OR VOMITING Protocol Potassium Chloride 20 meq 10/28/24 13:00 Potassium Chloride 20 Meq Tabcr PO 10/28/24 13:01 X1 ONE Vancomycin HCl 125 mg 10/25/24 17:00 10/28/24 05:23 Vancomycin 125 Mg Capsule PO 11/01/24 16:59 125 mg QID KEYSHAWN Administration Plan Patient is 84 year old female with past medical history of Hypertension, CAD, HFrEF 45-50%, Alzheimers with lateral wall hypokinesis, and recurrent UTIs who was admitted on 10/23/2024 for acute encephalopathy #C. diff colitis #gastroenteritis #abdominal pain due to above, improved #Sepsis secondary to intra-abdominal infection, likely C.diff-resolved #Lactic Acidosis-resolved CT abd/pelvis w/contrast:Fluid distended small bowel loops with wall thickening, diffuse wall thickening involving the colon, differential would include enteritis colitis. Patient continues to have multiple loose BM 4, on 10/27/2024. Diagnosis: C.diff Tox B (+) Plan: -Isolation precautions -Vancomycin 125 PO (10/25/2024--), consider 14 day course TID & Metronidazole 500 mg Q8 HRs (10/24--) -DC Cefepime (10/24/2024-10/26/2024) -stool culture -NG tube removed -Surgery, Dr. Bhatt,recs-conservative treatment #GIRMA likely pre-renal on CKD stage III, improving Patinet has underlying CKD following Jeremy with renal u/s showing moderate bilaterar renal parenchymal scare formation. Likely pre-renal given BUN/Cr ratio greater than 23 and clinically hypovolemic with hypernatremia. Renal panel is improveing, Cr and BUN downtrending, has adequate urine output Plan -Hold Lisinopril -Avoid nephrotixins -Renally Dose medication -continue maintenance fluid. -monitor UO -Consult nephrology, DR. Luna, appreciate recommendations. #Normocytic Anemia Could be hemodilutional, as patient received aggressive fluid resuscitation, in a setting of sever dehydration No sign of bleeding as this time -Continue to monitor H&H #history of Hypertension #hypertensive urgency, resolved Plan: -Hold Lisinopril 2.5 mg once daily & Hydralaizine 10 mg PO TID -Amlodipine 10 qday -PRN Hydralazine #Hx of CHF HFrEF 45-50% (09/20/2024) -Carvedilol 6.25 BID -No lasix noted as home mediction -work toward GDMT -Strict In' and Outs -Daily weight checks. #NSTEMI, type II demand ischemia No ST elevation noted on EKG and denied chest pain, likely secondary to demand ischemica -tropes downtrended #Metabolic Acidosis, Anion gap, resolved. #Hypernatremia, Hyperosmolar, Hypovolemic, resolved #Acute metabolic Encephalopathy in the setting of sepsis, resolved #Incidental Solid appearing bilateral renal masses Consider MRI with contrast, however kidney functions currently not at baseline, will continue close monitor, once renal function improved, and PT inpatient, plan is to MRI outpatient/inpatient Disposition:Tele DVT prophylaxis: SCDs GI prophylaxis:DC PPI in a setting of C.Diff, started famotidine IV Diet: clear liquid Lines: kunz and central line CODE STATUS:Full code - The patient's plan was discussed with attending Dr. Aleksandra Robertson MD PGY1 Internal Medicine Attending Provider Attestation/Addendum I reviewed labs, imaging, EKG, home medications and prior available records. Face to face evaluation was performed by me. I have personally examined the patient and discussed assessment and plan with the IM team. I reviewed the resident note and agree with the plan with exceptions as below. Acute encephalopathy, improved Acute gastroenteritis Acute enteritis SIRS HFrEF EF 40 to 45% Uncontrolled hypertension/hypertensive urgency Leukocytosis Hyponatremia GIRMA, prerenal Renal masses Removed NG tube. Advanced diet Continue p.o. vancomycin and metronidazole Trend WBC: Downtrending Monitor sodium level, improved Monitor kidney numbers: Creatinine improved Avoid nephrotoxins. Renally dosed medications BP is uncontrolled. Started amlodipine. Started Coreg. Increased amlodipine. Monitor BP Ordered PT evaluation
[2024-10-28] MEDS: POTASSIUM CHLORIDE 20 mEq TABCR PO (13:26)
--- NOTE | 2024-10-28 15:12 | PC.SS ---
rounding note: Adv diet. i.v. antibiotics. Poss d/c Monday home with HH
[2024-10-28] MEDS: carVEDILOL 3.125 MG TABLET 6.25 MG PO (17:07)
--- NOTE | 2024-10-28 19:35 | PD.IMCONS ---
HPI Data of Consult Requesting Physician: Braeden Lake MD Primary Care Provider: Larry Lopez MD Consult Narrative Reason for consult: Pain abdomen, abnormal CT scan of the abdomen and pelvis History of present illness: 84 years of female admitted on 10/23/2024 when she presented with altered level consciousness hypothermia and close electrolyte abnormalities with a sodium of 160 chloride of 126 BUN/creatinine [address] abdomen pelvis showed CBD of 13 mm diffuse thickening of the small bowel and colon and 2 masses in the kidneys about 21 mm each Subsequent stool analysis is positive for C. difficile and patient is on IV metronidazole as well as oral vancomycin 125 mg p.o. 4 times daily cc:: cc: Braeden Lake MD Review of Systems Review of Systems ROS Unobtainable: unobtainable due to medical condition Past Medical History Surgical History OTHER SURGICAL HX: Hyperlipidemia Dementia Coronary artery disease Meds Home Medications and Allergies Home Medications ?Medication ?Instructions ?Recorded ?Confirmed ?Type azelastine 137 mcg-fluticasone 50 1 spray intranasal BID PRN Nasal 04/07/23 09/19/24 History mcg/spray nasal spray Congestion loratadine 10 mg tablet 10 mg PO QDAY 04/07/23 09/19/24 History aspirin 81 mg tablet,delayed 81 mg PO QDAY 09/19/24 09/19/24 History release (Adult Aspirin Regimen) atorvastatin 40 mg tablet (Lipitor) 40 mg PO QPM 09/19/24 09/19/24 History famotidine 20 mg tablet (Acid 20 mg PO QDAY 09/19/24 09/19/24 History Controller) memantine ER 28 mg-donepezil 10 mg 1 cap PO QDAY 09/19/24 09/19/24 History capsule sprinkle,ext.release 24 hr (Namzaric) montelukast 10 mg tablet 10 mg PO QDAY 09/19/24 09/19/24 History oxycodone 10 mg tablet 10 mg PO Q4H 09/19/24 09/19/24 History Allergies Allergy/AdvReac Type Severity Reaction Status Date / Time Penicillins Allergy Severe UNABLE TO Verified 10/24/24 15:24 WALK Sulfa (Sulfonamide Allergy Severe FLU, Verified 10/24/24 15:24 Antibiotics) UNABLE TO WALK Exam Vital Signs Temp Pulse Resp BP Pulse Ox O2 Del Method O2 Flow Rate 98.2 F 82 21 H 158/70 H 98 Room Air 4 10/28/24 16:00 10/28/24 17:07 10/28/24 16:00 10/28/24 17:07 10/28/24 16:00 10/28/24 16:00 10/28/24 04:00 Constitutional Comments: Chronically ill-appearing patient Routine Respiratory Exam Comments: Normal to auscultation Routine Abdominal Exam Comments: Soft tender positive bowel sounds Results Labs 10/29/24 07:30 10/29/24 13:55 Labs: Short CBC 10/28/24 Range/Units 05:04 WBC 10.3 (3.6-11.0) Thou/mm3 Hgb 8.2 L (12.0-16.0) g/dL Hct 24.9 L (36.0-46.0) % Plt Count 213 (140-440) Thou/mm3 BMP 10/28/24 05:04 Sodium 139 Potassium 3.4 Chloride 112 H Carbon Dioxide 20.7 BUN 19 Creatinine 1.5 H Glucose 95 Calcium 7.6 L Liver Function 10/28/24 Range/Units 05:04 Total Bilirubin 0.3 (0.3-1.2) mg/dL AST < 10 (0-34) U/L ALT < 7 L (10-49) U/L Alkaline Phosphatase 67 (46-116) U/L Albumin 2.8 L (3.4-4.8) gm/dL ABG Interpretation ABG results: 10/23/24 10/23/24 10/24/24 18:12 18:44 07:56 ABG pH 7.24 L ABG pCO2 36 ABG pO2 96 ABG HCO3 16 L ABG O2 Saturation 97 ABG Base Excess -11 L VBG pH 7.24 L 7.18 L VBG pCO2 42 22 L D VBG pO2 35 152 H D VBG Base Excess -9 L -19 L 10/24/24 11:00 ABG pH 7.33 L ABG pCO2 31 L ABG pO2 91 ABG HCO3 17 L ABG O2 Saturation 98 ABG Base Excess -8 L VBG pH VBG pCO2 VBG pO2 VBG Base Excess Assessment and Plan Additional Assessment & Plan Additional Plan: # Acute C. difficile enterocolitis Continue with IV Flagyl and oral vancomycin most likely is the cause of her abdominal pain and abnormal CT scan findings of the abdomen pelvis showing thickening of the small bowel as well as diffuse colonic wall thickening Continue IV Flagyl and oral vancomycin No need for any invasive GI workup # Anemia multifactorial # Acute gross electrolyte abnormalities #Dementia Thank you very much for the opportunity to participate in the care of this patient
[2024-10-28] MEDS: ATORVASTATIN CALCIUM 20 MG TABLET 40 MG PO (20:45)
[2024-10-28] MEDS: MELATONIN 3 MG TABLET PO (20:45)
[2024-10-28] MEDS: FAMOTIDINE INJ 10 MG/ML VIAL 2 ML IVP (20:46)
--- NOTE | 2024-10-28 21:23 | ESPR_ITS ---
RE: VINEET ANDRES : 1940 DATE OF SERVICE: 10/28/2024 HISTORY OF PRESENT ILLNESS: Briefly, she is an 84-year-old woman with hypertension, dementia, diabetes, stage IIIB CKD with baseline serum creatinine around 1.3 to 1.4 mg/dL, who was admitted to the hospital with syncopal episode, hypertension, and diarrhea. The patient was found with acute kidney injury upon admission at the hospital, which improved with IV fluids. The patient was also found with leukocytosis, severe lactic acid, and on 10/25/2024 tested positive for C. diff. The patient is more awake and alert and doing much better. CURRENT MEDICATIONS: 1. Amlodipine 10 mg p.o. daily. 2. Atorvastatin 40 mg at bedtime. 3. Carvedilol 6.25 mg b.i.d. 4. Famotidine. 5. Hydralazine. 6. Hydrocodone. 7. Melatonin. 8. Metronidazole 500 mg IV every 8 hours. 9. Ondansetron. PHYSICAL EXAMINATION: General: She is awake, alert, oriented, not in respiratory distress. Vital Signs: Blood pressure of 158/70 mmHg, heart rate of 82. HEENT: Anicteric sclerae. Normocephalic. Neck: Supple. No JVD. Chest And Lungs: Symmetrical expansion. Clear breath sounds. Heart: Without murmur. Abdomen: Soft, nontender. Extremities: No edema. LABORATORY DATA: Sodium 139, potassium 3.4, chloride 112, CO2 20.7, BUN 19, creatinine 1.5, glucose 95, phosphorus 2.2, magnesium 1.4, calcium 7.6, corrected 8.6. Hemoglobin 8.2, WBC 10,200, ASSESSMENT: 1. Nonoliguric acute kidney injury on stage IIIB chronic kidney disease, most likely secondary to dehydration, hypotensive episode, and hemodynamic instability, continues to improve. 2. Acute enterocolitis secondary to C. diff colitis. 3. Dementia. 4. Stage IIIB chronic kidney disease. 5. Diabetes. 6. History of hypertension. 7. Chronic urinary tract infection. 8. Hypernatremia, now resolved. PLAN: The patient's kidney function has started to improve significantly. We will continue her metronidazole. Continue to monitor urine output, kidney function, on electrolytes on a daily basis. DT: 20:06:57 TT: 20:58:00 Ref: [id number] - TID: [id number] MTDD
[2024-10-29] VITALS (8 sets, daily range): BP systolic 132–157; BP diastolic 61–87; PULSE 68–99; RESP 12–22; TEMP 36.3–36.8; O2SAT 95–99; BMI 21.2; BMI 12.0
[2024-10-29] MEDS: metroNIDAZOLE/NS 500 MG IVPB 500 MG/100 ML BAG 200 MG IV ×3 (05:47→21:20)
[2024-10-29] MEDS: VANCOMYCIN 125 MG CAPSULE PO ×4 (05:47→21:21)
--- NOTE | 2024-10-29 08:03 | PC.NURSE ---
RN called Dr. Robertson regarding oral potassium and IV magnesium sulfate medication. Informed MD that lab results were from yesterday and new labs will be drawn today. Per MD hold medications.
[2024-10-29] MEDS: carVEDILOL 3.125 MG TABLET 6.25 MG PO ×2 (08:13→17:23)
[2024-10-29] MEDS: amLODIPine BESYLATE 5 MG TABLET 10 MG PO (08:13)
[2024-10-29] MEDS: MIN OIL/PET,WHITE (Eucerin) CR 16 OZ BTL TOP ×2 (08:15→21:24)
[2024-10-29 08:21] LABS: Basophils % (Auto) 0 % (0-2.5); Eosinophils # (Auto) 0.5 Thou/mm3 (0.0-0.5); Eosinophils % (Auto) 4 % (0-10); Hematocrit 31.9 % (36.0-46.0); Immature Granulocytes % (Auto) 1 % (0-0); Immature Granulocytes Auto 0.11 Thou/mm3 (0.00-0.00); Lymphocytes # (Auto) 1.9 Thou/mm3 (1.0-4.8); Lymphocytes % (Auto) 15 % (10-50); Mean Corpuscular HGB Conc 34.5 g/dl (31.0-37.0); Mean Corpuscular Hemoglobin 30.4 pg (25.0-35.0); Mean Corpuscular Volume 88 fL (80-100); Monocytes # (Auto) 0.6 Thou/mm3 (0.0-0.8); Monocytes % (Auto) 5 % (0-12); Neutrophils # (Auto) 9.2 Thou/mm3 (1.8-7.7); Neutrophils % (Auto) 74 % (37-80); Nucleated Red Blood Cell % 0 /100 WBC (0); Platelet Count 132 Thou/mm3 (140-440); RDW Standard Deviation 45.3 fL (36.4-46.3); Red Blood Count 3.62 Miln/mm3 (4.00-5.20); White Blood Count 12.4 Thou/mm3 (3.6-11.0)
[2024-10-29 09:14] LABS: Alanine Aminotransferase < 7 U/L (10-49); Albumin, Serum 3.3 gm/dL (3.4-4.8); Albumin/Globulin Ratio 1.4 (1.2-2.2); Alkaline Phosphatase 90 U/L (46-116); Anion Gap 11 (7-16); Aspartate Amino Transferase 14 U/L (0-34); BUN/Creatinine Ratio 11 Ratio (12-20); Bilirubin,Total 0.3 mg/dL (0.3-1.2); Blood Urea Nitrogen 15 mg/dL (9-23); Calcium 8.6 mg/dL (8.3-10.6); Calcium (Corrected) 9.2 mg/dL (8.5-10.1); Carbon Dioxide 18.4 mMol/L (20.0-31.0); Chloride 116 mMol/L (98-107); Creatinine (Component) 1.4 mg/dL (0.6-1.3); Estimated Creatinine Clearance 23.4 mL/min (>60); Globulin 2.3 gm/dL (2.3-3.5); Glucose 95 mg/dL (74-106); Magnesium 1.3 mg/dL (1.6-2.6); Osmolality,Calculated 289 (275-295); Phosphorous 2.6 mg/dL (2.4-5.1); Potassium 5.8 mMol/L (3.4-5.1); Sodium 145 mMol/L (136-145); Total Protein 5.6 gm/dL (5.7-8.2); eGFR 38 See Note
--- NOTE | 2024-10-29 09:51 | PC.NURSE ---
RN called Dr. Robertson regarding potassium and magnesium level. Per MD do not give oral potassium.
[2024-10-29] MEDS: Magnesium Sulfate 2 GM Ivpb 2 GM/50 ML BAG IV (10:01)
[2024-10-29] MEDS: CALCIUM CHLORIDE 10% INJ 10 ML SYRG IV (10:26)
[2024-10-29] MEDS: INSULIN HUM REGULAR 1 UNIT/0.01 ML (PER UNIT) 5 UNIT SC (10:26)
[2024-10-29] MEDS: DEXTROSE 50%-WATER INJ 50 ML SYRINGE IV (10:26)
[2024-10-29] MEDS: SODIUM CHLORIDE 0.9% 500 ML 500 ML 999 ML IV (10:52)
--- NOTE | 2024-10-29 12:53 | PD.RESPRO ---
Documentation for date of: 10/29/24 Subjective Subjective Interval history: No overnight events. 1 loose stool overnight. No pyrexia overnight. Patient denied chest pain or sob. Mild tenderness to palpation but improved. Patient pending PT. Patient would likely to return home with her son but patient has refused to ambulate on her own or rise out of bed. Exam Vital Signs Temp Pulse Resp BP Pulse Ox O2 Del Method O2 Flow Rate 97.4 F 94 22 H 145/86 H 99 Room Air 4 10/29/24 08:00 10/29/24 12:00 10/29/24 08:00 10/29/24 08:13 10/29/24 08:00 10/29/24 08:00 10/28/24 04:00 Narrative Exam General Appearance: Alert & Oriented X2, thin female who is lying in bed in no acute distress HEENT: Skull symmetrical and atraumatic. Conjunctivae pin and moist. Pupils equal, round, reactive to light and accommodation (PERRL). External ear without lesion or discharge. Straight, nares patient, mucosa pink, no discharge. No thyroid nodule appreciated. No cervical lymphadenopathy. Cardio: Normal Rate and Rhythm with S1 and S2 heart sounds. No murmurs or extra heart sounds auscultated. No bruits on carotid auscultation. No peripheral edema or cyanosis. Lungs: Symmetric with good expansion. Chest and back non-tender. Breath sounds vesicular without crackles, wheezing or rhonchi Abdomen: NON tender, Non-distended, Normal Reactive Bowel Sounds Neuro: Alert, cooperative, YEs oriented to person, Yes place, and No time. Speech clear. CN grossly intact. Upper motor strength 5/5 and Lower motor strength 5/5. Sensation intact. Objective Labs 10/30/24 05:45 10/30/24 05:45 Labs: Laboratory Results - last 24 hr 10/29/24 07:30 WBC 12.4 H RBC 3.62 L Hgb 11.0 L D Hct 31.9 L MCV 88 MCH 30.4 MCHC 34.5 RDW Std Deviation 45.3 Plt Count 132 L D Neut % (Auto) 74 Lymph % (Auto) 15 [place] % (Auto) 5 Eos % (Auto) 4 Baso % (Auto) 0 Neut # (Auto) 9.2 H Lymph # (Auto) 1.9 [place] # (Auto) 0.6 Eos # (Auto) 0.5 Baso # (Auto) 0.0 Immature Gran # (Auto) 0.11 H Absolute Nucleated RBC 0.00 Immature Gran % 1 H Nucleated RBC % 0 Sodium 145 Potassium 5.8 H D Chloride 116 H Carbon Dioxide 18.4 L Anion Gap 11 BUN 15 Creatinine 1.4 H Estim Creat Clear Calc 23.4 L eGFR 38 L BUN/Creatinine Ratio 11 L Glucose 95 Calculated Osmolality 289 Calcium 8.6 Corrected Calcium 9.2 Phosphorus 2.6 Magnesium 1.3 L Total Bilirubin 0.3 AST 14 ALT < 7 L Alkaline Phosphatase 90 D Total Protein 5.6 L Albumin 3.3 L D Globulin 2.3 Albumin/Globulin Ratio 1.4 ABG Interpretation ABG results: 10/23/24 10/23/24 10/24/24 18:12 18:44 07:56 ABG pH 7.24 L ABG pCO2 36 ABG pO2 96 ABG HCO3 16 L ABG O2 Saturation 97 ABG Base Excess -11 L VBG pH 7.24 L 7.18 L VBG pCO2 42 22 L D VBG pO2 35 152 H D VBG Base Excess -9 L -19 L 10/24/24 11:00 ABG pH 7.33 L ABG pCO2 31 L ABG pO2 91 ABG HCO3 17 L ABG O2 Saturation 98 ABG Base Excess -8 L VBG pH VBG pCO2 VBG pO2 VBG Base Excess Quality Measures Quality Measures none Advance care planning discussed with:: patient Assessment & Plan Assessment Current Active Medications: Generic Name Dose Route Start Last Admin Trade Name Freq PRN Reason Stop Dose Admin Amlodipine Besylate 10 mg 10/29/24 09:00 10/29/24 08:13 Amlodipine Besylate 5 Mg Tablet PO 11/28/24 08:59 10 mg QDAY KEYSHAWN Administration Atorvastatin Calcium 40 mg 10/27/24 21:00 10/28/24 20:45 Atorvastatin Calcium 20 Mg Tablet PO 11/26/24 20:59 40 mg HS KEYSHAWN Administration Buspirone HCl 5 mg 10/29/24 12:45 Buspirone Hcl 5 Mg Tablet PO 11/28/24 12:44 QDAY KEYSHAWN Carvedilol 6.25 mg 10/28/24 17:30 10/29/24 08:13 Carvedilol 3.125 Mg Tablet PO 11/27/24 17:29 6.25 mg BIDWM KEYSHAWN Administration Dextrose 25 ml 10/29/24 09:54 Dextrose 50%-Water Inj 50 Ml Syringe IV 11/28/24 09:53 Q15MIN PRN BG 50-70 responsive npo pt Dextrose 50 ml 10/29/24 09:54 Dextrose 50%-Water Inj 50 Ml Syringe IV 11/28/24 09:53 Q15MIN PRN BG <50 OR BG <70 & pt unresponsive Duloxetine HCl 60 mg 10/29/24 12:45 Duloxetine Hcl 30 Mg Capsule PO 11/28/24 12:44 QDAY KEYSHAWN Famotidine 10 mg 10/26/24 21:00 10/28/24 20:46 Famotidine Inj 10 Mg/Ml Vial 2 Ml IVP 11/25/24 20:59 10 mg HS KEYSHAWN Administration Glucagon 1 mg 10/29/24 09:54 Glucagon Inj 1 Mg Vial IM Q15MIN PRN BG <70, and no IV access Hydralazine HCl 10 mg 10/25/24 18:37 10/27/24 00:00 Hydralazine Inj 20 Mg/Ml Vial IVP 11/24/24 18:36 10 mg Q4HR PRN Administration Hypertension Metronidazole 500 mg in 100 mls @ 200 mls/hr 10/24/24 06:00 10/29/24 05:47 Flagyl 500 Mg Iv IV 10/31/24 05:59 200 mls/hr Q8HR KEYSHAWN Administration Melatonin 3 mg 10/27/24 21:00 10/28/24 20:45 Melatonin 3 Mg Tablet PO 11/26/24 20:59 3 mg HS KEYSHAWN Administration Multi-Ingredient Ointment 0 oz 10/25/24 21:00 10/29/24 08:15 Min Oil/Pet,White (Eucerin) Cr 16 Oz Btl TOP 11/24/24 20:59 1 applicatio BID KEYSHAWN Administration Home Medication- 1 cap 10/29/24 12:45 Please Speak With PO 11/28/24 12:44 Patient Caregiver To QDAY KEYSHAWN Have Rx Brought To [facility] Ondansetron HCl 4 mg 10/24/24 00:30 10/27/24 14:22 Ondansetron Inj 2 Mg/Ml Inj 2 Ml IV 11/23/24 00:29 4 mg Q6H PRN Administration NAUSEA OR VOMITING Protocol Pramipexole Dihydrochloride 0.75 mg 10/29/24 21:00 Pramipexole 0.25 Mg Tablet PO 11/28/24 20:59 HS KEYSHAWN Vancomycin HCl 125 mg 10/25/24 17:00 10/29/24 12:18 Vancomycin 125 Mg Capsule PO 11/01/24 16:59 125 mg QID KEYSHAWN Administration Plan Patient is 84 year old female with past medical history of Hypertension, CAD, HFrEF 45-50%, Alzheimers with lateral wall hypokinesis, and recurrent UTIs who was admitted on 10/23/2024 for acute encephalopathy #C. diff colitis #gastroenteritis #abdominal pain due to above, improved #Sepsis secondary to intra-abdominal infection, likely C.diff-resolved #Lactic Acidosis-resolved CT abd/pelvis w/contrast:Fluid distended small bowel loops with wall thickening, diffuse wall thickening involving the colon, differential would include enteritis colitis. Patient continues to have multiple loose BM 4, on 10/27/2024. Diagnosis: C.diff Tox B (+) Plan: -Isolation precautions -Pending PT -Vancomycin 125 PO (10/25/2024--), consider 14 day course TID & Metronidazole 500 mg Q8 HRs (10/24--) -DC Cefepime (10/24/2024-10/26/2024) -stool culture -Surgery, Dr. Bhatt,recs-conservative treatment #GIRMA likely pre-renal on CKD stage III, improving Patinet has underlying CKD following Jeremy with renal u/s showing moderate bilaterar renal parenchymal scare formation. Likely pre-renal given BUN/Cr ratio greater than 23 and clinically hypovolemic with hypernatremia. Renal panel is improveing, Cr and BUN downtrending, has adequate urine output Plan -Hold Lisinopril -Avoid nephrotixins -Renally Dose medication -continue maintenance fluid. -monitor UO -Consult nephrology, DR. Luna, appreciate recommendations. #Normocytic Anemia, improved Could be hemodilutional, as patient received aggressive fluid resuscitation, in a setting of sever dehydration. No sign of bleeding as this time Plan: -Continue to monitor H&H #history of Hypertension #hypertensive urgency, resolved Plan: -Hold Lisinopril 2.5 mg once daily & Hydralaizine 10 mg PO TID -Amlodipine 10 qday -PRN Hydralazine #Hx of CHF HFrEF 45-50% (09/20/2024) -Carvedilol 6.25 BID -No lasix noted as home mediation -work toward GDMT -Strict In' and Outs -Daily weight checks. #NSTEMI, type II demand ischemia No ST elevation noted on EKG and denied chest pain, likely secondary to demand ischemica -tropes downtrended #Dementia Resume home medication Plan -Buspirone -Pramipexole 0.75 -Duloxetine -Memantine-Donepezil #Metabolic Acidosis, Anion gap, resolved. #Hypernatremia, Hyperosmolar, Hypovolemic, resolved #Acute metabolic Encephalopathy in the setting of sepsis, resolved #Incidental Solid appearing bilateral renal masses Consider MRI with contrast, however kidney functions currently not at baseline, will continue close monitor, once renal function improved, and PT inpatient, plan is to MRI outpatient/inpatient Disposition:Tele DVT prophylaxis: SCDs GI prophylaxis:DC PPI in a setting of C.Diff, started famotidine IV Diet: clear liquid Lines: kunz and central line CODE STATUS:Full code - The patient's plan was discussed with attending Dr. Aleksandra Robertson MD PGY1 Internal Medicine Attending Provider Attestation/Addendum I reviewed labs, imaging, EKG, home medications and prior available records. Face to face evaluation was performed by me. I have personally examined the patient and discussed assessment and plan with the IM team. I reviewed the resident note and agree with the plan with exceptions as below. Acute encephalopathy, improved Acute gastroenteritis Acute enteritis SIRS HFrEF EF 40 to 45% Uncontrolled hypertension/hypertensive urgency Leukocytosis Hyponatremia GIRMA, prerenal Renal masses Removed NG tube. Advanced diet Continue p.o. vancomycin and metronidazole Trend WBC: Downtrending Monitor sodium level, improved Monitor kidney numbers: Creatinine improved Avoid nephrotoxins. Renally dosed medications BP is uncontrolled. Started amlodipine. Started Coreg. Increased amlodipine. Monitor BP Ordered PT evaluation: Refused to participate. Will reevaluate tomorrow. She was very weak
[2024-10-29] MEDS: BusPIRone HCL 5 MG TABLET PO (13:11)
[2024-10-29] MEDS: DULoxetine HCL 30 MG CAPSULE 60 MG PO (13:11)
--- NOTE | 2024-10-29 14:41 | PC.RT ---
Follow up note: SS spoke to patient's son, Jake re: d/c options. Son is open to either HH or SNF, whatever it recommended. Physician put d/c orders in for HH services. No i.v. meds for discharge. SS left son a message for any preference of HH and if he is agreeable to d/c plans.
[2024-10-29 14:52] LABS: Anion Gap 7 (7-16); BUN/Creatinine Ratio 8 Ratio (12-20); Blood Urea Nitrogen 11 mg/dL (9-23); Calcium (Corrected) 9.8 mg/dL (8.5-10.1); Chloride 112 mMol/L (98-107); Creatinine (Component) 1.3 mg/dL (0.6-1.3); Estimated Creatinine Clearance 25.2 mL/min (>60); Glucose 153 mg/dL (74-106); Osmolality,Calculated 283 (275-295); Phosphorous 2.2 mg/dL (2.4-5.1); Potassium 3.8 mMol/L (3.4-5.1); Sodium 141 mMol/L (136-145); eGFR 41 See Note
--- NOTE | 2024-10-29 15:14 | PC.SS ---
Addendum entered by Berta Resendiz 10/29/24 15:35: Follow up note: SS spoke to son who states he prefers SNF short term. He does not want [facility]. He is agreeable to any other facility in town. We will need prior authorization Original Note: Follow up note: SS spoke to PT who recommended a short stay at a SNF. SS left son a message for SNF vs HH. D/c for today. SS submitted inquiry through [employer].
[2024-10-29] MEDS: SODIUM CHLORIDE 0.9% 1000 ML 1,000 ML 80 ML IV (15:55)
[2024-10-29] MEDS: HYDROcodone/APAP 5/325 TABLET 1 TAB PO (18:37)
--- NOTE | 2024-10-29 19:31 | PD.IMPROG ---
Documentation for date of: 10/29/24 Subjective Subjective Interval history: Patient evaluated on IV Flagyl and oral vancomycin Exam Vital Signs Temp Pulse Resp BP Pulse Ox O2 Del Method O2 Flow Rate 97.9 F 89 12 135/74 H 95 Room Air 4 10/29/24 16:00 10/29/24 17:23 10/29/24 16:00 10/29/24 17:23 10/29/24 16:00 10/29/24 16:00 10/28/24 04:00 Objective Labs 10/29/24 07:30 10/29/24 13:55 Labs: Laboratory Results - last 24 hr 10/29/24 10/29/24 07:30 13:55 WBC 12.4 H RBC 3.62 L Hgb 11.0 L D Hct 31.9 L MCV 88 MCH 30.4 MCHC 34.5 RDW Std Deviation 45.3 Plt Count 132 L D Neut % (Auto) 74 Lymph % (Auto) 15 [place] % (Auto) 5 Eos % (Auto) 4 Baso % (Auto) 0 Neut # (Auto) 9.2 H Lymph # (Auto) 1.9 [place] # (Auto) 0.6 Eos # (Auto) 0.5 Baso # (Auto) 0.0 Immature Gran # (Auto) 0.11 H Absolute Nucleated RBC 0.00 Immature Gran % 1 H Nucleated RBC % 0 Sodium 145 141 Potassium 5.8 H D 3.8 D Chloride 116 H 112 H Carbon Dioxide 18.4 L 22.0 Anion Gap 11 7 BUN 15 11 Creatinine 1.4 H 1.3 Estim Creat Clear Calc 23.4 L 25.2 L eGFR 38 L 41 L BUN/Creatinine Ratio 11 L 8 L Glucose 95 153 H D Calculated Osmolality 289 283 Calcium 8.6 9.0 Corrected Calcium 9.2 9.8 Phosphorus 2.6 2.2 L Magnesium 1.3 L Total Bilirubin 0.3 AST 14 ALT < 7 L Alkaline Phosphatase 90 D Total Protein 5.6 L Albumin 3.3 L D 3.0 L Globulin 2.3 Albumin/Globulin Ratio 1.4 Impressions Impression: Acute C. difficile enterocolitis Acute gross electrolyte abnormalities Continue current management ABG Interpretation ABG results: 10/23/24 10/23/24 10/24/24 18:12 18:44 07:56 ABG pH 7.24 L ABG pCO2 36 ABG pO2 96 ABG HCO3 16 L ABG O2 Saturation 97 ABG Base Excess -11 L VBG pH 7.24 L 7.18 L VBG pCO2 42 22 L D VBG pO2 35 152 H D VBG Base Excess -9 L -19 L 10/24/24 11:00 ABG pH 7.33 L ABG pCO2 31 L ABG pO2 91 ABG HCO3 17 L ABG O2 Saturation 98 ABG Base Excess -8 L VBG pH VBG pCO2 VBG pO2 VBG Base Excess Assessment & Plan A&P Narrative # Acute C. difficile enterocolitis Continue with IV Flagyl and oral vancomycin most likely is the cause of her abdominal pain and abnormal CT scan findings of the abdomen pelvis showing thickening of the small bowel as well as diffuse colonic wall thickening Continue IV Flagyl and oral vancomycin No need for any invasive GI workup # Anemia multifactorial # Acute gross electrolyte abnormalities #Dementia Thank you very much for the opportunity to participate in the care of this patient Time Spent With Patient Time: Total time spent is greater than 50% in coordination of care (as documented) at patient's floor/unit and/or counseling patient:
[2024-10-29] MEDS: FAMOTIDINE INJ 10 MG/ML VIAL 2 ML IVP (21:20)
[2024-10-29] MEDS: PRAMIPEXOLE 0.25 MG TABLET 0.75 MG PO (21:21)
[2024-10-29] MEDS: MELATONIN 3 MG TABLET PO (21:21)
[2024-10-29] MEDS: ATORVASTATIN CALCIUM 20 MG TABLET 40 MG PO (21:21)
[2024-10-30] VITALS (12 sets, daily range): BP systolic 115–146; BP diastolic 55–80; PULSE 65–87; RESP 15–18; TEMP 36.2–37.3; O2SAT 91–99; BMI 21.9
[2024-10-30] MEDS: ONDANSETRON INJ 2 MG/ML INJ 2 ML 4 MG IV (02:19)
[2024-10-30] MEDS: SODIUM CHLORIDE 0.9% 1000 ML 1,000 ML 80 ML IV (04:14)
[2024-10-30] MEDS: VANCOMYCIN 125 MG CAPSULE PO ×4 (05:34→20:27)
[2024-10-30] MEDS: metroNIDAZOLE/NS 500 MG IVPB 500 MG/100 ML BAG 200 MG IV ×3 (05:34→20:40)
[2024-10-30 06:20] LABS: Basophils % (Auto) 0 % (0-2.5); Eosinophils # (Auto) 0.5 Thou/mm3 (0.0-0.5); Eosinophils % (Auto) 6 % (0-10); Hematocrit 23.9 % (36.0-46.0); Immature Granulocytes % (Auto) 0 % (0-0); Immature Granulocytes Auto 0.03 Thou/mm3 (0.00-0.00); Lymphocytes # (Auto) 1.8 Thou/mm3 (1.0-4.8); Lymphocytes % (Auto) 19 % (10-50); Mean Corpuscular HGB Conc 33.1 g/dl (31.0-37.0); Mean Corpuscular Hemoglobin 29.8 pg (25.0-35.0); Mean Corpuscular Volume 90 fL (80-100); Monocytes # (Auto) 0.8 Thou/mm3 (0.0-0.8); Monocytes % (Auto) 8 % (0-12); Neutrophils # (Auto) 6.3 Thou/mm3 (1.8-7.7); Neutrophils % (Auto) 67 % (37-80); Nucleated Red Blood Cell % 0 /100 WBC (0); Platelet Count 219 Thou/mm3 (140-440); RDW Standard Deviation 45.2 fL (36.4-46.3); Red Blood Count 2.65 Miln/mm3 (4.00-5.20); White Blood Count 9.5 Thou/mm3 (3.6-11.0)
[2024-10-30] MEDS: HYDROcodone/APAP 5/325 TABLET 1 TAB PO (06:29)
[2024-10-30 06:31] LABS: Hemoglobin 7.9 g/dL (12.0-16.0)
[2024-10-30 07:17] LABS: Alanine Aminotransferase < 7 U/L (10-49); Albumin, Serum 2.8 gm/dL (3.4-4.8); Albumin/Globulin Ratio 1.5 (1.2-2.2); Alkaline Phosphatase 74 U/L (46-116); Anion Gap 7 (7-16); Aspartate Amino Transferase 10 U/L (0-34); BUN/Creatinine Ratio 8 Ratio (12-20); Bilirubin,Total 0.2 mg/dL (0.3-1.2); Blood Urea Nitrogen 10 mg/dL (9-23); Calcium 8.3 mg/dL (8.3-10.6); Calcium (Corrected) 9.3 mg/dL (8.5-10.1); Carbon Dioxide 21.7 mMol/L (20.0-31.0); Chloride 112 mMol/L (98-107); Creatinine (Component) 1.2 mg/dL (0.6-1.3); Estimated Creatinine Clearance 27.3 mL/min (>60); Globulin 1.9 gm/dL (2.3-3.5); Glucose 94 mg/dL (74-106); Magnesium 1.5 mg/dL (1.6-2.6); Osmolality,Calculated 280 (275-295); Phosphorous 2.8 mg/dL (2.4-5.1); Potassium 4.2 mMol/L (3.4-5.1); Sodium 141 mMol/L (136-145); Total Protein 4.7 gm/dL (5.7-8.2); eGFR 45 See Note
--- NOTE | 2024-10-30 08:36 | PC.SS ---
Addendum entered by ESTELLA Valiente 10/30/24 15:51: SS update: patient and son, Jake both agreeable to short term SNF. Patient is pending insurance authorization with [facility]. Updated Dr. Villalobos on d/c plan. Addendum entered by ESTELLA Valiente 10/30/24 14:28: SS update: spoke with patient's son regarding d/c plan HH vs SNF. He informs he will speak with the patient to determine the d/c plan. Addendum entered by ESTELLA Valiente 10/30/24 14:26: Rounding note: patient declined SNF, providers want to d/c with home health services. Addendum entered by ESTELLA Valiente 10/30/24 10:58: SS update: per Taylor at [facility], she is able to accept the patient and to begin initiate insurance authorization process. Patient's son Jake is in agreement. Addendum entered by ESTELLA Valiente 10/30/24 09:40: SS follow up: spoke with Taylor at [facility] to identify if able to accept the patient and begin insurance authorization. Per Taylor she will call back with update in regards to insurance verification to determine if able to accept the patient at their facility. Addendum entered by ESTELLA Valiente 10/30/24 09:39: Ss follow up: spoke with patient's, son, Jake [phone] in regards to SNF choices. First choice is [facility], second choice is [facility]. Original Note: SS follow up note: spoke with Rad Vidal from [facility] and informs [facility] level 2 to be closed today as 'No SMI'.
[2024-10-30] MEDS: carVEDILOL 3.125 MG TABLET 6.25 MG PO ×2 (08:57→17:53)
[2024-10-30] MEDS: Magnesium Sulfate 2 GM Ivpb 2 GM/50 ML BAG IV (08:58)
[2024-10-30] MEDS: DULoxetine HCL 30 MG CAPSULE 60 MG PO (08:58)
[2024-10-30] MEDS: amLODIPine BESYLATE 5 MG TABLET 10 MG PO (08:58)
[2024-10-30] MEDS: BusPIRone HCL 5 MG TABLET PO (08:59)
[2024-10-30] MEDS: MUPIROCIN OINT 2% 15 GM TUBE TOP ×2 (14:30→20:41)
[2024-10-30] MEDS: oxyCODONE/APAP 5/325 TABLET 1 TAB PO ×2 (14:39→20:39)
--- NOTE | 2024-10-30 15:00 | PD.RESDS ---
Planned Discharge Date 10/30/24 DS: Providers Provider Date of admission: 10/24/24 00:30 Primary care physician: Larry Lopez MD Admitting Provider: Katiuska Florez MD Attending Provider on Admission: Braeden Lake MD Consults: 10/23/24 17:18 Consult to Nephrology Stat Comment: GIRMA Consulting Provider: Anahi Luna 10/23/24 18:08 Consult to General Surgery Stat Comment: Consulting Provider: Damián Glaser 10/24/24 01:12 Referral Wound Care Routine Comment: 10/24/24 01:51 Consult to Gastroenterology Urgent Comment: GI bleed Consulting Provider: Surinder Morrow 10/25/24 15:30 Referral Nutritional Services Routine Comment: Wounds 10/28/24 10:45 Referral Physical Therapy Routine Comment: Physician Instructions: Attending Provider on DC: Neli Robertson MD Discharging Provider: Neli Robertson MD Hospital Course Hospital Course Hospital course: No overnight events. 1 loose stool overnight. No pyrexia overnight. Patient denied chest pain or sob. Mild tenderness to palpation but improved. Patient pending PT. Patient would likely to return home with her son but patient has refused to ambulate on her own or rise out of bed. Time Spent with Patient Time attestation: Total time spent providing and/or coordinating discharge services: Home Health Home Health Referral Orders: 10/29/24 10:41 Home Health Referral Routine Reason For Exam: Home PT Home-Bound The patient must either because of illness or injury, need the aid of supportive devices such as crutches, canes, wheelchairs, and walkers; the use of special transportation; or the assistance of another person in order to leave their place of residence; OR have a condition such that leaving his or her home is medically contraindicated. In addition, the patient also meets the following criteria: patient is normally unable to leave the home and leaving home requires considerable taxing effort. Addendum to Home Health Certification Practitioner's Certification: I certify that the patient has been under my care in the hospital and the care of attending physician (see below). We had a [id number]-[id number] encounter on (see date below). My clinical findings indicate that the patient is home bound per the above criteria and the Home Health Services noted in these orders are medically necessary. The primary reason for the [id number] encounter is related to the fact that the patient requires home health services. Date Certifying [id number] Physician Encounter: 10/24/24 Physician's Name who will Assume Oversight for HH Services: Larry Lopez Physician's Phone No.who will Assume Oversight [facility] Service: [facility] Resources: Yes PT to Evaluate: Yes PT to evaluate and provide a treatmnet plan to increase patient's mobility and strength. Wound Care: No IV Therapy: No RN Safety Evaluation: Yes RN to evaluate and create a plan of care that will produce positive outcomes. Palliative Treatment: No Palliative treatment and evaluate the need for hospice. Home Health Aide - Personal Care: Yes Home Health Aide to assist with any ADL's. 10/30/24 11:00 Home Health Referral Routine Reason For Exam: Home PT Home-Bound The patient must either because of illness or injury, need the aid of supportive devices such as crutches, canes, wheelchairs, and walkers; the use of special transportation; or the assistance of another person in order to leave their place of residence; OR have a condition such that leaving his or her home is medically contraindicated. In addition, the patient also meets the following criteria: patient is normally unable to leave the home and leaving home requires considerable taxing effort. Addendum to Home Health Certification Practitioner's Certification: I certify that the patient has been under my care in the hospital and the care of attending physician (see below). We had a iboe-uh-gesn encounter on (see date below). My clinical findings indicate that the patient is home bound per the above criteria and the Home Health Services noted in these orders are medically necessary. The primary reason for the [id number] encounter is related to the fact that the patient requires home health services. Date Certifying Mbof-xk-Rque Physician Encounter: 10/24/24 Physician's Name who will Assume Oversight for HH Services: Larry Lopez Physician's Phone No.who will Assume Oversight [facility] Service: [employer] - Community Resources: Yes PT to Evaluate: Yes PT to evaluate and provide a treatmnet plan to increase patient's mobility and strength. Wound Care: No IV Therapy: No RN Safety Evaluation: Yes RN to evaluate and create a plan of care that will produce positive outcomes. Palliative Treatment: No Palliative treatment and evaluate the need for hospice. Home Health Aide - Personal Care: Yes Home Health Aide to assist with any ADL's. Exam Vital Signs Temp Pulse Resp BP Pulse Ox O2 Del Method O2 Flow Rate 97.7 F 78 16 122/61 95 Room Air 4 10/30/24 11:45 10/30/24 11:45 10/30/24 11:45 10/30/24 11:45 10/30/24 11:45 10/30/24 11:45 10/28/24 04:00 Discharge Plan Plan Patient Disposition: Home w/HOME HEALTH Care Plan Goals: Instructions: -Please continue oral Vancomycin 125 four times a day and Metronidazole 500 mg orally every 6 hours for 8 more days to complete treatment for C. Difficle colitis. -Please follow up with your primary care provider within one week of discharge -Please follow up with your bin filler, Dr. Luna, within one week of discharge. -If your symptoms worsen,please seek immediate medical attention and return to your nearest emergency room -If you do not have a primary care provider, [facility] [address], [place] [address], Wound care: Resolved rash /excoriations to back from shoulder blades to bilateral buttocks: cleanse with soap and water, pat dry, apply Eucerin cream BID and PRN. Stage 3 to bilateral ischium: cleanse with wound cleanser, pat dry, apply skin prep and cover with allevyn dressing daily Side to side repositioning except for meals Prescriptions/Referrals Prescriptions/Med Rec: New amlodipine 5 mg Tablet 10 mg PO QDAY 30 Days Qty: 60 0RF metronidazole 500 mg tablet 500 mg PO Q8H 8 Days Qty: 24 0RF vancomycin 125 mg capsule 125 mg PO QID 9 Days Qty: 36 0RF carvedilol 3.125 mg Tablet 6.25 mg PO BIDWM 30 Days Qty: 60 0RF Continued clonazepam 1 mg tablet 1 mg PO DAILY 30 Days Qty: 30 0RF loratadine 10 mg Tablet 10 mg PO QDAY azelastine-fluticasone 137-50 mcg/spray [place],Non-Aerosol 1 spray INTRANASAL BID PRN (Reason: Nasal Congestion) Rx Instructions: administer into each nostril aspirin [Adult Aspirin Regimen] 81 mg tablet,delayed release (DR/EC) 81 mg PO QDAY atorvastatin [Lipitor] 40 mg tablet 40 mg PO QPM famotidine [Acid Controller] 20 mg tablet 20 mg PO QDAY montelukast 10 mg tablet 10 mg PO QDAY oxycodone 10 mg tablet 10 mg PO Q4H PRN (Reason: pain) memantine-donepezil [Namzaric] 28-10 mg capsule,sprinkle,ER 24hr 1 cap PO QDAY buspirone 30 mg tablet 30 mg PO HS Qty: 60 0RF duloxetine 60 mg capsule,delayed release(DR/EC) 60 mg PO HS Qty: 30 0RF Held lisinopril 2.5 mg tablet 2.5 mg PO QDAY Qty: 30 0RF Hold Instructions: Please follow pcp or dr. luna Discontinued hydralazine 10 mg Tablet 10 mg PO TID Qty: 60 0RF carvedilol 3.125 mg Tablet 3.125 mg PO BIDWM 30 Days Qty: 60 0RF Referrals: Anahi Luna MD [Physician] - Larry Lopez MD [Primary Care Provider] - Patient/Caregiver Discharge Instructions Education Materials: Clostridium Difficile Infection Print Language: Chilean Stand Alone Forms: Irene Award Info., Patient Portal Info Letter Discharge Order Discharge Orders: Discharge (Routine); Ordered 10/30/24 Ordered By: Yola Gonzalez
--- NOTE | 2024-10-30 15:09 | ESPR_ITS ---
Documentation for date of: 10/30/24 Subjective Subjective Interval history: No overnight events. 1 soft formed stool overnight. No pyrexia noted. Patient was scheduled to return home with home health but family decided along with patient for SNF. Exam Vital Signs Temp Pulse Resp BP Pulse Ox O2 Del Method O2 Flow Rate 97.7 F 78 16 122/61 95 Room Air 4 10/30/24 11:45 10/30/24 11:45 10/30/24 11:45 10/30/24 11:45 10/30/24 11:45 10/30/24 11:45 10/28/24 04:00 Narrative Exam General Appearance: Alert & Oriented X2, thin female who is lying in bed in no acute distress HEENT: Skull symmetrical and atraumatic. Conjunctivae pin and moist. Pupils equal, round, reactive to light and accommodation (PERRL). External ear without lesion or discharge. Straight, nares patient, mucosa pink, no discharge. No thyroid nodule appreciated. No cervical lymphadenopathy. Cardio: Normal Rate and Rhythm with S1 and S2 heart sounds. No murmurs or extra heart sounds auscultated. No bruits on carotid auscultation. No peripheral edema or cyanosis. Lungs: Symmetric with good expansion. Chest and back non-tender. Breath sounds vesicular without crackles, wheezing or rhonchi Abdomen: NON tender, Non-distended, Normal Reactive Bowel Sounds Neuro: Alert, cooperative, YEs oriented to person, Yes place, and No time. Speech clear. CN grossly intact. Upper motor strength 5/5 and Lower motor strength 5/5. Sensation intact. Objective Labs 10/31/24 05:00 10/31/24 05:00 Labs: Laboratory Results - last 24 hr 10/30/24 05:45 WBC 9.5 RBC 2.65 L Hgb 7.9 L D Hct 23.9 L MCV 90 MCH 29.8 MCHC 33.1 RDW Std Deviation 45.2 Plt Count 219 D Neut % (Auto) 67 Lymph % (Auto) 19 [place] % (Auto) 8 Eos % (Auto) 6 Baso % (Auto) 0 Neut # (Auto) 6.3 Lymph # (Auto) 1.8 [place] # (Auto) 0.8 Eos # (Auto) 0.5 Baso # (Auto) 0.0 Immature Gran # (Auto) 0.03 H Absolute Nucleated RBC 0.00 Immature Gran % 0 Nucleated RBC % 0 Sodium 141 Potassium 4.2 Chloride 112 H Carbon Dioxide 21.7 Anion Gap 7 BUN 10 Creatinine 1.2 Estim Creat Clear Calc 27.3 L eGFR 45 L BUN/Creatinine Ratio 8 L Glucose 94 D Calculated Osmolality 280 Calcium 8.3 Corrected Calcium 9.3 Phosphorus 2.8 Magnesium 1.5 L Total Bilirubin 0.2 L AST 10 ALT < 7 L Alkaline Phosphatase 74 Total Protein 4.7 L Albumin 2.8 L Globulin 1.9 L Albumin/Globulin Ratio 1.5 ABG Interpretation ABG results: 10/23/24 10/23/24 10/24/24 18:12 18:44 07:56 ABG pH 7.24 L ABG pCO2 36 ABG pO2 96 ABG HCO3 16 L ABG O2 Saturation 97 ABG Base Excess -11 L VBG pH 7.24 L 7.18 L VBG pCO2 42 22 L D VBG pO2 35 152 H D VBG Base Excess -9 L -19 L 10/24/24 11:00 ABG pH 7.33 L ABG pCO2 31 L ABG pO2 91 ABG HCO3 17 L ABG O2 Saturation 98 ABG Base Excess -8 L VBG pH VBG pCO2 VBG pO2 VBG Base Excess Quality Measures Quality Measures none Advance care planning discussed with:: patient and child Assessment & Plan Assessment Current Active Medications: Generic Name Dose Route Start Last Admin Trade Name Freq PRN Reason Stop Dose Admin Amlodipine Besylate 10 mg 10/29/24 09:00 10/30/24 08:58 Amlodipine Besylate 5 Mg Tablet PO 11/28/24 08:59 10 mg QDAY KEYHSAWN Administration Artificial Tears 0 drop 10/29/24 15:14 Artificial Tears 225 Drop/15 Ml Btl BOTH EYES 11/28/24 15:13 PRN PRN TO KEEP EYES MOIST Atorvastatin Calcium 40 mg 10/27/24 21:00 10/29/24 21:21 Atorvastatin Calcium 20 Mg Tablet PO 11/26/24 20:59 40 mg HS KEYSHAWN Administration Buspirone HCl 5 mg 10/29/24 12:45 10/30/24 08:59 Buspirone Hcl 5 Mg Tablet PO 11/28/24 12:44 5 mg QDAY KEYSHAWN Administration Carvedilol 6.25 mg 10/28/24 17:30 10/30/24 08:57 Carvedilol 3.125 Mg Tablet PO 11/27/24 17:29 6.25 mg BIDWM KEYSHAWN Administration Dextrose 25 ml 10/29/24 09:54 Dextrose 50%-Water Inj 50 Ml Syringe IV 11/28/24 09:53 Q15MIN PRN BG 50-70 responsive npo pt Dextrose 50 ml 10/29/24 09:54 Dextrose 50%-Water Inj 50 Ml Syringe IV 11/28/24 09:53 Q15MIN PRN BG <50 OR BG <70 & pt unresponsive Duloxetine HCl 60 mg 10/29/24 12:45 10/30/24 08:58 Duloxetine Hcl 30 Mg Capsule PO 11/28/24 12:44 60 mg QDAY KEYSHAWN Administration Famotidine 10 mg 10/26/24 21:00 10/29/24 21:20 Famotidine Inj 10 Mg/Ml Vial 2 Ml IVP 11/25/24 20:59 10 mg HS KEYSHAWN Administration Glucagon 1 mg 10/29/24 09:54 Glucagon Inj 1 Mg Vial IM Q15MIN PRN BG <70, and no IV access Hydralazine HCl 10 mg 10/25/24 18:37 10/27/24 00:00 Hydralazine Inj 20 Mg/Ml Vial IVP 11/24/24 18:36 10 mg Q4HR PRN Administration Hypertension Metronidazole 500 mg in 100 mls @ 200 mls/hr 10/24/24 06:00 10/30/24 14:40 Flagyl 500 Mg Iv IV 10/31/24 05:59 200 mls/hr Q8HR KEYSHAWN Administration Melatonin 3 mg 10/27/24 21:00 10/29/24 21:21 Melatonin 3 Mg Tablet PO 11/26/24 20:59 3 mg HS KEYSHAWN Administration Multi-Ingredient Ointment 0 oz 10/25/24 21:00 10/29/24 21:24 Min Oil/Pet,White (Eucerin) Cr 16 Oz Btl TOP 11/24/24 20:59 1 applicatio BID KEYSHAWN Administration Mupirocin 0 gm 10/30/24 14:00 Mupirocin Oint 2% 15 Gm Tube TOP 11/04/24 13:59 TID KEYSHAWN Home Medication- 1 cap 10/29/24 12:45 10/29/24 13:12 Please Speak With PO 11/28/24 12:44 Not Given Patient Caregiver To QDAY KEYSHAWN Have Rx Brought To [facility] Ondansetron HCl 4 mg 10/24/24 00:30 10/30/24 02:19 Ondansetron Inj 2 Mg/Ml Inj 2 Ml IV 11/23/24 00:29 4 mg Q6H PRN Administration NAUSEA OR VOMITING Protocol Oxycodone/Acetaminophen 1 tab 10/30/24 08:13 10/30/24 14:39 Oxycodone/Apap 5/325 Tablet PO 11/04/24 08:12 1 tab Q6HR PRN Administration PAIN SCALE 4-10(Mod-Sev Pramipexole Dihydrochloride 0.75 mg 10/29/24 21:00 10/29/24 21:21 Pramipexole 0.25 Mg Tablet PO 11/28/24 20:59 0.75 mg HS KEYSHAWN Administration Vancomycin HCl 125 mg 10/25/24 17:00 10/30/24 13:15 Vancomycin 125 Mg Capsule PO 11/01/24 16:59 125 mg QID KEYSHAWN Administration Plan Patient is 84 year old female with past medical history of Hypertension, CAD, HFrEF 45-50%, Alzheimers with lateral wall hypokinesis, and recurrent UTIs who was admitted on 10/23/2024 for acute encephalopathy #C. diff colitis #gastroenteritis #abdominal pain due to above, improved #Sepsis secondary to intra-abdominal infection, likely C.diff-resolved #Lactic Acidosis-resolved CT abd/pelvis w/contrast:Fluid distended small bowel loops with wall thickening, diffuse wall thickening involving the colon, differential would include enteritis colitis. Patient continues to have multiple loose BM 4, on 10/27/2024. 10/30/2024 Pending [facility] Diagnosis: C.diff Tox B (+) Plan: -Isolation precautions -Pending PT -Vancomycin 125 PO (10/25/2024--), consider 14 day course TID & Metronidazole 500 mg Q8 HRs (10/24--) -DC Cefepime (10/24/2024-10/26/2024) -stool culture -Surgery, Dr. Bhatt,recs-conservative treatment #GIRMA likely pre-renal on CKD stage III, improving Patinet has underlying CKD following Jeremy with renal u/s showing moderate bilaterar renal parenchymal scare formation. Likely pre-renal given BUN/Cr ratio greater than 23 and clinically hypovolemic with hypernatremia. Renal panel is improveing, Cr and BUN downtrending, has adequate urine output Plan -Hold Lisinopril -Avoid nephrotixins -Renally Dose medication -continue maintenance fluid. -monitor UO -Consult nephrology, DR. Luna, appreciate recommendations. #Normocytic Anemia, improved Could be hemodilutional, as patient received aggressive fluid resuscitation, in a setting of sever dehydration. No sign of bleeding as this time Plan: -Continue to monitor H&H #history of Hypertension #hypertensive urgency, resolved Plan: -Hold Lisinopril 2.5 mg once daily & Hydralaizine 10 mg PO TID -Amlodipine 10 qday -PRN Hydralazine #Hx of CHF HFrEF 45-50% (09/20/2024) -Carvedilol 6.25 BID -No lasix noted as home mediation, patient appears hypovolemic -work toward GDMT -Strict In' and Outs -Daily weight checks. #Dementia Resume home medication Plan -Buspirone -Pramipexole 0.75 -Duloxetine -Memantine-Donepezil #Metabolic Acidosis, Anion gap, resolved. #Hypernatremia, Hyperosmolar, Hypovolemic, resolved #Acute metabolic Encephalopathy in the setting of sepsis, resolved #NSTEMI, type II demand ischemia, resolved #Incidental Solid appearing bilateral renal masses Consider MRI with contrast, however kidney functions currently not at baseline, will continue close monitor, once renal function improved, and PT inpatient, plan is to MRI outpatient/inpatient Disposition:Tele DVT prophylaxis: SCDs GI prophylaxis:DC PPI in a setting of C.Diff, started famotidine IV Diet: clear liquid Lines: kunz and central line CODE STATUS:Full code - The patient's plan was discussed with attending Dr. Aleksandra Robertson MD PGY1 Internal Medicine Attending Provider Attestation/Addendum I reviewed labs, imaging, EKG, home medications and prior available records. Face to face evaluation was performed by me. I have personally examined the patient and discussed assessment and plan with the IM team. I reviewed the resident note and agree with the plan with exceptions as below. Acute encephalopathy, improved Acute gastroenteritis Acute enteritis SIRS HFrEF EF 40 to 45% Uncontrolled hypertension/hypertensive urgency Leukocytosis Hyponatremia GIRMA, prerenal Renal masses Removed NG tube. Advanced diet Continue p.o. vancomycin and metronidazole Trend WBC: Downtrending Monitor sodium level, improved Monitor kidney numbers: Creatinine improved Avoid nephrotoxins. Renally dosed medications BP is uncontrolled. Started amlodipine. Started Coreg. Increased amlodipine. Monitor BP Ordered PT evaluation: Recommended SNF however patient declined. Ordered home health
--- NOTE | 2024-10-30 15:43 | PC.CC ---
[Late Entry] 10/29/24 - Please see the following note from Yashira, Medical Management Specialist: Patient was prescribed Vancomycin 125 mg capsules for treatment of C. difficile infection, which required prior authorization (PA). I completed the PA process through their insurance and obtained approval. I then contacted the pharmacy and requested they process the prescription under the patient?s insurance, which was also approved on their end. The medication is now being filled at [facility] on [address].
--- NOTE | 2024-10-30 17:32 | PC.NURSE ---
ok to keep central line until discharged.
[2024-10-30] MEDS: MIN OIL/PET,WHITE (Eucerin) CR 16 OZ BTL TOP ×2 (17:41→20:28)
--- NOTE | 2024-10-30 20:14 | PD.IMPROG ---
Documentation for date of: 10/30/24 Subjective Subjective Interval history: Diarrhea improving on IV Flagyl and oral vancomycin Instead of going home patient is going to go to SNF Exam Vital Signs Temp Pulse Resp BP Pulse Ox O2 Del Method O2 Flow Rate 97.4 F 76 15 120/80 99 Room Air 4 10/30/24 15:54 10/30/24 17:53 10/30/24 15:54 10/30/24 17:53 10/30/24 15:54 10/30/24 15:54 10/28/24 04:00 Objective Labs 10/30/24 05:45 10/30/24 05:45 Labs: Laboratory Results - last 24 hr 10/30/24 05:45 WBC 9.5 RBC 2.65 L Hgb 7.9 L D Hct 23.9 L MCV 90 MCH 29.8 MCHC 33.1 RDW Std Deviation 45.2 Plt Count 219 D Neut % (Auto) 67 Lymph % (Auto) 19 [place] % (Auto) 8 Eos % (Auto) 6 Baso % (Auto) 0 Neut # (Auto) 6.3 Lymph # (Auto) 1.8 [place] # (Auto) 0.8 Eos # (Auto) 0.5 Baso # (Auto) 0.0 Immature Gran # (Auto) 0.03 H Absolute Nucleated RBC 0.00 Immature Gran % 0 Nucleated RBC % 0 Sodium 141 Potassium 4.2 Chloride 112 H Carbon Dioxide 21.7 Anion Gap 7 BUN 10 Creatinine 1.2 Estim Creat Clear Calc 27.3 L eGFR 45 L BUN/Creatinine Ratio 8 L Glucose 94 D Calculated Osmolality 280 Calcium 8.3 Corrected Calcium 9.3 Phosphorus 2.8 Magnesium 1.5 L Total Bilirubin 0.2 L AST 10 ALT < 7 L Alkaline Phosphatase 74 Total Protein 4.7 L Albumin 2.8 L Globulin 1.9 L Albumin/Globulin Ratio 1.5 Impressions Impression: C. difficile enterocolitis Agree with the current management ABG Interpretation ABG results: 10/23/24 10/23/24 10/24/24 18:12 18:44 07:56 ABG pH 7.24 L ABG pCO2 36 ABG pO2 96 ABG HCO3 16 L ABG O2 Saturation 97 ABG Base Excess -11 L VBG pH 7.24 L 7.18 L VBG pCO2 42 22 L D VBG pO2 35 152 H D VBG Base Excess -9 L -19 L 04/17/25 11:00 ABG pH 7.33 L ABG pCO2 31 L ABG pO2 91 ABG HCO3 17 L ABG O2 Saturation 98 ABG Base Excess -8 L VBG pH VBG pCO2 VBG pO2 VBG Base Excess Assessment & Plan A&P Narrative # Acute C. difficile enterocolitis Continue with IV Flagyl and oral vancomycin most likely is the cause of her abdominal pain and abnormal CT scan findings of the abdomen pelvis showing thickening of the small bowel as well as diffuse colonic wall thickening Continue IV Flagyl and oral vancomycin No need for any invasive GI workup # Anemia multifactorial # Acute gross electrolyte abnormalities #Dementia Thank you very much for the opportunity to participate in the care of this patient Time Spent With Patient Time: Total time spent is greater than 50% in coordination of care (as documented) at patient's floor/unit and/or counseling patient:
[2024-10-30] MEDS: ATORVASTATIN CALCIUM 20 MG TABLET 40 MG PO (20:26)
[2024-10-30] MEDS: FAMOTIDINE INJ 10 MG/ML VIAL 2 ML IVP (20:27)
[2024-10-30] MEDS: MELATONIN 3 MG TABLET PO (20:27)
[2024-10-30] MEDS: PRAMIPEXOLE 0.25 MG TABLET 0.75 MG PO (20:27)
[2024-10-31] VITALS (10 sets, daily range): BP systolic 102–139; BP diastolic 41–68; PULSE 60–88; RESP 14–18; TEMP 36.2–37.3; O2SAT 95–96; BMI 21.9
[2024-10-31] MEDS: MUPIROCIN OINT 2% 15 GM TUBE TOP ×3 (05:27→22:04)
[2024-10-31] MEDS: VANCOMYCIN 125 MG CAPSULE PO ×4 (05:27→20:28)
[2024-10-31 06:32] LABS: Basophils % (Auto) 0 % (0-2.5); Eosinophils # (Auto) 0.6 Thou/mm3 (0.0-0.5); Eosinophils % (Auto) 8 % (0-10); Hematocrit 21.5 % (36.0-46.0); Immature Granulocytes % (Auto) 0 % (0-0); Immature Granulocytes Auto 0.02 Thou/mm3 (0.00-0.00); Lymphocytes # (Auto) 2.3 Thou/mm3 (1.0-4.8); Lymphocytes % (Auto) 30 % (10-50); Mean Corpuscular Hemoglobin 30.5 pg (25.0-35.0); Mean Corpuscular Volume 92 fL (80-100); Monocytes # (Auto) 0.8 Thou/mm3 (0.0-0.8); Monocytes % (Auto) 10 % (0-12); Neutrophils % (Auto) 52 % (37-80); Nucleated Red Blood Cell % 0 /100 WBC (0); Platelet Count 237 Thou/mm3 (140-440); RDW Standard Deviation 47.4 fL (36.4-46.3); Red Blood Count 2.33 Miln/mm3 (4.00-5.20); White Blood Count 7.7 Thou/mm3 (3.6-11.0)
[2024-10-31 06:34] LABS: Hemoglobin 7.1 g/dL (12.0-16.0)
[2024-10-31 07:23] LABS: Alanine Aminotransferase < 7 U/L (10-49); Albumin, Serum 2.7 gm/dL (3.4-4.8); Albumin/Globulin Ratio 1.6 (1.2-2.2); Alkaline Phosphatase 75 U/L (46-116); Anion Gap 7 (7-16); Aspartate Amino Transferase < 10 U/L (0-34); BUN/Creatinine Ratio 8 Ratio (12-20); Bilirubin,Total < 0.2 mg/dL (0.3-1.2); Blood Urea Nitrogen 11 mg/dL (9-23); Carbon Dioxide 22.1 mMol/L (20.0-31.0); Chloride 111 mMol/L (98-107); Creatinine (Component) 1.3 mg/dL (0.6-1.3); Estimated Creatinine Clearance 25.2 mL/min (>60); Globulin 1.7 gm/dL (2.3-3.5); Glucose 93 mg/dL (74-106); Magnesium 1.4 mg/dL (1.6-2.6); Osmolality,Calculated 278 (275-295); Phosphorous 3.8 mg/dL (2.4-5.1); Potassium 4.1 mMol/L (3.4-5.1); Sodium 140 mMol/L (136-145); Total Protein 4.4 gm/dL (5.7-8.2); eGFR 41 See Note
[2024-10-31] MEDS: DULoxetine HCL 30 MG CAPSULE 60 MG PO (08:00)
[2024-10-31] MEDS: BusPIRone HCL 5 MG TABLET PO (08:00)
[2024-10-31] MEDS: amLODIPine BESYLATE 5 MG TABLET 10 MG PO (08:00)
[2024-10-31] MEDS: carVEDILOL 3.125 MG TABLET 6.25 MG PO ×2 (08:01→18:15)
[2024-10-31] MEDS: ONDANSETRON INJ 2 MG/ML INJ 2 ML 4 MG IV (08:07)
--- NOTE | 2024-10-31 09:23 | PC.SS ---
Addendum entered by ESTELLA Valiente 10/31/24 16:59: SS update: [facility] requested attending signature for insurance auth. Faxed back with Dr. Lake signature to facility. Addendum entered by ESTELLA Valiente 10/31/24 15:19: Rounding note: patient ready for d/c, pending insurance authorization to [facility]. Addendum entered by ESTELLA Valiente 10/31/24 09:27: SS update: per bed side nurse the patient is no longer on Cdiff precautions, notified [facility]. Insurance authorization is pending. Original Note: SS follow up: per Taylor at [facility], the insurance authorization is pending at this time. Notified Taylor that the patient is on cdiff precautions and receiving IV abx.
[2024-10-31] MEDS: MIN OIL/PET,WHITE (Eucerin) CR 16 OZ BTL TOP ×2 (09:35→20:29)
[2024-10-31] MEDS: Lisinopril 2.5 MG TABLET PO (09:41)
[2024-10-31] MEDS: oxyCODONE/APAP 5/325 TABLET 1 TAB PO (13:00)
--- NOTE | 2024-10-31 15:55 | PD.RESPRO ---
Documentation for date of: 10/31/24 Subjective Subjective Interval history: No overnight events. Pateint failed discharge. Metronidazole IV D/C. Central Line removed. 1 soft formed bowel movement overnight. Patient failed to be discharged. Pending SNF. Exam Vital Signs Temp Pulse Resp BP Pulse Ox O2 Del Method O2 Flow Rate 98.4 F 74 14 102/47 L 95 Room Air 4 10/31/24 11:44 10/31/24 12:00 10/31/24 11:44 10/31/24 11:44 10/31/24 11:44 10/31/24 11:44 10/28/24 04:00 Narrative Exam General Appearance: Alert & Oriented X2, thin female who is lying in bed in no acute distress HEENT: Skull symmetrical and atraumatic. Conjunctivae pin and moist. Pupils equal, round, reactive to light and accommodation (PERRL). External ear without lesion or discharge. Straight, nares patient, mucosa pink, no discharge. No thyroid nodule appreciated. No cervical lymphadenopathy. Cardio: Normal Rate and Rhythm with S1 and S2 heart sounds. No murmurs or extra heart sounds auscultated. No bruits on carotid auscultation. No peripheral edema or cyanosis. Lungs: Symmetric with good expansion. Chest and back non-tender. Breath sounds vesicular without crackles, wheezing or rhonchi Abdomen: NON tender, Non-distended, Normal Reactive Bowel Sounds Neuro: Alert, cooperative, YEs oriented to person, Yes place, and No time. Speech clear. CN grossly intact. Upper motor strength 5/5 and Lower motor strength 5/5. Sensation intact. Objective Labs 10/31/24 05:00 10/31/24 05:00 Labs: Laboratory Results - last 24 hr 10/31/24 05:00 WBC 7.7 RBC 2.33 L Hgb 7.1 L Hct 21.5 L* MCV 92 MCH 30.5 MCHC 33.0 RDW Std Deviation 47.4 H Plt Count 237 Neut % (Auto) 52 Lymph % (Auto) 30 [place] % (Auto) 10 Eos % (Auto) 8 Baso % (Auto) 0 Neut # (Auto) 4.0 Lymph # (Auto) 2.3 [place] # (Auto) 0.8 Eos # (Auto) 0.6 H Baso # (Auto) 0.0 Immature Gran # (Auto) 0.02 H Absolute Nucleated RBC 0.00 Immature Gran % 0 Nucleated RBC % 0 Sodium 140 Potassium 4.1 Chloride 111 H Carbon Dioxide 22.1 Anion Gap 7 BUN 11 Creatinine 1.3 Estim Creat Clear Calc 25.2 L eGFR 41 L BUN/Creatinine Ratio 8 L Glucose 93 Calculated Osmolality 278 Calcium 8.0 L Corrected Calcium 9.0 Phosphorus 3.8 Magnesium 1.4 L Total Bilirubin < 0.2 L AST < 10 ALT < 7 L Alkaline Phosphatase 75 Total Protein 4.4 L Albumin 2.7 L Globulin 1.7 L Albumin/Globulin Ratio 1.6 ABG Interpretation ABG results: 10/23/24 10/23/24 10/24/24 18:12 18:44 07:56 ABG pH 7.24 L ABG pCO2 36 ABG pO2 96 ABG HCO3 16 L ABG O2 Saturation 97 ABG Base Excess -11 L VBG pH 7.24 L 7.18 L VBG pCO2 42 22 L D VBG pO2 35 152 H D VBG Base Excess -9 L -19 L 10/24/24 11:00 ABG pH 7.33 L ABG pCO2 31 L ABG pO2 91 ABG HCO3 17 L ABG O2 Saturation 98 ABG Base Excess -8 L VBG pH VBG pCO2 VBG pO2 VBG Base Excess Quality Measures Quality Measures none Advance care planning discussed with:: patient Assessment & Plan Assessment Current Active Medications: Generic Name Dose Route Start Last Admin Trade Name Freq PRN Reason Stop Dose Admin Amlodipine Besylate 10 mg 10/29/24 09:00 10/31/24 08:00 Amlodipine Besylate 5 Mg Tablet PO 11/28/24 08:59 10 mg QDAY KEYSHAWN Administration Artificial Tears 0 drop 10/29/24 15:14 Artificial Tears 225 Drop/15 Ml Btl BOTH EYES 11/28/24 15:13 PRN PRN TO KEEP EYES MOIST Atorvastatin Calcium 40 mg 10/27/24 21:00 10/30/24 20:26 Atorvastatin Calcium 20 Mg Tablet PO 11/26/24 20:59 40 mg HS KEYSHAWN Administration Buspirone HCl 5 mg 10/29/24 12:45 10/31/24 08:00 Buspirone Hcl 5 Mg Tablet PO 11/28/24 12:44 5 mg QDAY KEYSHAWN Administration Carvedilol 6.25 mg 10/28/24 17:30 10/31/24 08:01 Carvedilol 3.125 Mg Tablet PO 11/27/24 17:29 6.25 mg BIDWM KEYSHAWN Administration Dextrose 25 ml 10/29/24 09:54 Dextrose 50%-Water Inj 50 Ml Syringe IV 11/28/24 09:53 Q15MIN PRN BG 50-70 responsive npo pt Dextrose 50 ml 10/29/24 09:54 Dextrose 50%-Water Inj 50 Ml Syringe IV 11/28/24 09:53 Q15MIN PRN BG <50 OR BG <70 & pt unresponsive Duloxetine HCl 60 mg 10/29/24 12:45 10/31/24 08:00 Duloxetine Hcl 30 Mg Capsule PO 11/28/24 12:44 60 mg QDAY KEYSHAWN Administration Famotidine 10 mg 10/26/24 21:00 10/30/24 20:27 Famotidine Inj 10 Mg/Ml Vial 2 Ml IVP 11/25/24 20:59 10 mg HS KEYSHAWN Administration Glucagon 1 mg 10/29/24 09:54 Glucagon Inj 1 Mg Vial IM Q15MIN PRN BG <70, and no IV access Hydralazine HCl 10 mg 10/25/24 18:37 10/27/24 00:00 Hydralazine Inj 20 Mg/Ml Vial IVP 11/24/24 18:36 10 mg Q4HR PRN Administration Hypertension Lisinopril 2.5 mg 10/31/24 09:00 10/31/24 09:41 Lisinopril 2.5 Mg Tablet PO 11/30/24 08:59 2.5 mg QDAY KEYSHAWN Administration Melatonin 3 mg 10/27/24 21:00 10/30/24 20:27 Melatonin 3 Mg Tablet PO 11/26/24 20:59 3 mg HS KEYSHAWN Administration Multi-Ingredient Ointment 0 oz 10/25/24 21:00 10/31/24 09:35 Min Oil/Pet,White (Eucerin) Cr 16 Oz Btl TOP 11/24/24 20:59 1 applicatio BID KEYSHAWN Administration Mupirocin 0 gm 10/30/24 14:00 10/31/24 13:44 Mupirocin Oint 2% 15 Gm Tube TOP 11/04/24 13:59 1 applicatio TID KEYSHAWN Administration Home Medication- 1 cap 10/29/24 12:45 10/31/24 13:03 Please Speak With PO 11/28/24 12:44 Not Given Patient Caregiver To QDAY KEYSHAWN Have Rx Brought To [facility] Ondansetron HCl 4 mg 10/24/24 00:30 10/31/24 08:07 Ondansetron Inj 2 Mg/Ml Inj 2 Ml IV 11/23/24 00:29 4 mg Q6H PRN Administration NAUSEA OR VOMITING Protocol Oxycodone/Acetaminophen 1 tab 10/30/24 08:13 10/31/24 13:00 Oxycodone/Apap 5/325 Tablet PO 11/04/24 08:12 1 tab Q6HR PRN Administration PAIN SCALE 4-10(Mod-Sev Pramipexole Dihydrochloride 0.75 mg 10/29/24 21:00 10/30/24 20:27 Pramipexole 0.25 Mg Tablet PO 11/28/24 20:59 0.75 mg HS KEYSHAWN Administration Vancomycin HCl 125 mg 10/25/24 17:00 10/31/24 13:00 Vancomycin 125 Mg Capsule PO 11/01/24 16:59 125 mg QID KEYSHAWN Administration Plan Patient is 84 year old female with past medical history of Hypertension, CAD, HFrEF 45-50%, Alzheimers with lateral wall hypokinesis, and recurrent UTIs who was admitted on 10/23/2024 for acute encephalopathy #C. diff colitis #gastroenteritis #abdominal pain due to above, improved #Sepsis secondary to intra-abdominal infection, likely C.diff-resolved #Lactic Acidosis-resolved CT abd/pelvis w/contrast:Fluid distended small bowel loops with wall thickening, diffuse wall thickening involving the colon, differential would include enteritis colitis. Patient continues to have multiple loose BM 4, on 10/27/2024. 10/30/2024 Pending SNF 10/31/2024: pending SNF, D/C Metronidazole IV to oral. Diagnosis: C.diff Tox B (+) Plan: -Vancomycin 125 PO (10/25/2024--), consider 14 day course TID & Metronidazole 500 mg Q8 HRs t (10/24--) -DC Cefepime (10/24/2024-10/26/2024) -stool culture -Surgery, Dr. Bhatt,recs-conservative treatment #GIRMA likely pre-renal on CKD stage III, improving Patinet has underlying CKD following Jeremy with renal u/s showing moderate bilaterar renal parenchymal scare formation. Likely pre-renal given BUN/Cr ratio greater than 23 and clinically hypovolemic with hypernatremia. Renal panel is improveing, Cr and BUN downtrending, has adequate urine output Plan -Avoid nephrotixins -Renally Dose medication -continue maintenance fluid. -monitor UO -Consult nephrology, DR. Luna, appreciate recommendations. #Normocytic Anemia, improved Could be hemodilutional, as patient received aggressive fluid resuscitation, in a setting of sever dehydration. No sign of bleeding as this time Plan: -Continue to monitor H&H #history of Hypertension #hypertensive urgency, resolved Plan: -Resumed Lisinopril 2.5 mg once daily -Amlodipine 10 qday -Hydralaizine 10 mg PO TID (holding oral home dose) -PRN Hydralazine IV #Hx of CHF HFrEF 45-50% (09/20/2024) -Carvedilol 6.25 BID -No lasix noted as home mediation, patient appears hypovolemic -work toward GDMT -Strict In' and Outs -Daily weight checks. #Dementia Resume home medication Plan -Buspirone -Pramipexole 0.75 -Duloxetine -Memantine-Donepezil #Metabolic Acidosis, Anion gap, resolved. #Hypernatremia, Hyperosmolar, Hypovolemic, resolved #Acute metabolic Encephalopathy in the setting of sepsis, resolved #NSTEMI, type II demand ischemia, resolved #Incidental Solid appearing bilateral renal masses Consider MRI with contrast, however kidney functions currently not at baseline, will continue close monitor, once renal function improved, and PT inpatient, plan is to MRI outpatient/inpatient Disposition:Tele DVT prophylaxis: SCDs GI prophylaxis:DC PPI in a setting of C.Diff, started famotidine IV Diet: clear liquid Lines: kunz CODE STATUS:Full code - The patient's plan was discussed with attending Dr. Aleksandra Robertson MD PGY1 Internal Medicine Attending Provider Attestation/Addendum I reviewed labs, imaging, EKG, home medications and prior available records. Face to face evaluation was performed by me. I have personally examined the patient and discussed assessment and plan with the IM team. I reviewed the resident note and agree with the plan with exceptions as below. Acute encephalopathy, improved Acute gastroenteritis Acute enteritis SIRS HFrEF EF 40 to 45% Uncontrolled hypertension/hypertensive urgency Leukocytosis Hyponatremia GIRMA, prerenal Renal masses Removed NG tube. Advanced diet Continue p.o. vancomycin and metronidazole Trend WBC: Downtrending Monitor sodium level, improved Monitor kidney numbers: Creatinine improved Avoid nephrotoxins. Renally dosed medications BP is uncontrolled. Started amlodipine. Started Coreg. Increased amlodipine. Monitor BP Ordered PT evaluation: Recommended SNF however patient declined. Patient later agreed on going to SNF. Contacted social science instructor who is working on the placement. Pending authorization
[2024-10-31] MEDS: PRAMIPEXOLE 0.25 MG TABLET 0.75 MG PO (20:28)
[2024-10-31] MEDS: ATORVASTATIN CALCIUM 20 MG TABLET 40 MG PO (20:29)
[2024-10-31] MEDS: MELATONIN 3 MG TABLET PO (20:29)
[2024-10-31] MEDS: metroNIDAZOLE 250 MG TABLET 500 MG PO (20:29)
[2024-10-31] MEDS: FAMOTIDINE INJ 10 MG/ML VIAL 2 ML IVP (20:35)
--- NOTE | 2024-10-31 21:35 | PD.IMPROG ---
Documentation for date of: 10/31/24 Subjective Subjective Interval history: Patient evaluated hemoglobin hematocrit 7.1 and 21.5 Exam Vital Signs Temp Pulse Resp BP Pulse Ox O2 Del Method O2 Flow Rate 97.5 F 60 17 136/68 H 95 Room Air 4 10/31/24 16:00 10/31/24 18:15 10/31/24 16:00 10/31/24 18:15 10/31/24 16:00 10/31/24 16:00 10/28/24 04:00 Objective Labs 10/31/24 05:00 10/31/24 05:00 Labs: Laboratory Results - last 24 hr 10/31/24 05:00 WBC 7.7 RBC 2.33 L Hgb 7.1 L Hct 21.5 L* MCV 92 MCH 30.5 MCHC 33.0 RDW Std Deviation 47.4 H Plt Count 237 Neut % (Auto) 52 Lymph % (Auto) 30 [place] % (Auto) 10 Eos % (Auto) 8 Baso % (Auto) 0 Neut # (Auto) 4.0 Lymph # (Auto) 2.3 [place] # (Auto) 0.8 Eos # (Auto) 0.6 H Baso # (Auto) 0.0 Immature Gran # (Auto) 0.02 H Absolute Nucleated RBC 0.00 Immature Gran % 0 Nucleated RBC % 0 Sodium 140 Potassium 4.1 Chloride 111 H Carbon Dioxide 22.1 Anion Gap 7 BUN 11 Creatinine 1.3 Estim Creat Clear Calc 25.2 L eGFR 41 L BUN/Creatinine Ratio 8 L Glucose 93 Calculated Osmolality 278 Calcium 8.0 L Corrected Calcium 9.0 Phosphorus 3.8 Magnesium 1.4 L Total Bilirubin < 0.2 L AST < 10 ALT < 7 L Alkaline Phosphatase 75 Total Protein 4.4 L Albumin 2.7 L Globulin 1.7 L Albumin/Globulin Ratio 1.6 Impressions Impression: C. difficile enterocolitis Continue current management ABG Interpretation ABG results: 10/23/24 10/23/24 10/24/24 18:12 18:44 07:56 ABG pH 7.24 L ABG pCO2 36 ABG pO2 96 ABG HCO3 16 L ABG O2 Saturation 97 ABG Base Excess -11 L VBG pH 7.24 L 7.18 L VBG pCO2 42 22 L D VBG pO2 35 152 H D VBG Base Excess -9 L -19 L 10/24/24 11:00 ABG pH 7.33 L ABG pCO2 31 L ABG pO2 91 ABG HCO3 17 L ABG O2 Saturation 98 ABG Base Excess -8 L VBG pH VBG pCO2 VBG pO2 VBG Base Excess Assessment & Plan A&P Narrative # Acute C. difficile enterocolitis Continue with IV Flagyl and oral vancomycin most likely is the cause of her abdominal pain and abnormal CT scan findings of the abdomen pelvis showing thickening of the small bowel as well as diffuse colonic wall thickening Continue IV Flagyl and oral vancomycin No need for any invasive GI workup # Anemia multifactorial # Acute gross electrolyte abnormalities #Dementia Thank you very much for the opportunity to participate in the care of this patient Time Spent With Patient Time: Total time spent is greater than 50% in coordination of care (as documented) at patient's floor/unit and/or counseling patient:
[2024-11-01] VITALS (12 sets, daily range): BP systolic 111–136; BP diastolic 53–83; PULSE 61–81; RESP 13–21; TEMP 36.1–36.6; O2SAT 94–99; BMI 22.2; BMI 20.5; BMI 14.0
[2024-11-01] MEDS: oxyCODONE/APAP 5/325 TABLET 1 TAB PO ×3 (00:55→16:52)
[2024-11-01] MEDS: VANCOMYCIN 125 MG CAPSULE PO ×3 (06:01→21:57)
[2024-11-01] MEDS: MUPIROCIN OINT 2% 15 GM TUBE TOP ×3 (06:02→21:59)
[2024-11-01 06:08] LABS: Basophils % (Auto) 0 % (0-2.5); Eosinophils # (Auto) 0.5 Thou/mm3 (0.0-0.5); Eosinophils % (Auto) 6 % (0-10); Hematocrit 22.7 % (36.0-46.0); Hemoglobin 7.5 g/dL (12.0-16.0); Immature Granulocytes % (Auto) 0 % (0-0); Immature Granulocytes Auto 0.02 Thou/mm3 (0.00-0.00); Lymphocytes # (Auto) 2.1 Thou/mm3 (1.0-4.8); Lymphocytes % (Auto) 29 % (10-50); Mean Corpuscular Hemoglobin 30.6 pg (25.0-35.0); Mean Corpuscular Volume 93 fL (80-100); Monocytes # (Auto) 0.7 Thou/mm3 (0.0-0.8); Monocytes % (Auto) 10 % (0-12); Neutrophils % (Auto) 54 % (37-80); Nucleated Red Blood Cell % 0 /100 WBC (0); Platelet Count 253 Thou/mm3 (140-440); RDW Standard Deviation 46.5 fL (36.4-46.3); Red Blood Count 2.45 Miln/mm3 (4.00-5.20); White Blood Count 7.3 Thou/mm3 (3.6-11.0)
[2024-11-01 07:13] LABS: Alanine Aminotransferase < 7 U/L (10-49); Albumin, Serum 2.7 gm/dL (3.4-4.8); Albumin/Globulin Ratio 1.4 (1.2-2.2); Alkaline Phosphatase 79 U/L (46-116); Anion Gap 7 (7-16); Aspartate Amino Transferase < 10 U/L (0-34); BUN/Creatinine Ratio 9 Ratio (12-20); Bilirubin,Total < 0.2 mg/dL (0.3-1.2); Blood Urea Nitrogen 14 mg/dL (9-23); Carbon Dioxide 23.8 mMol/L (20.0-31.0); Chloride 108 mMol/L (98-107); Creatinine (Component) 1.5 mg/dL (0.6-1.3); Estimated Creatinine Clearance 21.8 mL/min (>60); Globulin 1.9 gm/dL (2.3-3.5); Glucose 98 mg/dL (74-106); Magnesium 1.1 mg/dL (1.6-2.6); Osmolality,Calculated 278 (275-295); Potassium 4.5 mMol/L (3.4-5.1); Sodium 139 mMol/L (136-145); Total Protein 4.6 gm/dL (5.7-8.2); eGFR 35 See Note
[2024-11-01] MEDS: amLODIPine BESYLATE 5 MG TABLET 10 MG PO (08:02)
[2024-11-01] MEDS: DULoxetine HCL 30 MG CAPSULE 60 MG PO (08:02)
[2024-11-01] MEDS: BusPIRone HCL 5 MG TABLET PO (08:02)
[2024-11-01] MEDS: metroNIDAZOLE 250 MG TABLET 500 MG PO ×2 (08:03→20:49)
[2024-11-01] MEDS: carVEDILOL 3.125 MG TABLET 6.25 MG PO ×2 (08:03→16:51)
[2024-11-01] MEDS: Lisinopril 2.5 MG TABLET PO (08:06)
[2024-11-01] MEDS: MIN OIL/PET,WHITE (Eucerin) CR 16 OZ BTL TOP ×2 (08:07→20:51)
[2024-11-01] MEDS: MAGNESIUM OXIDE 400 MG TABLET PO (09:23)
[2024-11-01] MEDS: Magnesium Sulfate 2 GM Ivpb 2 GM/50 ML BAG IV ×2 (09:23→10:39)
--- NOTE | 2024-11-01 10:44 | ESDS_ITS ---
Planned Discharge Date 11/01/24 DS: Providers Provider Date of admission: 10/24/24 00:30 Primary care physician: Larry Lopez MD Admitting Provider: Katiuska Florez MD Attending Provider on Admission: Braeden Lake MD Consults: 10/23/24 17:18 Consult to Nephrology Stat Comment: GIRMA Consulting Provider: Anahi Luna 10/23/24 18:08 Consult to General Surgery Stat Comment: Consulting Provider: Damián Glaser 10/24/24 01:12 Referral Wound Care Routine Comment: 10/24/24 01:51 Consult to Gastroenterology Urgent Comment: GI bleed Consulting Provider: Surinder Morrow 10/25/24 15:30 Referral Nutritional Services Routine Comment: Wounds 10/28/24 10:45 Referral Physical Therapy Routine Comment: Physician Instructions: Attending Provider on DC: Neli Robertson MD Discharging Provider: Neli Robertson MD DS: Diagnosis Problem List Completed Was Problem List Reviewed/Reconciled?: Yes Hospital Course Hospital Course Hospital course: Summary: Patient is 84 year old female with past medical history of Hypertension, CAD, HFrEF 45-50%, Alzheimers with lateral wall hypokinesis, and recurrent UTIs who was admitted on 10/23/2024 for acute encephalopathy and subsequently found to be C. diffe positive requiring antibiotics with Flagly and Vancomycin. ER Course: In the ED, her vitals were significant for blood pressure 106/74, RR 24, saturating 94% on 4 L NC. Labs revealed white count 18.3, RDW 50.5, VBG pH 7.24, pCO2 36, chemistry panel revealed sodium 159, chloride 123, bicarb 13.5, anion gap 23, BUN 86, creatinine 3.8, GFR 11, blood sugar 180, calculated osmolality 345, lactic acid 10.0, phosphorus 6.7, total bilirubin less than 0.2, ALT 9 and ALP 121. Lactate dehydrogenase 372, troponin 0.076 and lipase 135. UA revealed 1+ protein but negative for UTI. 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 Gallbladder ultrasound revealed enlarged common bile duct, no stones noted and CTA abdomen/pelvis was negative for any abdominal artery occ lusion or bowel ischemia. Hospital Course: Patient initially admitted on 10/24/2024 secondary to acute metabolic encephalopathy with high anion gap metabolic acidosis secondary to lactic acidosis, hypernatremia and hyperchloremia with GIRMA on CKD. Patient given IV fluids on admission 3 L of IV lactated Ringer's. Lactic acidosis decreased. Metabolic acidosis anion gap improved. Blood cultures and urine cultures obtained. Urine culture negative. Blood culture negative. Started on broad- spectrum antibiotics. CT head negative. Chest abdomen pelvis showing pronounced thickening of the urinary bladder wall, abnormal common bile duct enlargement 10 mm, bilateral renal masses, and fluid distended small bowel loops. Follow up with abdomen CTA to rule out colonic ischemia. Gallbladder ultrasound showed enlarged common bile duct no stones noted. CTA abdomen showed fluid distended small bowel loops with wall thickening diffuse wall thickening involving the colon. Occult positive. C. difficile positive. Patient treated with metronidazole and Vanco given extent of thickening of colon. General surgery consulted, no surgical intervention, medical management with antibiotics. Patient's WBC count continued to downtrend. Metabolic acidosis resolved. Carvedilol dosage increased to 6.25 mg BID. Amlodpine 10 mg added and Lisinopril 2.5 mg home dose continued. Instructions: -Please continue oral Vancomycin 125 four times a day and Metronidazole 500 mg orally every 6 hours for 8 more days to complete treatment for C. Difficle colitis, untilNovember 07 -Please follow up with your primary care provider within one week of discharge -Please follow up with your polysomnographic tech, Dr. Luna, within one week of discharge. -If your symptoms worsen,please seek immediate medical attention and return to your nearest emergency room -If you do not have a primary care provider, you may follow up at the [facility] at [address], [place] [address], #C. diff colitis #gastroenteritis, improved #abdominal pain due to above, improved #Sepsis secondary to intra-abdominal infection, likely C.diff-resolved #Lactic Acidosis-resolved #GIRMA likely pre-renal on CKD stage III, improving #Normocytic Anemia, improved #history of Hypertension #hypertensive urgency, resolved #Hx of CHF HFrEF 45-50% (09/20/2024) #NSTEMI, type II demand ischemia #Dementia #Metabolic Acidosis, Anion gap, resolved. #Hypernatremia, Hyperosmolar, Hypovolemic, resolved #Acute metabolic Encephalopathy in the setting of sepsis, resolved #Incidental Solid appearing bilateral renal masses Consider MRI with contrast, however kidney functions currently not at baseline, will continue close monitor, once renal function improved, and PT inpatient, pl an is to MRI outpatient/inpatient - The patient's plan was discussed with attending Dr. Aleksandra Robertson MD PGY1 Internal Medicine Time Spent with Patient Time attestation: Total time spent providing and/or coordinating discharge services: at least 30 minutes of care and coordination Time spent: Greater than 30 minutes Home Health Home Health Referral Orders: 10/30/24 11:00 Home Health Referral Routine Reason For Exam: Home PT Home-Bound The patient must either because of illness or injury, need the aid of supportive devices such as crutches, canes, wheelchairs, and walkers; the use of special transportation; or the assistance of another person in order to leave their place of residence; OR have a condition such that leaving his or her home is medically contraindicated. In addition, the patient also meets the following criteria: patient is normally unable to leave the home and leaving home requires considerable taxing effort. Addendum to Home Health Certification Practitioner's Certification: I certify that the patient has been under my care in the hospital and the care of attending physician (see below). We had a [id number] encounter on (see date below). My clinical findings indicate that the patient is home bound per the above criteria and the Home Health Services noted in these orders are medically necessary. The primary reason for the [id number] encounter is related to the fact that the patient requires home health services. Date Certifying [id number] Physician Encounter: 10/24/24 Physician's Name who will Assume Oversight for Services: Larry Lopez Physician's Phone No.who will Assume Oversight for Service: INTERVENTIONAL PAIN PHYSICIAN - Community Resources: Yes PT to Evaluate: Yes PT to evaluate and provide a treatmnet plan to increase patient's mobility and strength. Wound Care: No IV Therapy: No RN Safety Evaluation: Yes RN to evaluate and create a plan of care that will produce positive outcomes. Palliative Treatment: No Palliative treatment and evaluate the need for hospice. Home Health Aide - Personal Care: Yes Home Health Aide to assist with any ADL's. Exam Vital Signs Temp Pulse Resp BP Pulse Ox O2 Del Method O2 Flow Rate 97.2 F 80 14 126/63 96 Room Air 4 11/01/24 08:00 11/01/24 08:06 11/01/24 08:00 11/01/24 08:06 11/01/24 08:00 11/01/24 08:00 10/28/24 04:00 Narrative Exam General Appearance: Alert & Oriented X2, well-nourished female who is lying in bed in no acute distress HEENT: Skull symmetrical and atraumatic. Conjunctivae pale pink and moist. Pupils equal, round, reactive to light and accommodation (PERRL). External ear without lesion or discharge. Straight, nares patient, mucosa pink, no discharge. No thyroid nodule appreciated. No cervical lymphadenopathy. Cardio: Normal Rate and Rhythm with S1 and S2 heart sounds. No murmurs or extra heart sounds auscultated. No bruits on carotid auscultation. No peripheral edema or cyanosis. Lungs: Symmetric with good expansion. Chest and back non-tender. Breath sounds vesicular without crackles, wheezing or rhonchi Abdomen: Non-tender, Non-distended, Normal Reactive Bowel Sounds Neuro: Alert, cooperative, oriented to person, place, and NO time. Speech clear. CN grossly intact. Upper motor strength 5/5 and Lower motor strength 5/5. Sensation intact. Discharge Plan Plan Patient Disposition: er Skilled [facility] (SNF) Care Plan Goals: Instructions: -Please continue oral Vancomycin 125 four times a day and Metronidazole 500 mg orally every 6 hours for 6 more days to complete treatment for C. Difficle colitis, untilNovember 07 -Please follow up with your primary care provider within one week of discharge -Please follow up with your polysomnographic tech, Dr. Luna, within one week of discharge. -If your symptoms worsen,please seek immediate medical attention and return to your nearest emergency room -If you do not have a primary care provider, you may follow up at the [facility] at [address] [place] [address] [address], [place] [address], Wound care: Resolved rash /excoriations to back from shoulder blades to bilateral buttocks: cleanse with soap and water, pat dry, apply Eucerin cream BID and PRN. Stage 3 to bilateral ischium: cleanse with wound cleanser, pat dry, apply skin prep and cover with allevyn dressing daily Side to side repositioning except for meals Prescriptions/Referrals Prescriptions/Med Rec: New amlodipine 5 mg Tablet 10 mg PO QDAY 30 Days Qty: 60 0RF metronidazole 500 mg tablet 500 mg PO Q8H 8 Days Qty: 24 0RF vancomycin 125 mg capsule 125 mg PO QID 9 Days Qty: 36 0RF carvedilol 3.125 mg Tablet 6.25 mg PO BIDWM 30 Days Qty: 60 0RF Continued clonazepam 1 mg tablet 1 mg PO DAILY 30 Days Qty: 30 0RF loratadine 10 mg Tablet 10 mg PO QDAY azelastine-fluticasone 137-50 mcg/spray [place],Non-Aerosol 1 spray INTRANASAL BID PRN (Reason: Nasal Congestion) Rx Instructions: administer into each nostril aspirin [Adult Aspirin Regimen] 81 mg tablet,delayed release (DR/EC) 81 mg PO QDAY atorvastatin [Lipitor] 40 mg tablet 40 mg PO QPM famotidine [Acid Controller] 20 mg tablet 20 mg PO QDAY montelukast 10 mg tablet 10 mg PO QDAY oxycodone 10 mg tablet 10 mg PO Q4H PRN (Reason: pain) memantine-donepezil [Namzaric] 28-10 mg capsule,sprinkle,ER 24hr 1 cap PO QDAY buspirone 30 mg tablet 30 mg PO HS Qty: 60 0RF duloxetine 60 mg capsule,delayed release(DR/EC) 60 mg PO HS Qty: 30 0RF Held lisinopril 2.5 mg tablet 2.5 mg PO QDAY Qty: 30 0RF Hold Instructions: Please follow pcp or dr. luna Discontinued hydralazine 10 mg Tablet 10 mg PO TID Qty: 60 0RF carvedilol 3.125 mg Tablet 3.125 mg PO BIDWM 30 Days Qty: 60 0RF Referrals: Anahi Luna MD [Physician] - Larry Lopez MD [Primary Care Provider] - Patient/Caregiver Discharge Instructions Education Materials: Clostridium Difficile Infection Print Language: Micronesian Stand Alone Forms: Irene Award Info., Patient Portal Info Letter Discharge Order Discharge Orders: Discharge (Routine); Ordered 10/30/24 Ordered By: Yola Gonzalez Quality Discharge Quality Measures VTE prophylaxis Attestestation MD Attestation I reviewed labs, imaging, EKG, home medications and prior available records. Face to face evaluation was performed by me. I have personally examined the patient and discussed assessment and plan with the IM team. I reviewed the resident note and agree with the plan with exceptions as below. Acute encephalopathy, improved Acute gastroenteritis Acute enteritis SIRS HFrEF EF 40 to 45% Uncontrolled hypertension/hypertensive urgency Leukocytosis Hyponatremia GIRMA, prerenal Renal masses Removed NG tube. Advanced diet Continue p.o. vancomycin and metronidazole Trend WBC: Downtrending Monitor sodium level, improved Monitor kidney numbers: Creatinine improved Avoid nephrotoxins. Renally dosed medications BP was uncontrolled. Started amlodipine. Started Coreg. Increased amlodipine. Monitor BP Ordered PT evaluation: Recommended SNF however patient declined. Patient later agreed on going to SNF. Contacted social insurance adviser who worked on the authorization Time spent is 40 minutes. More than 50% of the time was spent on patient education and coordination of care.
--- NOTE | 2024-11-01 20:05 | PD.IMPROG ---
Documentation for date of: 11/01/24 Subjective Subjective Interval history: patient doing well discharge planning in progress No need for GI follow-up upon discharge Exam Vital Signs Temp Pulse Resp BP Pulse Ox O2 Del Method O2 Flow Rate 97.8 F 66 13 135/60 H 99 Room Air 4 11/01/24 16:00 11/01/24 19:25 11/01/24 16:00 11/01/24 16:51 11/01/24 16:00 11/01/24 16:00 11/01/24 12:00 Objective Labs 11/01/24 05:06 11/01/24 05:06 Labs: Laboratory Results - last 24 hr 11/01/24 05:06 WBC 7.3 RBC 2.45 L Hgb 7.5 L Hct 22.7 L MCV 93 MCH 30.6 MCHC 33.0 RDW Std Deviation 46.5 H Plt Count 253 Neut % (Auto) 54 Lymph % (Auto) 29 [place]w % (Auto) 10 Eos % (Auto) 6 Baso % (Auto) 0 Neut # (Auto) 4.0 Lymph # (Auto) 2.1 [place]tholomew # (Auto) 0.7 Eos # (Auto) 0.5 Baso # (Auto) 0.0 Immature Gran # (Auto) 0.02 H Absolute Nucleated RBC 0.00 Immature Gran % 0 Nucleated RBC % 0 Sodium 139 Potassium 4.5 Chloride 108 H Carbon Dioxide 23.8 Anion Gap 7 BUN 14 Creatinine 1.5 H Estim Creat Clear Calc 21.8 L eGFR 35 L BUN/Creatinine Ratio 9 L Glucose 98 Calculated Osmolality 278 Calcium 8.0 L Corrected Calcium 9.0 Phosphorus 4.0 Magnesium 1.1 L Total Bilirubin < 0.2 L AST < 10 ALT < 7 L Alkaline Phosphatase 79 Total Protein 4.6 L Albumin 2.7 L Globulin 1.9 L Albumin/Globulin Ratio 1.4 Impressions Impression: C. difficile enterocolitis Okay to discharge patient ABG Interpretation ABG results: 10/23/24 10/23/24 10/24/24 18:12 18:44 07:56 ABG pH 7.24 L ABG pCO2 36 ABG pO2 96 ABG HCO3 16 L ABG O2 Saturation 97 ABG Base Excess -11 L VBG pH 7.24 L 7.18 L VBG pCO2 42 22 L D VBG pO2 35 152 H D VBG Base Excess -9 L -19 L 10/24/24 11:00 ABG pH 7.33 L ABG pCO2 31 L ABG pO2 91 ABG HCO3 17 L ABG O2 Saturation 98 ABG Base Excess -8 L VBG pH VBG pCO2 VBG pO2 VBG Base Excess Assessment & Plan A&P Narrative # Acute C. difficile enterocolitis Continue with IV Flagyl and oral vancomycin most likely is the cause of her abdominal pain and abnormal CT scan findings of the abdomen pelvis showing thickening of the small bowel as well as diffuse colonic wall thickening Continue IV Flagyl and oral vancomycin No need for any invasive GI workup # Anemia multifactorial # Acute gross electrolyte abnormalities #Dementia Thank you very much for the opportunity to participate in the care of this patient Time Spent With Patient Time: Total time spent is greater than 50% in coordination of care (as documented) at patient's floor/unit and/or counseling patient:
[2024-11-01] MEDS: PRAMIPEXOLE 0.25 MG TABLET 0.75 MG PO (20:49)
[2024-11-01] MEDS: MELATONIN 3 MG TABLET PO (20:50)
[2024-11-01] MEDS: ATORVASTATIN CALCIUM 20 MG TABLET 40 MG PO (20:50)
[2024-11-01] MEDS: FAMOTIDINE INJ 10 MG/ML VIAL 2 ML IVP (20:51)
[2024-11-01] MEDS: Artificial Tears 225 DROP/15 ML BTL BOTH EYES (21:57)
[2024-11-02] VITALS (10 sets, daily range): BP systolic 109–135; BP diastolic 50–69; PULSE 66–79; RESP 11–18; TEMP 36.2–37.1; O2SAT 96–99; BMI 22.8
[2024-11-02] MEDS: oxyCODONE/APAP 5/325 TABLET 1 TAB PO ×3 (01:54→19:18)
[2024-11-02] MEDS: VANCOMYCIN 125 MG CAPSULE PO ×4 (05:36→22:00)
[2024-11-02] MEDS: MUPIROCIN OINT 2% 15 GM TUBE TOP ×3 (05:36→22:15)
[2024-11-02 06:37] LABS: Alanine Aminotransferase < 7 U/L (10-49); Albumin, Serum 2.8 gm/dL (3.4-4.8); Albumin/Globulin Ratio 1.5 (1.2-2.2); Alkaline Phosphatase 83 U/L (46-116); Anion Gap 7 (7-16); Aspartate Amino Transferase 10 U/L (0-34); BUN/Creatinine Ratio 10 Ratio (12-20); Bilirubin,Total < 0.2 mg/dL (0.3-1.2); Blood Urea Nitrogen 13 mg/dL (9-23); Calcium 8.2 mg/dL (8.3-10.6); Calcium (Corrected) 9.2 mg/dL (8.5-10.1); Carbon Dioxide 24.2 mMol/L (20.0-31.0); Chloride 103 mMol/L (98-107); Creatinine (Component) 1.3 mg/dL (0.6-1.3); Estimated Creatinine Clearance 25.2 mL/min (>60); Globulin 1.9 gm/dL (2.3-3.5); Glucose 98 mg/dL (74-106); Magnesium 1.6 mg/dL (1.6-2.6); Osmolality,Calculated 268 (275-295); Potassium 4.2 mMol/L (3.4-5.1); Sodium 134 mMol/L (136-145); Total Protein 4.7 gm/dL (5.7-8.2); eGFR 41 See Note
[2024-11-02 06:40] LABS: Basophils % (Auto) 0 % (0-2.5); Eosinophils # (Auto) 0.4 Thou/mm3 (0.0-0.5); Eosinophils % (Auto) 5 % (0-10); Hematocrit 22.6 % (36.0-46.0); Immature Granulocytes % (Auto) 0 % (0-0); Immature Granulocytes Auto 0.04 Thou/mm3 (0.00-0.00); Lymphocytes # (Auto) 2.3 Thou/mm3 (1.0-4.8); Lymphocytes % (Auto) 24 % (10-50); Mean Corpuscular HGB Conc 32.7 g/dl (31.0-37.0); Mean Corpuscular Hemoglobin 30.7 pg (25.0-35.0); Mean Corpuscular Volume 94 fL (80-100); Monocytes # (Auto) 0.7 Thou/mm3 (0.0-0.8); Monocytes % (Auto) 7 % (0-12); Neutrophils # (Auto) 5.9 Thou/mm3 (1.8-7.7); Neutrophils % (Auto) 63 % (37-80); Nucleated Red Blood Cell % 0 /100 WBC (0); Platelet Count 280 Thou/mm3 (140-440); RDW Standard Deviation 46.8 fL (36.4-46.3); Red Blood Count 2.41 Miln/mm3 (4.00-5.20); White Blood Count 9.3 Thou/mm3 (3.6-11.0)
[2024-11-02 07:15] LABS: Hemoglobin 7.4 g/dL (12.0-16.0)
--- NOTE | 2024-11-02 08:16 | PC.SS ---
SS contacted [facility] for update on auth and they still do not have it. F/u Monday. SS will submit updated clinicals to facility.
--- NOTE | 2024-11-02 08:21 | PC.SS ---
Follow up note: SS left son a message with update on auth and also discussed Home health as an alternate option as it is not guaranteed insurance will approve SNF.
[2024-11-02] MEDS: Lisinopril 2.5 MG TABLET PO (08:32)
[2024-11-02] MEDS: carVEDILOL 3.125 MG TABLET 6.25 MG PO ×2 (08:33→18:37)
[2024-11-02] MEDS: metroNIDAZOLE 250 MG TABLET 500 MG PO ×2 (08:33→22:00)
[2024-11-02] MEDS: amLODIPine BESYLATE 5 MG TABLET 10 MG PO (08:33)
[2024-11-02] MEDS: BusPIRone HCL 5 MG TABLET PO (08:33)
[2024-11-02] MEDS: DULoxetine HCL 30 MG CAPSULE 60 MG PO (08:33)
--- NOTE | 2024-11-02 11:41 | ESDS_ITS ---
<Statement entered by Lore Ware DO - 11/03/24 07:33> I, Lore Ware DO, attest that I was physically present for the henriquez portions of the service and evaluated the patient with the resident and I reviewed and discussed the case with the resident and agree with the resident's findings and plans of care as documented above Planned Discharge Date 11/02/24 DS: Providers Provider Date of admission: 10/24/24 00:30 Primary care physician: Larry Lopez MD Admitting Provider: Katiuska Florez MD Attending Provider on Admission: Braeden Lake MD Consults: 10/23/24 17:18 Consult to Nephrology Stat Comment: GIRMA Consulting Provider: Anahi Luna 10/23/24 18:08 Consult to General Surgery Stat Comment: Consulting Provider: Damián Glaser 10/24/24 01:12 Referral Wound Care Routine Comment: 10/24/24 01:51 Consult to Gastroenterology Urgent Comment: GI bleed Consulting Provider: Surinder Morrow 10/25/24 15:30 Referral Nutritional Services Routine Comment: Wounds 10/28/24 10:45 Referral Physical Therapy Routine Comment: Physician Instructions: Attending Provider on DC: Sandrine Lorenzana MD Discharging Provider: Sandrine Lorenzana MD DS: Diagnosis Problem List Completed Was Problem List Reviewed/Reconciled?: Yes Hospital Course Hospital Course Hospital course: 84-year-old female with past medical history of hypertension, coronary artery disease, HFrEF of 45 to 50%, Alzheimer, recurrent UTI was admitted for acute encephalopathy secondary due to sepsis. Subsequently patient was found to be C. difficile positive and started on p.o. Vanco and Flagyl. On presentation patient was encephalopathic, severely dehydrated, was complaining of severe abdominal pain, labs revealed severe lactic acidosis, GIRMA in the setting of severe dehydration, CT head was negative, CTA abdomen/pelvis was negative for any abdominal artery occlusion or bowel ischemia, however showed fluid distended small bowel loops with wall thickening diffuse wall thickening involving the colon. C.diff was positive, patient started on IV metronidazole and p.o. Vanco with aggressive IV hydration. General surgery was consulted, stated that at this point patient does not need any surgical intervention, and recommended to continue conservative management with antibiotics. Nephrology also was consulted, who stated that worsening renal function most likely related to severe dehydration in the setting of Cdiff/multiple episodes of diarrhea. During hospital stay patient condition significantly improved with IV hydration and antibiotics, last 2 days patient did not have any diarrhea, had denied any significant abdominal pain, nausea, vomiting tolerated diet well.home medication was restarted, patient tolerated well .PT evaluated the patient, recommended SNF placement for rehabilitation. Son is a decision maker who also stated that they would prefer SNF placement for short-term rehabilitation. Patient will be disch arged to SNF , follow-up outpatient with PCP in 1 to 2 weeks after discharge. Continue antibiotics treatment to complete course of C. difficile treatment, return to ED any time symptoms worsens. Repeat CBC/CMP in 1 week after discharge. All questions and concerns were addressed. Patient verbalized understanding #C. difficile colitis #Sepsis secondary due to resolved #Abdominal pain due to above resolved #Pre-renal GIRMA in the setting of dehydration #Hypertension #HFrEF 45 to 50% #Electrolyte disbalance resolved #Acute metabolic encephalopathy in the setting of sepsis resolved #Incidental Solid appearing bilateral renal masses Consider MRI with contrast, however kidney functions currently not at baseline, will continue close monitor, once renal function improved, and PT inpatient, plan is to MRI outpatient/inpatient Time Spent with Patient Time attestation: Total time spent providing and/or coordinating discharge services: Time spent: Greater than 30 minutes Exam Vital Signs Temp Pulse Resp BP Pulse Ox O2 Del Method O2 Flow Rate 98.5 F 75 16 126/60 96 Room Air 4 11/02/24 08:00 11/02/24 08:33 11/02/24 08:00 11/02/24 08:33 11/02/24 08:00 11/02/24 08:00 11/01/24 12:00 Narrative Exam GENERAL: no acute distress, AAO x3, thin female who is lying in bed, HEENT: Head AT/ NC. Mucous membranes moist. NECK: Supple, no lymphadenopathy, no carotid bruits. CARDIOVASCULAR: RRR. Normal S1/S2, No m/r/g. No pitting edema of bilateral LEs. RESPIRATORY: CTAB. No wheezing, rhonchi, crackles. GASTROINTESTINAL: Abdomen soft, rebound tenderness diffusely, however not rigit, well appearing, no signs of acute abdomen at this poin. . Bowel sounds present in all 4 quadrants. MUSCULOSKELETAL:? No cyanosis or edema, no visible joint swelling. NEUROLOGICAL: CN II-XII grossly intact. No focal deficits. PSYCHIATRIC: Awake and alert, not agitated, normal mood and affect. Discharge Plan Plan Patient Disposition: Xfer Skilled Nsg Fac (SNF) Care Plan Goals: Instructions: -Please continue oral Vancomycin 125 four times a day and Metronidazole 500 mg orally every 6 hours for 6 more days to complete treatment for C. Difficle colitis, untilNovember 07 -Please follow up with your primary care provider within one week of discharge -Please follow up with your puppet engineer, Dr. Luna, within one week of discharge. -If your symptoms worsen,please seek immediate medical attention and return to your nearest emergency room -If you do not have a primary care provider, you may follow up at the [facility] at [address] [place] [address] [address], [place] [address], Wound care: Resolved rash /excoriations to back from shoulder blades to bilateral buttocks: cleanse with soap and water, pat dry, apply Eucerin cream BID and PRN. Stage 3 to bilateral ischium: cleanse with wound cleanser, pat dry, apply skin prep and cover with allevyn dressing daily Side to side repositioning except for meals Prescriptions/Referrals Prescriptions/Med Rec: New amlodipine 5 mg Tablet 10 mg PO QDAY 30 Days Qty: 60 0RF metronidazole 500 mg tablet 500 mg PO Q8H 8 Days Qty: 24 0RF vancomycin 125 mg capsule 125 mg PO QID 9 Days Qty: 36 0RF carvedilol 3.125 mg Tablet 6.25 mg PO BIDWM 30 Days Qty: 60 0RF Continued clonazepam 1 mg tablet 1 mg PO DAILY 30 Days Qty: 30 0RF loratadine 10 mg Tablet 10 mg PO QDAY azelastine-fluticasone 137-50 mcg/spray [place],Non-Aerosol 1 spray INTRANASAL BID PRN (Reason: Nasal Congestion) Rx Instructions: administer into each nostril aspirin [Adult Aspirin Regimen] 81 mg tablet,delayed release (DR/EC) 81 mg PO QDAY atorvastatin [Lipitor] 40 mg tablet 40 mg PO QPM famotidine [Acid Controller] 20 mg tablet 20 mg PO QDAY montelukast 10 mg tablet 10 mg PO QDAY oxycodone 10 mg tablet 10 mg PO Q4H PRN (Reason: pain) memantine-donepezil [Namzaric] 28-10 mg capsule,sprinkle,ER 24hr 1 cap PO QDAY buspirone 30 mg tablet 30 mg PO HS Qty: 60 0RF duloxetine 60 mg capsule,delayed release(DR/EC) 60 mg PO HS Qty: 30 0RF lisinopril 2.5 mg tablet 2.5 mg PO QDAY Qty: 30 0RF Discontinued hydralazine 10 mg Tablet 10 mg PO TID Qty: 60 0RF carvedilol 3.125 mg Tablet 3.125 mg PO BIDWM 30 Days Qty: 60 0RF Referrals: Anahi Luna MD [Physician] - Larry Lopez MD [Primary Care Provider] - Patient/Caregiver Discharge Instructions Education Materials: Clostridium Difficile Infection Print Language: Armenian Stand Alone Forms: Irene Award Info., Patient Portal Info Letter Discharge Order Discharge Orders: Discharge (Routine); Ordered 10/30/24 Ordered By: Yola Gonzalez Quality Discharge Quality Measures VTE prophylaxis
--- NOTE | 2024-11-02 17:28 | PD.IMPROG ---
Documentation for date of: 11/02/24 Subjective Subjective Interval history: Diarrhea has improved Discharge planning in progress Exam Vital Signs Temp Pulse Resp BP Pulse Ox O2 Del Method O2 Flow Rate 98.7 F 71 16 132/60 H 96 Room Air 4 11/02/24 16:00 11/02/24 16:00 11/02/24 16:00 11/02/24 16:00 11/02/24 16:00 11/02/24 16:00 11/01/24 12:00 Objective Labs 11/02/24 05:05 11/02/24 05:05 Labs: Laboratory Results - last 24 hr 11/02/24 05:05 WBC 9.3 RBC 2.41 L Hgb 7.4 L Hct 22.6 L MCV 94 MCH 30.7 MCHC 32.7 RDW Std Deviation 46.8 H Plt Count 280 Neut % (Auto) 63 Lymph % (Auto) 24 [place] % (Auto) 7 Eos % (Auto) 5 Baso % (Auto) 0 Neut # (Auto) 5.9 Lymph # (Auto) 2.3 [place] # (Auto) 0.7 Eos # (Auto) 0.4 Baso # (Auto) 0.0 Immature Gran # (Auto) 0.04 H Absolute Nucleated RBC 0.00 Immature Gran % 0 Nucleated RBC % 0 Sodium 134 L Potassium 4.2 Chloride 103 Carbon Dioxide 24.2 Anion Gap 7 BUN 13 Creatinine 1.3 Estim Creat Clear Calc 25.2 L eGFR 41 L BUN/Creatinine Ratio 10 L Glucose 98 Calculated Osmolality 268 L Calcium 8.2 L Corrected Calcium 9.2 Phosphorus 3.0 Magnesium 1.6 Total Bilirubin < 0.2 L AST 10 ALT < 7 L Alkaline Phosphatase 83 Total Protein 4.7 L Albumin 2.8 L Globulin 1.9 L Albumin/Globulin Ratio 1.5 Impressions Impression: C. difficile enterocolitis continue current management agree with discharge planning ABG Interpretation ABG results: 10/23/24 10/23/24 10/24/24 18:12 18:44 07:56 ABG pH 7.24 L ABG pCO2 36 ABG pO2 96 ABG HCO3 16 L ABG O2 Saturation 97 ABG Base Excess -11 L VBG pH 7.24 L 7.18 L VBG pCO2 42 22 L D VBG pO2 35 152 H D VBG Base Excess -9 L -19 L 10/24/24 11:00 ABG pH 7.33 L ABG pCO2 31 L ABG pO2 91 ABG HCO3 17 L ABG O2 Saturation 98 ABG Base Excess -8 L VBG pH VBG pCO2 VBG pO2 VBG Base Excess Assessment & Plan A&P Narrative # Acute C. difficile enterocolitis Continue with IV Flagyl and oral vancomycin most likely is the cause of her abdominal pain and abnormal CT scan findings of the abdomen pelvis showing thickening of the small bowel as well as diffuse colonic wall thickening Continue IV Flagyl and oral vancomycin No need for any invasive GI workup # Anemia multifactorial # Acute gross electrolyte abnormalities #Dementia Thank you very much for the opportunity to participate in the care of this patient Time Spent With Patient Time: Total time spent is greater than 50% in coordination of care (as documented) at patient's floor/unit and/or counseling patient:
[2024-11-02] MEDS: PRAMIPEXOLE 0.25 MG TABLET 0.75 MG PO (22:00)
[2024-11-02] MEDS: ATORVASTATIN CALCIUM 20 MG TABLET 40 MG PO (22:00)
[2024-11-02] MEDS: FAMOTIDINE INJ 10 MG/ML VIAL 2 ML IVP (22:01)
[2024-11-02] MEDS: MELATONIN 3 MG TABLET PO (22:01)
[2024-11-03] VITALS (9 sets, daily range): BP systolic 117–144; BP diastolic 50–72; PULSE 61–79; RESP 12–17; TEMP 36.5–37.4; O2SAT 95–99; BMI 22.4
[2024-11-03] MEDS: VANCOMYCIN 125 MG CAPSULE PO ×4 (05:53→20:36)
[2024-11-03] MEDS: MUPIROCIN OINT 2% 15 GM TUBE TOP ×3 (05:54→23:17)
[2024-11-03] MEDS: ONDANSETRON INJ 2 MG/ML INJ 2 ML 4 MG IV (06:01)
[2024-11-03] MEDS: carVEDILOL 3.125 MG TABLET 6.25 MG PO ×2 (08:04→18:39)
[2024-11-03] MEDS: metroNIDAZOLE 250 MG TABLET 500 MG PO ×2 (08:04→20:35)
[2024-11-03] MEDS: DULoxetine HCL 30 MG CAPSULE 60 MG PO (08:04)
[2024-11-03] MEDS: BusPIRone HCL 5 MG TABLET PO (08:04)
[2024-11-03] MEDS: Lisinopril 2.5 MG TABLET PO (08:05)
[2024-11-03] MEDS: amLODIPine BESYLATE 5 MG TABLET 10 MG PO (08:05)
[2024-11-03] MEDS: oxyCODONE/APAP 5/325 TABLET 1 TAB PO ×2 (13:11→20:35)
--- NOTE | 2024-11-03 14:53 | ESPR_ITS ---
Documentation for date of: 11/03/24 Subjective Subjective Interval history: No overnight events. Patient seen and examined at bedside, resting comfortably. Patient endorses mild nausea, but denies fevers, chills, chest pain, shortness breath, vomiting. Pending insurance authorization for SNF placement. Probable DC tomorrow. Exam Vital Signs Temp Pulse Resp BP Pulse Ox O2 Del Method O2 Flow Rate 97.7 F 73 12 117/52 L 97 Room Air 4 11/03/24 12:00 11/03/24 12:00 11/03/24 12:00 11/03/24 12:00 11/03/24 12:00 11/03/24 12:00 11/01/24 12:00 Narrative Exam GENERAL: no acute distress, AAO x3, thin female who is lying in bed, HEENT: Head AT/ NC. Mucous membranes moist. NECK: Supple, no lymphadenopathy, no carotid bruits. CARDIOVASCULAR: RRR. Normal S1/S2, No m/r/g. No pitting edema of bilateral LEs. RESPIRATORY: CTAB. No wheezing, rhonchi, crackles. GASTROINTESTINAL: Abdomen soft, rebound tenderness diffusely, however not rigid, well appearing, no signs of acute abdomen at this point. Bowel sounds present in all 4 quadrants. MUSCULOSKELETAL:? No cyanosis or edema, no visible joint swelling. NEUROLOGICAL: CN II-XII grossly intact. No focal deficits. PSYCHIATRIC: Awake and alert, not agitated, normal mood and affect. Objective Labs 11/02/24 05:05 11/02/24 05:05 ABG Interpretation ABG results: 10/23/24 10/23/24 10/24/24 18:12 18:44 07:56 ABG pH 7.24 L ABG pCO2 36 ABG pO2 96 ABG HCO3 16 L ABG O2 Saturation 97 ABG Base Excess -11 L VBG pH 7.24 L 7.18 L VBG pCO2 42 22 L D VBG pO2 35 152 H D VBG Base Excess -9 L -19 L 10/24/24 11:00 ABG pH 7.33 L ABG pCO2 31 L ABG pO2 91 ABG HCO3 17 L ABG O2 Saturation 98 ABG Base Excess -8 L VBG pH VBG pCO2 VBG pO2 VBG Base Excess Quality Measures Quality Measures VTE prophylaxis Advance care planning discussed with:: patient Assessment & Plan Assessment Current Active Medications: Generic Name Dose Route Start Last Admin Trade Name Freq PRN Reason Stop Dose Admin Amlodipine Besylate 10 mg 10/29/24 09:00 11/03/24 08:05 Amlodipine Besylate 5 Mg Tablet PO 11/28/24 08:59 10 mg QDAY KEYSHAWN Administration Artificial Tears 0 drop 10/29/24 15:14 11/01/24 21:57 Artificial Tears 225 Drop/15 Ml Btl BOTH EYES 11/28/24 15:13 2 drops PRN PRN Administration TO KEEP EYES MOIST Atorvastatin Calcium 40 mg 10/27/24 21:00 11/02/24 22:00 Atorvastatin Calcium 20 Mg Tablet PO 11/26/24 20:59 40 mg HS KEYSHAWN Administration Buspirone HCl 5 mg 10/29/24 12:45 11/03/24 08:04 Buspirone Hcl 5 Mg Tablet PO 11/28/24 12:44 5 mg QDAY KEYSHAWN Administration Carvedilol 6.25 mg 10/28/24 17:30 11/03/24 08:04 Carvedilol 3.125 Mg Tablet PO 11/27/24 17:29 6.25 mg BIDWM KEYSHAWN Administration Dextrose 25 ml 10/29/24 09:54 Dextrose 50%-Water Inj 50 Ml Syringe IV 11/28/24 09:53 Q15MIN PRN BG 50-70 responsive npo pt Dextrose 50 ml 10/29/24 09:54 Dextrose 50%-Water Inj 50 Ml Syringe IV 11/28/24 09:53 Q15MIN PRN BG <50 OR BG <70 & pt unresponsive Duloxetine HCl 60 mg 10/29/24 12:45 11/03/24 08:04 Duloxetine Hcl 30 Mg Capsule PO 11/28/24 12:44 60 mg QDAY KEYSHAWN Administration Famotidine 10 mg 10/26/24 21:00 11/02/24 22:01 Famotidine Inj 10 Mg/Ml Vial 2 Ml IVP 11/25/24 20:59 10 mg HS KEYSHAWN Administration Glucagon 1 mg 10/29/24 09:54 Glucagon Inj 1 Mg Vial IM Q15MIN PRN BG <70, and no IV access Hydralazine HCl 10 mg 10/25/24 18:37 10/27/24 00:00 Hydralazine Inj 20 Mg/Ml Vial IVP 11/24/24 18:36 10 mg Q4HR PRN Administration Hypertension Lisinopril 2.5 mg 10/31/24 09:00 11/03/24 08:05 Lisinopril 2.5 Mg Tablet PO 11/30/24 08:59 2.5 mg QDAY KEYSHAWN Administration Melatonin 3 mg 10/27/24 21:00 11/02/24 22:01 Melatonin 3 Mg Tablet PO 11/26/24 20:59 3 mg HS KEYSHAWN Administration Metronidazole 500 mg 10/31/24 21:00 11/03/24 08:04 Metronidazole 250 Mg Tablet PO 11/07/24 20:59 500 mg BID KEYSHAWN Administration Multi-Ingredient Ointment 0 oz 10/25/24 21:00 11/02/24 22:16 Min Oil/Pet,White (Eucerin) Cr 16 Oz Btl TOP 11/24/24 20:59 Not Given BID [facility] Mupirocin 0 gm 10/30/24 14:00 11/03/24 05:54 Mupirocin Oint 2% 15 Gm Tube TOP 11/04/24 13:59 1 applicatio TID [facility] Administration Home Medication- 1 cap 10/29/24 12:45 11/03/24 08:08 Please Speak With PO 11/28/24 12:44 Not Given Patient Caregiver To QDAY KEYSHAWN Have Rx Brought To [facility] Ondansetron HCl 4 mg 10/24/24 00:30 11/03/24 06:01 Ondansetron Inj 2 Mg/Ml Inj 2 Ml IV 11/23/24 00:29 4 mg Q6H PRN Administration NAUSEA OR VOMITING Protocol Oxycodone/Acetaminophen 1 tab 10/30/24 08:13 11/03/24 13:11 Oxycodone/Apap 5/325 Tablet PO 11/04/24 08:12 1 tab Q6HR PRN Administration PAIN SCALE 4-10(Mod-Sev Pramipexole Dihydrochloride 0.75 mg 10/29/24 21:00 11/02/24 22:00 Pramipexole 0.25 Mg Tablet PO 11/28/24 20:59 0.75 mg HS KEYSHAWN Administration Vancomycin HCl 125 mg 11/01/24 21:25 11/03/24 13:11 Vancomycin 125 Mg Capsule PO 11/08/24 21:24 125 mg QID KEYSHAWN Administration Plan Patient is 84 year old female with past medical history of Hypertension, CAD, HFrEF 45-50%, Alzheimers with lateral wall hypokinesis, and recurrent UTIs who was admitted on 10/23/2024 for acute encephalopathy #C. diff colitis #gastroenteritis #Sepsis secondary to intra-abdominal infection, likely C.diff-resolved #Lactic Acidosis-resolved CT abd/pelvis w/contrast:Fluid distended small bowel loops with wall thickening, diffuse wall thickening involving the colon, differential would include enteritis colitis. Patient continues to have multiple loose BM 4, on 10/27/2024. 10/30/2024 Pending SNF 10/31/2024: pending SNF, D/C Metronidazole IV to oral. Diagnosis: C.diff Tox B (+) -Vancomycin 125 PO (10/25/2024--), consider 14 day course TID & Metronidazole 500 mg Q8 HRs t (10/24--) -DC Cefepime (10/24/2024-10/26/2024) -stool culture -Surgery, Dr. Bhatt,recs-conservative treatment #GIRMA likely pre-renal on CKD stage III, improving Patinet has underlying CKD following Jeremy with renal u/s showing moderate bilaterar renal parenchymal scare formation. Likely pre-renal given BUN/Cr ratio greater than 23 and clinically hypovolemic with hypernatremia. Renal panel is improveing, Cr and BUN downtrending, has adequate urine output -Avoid nephrotixins -Renally Dose medication -Encourage oral hydration -monitor UO -Consult nephrology, DR. Luna, appreciate recommendations. #Normocytic Anemia, improved Could be hemodilutional, as patient received aggressive fluid resuscitation, in a setting of sever dehydration. No sign of bleeding as this time -Continue to monitor H&H #history of Hypertension #hypertensive urgency, resolved -Resumed Lisinopril 2.5 mg once daily -Amlodipine 10 qday -Hydralaizine 10 mg PO TID (holding oral home dose) -PRN Hydralazine IV #Hx of CHF HFrEF 45-50% (09/20/2024) -Carvedilol 6.25 BID -No lasix noted as home mediation, patient appears hypovolemic -work toward GDMT -Strict In and Outs -Daily weight checks. #Dementia Resume home medication -Buspirone -Pramipexole 0.75 -Duloxetine -Memantine-Donepezil #Incidental Solid appearing bilateral renal masses Consider MRI with contrast, however kidney functions currently not at baseline, will continue close monitor, once renal function improved, and PT inpatient, plan is to MRI outpatient/inpatient #Metabolic Acidosis, Anion gap, resolved. #Hypernatremia, Hyperosmolar, Hypovolemic, resolved #Acute metabolic Encephalopathy in the setting of sepsis, resolved #NSTEMI, type II demand ischemia, resolved DVT prophylaxis: SCDs GI prophylaxis:DC PPI in a setting of C.Diff, started famotidine IV Diet: Regular Lines: kunz CODE STATUS:Full code Plan of care discussed with attending Dr. Ware. Yeison Lo MD PGY-1 Attending Provider Attestation/Addendum I, Lore Ware DO, attest that I was physically present for the henriquez portions of the service and evaluated the patient with the resident and I reviewed and discussed the case with the resident and agree with the resident's findings and plans of care as documented above Patient seen and evaluated this AM. Patient reported mild nausea, no acute events overnight. Pending authorization back to SNF.
--- NOTE | 2024-11-03 15:43 | PD.IMPROG ---
Documentation for date of: 11/03/24 Subjective Subjective Interval history: WBC: 9.5, hemoglobin hematocrit 7.4 and 22.6 Exam Vital Signs Temp Pulse Resp BP Pulse Ox O2 Del Method O2 Flow Rate 97.7 F 73 12 117/52 L 97 Room Air 4 11/03/24 12:00 11/03/24 12:00 11/03/24 12:00 11/03/24 12:00 11/03/24 12:00 11/03/24 12:00 11/01/24 12:00 Routine Respiratory Exam Comments: Normal to auscultation Routine Abdominal Exam Comments: Positive bowel sounds nontender Objective Labs 11/02/24 05:05 11/02/24 05:05 Impressions Impression: C. difficile enterocolitis Continue current management Waiting for SNF bed and SNF authorization ABG Interpretation ABG results: 10/23/24 10/23/24 10/24/24 18:12 18:44 07:56 ABG pH 7.24 L ABG pCO2 36 ABG pO2 96 ABG HCO3 16 L ABG O2 Saturation 97 ABG Base Excess -11 L VBG pH 7.24 L 7.18 L VBG pCO2 42 22 L D VBG pO2 35 152 H D VBG Base Excess -9 L -19 L 10/24/24 11:00 ABG pH 7.33 L ABG pCO2 31 L ABG pO2 91 ABG HCO3 17 L ABG O2 Saturation 98 ABG Base Excess -8 L VBG pH VBG pCO2 VBG pO2 VBG Base Excess Assessment & Plan A&P Narrative # Acute C. difficile enterocolitis Continue with IV Flagyl and oral vancomycin most likely is the cause of her abdominal pain and abnormal CT scan findings of the abdomen pelvis showing thickening of the small bowel as well as diffuse colonic wall thickening Continue IV Flagyl and oral vancomycin No need for any invasive GI workup # Anemia multifactorial # Acute gross electrolyte abnormalities #Dementia Thank you very much for the opportunity to participate in the care of this patient Time Spent With Patient Time: Total time spent is greater than 50% in coordination of care (as documented) at patient's floor/unit and/or counseling patient:
[2024-11-03] MEDS: MIN OIL/PET,WHITE (Eucerin) CR 16 OZ BTL TOP (20:34)
[2024-11-03] MEDS: PRAMIPEXOLE 0.25 MG TABLET 0.75 MG PO (20:35)
[2024-11-03] MEDS: MELATONIN 3 MG TABLET PO (20:36)
[2024-11-03] MEDS: ATORVASTATIN CALCIUM 20 MG TABLET 40 MG PO (20:36)
[2024-11-03] MEDS: FAMOTIDINE INJ 10 MG/ML VIAL 2 ML IVP (20:36)
[2024-11-04] VITALS (10 sets, daily range): BP systolic 127–138; BP diastolic 55–78; PULSE 71–88; RESP 12–16; TEMP 36.2–37.1; O2SAT 93–95
[2024-11-04] MEDS: VANCOMYCIN 125 MG CAPSULE PO ×2 (05:36→14:22)
[2024-11-04] MEDS: MUPIROCIN OINT 2% 15 GM TUBE TOP (05:36)
[2024-11-04] MEDS: DULoxetine HCL 30 MG CAPSULE 60 MG PO (08:14)
[2024-11-04] MEDS: metroNIDAZOLE 250 MG TABLET 500 MG PO (08:14)
[2024-11-04] MEDS: carVEDILOL 3.125 MG TABLET 6.25 MG PO (08:14)
[2024-11-04] MEDS: Lisinopril 2.5 MG TABLET PO (08:15)
[2024-11-04] MEDS: BusPIRone HCL 5 MG TABLET PO (08:15)
[2024-11-04] MEDS: amLODIPine BESYLATE 5 MG TABLET 10 MG PO (08:20)
--- NOTE | 2024-11-04 13:47 | ESDS_ITS ---
<Statement entered by Lore Ware DO - 11/05/24 07:29> I, Lore Ware DO, attest that I was physically present for the henriquez portions of the service and evaluated the patient with the resident and I reviewed and discussed the case with the resident and agree with the resident's findings and plans of care as documented above Planned Discharge Date 11/04/24 DS: Providers Provider Date of admission: 10/24/24 00:30 Primary care physician: Larry Lopez MD Admitting Provider: Katiuska Florez MD Attending Provider on Admission: Lore Ware DO Consults: 10/23/24 17:18 Consult to Nephrology Stat Comment: GIRMA Consulting Provider: Anahi Luna 10/23/24 18:08 Consult to General Surgery Stat Comment: Consulting Provider: Damián Glaser 10/24/24 01:12 Referral Wound Care Routine Comment: 10/24/24 01:51 Consult to Gastroenterology Urgent Comment: GI bleed Consulting Provider: Surinder Morrow 10/25/24 15:30 Referral Nutritional Services Routine Comment: Wounds 10/28/24 10:45 Referral Physical Therapy Routine Comment: Physician Instructions: Attending Provider on DC: Neli Robertson MD Discharging Provider: Neli Robertson MD DS: Diagnosis Problem List Completed Was Problem List Reviewed/Reconciled?: Yes Hospital Course Hospital Course Hospital course: Summary: Patient is 84 year old female with past medical history of Hypertension, CAD, HFrEF 45-50%, Alzheimers with lateral wall hypokinesis, and recurrent UTIs who was admitted on 10/23/2024 for acute encephalopathy and subsequently found to be C. diffe positive requiring antibiotics with Flagly and Vancomycin. ER Course: In the ED, her vitals were significant for blood pressure 106/74, RR 24, saturating 94% on 4 L NC. Labs revealed white count 18.3, RDW 50.5, VBG pH 7.24, pCO2 36, chemistry panel revealed sodium 159, chloride 123, bicarb 13.5, anion gap 23, BUN 86, creatinine 3.8, GFR 11, blood sugar 180, calculated osmolality 345, lactic acid 10.0, phosphorus 6.7, total bilirubin less than 0.2, ALT 9 and ALP 121. Lactate dehydrogenase 372, troponin 0.076 and lipase 135. UA revealed 1+ protein but negative for UTI. 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 Gallbladder ultrasound revealed enlarged common bile duct, no stones noted and CTA abdomen/pelvis was negative for any abdominal artery occlusion or bowel ischemia. Hospital Course: Patient initially admitted on 10/24/2024 secondary to acute metabolic encephalopathy with high anion gap metabolic acidosis secondary to lactic acidosis, hypernatremia and hyperchloremia with GIRMA on CKD. Patient given IV fluids on admission 3 L of IV lactated Ringer's. Lactic acidosis decreased. Metabolic acidosis anion gap improved. Blood cultures and urine cultures obtained. Urine culture negative. Blood culture negative. Started on broad- spectrum antibiotics. CT head negative. Chest abdomen pelvis showing pronounced thickening of the urinary bladder wall, abnormal common bile duct enlargement 10 mm, bilateral renal masses, and fluid distended small bowel loops. Follow up with abdomen CTA to rule out colonic ischemia. Gallbladder ultrasound showed enlarged common bile duct no stones noted. CTA abdomen showed fluid distended small bowel loops with wall thickening diffuse wall thickening involving the colon. Occult positive. C. difficile positive. Patient treated with metronidazole and Vanco given extent of thickening of colon. General surgery consulted, no surgical intervention, medical management with antibiotics. Patient's WBC count continued to downtrend. Metabolic acidosis resolved. Carvedilol dosage increased to 6.25 mg BID. Amlodpine 10 mg added and Lisinopril 2.5 mg home dose continued. Instructions: -Please continue oral Vancomycin 125 four times a day and Metronidazole 500 mg orally every 8 hours to complete treatment for C. Difficle colitis, untill November 07. -Please follow up with your primary care provider within one week of discharge -Please follow up with your apprentice photographer, Dr. Luna, within one week of discharge. -#Incidental Solid appearing bilateral renal masses:Consider MRI with contrast, however kidney functions currently not at baseline, will continue close monitor, once renal function improved, and PT inpatient, plan is to MRI outpatient/inpatient -If your symptoms worsen,please seek immediate medical attention and return to your nearest emergency room -If you do not have a primary care provider, you may follow up at the [facility] at [address], [place] [address], Wound care: Resolved rash /excoriations to back from shoulder blades to bilateral buttocks: cleanse with soap and water, pat dry, apply Eucerin cream BID and PRN. Stage 3 to bilateral ischium: cleanse with wound cleanser, pat dry, apply skin prep and cover with allevyn dressing daily Side to side repositioning except for meals #C. difficile colitis #Sepsis secondary due to resolved #Abdominal pain due to above resolved #Pre-renal GIRMA in the setting of dehydration #Hypertension #HFrEF 45 to 50% #Electrolyte disbalance resolved #Acute metabolic encephalopathy in the setting of sepsis resolved #Incidental Solid appearing bilateral renal masses Consider MRI with contrast, however kidney functions currently not at baseline, will continue close monitor, once renal function improved, and PT inpatient, plan is to MRI outpatient/inpatient - The patient's plan was discussed with attending and senior residents Dr. Lisa Robertson MD PGY1 Internal Medicine Senior resident attestation: Patient evaluated and examined at the bedside, plan of care discussed with rest of the team including my attending physician, except as noted. Lisa PGY2 Time Spent with Patient Time attestation: Total time spent providing and/or coordinating discharge services: at least 30 minutes of care and coordination Time spent: Greater than 30 minutes Home Health Home Health Referral Orders: 11/04/24 10:21 Home Health Referral Routine Reason For Exam: fall Home-Bound The patient must either because of illness or injury, need the aid of supportive devices such as crutches, canes, wheelchairs, and walkers; the use of special transportation; or the assistance of another person in order to leave their place of residence; OR have a condition such that leaving his or her home is medically contraindicated. In addition, the patient also meets the following criteria: patient is normally unable to leave the home and leaving home requires considerable taxing effort. Addendum to Home Health Certification Practitioner's Certification: I certify that the patient has been under my care in the hospital and the care of attending physician (see below). We had a [id number] encounter on (see date below). My clinical findings indicate that the patient is home bound per the above criteria and the Home Health Services noted in these orders are medically necessary. The primary reason for the [id number] encounter is related to the fact that the patient requires home health services. Date Certifying [id number] Physician Encounter: 10/24/24 Physician's Name who will Assume Oversight for HH Services: Larry Lopez Physician's Phone No.who will Assume Oversight for Service: [employer] OPERATOR - Community Resources: No PT to Evaluate: Yes PT to evaluate and provide a treatmnet plan to increase patient's mobility and strength. Wound Care: No IV Therapy: No RN Safety Evaluation: Yes RN to evaluate and create a plan of care that will produce positive outcomes. Palliative Treatment: No Palliative treatment and evaluate the need for hospice. Home Health Aide - Personal Care: Yes Home Health Aide to assist with any ADL's. Exam Vital Signs Temp Pulse Resp BP Pulse Ox O2 Del Method O2 Flow Rate 97.4 F 81 16 132/68 H 95 Room Air 4 11/04/24 11:27 11/04/24 12:00 11/04/24 11:27 11/04/24 11:27 11/04/24 11:27 11/04/24 11:27 11/01/24 12:00 Narrative Exam General Appearance: Alert & Oriented X2, thin female who is lying in bed in no acute distress HEENT: Skull symmetrical and atraumatic. Conjunctivae pin and moist. Pupils equal, round, reactive to light and accommodation (PERRL). External ear without lesion or discharge. Straight, nares patient, mucosa pink, no discharge. No thyroid nodule appreciated. No cervical lymphadenopathy. Cardio: Normal Rate and Rhythm with S1 and S2 heart sounds. No murmurs or extra heart sounds auscultated. No bruits on carotid auscultation. No peripheral edema or cyanosis. Lungs: Symmetric with good expansion. Chest and back non-tender. Breath sounds vesicular without crackles, wheezing or rhonchi Abdomen: NON tender, Non-distended, Normal Reactive Bowel Sounds Neuro: Alert, cooperative, YEs oriented to person, Yes place, and No time. Speech clear. CN grossly intact. Upper motor strength 5/5 and Lower motor strength 4/5. Sensation intact. Discharge Plan Plan Patient Disposition: Home w/HOME HEALTH Patient condition on transfer: Stable Care Plan Goals: Instructions: -Please continue oral Vancomycin 125 four times a day and Metronidazole 500 mg orally every 8 hours to complete treatment for C. Difficle colitis, untill November 07. -Please follow up with your primary care provider within one week of discharge -Please follow up with your apprentice photographer, Dr. Luna, within one week of discharge. -#Incidental Solid appearing bilateral renal masses:Consider MRI with contrast, however kidney functions currently not at baseline, will continue close monitor, once renal function improved, and PT inpatient, plan is to MRI outpatient/inpatient -If your symptoms worsen,please seek immediate medical attention and return to your nearest emergency room -If you do not have a primary care provider, you may follow up at the [facility] at [facility] [address], [place] [address], Wound care: Resolved rash /excoriations to back from shoulder blades to bilateral buttocks: cleanse with soap and water, pat dry, apply Eucerin cream BID and PRN. Stage 3 to bilateral ischium: cleanse with wound cleanser, pat dry, apply skin prep and cover with allevyn dressing daily Side to side repositioning except for meals Prescriptions/Referrals Prescriptions/Med Rec: New amlodipine 5 mg Tablet 10 mg PO QDAY 30 Days Qty: 60 0RF carvedilol 3.125 mg Tablet 6.25 mg PO BIDWM 30 Days Qty: 60 0RF vancomycin 125 mg capsule 125 mg PO QID 4 Days Qty: 16 0RF metronidazole 500 mg tablet 500 mg PO Q8H 4 Days Qty: 12 0RF Continued loratadine 10 mg Tablet 10 mg PO QDAY azelastine-fluticasone 137-50 mcg/spray [place],Non-Aerosol 1 spray INTRANASAL BID PRN (Reason: Nasal Congestion) Rx Instructions: administer into each nostril aspirin [Adult Aspirin Regimen] 81 mg tablet,delayed release (DR/EC) 81 mg PO QDAY atorvastatin [Lipitor] 40 mg tablet 40 mg PO QPM famotidine [Acid Controller] 20 mg tablet 20 mg PO QDAY montelukast 10 mg tablet 10 mg PO QDAY oxycodone 10 mg tablet 10 mg PO Q4H PRN (Reason: pain) memantine-donepezil [Namzaric] 28-10 mg capsule,sprinkle,ER 24hr 1 cap PO QDAY buspirone 30 mg tablet 30 mg PO HS Qty: 60 0RF duloxetine 60 mg capsule,delayed release(DR/EC) 60 mg PO HS Qty: 30 0RF lisinopril 2.5 mg tablet 2.5 mg PO QDAY Qty: 30 0RF Discontinued clonazepam 1 mg tablet 1 mg PO DAILY Qty: 30 0RF hydralazine 10 mg Tablet 10 mg PO TID Qty: 60 0RF carvedilol 3.125 mg Tablet 3.125 mg PO BIDWM 30 Days Qty: 60 0RF Referrals: Anahi Luna MD [Physician] - Larry oLpez MD [Primary Care Provider] - Patient/Caregiver Discharge Instructions Other Discharge Activity Instructions:: Instructions: -Please continue oral Vancomycin 125 four times a day and Metronidazole 500 mg orally every 8 hours to complete treatment for C. Difficle colitis, untill November 07. -Please follow up with your primary care provider within one week of discharge -Please follow up with your apprentice photographer, Dr. Luna, within one week of discharge. -#Incidental Solid appearing bilateral renal masses:Consider MRI with contrast, however kidney functions currently not at baseline, will continue close monitor, once renal function improved, and PT inpatient, plan is to MRI outpatient/inpatient -If your symptoms worsen,please seek immediate medical attention and return to your nearest emergency room -If you do not have a primary care provider, you may follow up at the [facility] at [address], [place] [address], Wound care: Resolved rash /excoriations to back from shoulder blades to bilateral buttocks: cleanse with soap and water, pat dry, apply Eucerin cream BID and PRN. Stage 3 to bilateral ischium: cleanse with wound cleanser, pat dry, apply skin prep and cover with allevyn dressing daily Side to side repositioning except for meals Education Materials: Acute Kidney Failure Dc, Clostridium Difficile Infection Print Language: Vietnamese Stand Alone Forms: Irene Award Info., Patient Portal Info Letter Discharge Order Discharge Orders: Discharge (Routine); Ordered 10/30/24 Ordered By: Yola Gonzalez Quality Discharge Quality Measures VTE prophylaxis
--- NOTE | 2024-11-04 16:24 | PC.CC ---
Addendum entered by Harry Mccormack RN 11/04/24 16:32: [facility] accepted the pt. Booked [facility]. Start of care date is 11/06/24. Original Note: HH referral sent on [facility]. Awaiting responses. Pending start of care date.
[2024-11-04] MEDS: oxyCODONE/APAP 5/325 TABLET 1 TAB PO (16:48)
--- NOTE | 2024-11-04 19:47 | PD.IMPROG ---
Documentation for date of: 11/04/24 Subjective Subjective Interval history: Late entry for the note. Okay to discharge as patient is doing better Exam Vital Signs Temp Pulse Resp BP Pulse Ox O2 Del Method O2 Flow Rate 97.4 F 82 16 136/70 H 95 Room Air 4 11/04/24 16:00 11/04/24 16:00 11/04/24 16:00 11/04/24 16:00 11/04/24 16:00 11/04/24 16:00 11/01/24 12:00 Objective Labs 11/02/24 05:05 11/02/24 05:05 Impressions Impression: C. difficile enterocolitis Okay to discharge to be followed by the PCP No GI follow-up necessary ABG Interpretation ABG results: 10/23/24 10/23/24 10/24/24 18:12 18:44 07:56 ABG pH 7.24 L ABG pCO2 36 ABG pO2 96 ABG HCO3 16 L ABG O2 Saturation 97 ABG Base Excess -11 L VBG pH 7.24 L 7.18 L VBG pCO2 42 22 L D VBG pO2 35 152 H D VBG Base Excess -9 L -19 L 10/24/24 11:00 ABG pH 7.33 L ABG pCO2 31 L ABG pO2 91 ABG HCO3 17 L ABG O2 Saturation 98 ABG Base Excess -8 L VBG pH VBG pCO2 VBG pO2 VBG Base Excess Assessment & Plan A&P Narrative # Acute C. difficile enterocolitis Continue with IV Flagyl and oral vancomycin most likely is the cause of her abdominal pain and abnormal CT scan findings of the abdomen pelvis showing thickening of the small bowel as well as diffuse colonic wall thickening Continue IV Flagyl and oral vancomycin No need for any invasive GI workup # Anemia multifactorial # Acute gross electrolyte abnormalities #Dementia Thank you very much for the opportunity to participate in the care of this patient Time Spent With Patient Time: Total time spent is greater than 50% in coordination of care (as documented) at patient's floor/unit and/or counseling patient:
== END 2024-11-04 17:07 | disposition home health service (06) | DRG 871 ==
LOC: SERX 21:16 → SERHOLD 10-24 01:31 → S2NX 10-24 04:41 → S3NX 10-28 04:56
PROVIDERS: Nurse Practitioner Family; Student in an Organized Health Care Education/Training Program; Admitting Provider Internal Medicine; Emergency Provider Emergency Medicine; PCP Family Medicine; Visit Provider Internal Medicine
DX: A41.9 Sepsis, unspecified organism (principal); G92.8 Other toxic encephalopathy; I21.A1 Myocardial infarction type 2; G93.41 Metabolic encephalopathy; E87.0 Hyperosmolality and hypernatremia; E87.20 Acidosis, unspecified; I13.0 Hypertensive heart and chronic kidney disease with heart failure and stage 1 through stage 4 chronic kidney disease, or unspecified chronic kidney disease; I50.22 Chronic systolic (congestive) heart failure; N17.9 Acute kidney failure, unspecified; K92.2 Gastrointestinal hemorrhage, unspecified; R57.9 Shock, unspecified; A04.72 Enterocolitis due to Clostridium difficile, not specified as recurrent; E87.1 Hypo-osmolality and hyponatremia; I50.42 Chronic combined systolic (congestive) and diastolic (congestive) heart failure; K55.9 Vascular disorder of intestine, unspecified; N39.0 Urinary tract infection, site not specified; R65.20 Severe sepsis without septic shock; I25.10 Atherosclerotic heart disease of native coronary artery without angina pectoris; N18.32 Chronic kidney disease, stage 3b; F02.80 Dementia in other diseases classified elsewhere, unspecified severity, without behavioral disturbance, psychotic disturbance, mood disturbance, and anxiety; E87.8 Other disorders of electrolyte and fluid balance, not elsewhere classified; E86.0 Dehydration; G30.9 Alzheimer's disease, unspecified; E78.5 Hyperlipidemia, unspecified; T68.XXXA Hypothermia, initial encounter; D64.9 Anemia, unspecified; E11.22 Type 2 diabetes mellitus with diabetic chronic kidney disease; E78.00 Pure hypercholesterolemia, unspecified; E86.1 Hypovolemia; N28.89 Other specified disorders of kidney and ureter; I16.0 Hypertensive urgency; F41.1 Generalized anxiety disorder; G89.29 Other chronic pain; D63.1 Anemia in chronic kidney disease; M54.50 Low back pain, unspecified; Z78.9 Other specified health status; Z79.82 Long term (current) use of aspirin; L89.90 Pressure ulcer of unspecified site, unspecified stage; Z79.899 Other long term (current) drug therapy; Z87.440 Personal history of urinary (tract) infections; Z87.891 Personal history of nicotine dependence; Z91.81 History of falling
CPT/HCPCS: 36415; 36600; 70450; 71045; 71250; 74018; 74019; 74174; 74176; 76705; 80053; 80061; 80069; 81001; 82010; 82140; 82550; 82803; 83605; 83615; 83690; 83735; 83880; 84100; 84145; 84295; 84443; 84484; 85025; 85610; 85730; 87040; 87081; 87086; 87493; 93005; 93225; 96361; 96365; 96367; 96375; 97162; 99291; A4649; C1751; C1894; J0360; J0692; J0696; J1171; J1642; J1815; J2405; J2470; J3475; J3480; J3490; J7030; J7040; J7042; J7050; J7060; J7070; J7120; Q9967; A9270; J1836

== ENCOUNTER 2025-01-12 05:31 | Emergency (ER) | payer MEDICARE, MEDICAID, SELFPAY ==
[2025-01-12 05:47] VITALS: PULSE 73; RESP 18; O2SAT 98; BMI 45.8
[2025-01-12 06:03] VITALS: BP 160/80; PULSE 77; RESP 19; TEMP 36.7; O2SAT 99
--- NOTE | 2025-01-12 06:29 | PD.EDRME ---
Rapid Medical Screening Exam RME Arrival date/time: 01/12/25 05:31 This is an 84-year-old female that comes into the emergency room with complaints of abdominal pain, and diarrhea. Patient states she has been going to the restroom all night. Patient has a history of depression, hyperlipidemia, high blood pressure. I have greeted and performed a focused initial assessment of this patient. Initial appropriate labs ordered at this time. A comprehensive ED assessment and evaluation of the patient and analysis of all test and completion of medical decision making process will be conducted by additional ED provider. Chief Complaint: Nausea/Vomiting/Diarrhea Time Seen by Provider: 01/12/25 06:10 Vital signs: Vital Signs Temperature 98.1 F 01/12/25 06:03 Pulse Rate 77 01/12/25 06:03 Respiratory Rate 19 01/12/25 06:03 Blood Pressure 160/80 H 01/12/25 06:03 Pulse Oximetry (%) 99 01/12/25 06:03 Oxygen Delivery Method Room Air 01/12/25 06:03
[2025-01-12 07:29] LABS: Basophils # (Auto) 0.1 Thou/mm3 (0.0-0.2); Basophils % (Auto) 1 % (0-2.5); Eosinophils # (Auto) 1.0 Thou/mm3 (0.0-0.5); Eosinophils % (Auto) 8 % (0-10); Hematocrit 32.9 % (36.0-46.0); Hemoglobin 10.5 g/dL (12.0-16.0); Immature Granulocytes Auto 0.03 Thou/mm3 (0.00-0.00); Lymphocytes # (Auto) 2.9 Thou/mm3 (1.0-4.8); Lymphocytes % (Auto) 22 % (10-50); Mean Corpuscular HGB Conc 31.9 g/dl (31.0-37.0); Mean Corpuscular Hemoglobin 29.7 pg (25.0-35.0); Mean Corpuscular Volume 93 fL (80-100); Monocytes # (Auto) 0.6 Thou/mm3 (0.0-0.8); Monocytes % (Auto) 5 % (0-12); Neutrophils # (Auto) 8.4 Thou/mm3 (1.8-7.7); Neutrophils % (Auto) 65 % (37-80); Nucleated Red Blood Cell # 0.00 Thou/mm3 (0.00-0.00); Nucleated Red Blood Cell % 0 /100 WBC (0); Platelet Count 384 Thou/mm3 (140-440); RDW Standard Deviation 46.7 fL (36.4-46.3); Red Blood Count 3.53 Miln/mm3 (4.00-5.20); White Blood Count 12.9 Thou/mm3 (3.6-11.0)
[2025-01-12 08:28] LABS: Collection Type, Urine Voided
[2025-01-12 08:33] VITALS: BP 171/67; PULSE 69; RESP 18; TEMP 36.6; O2SAT 100
[2025-01-12 08:33] LABS: Alanine Aminotransferase 9 U/L (10-49); Albumin, Serum 4.4 gm/dL (3.4-4.8); Albumin/Globulin Ratio 1.7 (1.2-2.2); Alkaline Phosphatase 135 U/L (46-116); Anion Gap 12 (7-16); Aspartate Amino Transferase 16 U/L (0-34); BUN/Creatinine Ratio 18 Ratio (12-20); Bilirubin,Total 0.3 mg/dL (0.3-1.2); Blood Urea Nitrogen 25 mg/dL (9-23); Calcium 9.1 mg/dL (8.3-10.6); Calcium (Corrected) 9.1 mg/dL (8.5-10.1); Carbon Dioxide 21.7 mMol/L (20.0-31.0); Chloride 104 mMol/L (98-107); Creatinine (Component) 1.4 mg/dL (0.6-1.3); Estimated Creatinine Clearance 35.5 mL/min (>60); Globulin 2.6 gm/dL (2.3-3.5); Glucose 115 mg/dL (74-106); Lipase 68 U/L (12-53); Osmolality,Calculated 281 (275-295); Potassium 4.0 mMol/L (3.4-5.1); Sodium 138 mMol/L (136-145); Total Protein 7.0 gm/dL (5.7-8.2); eGFR 38 See Note
[2025-01-12 08:36] LABS: Bilirubin,Urine Negative (Negative); Blood,Urine Negative (Negative); Clarity,Urine Clear (Clear/Hazy); Color,Urine Lt-Yellow (Lt Yel-Yel); Culture Indicated,Urine Not Indicated; Glucose, Urine Negative (Negative); Ketones,Urine Negative (Negative); Leukocyte Esterase,Urine Negative (Negative); Nitrite,Urine Negative (Negative); PH,Urine 6.0 (5.0-7.0); Protein,Urine Trace (Neg - Trace); RBC,Urine 3 /hpf (0-3); Specific Gravity,Urine 1.012 (1.001-1.035); Squamous Epithelial Cell,Urine 1 /hpf (0-5); Urobilinogen,Urine Negative mg/dL (0.0-1.0); WBC,Urine 2 /hpf (0-5)
[2025-01-12 08:53] VITALS: BP 171/67; PULSE 74; RESP 17; TEMP 36.8; O2SAT 99
--- NOTE | 2025-01-12 08:59 | PC.NURSE ---
patient states that it is painful when she urinates.
--- NOTE | 2025-01-12 09:12 | PD.EDNV ---
Nausea/Vomit./Diarrhea-RME/HPI General Chief complaint: Nausea/Vomiting/Diarrhea Stated complaint: ABDOMINAL PAIN Time Seen by Provider: 01/12/25 06:10 Arrival date/time: 01/12/25 05:31 Limitations: no limitations RME / HPI RME / HPI Narrative: 01/12/25 05:31 This is an 84-year-old female that comes into the emergency room with complaints of abdominal pain, and diarrhea. Patient states she has been going to the restroom all night. Patient has a history of depression, hyperlipidemia, high blood pressure. I have greeted and performed a focused initial assessment of this patient. Initial appropriate labs ordered at this time. A comprehensive ED assessment and evaluation of the patient and analysis of all test and completion of medical decision making process will be conducted by additional ED provider. DR. VINES MAIN ED EVALUATION: 84 year old female with history of hypertension, hyperlipidemia presents to the ED for evaluation of diarrhea beginning 2 days ago. Patient reports having loose stools multiple times a day, but denies any blood, mucus, or fever associated with the diarrhea. No history of sick contacts, recent [id number] travel, or recent antibiotic use. Denies nausea and vomiting. Also denies any recent changes in diet or new exposures that may have contributed to the symptoms. Related Data Home Medications ?Medication ?Instructions ?Recorded ?Confirmed azelastine 137 mcg-fluticasone 50 1 spray intranasal BID PRN Nasal 04/07/23 10/30/24 mcg/spray nasal spray Congestion loratadine 10 mg tablet 10 mg PO QDAY 04/07/23 10/30/24 aspirin 81 mg tablet,delayed 81 mg PO QDAY 09/19/24 10/30/24 release (Adult Aspirin Regimen) atorvastatin 40 mg tablet (Lipitor) 40 mg PO QPM 09/19/24 10/30/24 famotidine 20 mg tablet (Acid 20 mg PO QDAY 09/19/24 10/30/24 Controller) memantine ER 28 mg-donepezil 10 mg 1 cap PO QDAY 09/19/24 10/30/24 capsule sprinkle,ext.release 24 hr (Namzaric) montelukast 10 mg tablet 10 mg PO QDAY 09/19/24 10/30/24 oxycodone 10 mg tablet 10 mg PO Q4H PRN pain 09/19/24 10/30/24 Previous Rx's ?Medication ?Instructions ?Recorded buspirone 30 mg tablet 30 mg PO HS #60 tabs 09/22/24 duloxetine 60 mg capsule,delayed 60 mg PO HS #30 caps 09/22/24 release lisinopril 2.5 mg tablet 2.5 mg PO QDAY #30 tabs 09/23/24 Allergies Allergy/AdvReac Type Severity Reaction Status Date / Time Penicillins Allergy Severe UNABLE TO Verified 01/12/25 05:46 WALK Sulfa (Sulfonamide Allergy Severe FLU, Verified 01/12/25 05:46 Antibiotics) UNABLE TO WALK Review of Systems Review of Systems Systems Reviewed: All systems reviewed, normal except as documented Past Medical History Past Medical History NEUROLOGIC: Positive Neurological Disorders, Cerebrovascular Accident and Head Trauma CARDIAC: Positive Hypercholesterolemia, Congestive Heart Failure and Hypertension GENITOURINARY: Positive Genitourinary Disorders (frequent uti's) MUSCULOSKELETAL: Positive Musculoskeletal Disorders, Arthritis and Fibromyalgia ENT: Positive Head Trauma PSYCHO/SOCIAL: Positive Depression and Anxiety OTHER HISTORY: Positive Falls (lumbar fx), Chicken Pox, Measles and Mumps Surgical History SURGICAL: Negative Pacemaker, Abdominal Surgery or Bowel Surgery Social History SMOKING STATUS: Never smoker SUBSTANCE USE: does not use ED Exam General Limitations: Present no limitations General appearance: Present alert and in no apparent distress Head Head exam: Present atraumatic and normocephalic Eye Eye exam: Present normal appearance, PERRL and EOMI ENT ENT exam: Present normal exam, normal oropharynx and mucous membranes moist Neck Neck exam: Present normal inspection, full ROM and trachea midline Chest Chest inspection: Present normal inspection and symmetric chest wall rise Respiratory Respiratory exam: Present normal lung sounds bilaterally Cardiovascular Cardiovascular exam: Present regular rate, normal rhythm and normal heart sounds Abdominal Exam Abdominal exam: Present soft and hyperactive bowel sounds Extremities Exam Extremities exam: Present normal inspection and full ROM Back Exam Back exam: Present normal inspection and full ROM Neurological Exam Neurological exam: Present alert, oriented X3 and CN II-XII intact Psychiatric Psychiatric exam: Present normal affect and normal mood Skin Skin exam: Present warm, dry, intact and normal color Course Quality Measures none Orders Category Date Time Status CBC Stat Lab 01/12/25 07:09 Completed Comprehensive Metabolic Panel Stat Lab 01/12/25 07:09 Completed Lipase Stat Lab 01/12/25 07:09 Completed Urinalysis, C/S if Indicated Stat Lab 01/12/25 08:22 Received Vital Signs Vital signs: Vital Signs Temperature 98.1 F 01/12/25 06:03 Pulse Rate 77 01/12/25 06:03 Respiratory Rate 19 01/12/25 06:03 Blood Pressure 160/80 H 01/12/25 06:03 Pulse Oximetry (%) 99 01/12/25 06:03 Oxygen Delivery Method Room Air 01/12/25 06:03 Pulse ox is 99% on room air which is adequate. Nausea/Vomiting/Diarrhea MDM Narrative MDM Narrative:: Meredith Crook am scribing for and in the presence of Dr. Vines. 84 year old female with a history of hypertension and hyperlipidemia presented to the ED for diarrhea that started 2 days ago. Denies any sick contacts, recent [id number] travel, or recent antibiotic use. On initial evaluation, her WBC shows a slight elevation, and her hemoglobin and creatinine are at baseline, with no acute changes or signs of acute renal injury. Given the absence of alarming symptoms it is likely etiology of the diarrhea is benign, such as a viral gastroenteritis, dietary indiscretion, or a mild functional disturbance. Patient will be discharged home with instructions to follow up with PMD. Patient data External records reviewed:: [facility] previous records (I reviewed admission 10/23/2024 through 11/04/2024 for GIRMA ) Clinical information provided by:: patient Social determinants that could affect healthcare access:: none Patient has the following chronic illnesses:: HTN, HLD How is presenting disease/condition affected by chronic disease/condition?: uneffected by Evaluation data The following diagnostics were reviewed and interpreted by me:: lab results and radiology exam(s) Lab and/or radiology exams considered but not ordered:: None Interpretation Summary: As noted above Medications / Prescriptions Medications / Prescriptions considered but not ordered:: None Medication administrations:: None Consultations Consultation(s) initiated? (list below): No Diagnosis Nausea Differential Diagnosis: food poisoning, gastroenteritis, clostridium difficile infection, drug-induced nausea and vomiting and dehydration Most likely diagnosis given after review of the tests above:: Diarrhea Admission Indicated Admission indicated?: not indicated Admission Request Was there a request for admission?: No Disposition Plan Disposition Plan: Discharge Discharge Attestation Discharge Attestation: The patient and all family members were given an opportunity to ask questions and understood the discharge instructions. Discharge instructions specifically effects, indications for sooner follow up or return to the emergency department, and the expected course of current diagnosis. Patient condition: Stable Discharge Plan Plan Patient Disposition: HOME (Self Care) Patient condition on transfer: Stable Prescriptions/Referrals Prescriptions/Med Rec: No Action loratadine 10 mg Tablet 10 mg PO QDAY azelastine-fluticasone 137-50 mcg/spray [place],Non-Aerosol 1 spray INTRANASAL BID PRN (Reason: Nasal Congestion) Rx Instructions: administer into each nostril aspirin [Adult Aspirin Regimen] 81 mg tablet,delayed release (DR/EC) 81 mg PO QDAY atorvastatin [Lipitor] 40 mg tablet 40 mg PO QPM famotidine [Acid Controller] 20 mg tablet 20 mg PO QDAY montelukast 10 mg tablet 10 mg PO QDAY oxycodone 10 mg tablet 10 mg PO Q4H PRN (Reason: pain) memantine-donepezil [Namzaric] 28-10 mg capsule,sprinkle,ER 24hr 1 cap PO QDAY buspirone 30 mg tablet 30 mg PO HS Qty: 60 0RF duloxetine 60 mg capsule,delayed release(DR/EC) 60 mg PO HS Qty: 30 0RF lisinopril 2.5 mg tablet 2.5 mg PO QDAY Qty: 30 0RF Referrals: Larry Lopez MD [Primary Care Provider] - In 1 week Problem List Clinical Impression: Diarrhea Patient/Caregiver Discharge Instructions Discharge Activity: activity as tolerated Education Materials: ED Vomiting and Diarrhea ... Additional Instructions: Follow-up with your primary care doctor in 3 to 5 days for recheck. You can return to the emergency department sooner if symptoms worsen or if you notice any new, concerning issues. Print Language: Greenlandic Stand Alone Forms: Irene Award Info., Patient Portal Info Letter
--- NOTE | 2025-01-12 10:54 | PC.SS ---
ASW arranged transporation for the pt to return home via [employer].
== END 2025-01-12 10:50 | disposition home or self-care (01) ==
PROVIDERS: Nurse Practitioner Family; Emergency Provider Emergency Medicine; PCP Family Medicine
DX: R19.7 Diarrhea, unspecified (principal); E78.5 Hyperlipidemia, unspecified; F32.A Depression, unspecified
CPT/HCPCS: 36415; 80053; 81001; 83690; 85025; 99283

== ENCOUNTER 2025-06-08 20:36 | Emergency (ER) | payer MEDICARE, MEDICAID, SELFPAY ==
[2025-06-08 20:37] VITALS: PULSE 67; BMI 20.7
[2025-06-08 20:42] VITALS: BP 212/95; PULSE 64; RESP 16; TEMP 37.2; O2SAT 96
--- NOTE | 2025-06-08 20:56 | EDNOTE_ITS ---
ED General RME/HPI General Chief complaint: Weakness Stated complaint: WEAKNESS Time Seen by Provider: 06/08/25 20:53 Arrival date/time: 06/08/25 20:36 CC: Weakness HPI patient states she slept all days been feeling weak for 24 hours, son called 911. EMS report stable vital signs and route. Patient awake alert oriented x 2 no focal deficits denies chest pain shortness of breath difficulty breathing headache nausea vomiting or diarrhea. Related Data Home Medications ?Medication ?Instructions ?Recorded ?Confirmed azelastine 137 mcg-fluticasone 50 1 spray intranasal B ID PRN Nasal 04/07/23 10/30/24 mcg/spray nasal spray Congestion loratadine 10 mg tablet 10 mg PO QDAY 04/07/2310/30 aspirin 81 mg tablet,delayed 81 mg PO QDAY 09/19/24 release (Adult Aspirin Regimen) atorvastatin 40 mg tablet (Lipitor) 40 mg PO QPM 09/1910/30/24 famotidine 20 mg tablet (Acid 20 mg PO QDAY 09/19/24 0 10/30/24 Controller) memantine ER 28 mg-donepezil 10 mg 1 cap PO QDAY 09/1910/30/24 capsule sprinkle,ext.release 24 hr (Namzaric) montelukast 10 mg tablet 10 mg PO QDAY 09/19/2410/30 oxycodone 10 mg tablet 10 mg PO Q4H PRN pain 10/30/24 Previous Rx's ?Medication ?Instructions ?Recorded buspirone 30 mg tablet 30 mg PO HS #60 tabs 5 duloxetine 60 mg capsule,delayed 60 mg PO HS #30 caps 09/22/24 release lisinopril 2.5 mg tablet 2.5 mg PO QDAY #30 tabs 09/07 01/31 Allergies Allergy/AdvReac Type Severity Reaction Status Date / Time Penicillins Allergy Severe UNABLE TO Verified 01/12/25 05:46 WALK Sulfa (Sulfonamide Allergy Severe FLU, Verified 01/12/25 05:46 Antibiotics) UNABLE TO WALK Review of Systems Review of Systems Narrative Review of Systems: GEN: No fever, no chills, no weight loss EYES: No discharge, no visual changes, no pain HEENT: No ear pain, no congestion, no sore throat PULM: No shortness of breath, no cough, no congestion CV: No chest pain, no dyspnea on exertion, no palpitations GI: No nausea, no vomiting, no diarrhea, no pain, no constipation : No frequency, no urgency, no dysuria MUSC/SKEL: No joint pain, no back pain SKIN: No rash PSYCH: No hallucinations, no depression HEME/LYMPH: No easy bleeding or bruising tendencies NEURO: + weakness, no headache Past Medical History Past Medical History NEUROLOGIC: Positive Neurological Disorders, Cerebrovascular Accident and Head Trauma; Negative Seizures CARDIAC: Positive Hypercholesterolemia, Congestive Heart Failure and Hypertension; Negative Cardiac Disorders, Myocardial Infarction, Cardiac Arrhythmia, Atrial Fibrillation, Angina, Heart Murmur, Coronary Artery Disease, Atherosclerotic Heart Disease, Peripheral Vascular Disease, Aneurysm, Congenital Heart Disease, Valvular Heart Disease, Rheumatic Fever, Cardiomyopathy, Edema, Pericarditis, Cellulitis, Deep Vein Thrombosis, Hypotension or Varicose Veins RESPIRATORY: Negative Chronic Obstructive Pulmonary Disease (COPD), Asthma, Bronchitis or Pneumonia GASTROINTESTINAL: Negative Gastrointestinal Disorders, Cirrhosis, Pancreatitis, Celiac Disease, Gall Bladder Disease, Gastrointestinal Bleed, Esophageal Varices, Dorman's Esophagus, Colitis, Ulcerative Colitis, Diverticulitis, Diverticulosis, Ulcer, Irritable Bowel, Crohn's Disease, Obstructive Bowel, Hiatal Hernia, Hemorrhoids or Gastroesophageal Reflux Disease GENITOURINARY: Positive Genitourinary Disorders; Negative Renal Disease, Kidney Stones, Polycystic Kidney Disease, Neurogenic Bladder, Inguinal Hernia or Dialysis MUSCULOSKELETAL: Positive Musculoskeletal Disorders, Arthritis and Fibromyalgia; Negative Muscular Dystrophy, Myasthenia Gravis, Marfan's Syndrome or Rheumatoid Arthritis ENT: Positive Head Trauma; Negative Cataracts, Glaucoma, Blind, Retinal Detachment, Macular Degeneration, E ar Infection, Deafness or Eye Prosthesis ENDOCRINE: Negative Endocrine Disorders, Diabetes Mellitus Type 1, Diabetes Mellitus Type 2, Hypoglycemia, Hyperthyroidism, Hypothyroidism, Parathyroid Disease, Pituitary Disease, Systemic Lupus Erythematosus, Syndrome of Inappropriate Antidiuretic Hormone (SIADH) or Graves' Disease HEMATOLOGIC: Negative Blood Disorders, Anemia, Leukemia, Hemophilia, Thalas semia, Sickle Cell Disease or Clotting Problems PSYCHO/SOCIAL: Positive Depression and Anxiety; Negative Self-Mutilation OTHER HISTORY: Positive Falls, Chicken Pox, Measles and Mumps; Negative Autoimmune Disease, Blood Transfusions, Anesthesia Reactions or Cancer Family History FAMILY HISTORY: Negative Family Psychiatric Problems, Family Respiratory Disorders, Family Cardiac Disorders, Family Gastrointestinal Problems, Family Cancer, Family Surgery or Family Anesthesia Reaction Surgical History SURGICAL: Negative Pacemaker, Abdominal Surgery or Bowel Surgery Social History SMOKING STATUS: Never smoker SUBSTANCE USE: does not use ED Exam Narrative Physical exam: [General: Not in any acute distress Head normocephalic HEENT: Eyes pupils are PERRLA EOMs are intact mouth pink moist membranes uvula is midline swallow symmetrical phonation is normal. All other subsystems of HEENT are within acceptable limits Neck is supple nontender Chest equal chest rise nontender to palpation Respiratory: Clear to auscultation no wheezes crackles or rubs CV: Rate rhythm is regular no murmurs rubs or clicks Abdomen is soft nontender no masses positive bowel sounds all 4 quadrants Back: No CVA tenderness no spinous process tenderness from cervical spine thoracic and lumbar spine Skin: Intact no petechiae rash induration ulceration or crepitus Extremities: Moving all extremity against resistance cap refill less than 2 seconds neurosensory intact Neuro: Awake alert oriented x2, person and place, Glascow coma 15 no focal deficits] Course Quality Measures none Orders Category Date Time Status EKG (ED ONLY) *Do not use* NOW Care 06/08/25 20:56 Completed EKG (ED Only) Stat Exams 06/08/25 20:56 Draft B-Type Natriuretic Peptide Stat Lab 06/08/25 21:11 Completed CBC Stat Lab 06/08/25 21:11 Completed Comprehensive Metabolic Panel Stat Lab 06/08/25 21:11 Completed Drug Screen,Urine Stat Lab 06/08/25 20:55 Completed LDH (Lactate Dehydrogenase) Stat Lab 06/08/25 21:11 Completed Magnesium Stat Lab 06/08/25 21:11 Completed Partial Thromboplastin Time Stat Lab 06/08/25 21:11 Completed Prothrombin Time with INR Stat Lab 06/08/25 21:11 Completed Troponin I Stat Lab 06/08/25 21:11 Completed Urinalysis, C/S if Indicated Stat Lab 06/08/25 21:06 Completed hydrALAZINE INJ [Apresoline Inj] Med 06/08/25 21:24 Discontinued 20 mg IVP X1 ONE Vital Signs Vital signs: Vital Signs Temperature 99.0 F 06/08/25 20:42 Pulse Rate 64 06/08/25 20:42 Respiratory Rate 16 06/08/25 20:42 Blood Pressure 212/95 H 06/08/25 20:42 Pulse Oximetry (%) 96 06/08/25 20:42 Oxygen Delivery Method Room Air 06/08/25 20:42 Discharge Plan Plan Patient Disposition: HOME (Self Care) Patient condition on transfer: Stable Prescriptions/Referrals Prescriptions/Med Rec: No Action loratadine 10 mg Tablet 10 mg PO QDAY azelastine-fluticasone 137-50 mcg/spray [place],Non-Aerosol 1 spray INTRANASAL BID PRN (Reason: Nasal Congestion) Rx Instructions: administer into each nostril aspirin [Adult Aspirin Regimen] 81 mg tablet,delayed release (DR/EC) 81 mg PO QDAY atorvastatin [Lipitor] 40 mg tablet 40 mg PO QPM famotidine [Acid Controller] 20 mg tablet 20 mg PO QDAY montelukast 10 mg tablet 10 mg PO QDAY oxycodone 10 mg tablet 10 mg PO Q4H PRN (Reason: pain) memantine-donepezil [Namzaric] 28-10 mg capsule,sprinkle,ER 24hr 1 cap PO QDAY buspirone 30 mg tablet 30 mg PO HS Qty: 60 0RF duloxetine 60 mg capsule,delayed release(DR/EC) 60 mg PO HS Qty: 30 0RF lisinopril 2.5 mg tablet 2.5 mg PO QDAY Qty: 30 0RF Referrals: No Primary/Family,Physician [Primary Care Provider] - In 1 week Problem List Clinical Impression: Weakness, Hypertension Patient/Caregiver Discharge Instructions Education Materials: Controlling High Blood Pressure, ED Weakness (Uncertain Cause) Print Language: Liberian Stand Alone Forms: Irene Award Info., Patient Portal Info Letter PA/[employer] Supervising Physician PA/[employer] Supervising Physician: Carloz Moreno ENP [facility] Clinical Information Provided by: patient Medical Records reviewed [facility] Meds/Rx considered, not ordered None Labs/Rad/Tests considered, not ordered None Chronic Illness/Social Conditions which may negatively complicate care or outcome(s)-explain: None or not appl icable Explain: Review the medical record show the patient has a wide variety of nonlethal visits to the emergency room. EKG Interpretation EKG #1: EKG Interpretation: EKG performed at 2105 shows a ventricular rate of 65 NV interval 151 QRS of 86 QTc of 410 the sinus rhythm nonspecific ST segment changes. Labs Labs: interpreted by mt Lab(s) Interpretation(s): CBC shows no acute leukocytosis H&H of 10.2 and 30.2 respectively patient has baseline stable anemia. No thrombocytopenia CMP shows no significant Cee imbalances creatinine of 1.4 no other transaminitis or T. bili elevation Troponin and BNP are within acceptable limits Coags within acceptable limits. Urine is negative for UTI. UDS is negative. Imaging Imaging interpretation: none Medication Administration(s) none Medication Administration History Discontinued Medications Hydralazine HCl (Hydralazine Inj 20 Mg/Ml Vial) 20 mg IVP X1 ONE Stop: 06/08/25 21:25 Last Admin: 06/08/25 21:29 Dose: 20 mg Documented By: AXEL Diagnosis Differential Diagnosis ED Complaint MDM: Electrolyte imbalance renal failure anemia
--- NOTE | 2025-06-08 20:56 | EKG_ITS ---
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
[2025-06-08 21:17] LABS: Collection Type, Urine Clean Catch
[2025-06-08 21:24] LABS: Basophils # (Auto) 0.0 Thou/mm3 (0.0-0.2); Basophils % (Auto) 1 % (0-2.5); Eosinophils # (Auto) 0.7 Thou/mm3 (0.0-0.5); Eosinophils % (Auto) 10 % (0-10); Hematocrit 30.2 % (36.0-46.0); Hemoglobin 10.2 g/dL (12.0-16.0); Immature Granulocytes Auto 0.01 Thou/mm3 (0.00-0.00); Lymphocytes # (Auto) 1.9 Thou/mm3 (1.0-4.8); Lymphocytes % (Auto) 29 % (10-50); Mean Corpuscular HGB Conc 33.8 g/dl (31.0-37.0); Mean Corpuscular Hemoglobin 30.8 pg (25.0-35.0); Mean Corpuscular Volume 91 fL (80-100); Monocytes # (Auto) 0.5 Thou/mm3 (0.0-0.8); Monocytes % (Auto) 7 % (0-12); Neutrophils # (Auto) 3.5 Thou/mm3 (1.8-7.7); Neutrophils % (Auto) 53 % (37-80); Nucleated Red Blood Cell # 0.00 Thou/mm3 (0.00-0.00); Nucleated Red Blood Cell % 0 /100 WBC (0); Platelet Count 282 Thou/mm3 (140-440); RDW Standard Deviation 45.2 fL (36.4-46.3); Red Blood Count 3.31 Miln/mm3 (4.00-5.20); White Blood Count 6.5 Thou/mm3 (3.6-11.0)
[2025-06-08 21:29] VITALS: BP 225/82; PULSE 71
[2025-06-08] MEDS: hydrALAZINE INJ 20 MG/ML VIAL IVP (21:29)
[2025-06-08 21:31] LABS: INR 1.0 (0.9-1.3); Partial Thromboplastin Time 25.0 Seconds (22.0-36.0); Prothrombin Time 10.2 Seconds (9.0-12.2)
[2025-06-08 21:32] LABS: Bilirubin,Urine Negative (Negative); Blood,Urine Negative (Negative); Clarity,Urine Clear (Clear/Hazy); Color,Urine Lt-Yellow (Lt Yel-Yel); Culture Indicated,Urine Not Indicated; Glucose, Urine Negative (Negative); Ketones,Urine Negative (Negative); Leukocyte Esterase,Urine Negative (Negative); Nitrite,Urine Negative (Negative); PH,Urine 6.0 (5.0-7.0); Protein,Urine 1+ (Neg - Trace); RBC,Urine 1 /hpf (0-3); Specific Gravity,Urine 1.012 (1.001-1.035); Squamous Epithelial Cell,Urine < 1 /hpf (0-5); Urobilinogen,Urine Negative mg/dL (0.0-1.0); WBC,Urine < 1 /hpf (0-5)
[2025-06-08 21:39] LABS: B-Type Natriuretic Peptide 92 pg/mL (0-100)
[2025-06-08 21:39] LABS: Amphetamine/Methamp Scrn,U Negative (Negative); Barbiturate Screen,Urine Negative (Negative); Benzodiazepines Screen,Urine Negative (Negative); Benzoylecgonine Screen, Ur Negative (Negative); Fentanyl Screen,Urine Negative (Negative); Opiate Screen,Urine Negative (Negative); THC Screen,Urine Negative (Negative)
[2025-06-08 21:42] LABS: Alanine Aminotransferase 9 U/L (10-49); Albumin, Serum 4.4 gm/dL (3.4-4.8); Albumin/Globulin Ratio 2.1 (1.2-2.2); Alkaline Phosphatase 86 U/L (46-116); Anion Gap 9 (7-16); Aspartate Amino Transferase < 8 U/L (0-34); BUN/Creatinine Ratio 16 Ratio (12-20); Bilirubin,Total 0.2 mg/dL (0.3-1.2); Blood Urea Nitrogen 23 mg/dL (9-23); Calcium 9.5 mg/dL (8.3-10.6); Calcium (Corrected) 9.5 mg/dL (8.5-10.1); Carbon Dioxide 22.8 mMol/L (20.0-31.0); Chloride 111 mMol/L (98-107); Creatinine (Component) 1.4 mg/dL (0.6-1.3); Estimated Creatinine Clearance 23.0 mL/min (>60); Globulin 2.1 gm/dL (2.3-3.5); Glucose 91 mg/dL (74-106); LDH (Lactate Dehydrogenase) 159 U/L (120-246); Magnesium 1.7 mg/dL (1.6-2.6); Osmolality,Calculated 288 (275-295); Potassium 4.4 mMol/L (3.4-5.1); Sodium 143 mMol/L (136-145); Total Protein 6.5 gm/dL (5.7-8.2); Troponin I 0.044 ng/mL (0.0-0.045); eGFR 37 See Note
[2025-06-08 21:55] VITALS: BP 166/74; PULSE 81; RESP 17; O2SAT 100
== END 2025-06-08 22:50 | disposition home or self-care (01) ==
PROVIDERS: Registered Nurse General Practice; Emergency Provider Emergency Medicine
DX: I11.0 Hypertensive heart disease with heart failure (principal); I50.9 Heart failure, unspecified; R53.1 Weakness; R94.31 Abnormal electrocardiogram [ECG] [EKG]; E78.00 Pure hypercholesterolemia, unspecified
CPT/HCPCS: 36415; 80053; 80307; 81001; 83615; 83735; 83880; 84484; 85025; 85610; 85730; 93005; 96374; 99283; J0360

== ENCOUNTER 2025-06-28 17:44 | Emergency (ER) | payer MEDICARE, MEDICAID, SELFPAY ==
[2025-06-28 17:46] VITALS: PULSE 84; RESP 16; O2SAT 98; BMI 24.5
[2025-06-28 18:01] VITALS: BP 127/67; PULSE 89; RESP 16; TEMP 36.7; O2SAT 96
--- NOTE | 2025-06-28 18:14 | EKG_ITS ---
[facility] Test Date: 2025-06-28 Pat Name: VINEET ANDRES Department: Room: - Gender: Female Chief Of Planning: : 1940 Requested By: Mariano Her Order Number: [id number] Reading MD: Mariano Her Measurements Intervals [place] Rate: 80 P: 35 ND: 130 QRS: 18 QRSD: 81 T: 67 QT: 354 QTc: 410 Interpretive Statements SINUS RHYTHM Compared to ECG 06/08/2025 21:05:09 No significant changes /store/S0/[id number].pdf
--- NOTE | 2025-06-28 18:14 | XR_ITS ---
EXAMINATION: AP chest single view TECHNIQUE: AP portable upright chest single view Date and time: June 28, 2025, 1823 hours, comparison October 24, 2024 INDICATIONS: Onset chest pain today FINDINGS: Normal heart size Mild to moderate elevation right hemidiaphragm No lobar pneumonia or pulmonary edema Prominent osteopenia IMPRESSION: No lobar pneumonia or pulmonary edema
--- NOTE | 2025-06-28 18:16 | PD.EDWEAK ---
ED Weakness RME/HPI General Chief complaint: Weakness Stated complaint: SOB Time Seen by Provider: 06/28/25 18:09 Arrival date/time: 06/28/25 17:44 RME / HPI RME / HPI Narrative: 85-year-old female with a history of electrolyte abnormality in the past, in particular hyponatremia, and acute kidney injury, presents with cough and shortness of breath and chest congestion since last night. No fevers. Mild posterior headache. No trauma. She does have a history of hypercholesterolemia. She also has a history of hypertension. No history of diabetes. She has also had urinary tract infections in the past. Related Data Home Medications ?Medication ?Instructions ?Recorded ?Confirmed azelastine 137 mcg-fluticasone 50 1 spray intranasal BID PRN Nasal 04/07/23 10/30/24 mcg/spray nasal spray Congestion loratadine 10 mg tablet 10 mg PO QDAY 04/07/23 10/30/24 aspirin 81 mg tablet,delayed 81 mg PO QDAY 09/19/24 10/30/24 release (Adult Aspirin Regimen) atorvastatin 40 mg tablet (Lipitor) 40 mg PO QPM 09/19/24 10/30/24 famotidine 20 mg tablet (Acid 20 mg PO QDAY 09/19/24 10/30/24 Controller) memantine ER 28 mg-donepezil 10 mg 1 cap PO QDAY 09/19/24 10/30/24 capsule sprinkle,ext.release 24 hr (Namzaric) montelukast 10 mg tablet 10 mg PO QDAY 09/19/24 10/30/24 oxycodone 10 mg tablet 10 mg PO Q4H PRN pain 09/19/24 10/30/24 Previous Rx's ?Medication ?Instructions ?Recorded buspirone 30 mg tablet 30 mg PO HS #60 tabs 09/22/24 duloxetine 60 mg capsule,delayed 60 mg PO HS #30 caps 09/22/24 release lisinopril 2.5 mg tablet 2.5 mg PO QDAY #30 tabs 09/23/24 albuterol sulfate 90 mcg/actuation 2 inh inhalation Q4H PRN shortness 06/28/25 breath activated powder inhaler of breath #1 ea prednisone 20 mg tablet 20 mg PO BID 5 days #10 tabs 06/28/25 Allergies Allergy/AdvReac Type Severity Reaction Status Date / Time Penicillins Allergy Severe UNABLE TO Verified 06/28/25 17:55 WALK Sulfa (Sulfonamide Allergy Severe FLU, Verified 06/28/25 17:55 Antibiotics) UNABLE TO WALK Review of Systems Review of Systems Systems Reviewed: All systems reviewed, normal except as documented ED Exam Narrative Physical exam: Generally patient is alert not obviously dyspneic and in no obvious distress, heart regular rate and rhythm, neck shows no JVD, lungs show rhonchi bilateral lower lobes right side greater than left with good air exchange, extremities show no edema, abdomen is soft nondistended nontender, neurologic exam shows Kiera Coma Scale 15 without focal motor deficit Course Quality Measures none Orders Category Date Time Status Bedside COVID-19 Antigen Test NOW Care 06/28/25 18:14 Active Bedside Influenza A&B Antigen Test NOW Care 06/28/25 18:14 Completed Bedside RSV Test NOW Care 06/28/25 18:13 Completed EKG (ED ONLY) *Do not use* NOW Care 06/28/25 18:14 Completed EKG (ED Only) Stat Exams 06/28/25 18:14 Draft XR chest 1V portable Stat Exams 06/28/25 18:14 Completed CBC Stat Lab 06/28/25 18:20 Completed CMP [Comprehensive Metabolic Panel] Stat Lab 06/28/25 18:20 Completed Troponin I Stat Lab 06/28/25 18:20 Completed Vital Signs Vital signs: Vital Signs Temperature 98.0 F 06/28/25 18:01 Pulse Rate 89 06/28/25 18:01 Respiratory Rate 16 06/28/25 18:01 Blood Pressure 127/67 06/28/25 18:01 Pulse Oximetry (%) 96 06/28/25 18:01 Oxygen Delivery Method Room Air 06/28/25 18:01 Weakness MDM Narrative MDM Narrative:: I interpreted all labs. There was no significant abnormality. Cardiac workup was unremarkable. EKG showed normal sinus rhythm at a rate of 80 without ischemic change or ectopy. Troponin is not elevated. BNP is not elevated. RSV flu and COVID testing was all negative. Chest x-ray showed no evidence of pneumonia. Patient is stable for discharge. She more than likely has a viral syndrome. She will be given a short course of steroid treatment. Albuterol as prescribed. Follow-up with her doctor. Return to ER as needed or if condition worsens. No antibiotics are indicated at this time. Patient data External records reviewed:: Other (specify) Clinical information provided by:: none Social determinants that could affect healthcare access:: none Patient has the following chronic illnesses:: None How is presenting disease/condition affected by chronic disease/condition?: no chronic disease Evaluation data The following diagnostics were reviewed and interpreted by me:: other (specify) Lab and/or radiology exams considered but not ordered:: None Interpretation Summary: None Medications / Prescriptions Medications or Prescriptions considered but not ordered:: None Medication administrations:: None Consultations Consultation(s) initiated? (list below): No Diagnosis Weakness Differential Diagnosis: other Most likely diagnosis given after review of the tests above:: None Admission Indicated Admission indicated?: not indicated Admission Request Was there a request for admission?: No Disposition Plan Disposition Plan: Discharge Discharge Attestation Discharge Attestation: The patient and all family members were given an opportunity to ask questions and understood the discharge instructions. Discharge instructions specifically effects, indications for sooner follow up or return to the emergency department, and the expected course of current diagnosis. Patient condition: Stable Discharge Plan Plan Patient Disposition: HOME (Self Care) Prescriptions/Referrals Prescriptions/Med Rec: New albuterol sulfate 90 mcg/actuation aerosol powdr breath activated 2 inh inhalation Q4H PRN (Reason: shortness of breath) Qty: 1 0RF prednisone 20 mg tablet 20 mg PO BID 5 Days Qty: 10 0RF Taper: Prednisone Taper 20 mg TWICE A DAY for 5 Days and 0 Hour No Action loratadine 10 mg Tablet 10 mg PO QDAY azelastine-fluticasone 137-50 mcg/spray Desha,Non-Aerosol 1 spray INTRANASAL BID PRN (Reason: Nasal Congestion) Rx Instructions: administer into each nostril aspirin [Adult Aspirin Regimen] 81 mg tablet,delayed release (DR/EC) 81 mg PO QDAY atorvastatin [Lipitor] 40 mg tablet 40 mg PO QPM famotidine [Acid Controller] 20 mg tablet 20 mg PO QDAY montelukast 10 mg tablet 10 mg PO QDAY oxycodone 10 mg tablet 10 mg PO Q4H PRN (Reason: pain) memantine-donepezil [Namzaric] 28-10 mg capsule,sprinkle,ER 24hr 1 cap PO QDAY buspirone 30 mg tablet 30 mg PO HS Qty: 60 0RF duloxetine 60 mg capsule,delayed release(DR/EC) 60 mg PO HS Qty: 30 0RF lisinopril 2.5 mg tablet 2.5 mg PO QDAY Qty: 30 0RF Referrals: No Primary/Family,Physician [Primary Care Provider] - In 1 week Problem List Clinical Impression: Acute viral syndrome Patient/Caregiver Discharge Instructions Education Materials: ED Viral Syndrome (Adult) Additional Instructions: Medication as prescribed. Follow-up with your doctor. Return to ER as needed or if condition worsens. Print Language: Greek Stand Alone Forms: Irene Award Info., Patient Portal Info Letter
[2025-06-28 18:36] LABS: Basophils # (Auto) 0.0 Thou/mm3 (0.0-0.2); Basophils % (Auto) 0 % (0-2.5); Eosinophils # (Auto) 0.3 Thou/mm3 (0.0-0.5); Eosinophils % (Auto) 3 % (0-10); Hematocrit 33.7 % (36.0-46.0); Hemoglobin 10.9 g/dL (12.0-16.0); Immature Granulocytes Auto 0.03 Thou/mm3 (0.00-0.00); Lymphocytes # (Auto) 1.4 Thou/mm3 (1.0-4.8); Lymphocytes % (Auto) 14 % (10-50); Mean Corpuscular HGB Conc 32.3 g/dl (31.0-37.0); Mean Corpuscular Hemoglobin 30.2 pg (25.0-35.0); Mean Corpuscular Volume 93 fL (80-100); Monocytes # (Auto) 0.3 Thou/mm3 (0.0-0.8); Monocytes % (Auto) 3 % (0-12); Neutrophils # (Auto) 8.3 Thou/mm3 (1.8-7.7); Neutrophils % (Auto) 81 % (37-80); Nucleated Red Blood Cell # 0.00 Thou/mm3 (0.00-0.00); Nucleated Red Blood Cell % 0 /100 WBC (0); Platelet Count 349 Thou/mm3 (140-440); RDW Standard Deviation 46.5 fL (36.4-46.3); Red Blood Count 3.61 Miln/mm3 (4.00-5.20); White Blood Count 10.3 Thou/mm3 (3.6-11.0)
[2025-06-28 19:13] LABS: Alanine Aminotransferase < 7 U/L (10-49); Albumin, Serum 4.3 gm/dL (3.4-4.8); Albumin/Globulin Ratio 1.6 (1.2-2.2); Alkaline Phosphatase 100 U/L (46-116); Anion Gap 11 (7-16); Aspartate Amino Transferase 17 U/L (0-34); BUN/Creatinine Ratio 17 Ratio (12-20); Bilirubin,Total 0.2 mg/dL (0.3-1.2); Blood Urea Nitrogen 29 mg/dL (9-23); Calcium 9.2 mg/dL (8.3-10.6); Calcium (Corrected) 9.2 mg/dL (8.5-10.1); Carbon Dioxide 20.6 mMol/L (20.0-31.0); Chloride 108 mMol/L (98-107); Creatinine (Component) 1.7 mg/dL (0.6-1.3); Estimated Creatinine Clearance 20.7 mL/min (>60); Globulin 2.7 gm/dL (2.3-3.5); Glucose 96 mg/dL (74-106); Osmolality,Calculated 285 (275-295); Potassium 4.2 mMol/L (3.4-5.1); Sodium 140 mMol/L (136-145); Total Protein 7.0 gm/dL (5.7-8.2); Troponin I 0.031 ng/mL (0.0-0.045); eGFR 30 See Note
[2025-06-28 19:23] VITALS: BP 159/75; PULSE 76; RESP 12; TEMP 36.8; O2SAT 99
== END 2025-06-28 20:05 | disposition home or self-care (01) ==
PROVIDERS: Emergency Provider Emergency Medicine
DX: B34.9 Viral infection, unspecified (principal); R05.9 Cough, unspecified; I10 Essential (primary) hypertension; E78.00 Pure hypercholesterolemia, unspecified
CPT/HCPCS: 36415; 71045; 80053; 84484; 85025; 87502; 87634; 87635; 93005; 99283